=== PATIENT | male | born 1960 | race Two or more races ===

== ENCOUNTER 2020-01-30 11:08 | Outpatient (REF) | payer OTHER, SELFPAY | END 2020-01-30 11:09 | disposition home or self-care (01) | LOC: HO.LAB 11:08 | PROVIDERS: PCP Internal Medicine; Visit Provider Internal Medicine | DX: Z20.828 Contact with and (suspected) exposure to other viral communicable diseases (principal) | CPT/HCPCS: 87635 ==

== ENCOUNTER 2020-02-20 11:15 | Outpatient (REF) | payer OTHER, SELFPAY | END 2020-02-20 11:16 | disposition home or self-care (01) | LOC: HO.LAB 11:15 | PROVIDERS: PCP Internal Medicine; Visit Provider Internal Medicine | DX: Z20.828 Contact with and (suspected) exposure to other viral communicable diseases (principal) | CPT/HCPCS: C9803; U0003 ==

== ENCOUNTER → 2020-02-21 14:36 | Outpatient (BNVA) | payer OTHER, SELFPAY | PROVIDERS: PCP Internal Medicine; Referring Provider Internal Medicine; Visit Provider Internal Medicine | DX: G47.33 Obstructive sleep apnea (adult) (pediatric) (principal); E66.9 Obesity, unspecified; Z68.35 Body mass index [BMI] 35.0-35.9, adult; Z99.89 Dependence on other enabling machines and devices | CPT/HCPCS: 99212 ==

== ENCOUNTER 2020-04-26 10:31 | Outpatient (REF) | payer OTHER, SELFPAY | END 2020-04-26 10:32 | disposition home or self-care (01) | LOC: HO.LAB 10:31 | PROVIDERS: Visit Provider Internal Medicine | DX: Z20.822 Contact with and (suspected) exposure to COVID-19 (principal) | CPT/HCPCS: 36415; C9803; U0003 ==

== ENCOUNTER 2020-05-15 09:58 | Outpatient (REF) | payer OTHER, SELFPAY ==
[2020-05-15 10:49] LABS: Glucose Urine UA NEG (NEG); Leukocyte Esterase Urine 1+ (NEG); Nitrite Urine NEG (NEG); Specific Gravity - Urine <= 1.005 (1.005-1.025); Urine Blood NEG (NEG); Urine Ketones NEG (NEG); Urine Protein NEG (NEG-TRACE)
[2020-05-15 10:58] LABS: Appearance Urine CLEAR; Color Urine YELLOW
[2020-05-15 11:11] LABS: Alanine Aminotransferase 25 U/L (0-40); Albumin Level 3.9 g/dL (3.5-5.0); Alkaline Phosphatase 93 U/L (39-117); Anion Gap 11 (12-20); Aspartate Amino Transferase 25 U/L (5-37); Bilirubin Total 0.3 mg/dL (0.0-1.0); Blood Urea Nitrogen 12 mg/dL (9-16); Calcium 9.4 mg/dL (8.4-10.2); Carbon Dioxide 30 mmol/L (22-29); Chloride 102 mmol/L (96-108); Cholesterol 135 mg/dL; Estimated Glomerular Filt Rate > 60; Glucose Random 109 mg/dL (60-115); HDL Cholesterol 36 mg/dL; LDL Cholesterol Calculated 67 mg/dl; Potassium 4.6 mmol/L (3.3-5.1); Sodium 138 mmol/L (135-145); Triglycerides 163 mg/dL
[2020-05-15 11:32] LABS: Vitamin B12 389 pg/mL (200-900)
[2020-05-15 11:33] LABS: Thyroid Stimulating Hormone 3.23 uIU/mL (0.32-4.0)
[2020-05-15 11:36] LABS: Estimated Average Glucose 111 mg/dL; Hemoglobin A1c % 5.5 %
[2020-05-15 11:46] LABS: RBC Urine 0 /HPF (0); Squamous Epithelial Cell Urine TRACE /LPF
[2020-05-15 11:58] LABS: Creatinine Urine 23.85 mg/dL; Microalbum/Creatinine Ratio Ur 29.3 ug/mg cr
== END 2020-05-15 09:59 | disposition home or self-care (01) ==
LOC: HO.LAB 09:58
PROVIDERS: PCP Internal Medicine; Visit Provider Internal Medicine
DX: E11.9 Type 2 diabetes mellitus without complications (principal); E78.00 Pure hypercholesterolemia, unspecified; G31.84 Mild cognitive impairment of uncertain or unknown etiology; R80.8 Other proteinuria
CPT/HCPCS: 36415; 80053; 80061; 81001; 82043; 82607; 83036; 84443

== ENCOUNTER 2020-06-25 11:47 | Outpatient (REF) | payer OTHER, SELFPAY | END 2020-06-25 11:48 | disposition home or self-care (01) | LOC: HO.LAB 11:47 | PROVIDERS: Visit Provider Internal Medicine | DX: Z20.822 Contact with and (suspected) exposure to COVID-19 (principal) | CPT/HCPCS: 36415; C9803; U0003; U0005 ==

== ENCOUNTER 2020-07-05 10:15 | Outpatient (REF) | payer OTHER, SELFPAY ==
[2020-07-05 14:27] LABS: SARS COV2 PCR INHOUSE NEGATIVE (Negative)
== END 2020-07-05 10:16 | disposition home or self-care (01) ==
LOC: HO.LAB 10:15
PROVIDERS: Visit Provider Internal Medicine
DX: Z20.822 Contact with and (suspected) exposure to COVID-19 (principal)
CPT/HCPCS: C9803; U0003

== ENCOUNTER 2020-07-26 09:18 | Outpatient (REF) | payer OTHER, SELFPAY ==
[2020-07-26 13:13] LABS: PSA,Total (Free>4and<10) 0.37 ng/mL (0.00-4.00)
== END 2020-07-26 09:19 | disposition home or self-care (01) ==
LOC: HO.LAB 09:18
PROVIDERS: PCP Internal Medicine; Visit Provider Urology
DX: Z12.5 Encounter for screening for malignant neoplasm of prostate (principal); N40.0 Benign prostatic hyperplasia without lower urinary tract symptoms
CPT/HCPCS: 36415; 84153

== ENCOUNTER 2020-08-01 09:35 | Outpatient (REF) | payer OTHER, SELFPAY | END 2020-08-01 09:36 | disposition home or self-care (01) | LOC: HO.LAB 09:35 | PROVIDERS: Visit Provider Internal Medicine | DX: Z20.822 Contact with and (suspected) exposure to COVID-19 (principal) | CPT/HCPCS: 99212; C9803; U0003; U0005 ==

== ENCOUNTER → 2020-08-14 14:42 | Outpatient (BNVA) | payer OTHER, SELFPAY | PROVIDERS: PCP Internal Medicine; Visit Provider Internal Medicine | DX: E66.9 Obesity, unspecified (principal); G47.33 Obstructive sleep apnea (adult) (pediatric); Z99.89 Dependence on other enabling machines and devices | CPT/HCPCS: 99212 ==

== ENCOUNTER 2020-08-22 20:01 | Emergency (ER) | payer OTHER, SELFPAY ==
--- NOTE | ~2020-08-22 | CT_ITS ---
EXAMINATION: CT HEAD WITHOUT CONTRAST CLINICAL INFORMATION: Dizziness. COMPARISON: None TECHNIQUE: Contiguous axial imaging was performed from the skull base to vertex without intravenous administration of contrast. This CT examination was performed using dose optimization techniques as appropriate, variously including the following: *Automated exposure control *Adjustment of mA and/or kV according to patient size (this includes techniques or standardized protocols for targeted exams where dose is matched to indication/reason for exam; i.e. extremities or head) *Use of iterative reconstruction technique DLP: 747 mGy-cm FINDINGS: There is no evidence of acute intracranial hemorrhage or territorial infarction. No abnormal mass effect or midline shift is seen. [place] to white matter differentiation is well preserved. No extra-axial fluid collections are identified. There is generalized global volume loss. There is moderate prominence of the ventricles and the sulci. There are vascular calcifications of the internal carotid arteries bilaterally. The osseous structures and soft tissues are normal. The mastoid air cells and visualized portions of the paranasal sinuses are well aerated. CT/CT head/brain wo con IMPRESSION: No acute intracranial pathology.
[2020-08-22 20:07] VITALS: BP 105/69; PULSE 54; RESP 16; TEMP 36.2; O2SAT 96; BMI 29.2
--- NOTE | 2020-08-22 22:04 | ECG_ITS ---
Test Reason : DIZZINESS Blood Pressure : / mmHG Vent. Rate : 044 BPM Atrial Rate : 044 BPM P-R Int : 106 ms QRS Dur : 136 ms QT Int : 562 ms P-R-T Axes : 053 036 032 degrees QTc Int : 480 ms Marked sinus bradycardia with short CA Left bundle branch block Abnormal ECG When compared with ECG of 21-APR-2019 13:16, Vent. rate has decreased BY 25 BPM T wave inversion less evident in Inferior leads T wave inversion no longer evident in Lateral leads Referred By: Venessa Macias Electronically Signed By:JOHN PARIKH MD
--- NOTE | 2020-08-22 22:36 | ED.DIZZY ---
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 This lightheadedness was not associated with change in position and is described as the room spinning around the patient. He denies any fever, chills, headache, but endorses that he felt cold and a little short of breath. Otherwise, he denies any unilateral weakness/numbness/tingling and the guardian at his bedside states that patient is at his baseline in speech pattern. In addition the guardian states that there has been no change in medications. Related Data Home Medications Medication Instructions Recorded Confirmed clonazepam 1 mg tablet 1 mg PO QAM 01/06/20 01/06/20 clonidine HCl 0.2 mg tablet 0.2 mg PO BID 01/06/20 01/06/20 oxybutynin chloride 5 mg 5 mg PO DAILY 01/06/20 01/06/20 tablet,extended release 24 hr risperidone 3 mg tablet 3 mg PO BEDTIME 01/06/20 01/06/20 simvastatin 80 mg tablet mg PO 01/06/20 01/06/20 blood sugar diagnostic #10 ea 02/21/20 lancets 33 gauge #100 ea 02/21/20 tamsulosin 0.4 mg capsule 0.4 mg PO DAILY 02/21/20 naproxen 500 mg tablet 500 mg PO BID 08/01/20 Previous Rx's Medication Instructions Recorded cholecalciferol (vitamin D3) 10 10 mcg PO DAILY 30 Days #30 tab 05/13/20 mcg (400 unit) tablet esomeprazole magnesium 40 mg 40 mg PO DAILY 30 Days #30 cap 05/13/20 capsule,delayed release cefdinir 300 mg PO Q12H 7 Days #14 cap 08/23/20 Allergies Allergy/AdvReac Type Severity Reaction Status Date / Time aspirin [ASPIRIN] Allergy Severe SWELLING, Verified 08/01/20 15:35 rash Penicillins [PENICILLINS] Allergy Severe CONVULSIONS Verified 08/01/20 15:35 Review of Systems Review of Systems: Pertinent positives and negatives as stated in HPI 10 point review of systems is otherwise negative. PMFSH Past Medical History Source: nursing notes reviewed Medical History Obesity (BMI 30-39.9) DAISY on CPAP Social History Social History Smoking Status: Never smoker Smoked in Last 30 Days: No Use of substances other than those prescribed or required for medical reasons: No Advance Directives: No Advance Directives Information Provided: Yes Physical Exam Vital Signs: Vital Signs: Last Vital Signs Temp 97.1 F 08/22/20 20:07 Pulse 54 08/22/20 23:26 Resp 16 08/22/20 20:07 BP 95/58 L 08/22/20 23:26 Pulse Ox 96 08/22/20 20:07 Body Mass Index 29.2 VITAL SIGNS: Reviewed. GENERAL: Well developed, well nourished, in no acute distress. HEAD: Normocephalic/atraumatic EYES: PERRLA, EOMI EARS: Ext canals without abnormality NOSE: Nares patent bilateral OROPHARYNX: no oral lesions noted, posterior pharynx clear NECK: Supple, no adenopathy LUNGS: Normal breath sounds. No adventitious sounds or accessory muscle use. SpO2<96> CARDIOVASCULAR: Regular rate and rhythm without noted murmurs ABDOMEN: Soft, non-tender, non-distended with bowel sounds. NEUROLOGIC: Alert and oriented x 4. Strength and sensation to light touch were grossly intact x 4, no pronator drift, no facial asymmetry, cranial nerves 2-12 are grossly intact, patient noted to be ambulating without ataxia and has a steady gait. Course Course Course Narrative: 60-year-old male with history and clinical presentations suggestive of possible infection, hypovolemia, and low clinical suspicion for neurologic deficit. Other possibility is possible medication side effect. Review of all investigations to include head CT negative for acute findings other than UTI, patient has had complete resolution of lightheadedness and will receive initial dose of antibiotics here in the emergency room and be discharged in stable condition with complete course. Orthostatics are negative. All results and findings discussed with patient and guardian at bedside. MDM - Dizziness Lab Data Result diagrams: 08/22/20 22:51 08/22/20 22:51 Labs: Lab Results 08/22/20 08/22/20 08/22/20 Range/Units 22:51 22:51 22:51 WBC 11.1 H (4.8-10.8) X10*3/uL RBC 5.11 (4.60-5.80) X10*6/uL Hgb 15.1 (14.0-18.0) g/dl Hct 45.3 (42-52) % MCV 88.6 (80-98) fL MCH 29.5 (27.0-33.0) pg MCHC 33.3 (31.0-36.0) g/dl RDW 13.0 (11.0-16.0) % Plt Count 181 (160-400) X10*3/uL MPV 11.7 (9.4-12.4) fL Immature Gran % (Auto) 1.0 H (0.0-0.4) % Neut % (Auto) 41.6 L (45-73) % Lymph % (Auto) 46.6 H (20-40) % [place] % (Auto) 6.9 (2-11) % Eos % (Auto) 3.3 (0-4) % Baso % (Auto) 0.6 (0-2) % Lymph # (Auto) 5.2 H (1.2-4.9) X10*3/uL [place] # (Auto) 0.8 (0.1-1.2) X10*3/uL Eos # (Auto) 0.4 (0.0-0.4) X10*3/uL Baso # (Auto) 0.1 (0.0-0.2) X10*3/uL Abs Immat Gran (auto) 0.11 H (0.00-0.03) X10*3/uL Absolute Neuts (auto) 4.6 (2.0-8.3) X10*3/uL Absolute Nucleated RBC 0.000 (0.0-0.012) X10*3/uL Nucleated RBC % (auto) 0.0 (0.0-0.2) /100WBC Smear Tech's Comments VERIFIED PT 13.6 H (10.8-13.0) SEC INR 1.1 (0.9-1.1) Sodium 135 (135-145) mmol/L Potassium 4.2 (3.3-5.1) mmol/L Chloride 104 (96-108) mmol/L Carbon Dioxide 24 (22-29) mmol/L Anion Gap 11 L (12-20) BUN 8 L (9-16) mg/dL Creatinine 0.87 (0.5-1.4) mg/dL Estim Creat Clear Calc 109.0 Estimated GFR > 60 Random Glucose 83 (60-115) mg/dL Calcium 9.0 (8.4-10.2) mg/dL Total Bilirubin 0.6 (0.0-1.0) mg/dL AST 19 (5-37) U/L ALT 20 (0-40) U/L Alkaline Phosphatase 90 (39-117) U/L Troponin I High Sens (<3.5-35.0) ng/L Total Protein 6.6 (6.5-8.0) g/dL Albumin 3.8 (3.5-5.0) g/dL Lipase 44 (8-78) U/L Urine Color Urine Appearance Urine pH (5.0-8.0) Ur Specific [place] (1.005-1.025) Urine Protein (NEG-TRACE) MG/DL Urine Glucose (UA) (NEG) MG/DL Urine Ketones (NEG) MG/DL Urine Blood (NEG) Urine Nitrite (NEG) Ur Leukocyte Esterase (NEG) Urine RBC (0) /HPF Urine WBC (0-4) /HPF Ur Squamous Epith Cells /LPF Amorphous Sediment /LPF Urine Bacteria /LPF Ur Oval Fat Bodies (NONE) 08/22/20 08/22/20 Range/Units 22:51 23:43 WBC (4.8-10.8) X10*3/uL RBC (4.60-5.80) X10*6/uL Hgb (14.0-18.0) g/dl Hct (42-52) % MCV (80-98) fL MCH (27.0-33.0) pg MCHC (31.0-36.0) g/dl RDW (11.0-16.0) % Plt Count (160-400) X10*3/uL MPV (9.4-12.4) fL Immature Gran % (Auto) (0.0-0.4) % Neut % (Auto) (45-73) % Lymph % (Auto) (20-40) % [place] % (Auto) (2-11) % Eos % (Auto) (0-4) % Baso % (Auto) (0-2) % Lymph # (Auto) (1.2-4.9) X10*3/uL [place] # (Auto) (0.1-1.2) X10*3/uL Eos # (Auto) (0.0-0.4) X10*3/uL Baso # (Auto) (0.0-0.2) X10*3/uL Abs Immat Gran (auto) (0.00-0.03) X10*3/uL Absolute Neuts (auto) (2.0-8.3) X10*3/uL Absolute Nucleated RBC (0.0-0.012) X10*3/uL Nucleated RBC % (auto) (0.0-0.2) /100WBC Smear Tech's Comments PT (10.8-13.0) SEC INR (0.9-1.1) Sodium (135-145) mmol/L Potassium (3.3-5.1) mmol/L Chloride (96-108) mmol/L Carbon Dioxide (22-29) mmol/L Anion Gap (12-20) BUN (9-16) mg/dL Creatinine (0.5-1.4) mg/dL Estim Creat Clear Calc Estimated GFR Random Glucose (60-115) mg/dL Calcium (8.4-10.2) mg/dL Total Bilirubin (0.0-1.0) mg/dL AST (5-37) U/L ALT (0-40) U/L Alkaline Phosphatase (39-117) U/L Troponin I High Sens < 3.5 (<3.5-35.0) ng/L Total Protein (6.5-8.0) g/dL Albumin (3.5-5.0) g/dL Lipase (8-78) U/L Urine Color STRAW Urine Appearance CLEAR Urine pH 6.0 (5.0-8.0) Ur Specific [place] <= 1.005 (1.005-1.025) Urine Protein NEG (NEG-TRACE) MG/DL Urine Glucose (UA) NEG (NEG) MG/DL Urine Ketones NEG (NEG) MG/DL Urine Blood NEG (NEG) Urine Nitrite NEG (NEG) Ur Leukocyte Esterase 1+ H (NEG) Urine RBC 0-2 (0) /HPF Urine WBC 5-9 H (0-4) /HPF Ur Squamous Epith Cells TRACE /LPF Amorphous Sediment TRACE /LPF Urine Bacteria NONE /LPF Ur Oval Fat Bodies NOTED (NONE) ECG Data Attestation: I personally reviewed and interpreted this ECG as follows: Prior ECG tracings: available for review (04/21/2019 no acute changes on comparison) Interpretation: Sinus bradycardia, HR-44, LBBB, no evidence of acute ischemia, short HI -106 Discharge Plan Discharge Clinical Impression: Light-headedness, Acute UTI Patient Disposition: Xfer Other Instructions: Urinary Tract Infection in Men (ED), Lightheadedness (ED) Prescriptions: New cefdinir 300 mg capsule 300 mg PO Q12H 7 Days Qty: 14 RF: 0 No Action cholecalciferol (vitamin D3) 10 mcg (400 unit) tablet 10 mcg PO DAILY 30 Days Qty: 30 RF: 3 esomeprazole magnesium 40 mg capsule,delayed release(DR/EC) 40 mg PO DAILY 30 Days Qty: 30 RF: 3 tamsulosin 0.4 mg capsule 0.4 mg PO DAILY RF: 0 (DME) lancets 33 gauge misc See Rx Instructions ea Not Applicable DAILY Qty: 100 RF: 0 (DME) FreeStyle Lite Strips Strip See Rx Instructions strip Not Applicable DAILY Qty: 10 RF: 0 clonazepam 1 mg tablet 1 mg PO QAM RF: 0 oxybutynin chloride 5 mg tablet extended release 24hr 5 mg PO DAILY RF: 0 clonidine HCl 0.2 mg tablet 0.2 mg PO BID RF: 0 risperidone 3 mg tablet 3 mg PO BEDTIME RF: 0 simvastatin 80 mg tablet PO RF: 0 naproxen 500 mg tablet 500 mg PO BID RF: 0 Referrals: Kaye Cantrell MD [Primary Care Provider] - 2 days Print Language: Moroccan
[2020-08-22 22:58] LABS: Basophils Absolute Auto 0.1 X10*3/uL (0.0-0.2); Basophils Percent Auto 0.6 % (0-2); Eosinophils Absolute Auto 0.4 X10*3/uL (0.0-0.4); Eosinophils Percent Auto 3.3 % (0-4); Hematocrit 45.3 % (42-52); Hemoglobin 15.1 g/dl (14.0-18.0); Imm Gran Abs Auto 0.11 X10*3/uL (0.00-0.03); Lymphocytes Absolute Auto 5.2 X10*3/uL (1.2-4.9); Lymphocytes Percent Auto 46.6 % (20-40); MANUAL DIFF FLAG SCAN; Mean Corpuscular HGB Conc 33.3 g/dl (31.0-36.0); Mean Corpuscular Hemoglobin 29.5 pg (27.0-33.0); Mean Corpuscular Volume 88.6 fL (80-98); Mean Platelet Volume 11.7 fL (9.4-12.4); Monocytes Absolute Auto 0.8 X10*3/uL (0.1-1.2); Monocytes Percent Auto 6.9 % (2-11); Neutrophils Absolute Auto 4.6 X10*3/uL (2.0-8.3); Neutrophils Percent Auto 41.6 % (45-73); Platelet Count 181 X10*3/uL (160-400); Red Blood Count 5.11 X10*6/uL (4.60-5.80); SCAN SMEAR FLAG 1; White Blood Count 11.1 X10*3/uL (4.8-10.8)
[2020-08-22 23:04] LABS: INTERNATIONAL NORM RATIO 1.1 (0.9-1.1); Prothrombin Time 13.6 SEC (10.8-13.0)
--- NOTE | 2020-08-22 23:08 | PC.NURSE ---
PT OFF FLOOR TO CT.
[2020-08-22 23:20] VITALS: BP 95/55; PULSE 46
[2020-08-22 23:20] LABS: SLIDE REVIEW VERIFIED
[2020-08-22 23:21] VITALS: BP 96/62; PULSE 49
[2020-08-22 23:26] VITALS: BP 95/58; PULSE 54
[2020-08-22 23:26] LABS: Alanine Aminotransferase 20 U/L (0-40); Albumin Level 3.8 g/dL (3.5-5.0); Alkaline Phosphatase 90 U/L (39-117); Anion Gap 11 (12-20); Aspartate Amino Transferase 19 U/L (5-37); Bilirubin Total 0.6 mg/dL (0.0-1.0); Blood Urea Nitrogen 8 mg/dL (9-16); Carbon Dioxide 24 mmol/L (22-29); Chloride 104 mmol/L (96-108); Estimated Glomerular Filt Rate > 60; Glucose Random 83 mg/dL (60-115); Lipase 44 U/L (8-78); Potassium 4.2 mmol/L (3.3-5.1); Sodium 135 mmol/L (135-145); Total Protein 6.6 g/dL (6.5-8.0)
[2020-08-22 23:29] LABS: Troponin-I High Sensitivity < 3.5 ng/L (<3.5-35.0)
--- NOTE | 2020-08-22 23:44 | PC.NURSE ---
PT AMB TO BATHROOM, STEADY GAIT. REPORTS FEELING BETTER WHEN LYING IN BED. INCREASED DIZZINESS UPON STANDING. ORTHOSTATICS NEGATIVE, MD AWARE. URINE SAMPLE OBTAINED AND SENT TO LAB FOR PROCESSING.AWAITING RESULTS AND MD REEVAL. PT AND GUARDIAN AWARE OF PLAN OF CARE.
[2020-08-22 23:55] LABS: Glucose Urine UA NEG (NEG); Leukocyte Esterase Urine 1+ (NEG); Nitrite Urine NEG (NEG); Specific Gravity - Urine <= 1.005 (1.005-1.025); UACC Culture Trigger YES; Urine Blood NEG (NEG); Urine Ketones NEG (NEG); Urine Protein NEG (NEG-TRACE)
[2020-08-22 23:58] LABS: Appearance Urine CLEAR; Color Urine STRAW
[2020-08-23 00:18] LABS: Amorphous Sediment Urine TRACE /LPF; Oval Fat Bodies Urine NOTED; RBC Urine 0-2 /HPF (0); Squamous Epithelial Cell Urine TRACE /LPF
[2020-08-23] MEDS: cefTRIAXone sodium 1 GM, Lidocaine HCl 1 % MPF 2.1 ML IM (01:29)
== END 2020-08-23 01:46 | disposition home or self-care (01) ==
PROVIDERS: Emergency Provider Student in an Organized Health Care Education/Training Program; PCP Internal Medicine
DX: R42 Dizziness and giddiness (principal); N39.0 Urinary tract infection, site not specified
CPT/HCPCS: 36415; 51798; 70450; 80053; 81001; 81003; 83690; 84484; 85025; 85610; 87086; 93005; 96372; 99284; J0696

== ENCOUNTER 2020-08-29 09:37 | Outpatient (REF) | payer OTHER, SELFPAY ==
[2020-08-29 11:17] LABS: Alanine Aminotransferase 21 U/L (0-40); Albumin Level 3.9 g/dL (3.5-5.0); Alkaline Phosphatase 92 U/L (39-117); Anion Gap 11 (12-20); Aspartate Amino Transferase 22 U/L (5-37); Bilirubin Total 0.3 mg/dL (0.0-1.0); Blood Urea Nitrogen 12 mg/dL (9-16); Carbon Dioxide 21 mmol/L (22-29); Chloride 107 mmol/L (96-108); Estimated Glomerular Filt Rate > 60; Glucose Random 83 mg/dL (60-115); Potassium 4.4 mmol/L (3.3-5.1); Sodium 135 mmol/L (135-145); Total Protein 6.8 g/dL (6.5-8.0)
== END 2020-08-29 09:38 | disposition home or self-care (01) ==
LOC: HO.LAB 09:37
PROVIDERS: PCP Internal Medicine; Visit Provider Internal Medicine
DX: E78.2 Mixed hyperlipidemia (principal); F21 Schizotypal disorder; G47.33 Obstructive sleep apnea (adult) (pediatric); N40.1 Benign prostatic hyperplasia with lower urinary tract symptoms
CPT/HCPCS: 36415; 80053

== ENCOUNTER → 2020-09-09 12:49 | Outpatient (BNVA) | payer OTHER, SELFPAY | PROVIDERS: PCP Internal Medicine; Visit Provider Internal Medicine Gastroenterology | CPT/HCPCS: Q3014 ==

== ENCOUNTER 2020-10-16 10:12 | Outpatient (REF) | payer OTHER, SELFPAY ==
--- NOTE | 2020-10-16 10:38 | ECG_ITS ---
Test Reason : MEDS Blood Pressure : / mmHG Vent. Rate : 049 BPM Atrial Rate : 049 BPM P-R Int : 110 ms QRS Dur : 134 ms QT Int : 470 ms P-R-T Axes : 065 039 120 degrees QTc Int : 424 ms Sinus bradycardia with short NV Possible Left atrial enlargement Cannot rule oot preexcitation Abnormal ECG When compared with ECG of 22-AUG-2020 22:22, No significant changes seen Referred By: Parish Hackett Electronically Signed By:Sameer Andres
[2020-10-16 11:14] LABS: MANUAL DIFF FLAG NO
[2020-10-16 11:25] LABS: Basophils Absolute Auto 0.1 X10*3/uL (0.0-0.2); Basophils Percent Auto 0.6 % (0-2); Eosinophils Absolute Auto 0.2 X10*3/uL (0.0-0.4); Eosinophils Percent Auto 2.3 % (0-4); Hematocrit 48.4 % (42-52); Imm Gran Abs Auto 0.11 X10*3/uL (0.00-0.03); Imm Gran Pct Auto 1.1 % (0.0-0.4); Lymphocytes Absolute Auto 2.8 X10*3/uL (1.2-4.9); Lymphocytes Percent Auto 28.6 % (20-40); Mean Corpuscular HGB Conc 33.1 g/dl (31.0-36.0); Mean Corpuscular Hemoglobin 29.7 pg (27.0-33.0); Mean Platelet Volume 11.6 fL (9.4-12.4); Monocytes Absolute Auto 0.7 X10*3/uL (0.1-1.2); Monocytes Percent Auto 7.2 % (2-11); Neutrophils Absolute Auto 5.8 X10*3/uL (2.0-8.3); Neutrophils Percent Auto 60.2 % (45-73); Platelet Count 189 X10*3/uL (160-400); Red Blood Count 5.38 X10*6/uL (4.60-5.80); Red Cell Distribution Width 13.4 % (11.0-16.0); White Blood Count 9.7 X10*3/uL (4.8-10.8)
[2020-10-16 11:28] LABS: Glucose Urine UA NEG (NEG); Leukocyte Esterase Urine 1+ (NEG); Nitrite Urine NEG (NEG); Urine Blood NEG (NEG); Urine Ketones NEG (NEG); Urine Protein NEG (NEG-TRACE)
[2020-10-16 11:39] LABS: Appearance Urine CLEAR; Color Urine YELLOW
[2020-10-16 11:39] LABS: Estimated Average Glucose 117 mg/dL; Hemoglobin A1c % 5.7 %
[2020-10-16 12:11] LABS: Alanine Aminotransferase 15 U/L (0-40); Albumin Level 4.1 g/dL (3.5-5.0); Alkaline Phosphatase 104 U/L (39-117); Anion Gap 13 (12-20); Aspartate Amino Transferase 19 U/L (5-37); Bilirubin Total 0.4 mg/dL (0.0-1.0); Blood Urea Nitrogen 12 mg/dL (9-16); Calcium 9.7 mg/dL (8.4-10.2); Carbon Dioxide 24 mmol/L (22-29); Chloride 106 mmol/L (96-108); Cholesterol 132 mg/dL; Estimated Glomerular Filt Rate > 60; Glucose Fasting 87 mg/dL (60-99); HDL Cholesterol 34 mg/dL; LDL Cholesterol Calculated 64 mg/dl; Potassium 4.8 mmol/L (3.3-5.1); Sodium 138 mmol/L (135-145); Total Protein 7.2 g/dL (6.5-8.0); Triglycerides 171 mg/dL
[2020-10-16 12:35] LABS: Prostate Specific Antigen Scr 0.38 ng/mL (<0.05-4.0)
[2020-10-16 12:35] LABS: Amorphous Sediment Urine 1+ /LPF; Bacteria Urine TRACE /LPF; RBC Urine 0-2 /HPF (0); WBC Clumps Urine NOTED
[2020-10-16 12:44] LABS: Syphilis Screen Reactive (Nonreactive)
[2020-10-17 04:19] LABS: HBS Num1 155.61 mIU/mL (0-7.99); ~HepC Num1 1.61 S/CO (0.00-0.79); ~Hepatitis B Surface Antibody REACTIVE (Nonreactive); ~Hepatitis C Antibody Reactive (Nonreactive)
[2020-10-17 04:25] LABS: HBc Num1 10.52 S/CO (0.00-0.79); HBsAGNum1 0.21 S/CO (0.00-0.99); Hepatitis B Surface Antigen Negative (Negative)
[2020-10-17 05:15] LABS: HBc Num2 10.21 S/CO; HBc Num3 10.18 S/CO; Hepatitis B Core Antibody Reactive (Nonreactive)
[2020-10-17 17:21] LABS: Prolactin 18.8 ng/mL (2.0-18.0)
[2020-10-21 11:42] LABS: Vitamin B1 10 nmol/L (8-30)
[2020-10-22 10:08] LABS: RPR Quantitative Reactive 1:2 (Nonreactive)
[2020-10-22 10:09] LABS: T.Pallidum Particle Agg Test Reactive (Nonreactive)
== END 2020-10-16 10:13 | disposition home or self-care (01) ==
LOC: HO.LAB 10:12
PROVIDERS: Visit Provider Psychiatry & Neurology Child & Adolescent Psychiatry
DX: Z01.84 Encounter for antibody response examination (principal); Z11.3 Encounter for screening for infections with a predominantly sexual mode of transmission; Z11.59 Encounter for screening for other viral diseases; Z79.899 Other long term (current) drug therapy
CPT/HCPCS: 36415; 80053; 80061; 81001; 82746; 83036; 84146; 84153; 84425; 84443; 85025; 86592; 86704; 86706; 86780; 86803; 87340; 93005

== ENCOUNTER 2020-10-22 11:31 | Emergency (ER) | payer OTHER, SELFPAY ==
[2020-10-22 11:54] VITALS: BP 141/90; PULSE 76; RESP 18; TEMP 37.1; O2SAT 93; BMI 33.0
--- NOTE | 2020-10-22 14:17 | ED_ITS ---
HPI - General Adult General Chief complaint: General Medical Stated complaint: Unbalanced, weakness Time Seen by Provider: 10/22/20 13:44 Source: patient and family Mode of arrival: ambulatory Limitations: no limitations History of Present Illness HPI narrative: Patient is brought to the emergency room by staff from the net service program. The staff reports that the patient was informed yesterday that he tested positive for hepatitis-C and syphilis. They are concerned that they do not have a follow-up plan. They also reported starting today the patient seemed to have unsteady gait. Patient reports to be asymptomatic. Patient states that he was treated for syphilis 20 years ago, denies any skin lesions. Related Data Home Medications Medication Instructions Recorded Confirmed clonazepam 1 mg tablet 1 mg PO QAM 01/06/20 01/06/20 clonidine HCl 0.2 mg tablet 0.2 mg PO BID 01/06/20 01/06/20 oxybutynin chloride 5 mg 5 mg PO DAILY 01/06/20 01/06/20 tablet,extended release 24 hr risperidone 3 mg tablet 3 mg PO BEDTIME 01/06/20 01/06/20 simvastatin 80 mg tablet mg PO 01/06/20 01/06/20 blood sugar diagnostic #10 ea 02/21/20 lancets 33 gauge #100 ea 02/21/20 tamsulosin 0.4 mg capsule 0.4 mg PO DAILY 02/21/20 naproxen 500 mg tablet 500 mg PO BID 08/01/20 Previous Rx's Medication Instructions Recorded cholecalciferol (vitamin D3) 10 10 mcg PO DAILY 30 Days #30 tab 05/13/20 mcg (400 unit) tablet esomeprazole magnesium 40 mg 40 mg PO DAILY 30 Days #30 cap 05/13/20 capsule,delayed release cefdinir 300 mg PO Q12H 7 Days #14 cap 08/23/20 Allergies Allergy/AdvReac Type Severity Reaction Status Date / Time aspirin [ASPIRIN] Allergy Severe SWELLING, Verified 10/22/20 11:54 rash Penicillins [PENICILLINS] Allergy Severe CONVULSIONS Verified 10/22/20 11:54 Review of Systems Review of Systems: Constitutional : No Weight loss, No Fever, No Chills, No Night Sweats, No Fatigue, No Malaise ENT/Mouth : No Hearing loss, No Ear Pain, No Nasal Congestion, No Sinus Pain, No Hoarseness, No sore throat, No Rhinorrhea, No Swallowing Difficulty Eyes: No Eye Pain, No Swelling, No Redness, No Foreign Body, No Discharge, No Vision Changes Cardiovascular : No Chest Pain, No SOB, No Dyspnea on Exertion, No Orthopnea, No Edema, No Palpitations Respiratory : No Cough, No Sputum, No Wheezing, No Smoke Exposure, No Dyspnea Gastrointestinal : No Nausea, No Vomiting, No Diarrhea, No Constipation, No abdominal Pain, No Hematochezia, No Melena Genitourinary : no irregular bleeding, No Dysuria, No Urinary Frequency, No Hematuria, No Urinary Incontinence, No Urgency, No Flank Pain, No Urinary Flow Changes, No Hesitancy Musculoskeletal : No joint pain, No Myalgias, No Joint Swelling Skin : No Skin Lesions, No rash Neuro : No Weakness, No Numbness, No Paresthesias, No Loss of Consciousness, No Dizziness, No Headache Psych : Complaining of anxiety, No Depression, No SI/HI/AH/VH, No Social Issues, Heme/Lymph: No Bruising, No Bleeding,No Lymphadenopathy Endocrine : No Polyuria, No Polydipsia, No Temperature Intolerance [facility] Past Medical History Medical History Obesity (BMI 30-39.9) DAISY on CPAP Social History Social History Advance Directives: Yes Advance Directives Information Provided: Yes Advance Directives on File: No Physical Exam Vital Signs: Vital Signs: Last Vital Signs Temp 98.8 F 10/22/20 11:54 Pulse 74 10/22/20 14:30 Resp 16 10/22/20 14:30 BP 103/70 10/22/20 14:30 Pulse Ox 95 10/22/20 14:30 Body Mass Index 33.0 Appearance: Alert. Oriented X3. No acute distress. Eyes: Pupils equal, round and reactive to light. ENT: Pharynx normal. Neck: Normal inspection. Neck supple. No lymph nodes noted. No crepitus CVS: Normal heart rate and rhythm. Pulses normal. Normal S1 and S2 Respiratory: No respiratory distress. Breath sounds normal. No Wheezing. No rales Abdomen: Soft and nontender. No rigidity. No distention. Skin: Skin warm and dry. Normal skin color. Normal skin turgor. Extremities: No lower extremity edema. No lower extremity edema. No Lacerations. No Rash Neuro: Oriented X 3. No motor deficit. No sensory deficit. Moving all extermities. No slurred speech. Cranial nerves 2-12 grossly intact. Patient's gait is normal Course Course Course Narrative: I discussed the labs and the patient with Dr. Nelson. At this time, we will not start any treatment for syphilis, as it is not warranted. However, patient is to follow-up with her for treatment of hepatitis-C. Discharge Plan Discharge Clinical Impression: Abnormal laboratory test result Patient Disposition: Home, Self-Care Instructions: Hepatitis C (ED) Additional Instructions: Please follow-up with your primary care physician tomorrow. If you have any worsening or new symptoms, please return to the emergency room or call 911 Prescriptions: No Action cholecalciferol (vitamin D3) 10 mcg (400 unit) tablet 10 mcg PO DAILY 30 Days Qty: 30 RF: 3 esomeprazole magnesium 40 mg capsule,delayed release(DR/EC) 40 mg PO DAILY 30 Days Qty: 30 RF: 3 cefdinir 300 mg capsule 300 mg PO Q12H 7 Days Qty: 14 RF: 0 tamsulosin 0.4 mg capsule 0.4 mg PO DAILY RF: 0 (DME) lancets 33 gauge misc See Rx Instructions ea Not Applicable DAILY Qty: 100 RF: 0 (DME) FreeStyle Lite Strips Strip See Rx Instructions strip Not Applicable DAILY Qty: 10 RF: 0 clonazepam 1 mg tablet 1 mg PO QAM RF: 0 oxybutynin chloride 5 mg tablet extended release 24hr 5 mg PO DAILY RF: 0 clonidine HCl 0.2 mg tablet 0.2 mg PO BID RF: 0 risperidone 3 mg tablet 3 mg PO BEDTIME RF: 0 simvastatin 80 mg tablet PO RF: 0 naproxen 500 mg tablet 500 mg PO BID RF: 0 Referrals: Lexus Nelson MD [Physician] - 2 days
[2020-10-22 14:30] VITALS: BP 103/70; PULSE 74; RESP 16; O2SAT 95
== END 2020-10-22 15:17 | disposition home or self-care (01) ==
PROVIDERS: Emergency Provider Emergency Medicine
DX: B19.20 Unspecified viral hepatitis C without hepatic coma (principal)
CPT/HCPCS: 99282; 99284

== ENCOUNTER 2020-11-05 14:57 | Outpatient (REF) | payer OTHER, SELFPAY ==
[2020-11-06 04:40] LABS: HIV AB/AG Nonreactive (Nonreactive); HIV Num 1 0.05 S/CO (0.00-0.99)
[2020-11-06 04:54] LABS: Syphilis Screen Reactive (Nonreactive)
[2020-11-11 12:03] LABS: RPR Quantitative Reactive 1:2 (Nonreactive)
[2020-11-11 12:04] LABS: T.Pallidum Particle Agg Test Reactive (Nonreactive)
== END 2020-11-05 14:58 | disposition home or self-care (01) ==
LOC: HO.LAB 14:57
PROVIDERS: PCP General Practice; Visit Provider Internal Medicine
DX: Z11.4 Encounter for screening for human immunodeficiency virus [HIV] (principal); A53.9 Syphilis, unspecified; K75.9 Inflammatory liver disease, unspecified
CPT/HCPCS: 36415; 86592; 86780; 87389; 99202

== ENCOUNTER 2020-11-21 10:38 | Outpatient (REF) | payer OTHER, SELFPAY ==
[2020-11-21 11:20] LABS: Glucose Urine UA NEG (NEG); Leukocyte Esterase Urine NEG (NEG); Nitrite Urine NEG (NEG); Specific Gravity - Urine <= 1.005 (1.005-1.025); Urine Blood NEG (NEG); Urine Ketones NEG (NEG); Urine Protein NEG (NEG-TRACE)
[2020-11-21 11:33] LABS: Appearance Urine HAZY; Color Urine YELLOW
[2020-11-21 11:43] LABS: RBC Urine 0 /HPF (0); WBC Urine 0-2 /HPF (0-4)
[2020-11-21 12:29] LABS: PSA,Total (Free>4and<10) 0.28 ng/mL (0.00-4.00)
== END 2020-11-21 10:39 | disposition home or self-care (01) ==
LOC: HO.LAB 10:38
PROVIDERS: PCP General Practice; Visit Provider Urology
DX: N40.1 Benign prostatic hyperplasia with lower urinary tract symptoms (principal); N13.8 Other obstructive and reflux uropathy; R39.15 Urgency of urination; Z12.5 Encounter for screening for malignant neoplasm of prostate
CPT/HCPCS: 36415; 81001; 84153; 87086

== ENCOUNTER 2020-11-22 15:16 | Emergency (ER) | payer OTHER, SELFPAY ==
[2020-11-22 15:40] VITALS: BP 89/49; PULSE 63; RESP 18; TEMP 36.9; O2SAT 100; BMI 31.9
--- NOTE | 2020-11-22 15:46 | ECG_ITS ---
Test Reason : HYPOTENSION Blood Pressure : / mmHG Vent. Rate : 055 BPM Atrial Rate : 055 BPM P-R Int : 088 ms QRS Dur : 152 ms QT Int : 500 ms P-R-T Axes : 096 039 214 degrees QTc Int : 478 ms Sinus bradycardia with short NV Left ventricular hypertrophy with QRS widening and repolarization abnormality Abnormal ECG When compared with ECG of 16-OCT-2020 10:55, No significant change was found Referred By: Generic ED Physician Electronically Signed By:GABY CUNNINGHAM
[2020-11-22 16:18] LABS: Basophils Absolute Auto 0.1 X10*3/uL (0.0-0.2); Basophils Percent Auto 0.6 % (0-2); Eosinophils Absolute Auto 0.4 X10*3/uL (0.0-0.4); Eosinophils Percent Auto 3.3 % (0-4); Hematocrit 45.3 % (42-52); Imm Gran Abs Auto 0.12 X10*3/uL (0.00-0.03); Imm Gran Pct Auto 1.1 % (0.0-0.4); Lymphocytes Absolute Auto 4.2 X10*3/uL (1.2-4.9); Lymphocytes Percent Auto 39.5 % (20-40); MANUAL DIFF FLAG NO; Mean Corpuscular HGB Conc 33.1 g/dl (31.0-36.0); Mean Corpuscular Hemoglobin 29.8 pg (27.0-33.0); Mean Corpuscular Volume 90.1 fL (80-98); Mean Platelet Volume 11.6 fL (9.4-12.4); Monocytes Absolute Auto 0.8 X10*3/uL (0.1-1.2); Monocytes Percent Auto 7.2 % (2-11); Neutrophils Absolute Auto 5.2 X10*3/uL (2.0-8.3); Neutrophils Percent Auto 48.3 % (45-73); Platelet Count 196 X10*3/uL (160-400); Red Blood Count 5.03 X10*6/uL (4.60-5.80); Red Cell Distribution Width 13.1 % (11.0-16.0); White Blood Count 10.7 X10*3/uL (4.8-10.8)
[2020-11-22 16:45] LABS: Anion Gap 13 (12-20); Blood Urea Nitrogen 14 mg/dL (9-16); Calcium 9.1 mg/dL (8.4-10.2); Carbon Dioxide 22 mmol/L (22-29); Chloride 106 mmol/L (96-108); Creatinine Clr Calc Pharmacy 93.9; Estimated Glomerular Filt Rate > 60; Glucose Random 86 mg/dL (60-115); Potassium 4.4 mmol/L (3.3-5.1); Sodium 137 mmol/L (135-145)
[2020-11-22 20:01] VITALS: BP 92/55; PULSE 46; RESP 16; O2SAT 98
--- NOTE | 2020-11-22 20:10 | ED.GENADULT ---
HPI - General Adult General Chief complaint: General Medical Stated complaint: low blood pessure Time Seen by Provider: 11/22/20 20:10 Source: patient, family and neurosurgical nurse Mode of arrival: ambulatory Limitations: no limitations History of Present Illness HPI narrative: 60-year-old male multiple comorbidity including cognitive challenge came in with his healthcare proxy at the bedside, patient was seen by his PCP 4 days ago found to have a borderline low blood pressure patient was monitored for the last 4 days for blood pressure which remained systolic blood pressure in the 90s, patient has no complaint with low blood pressure, reviewing patient chart patient's blood pressure mostly run in that range same as heart rate non inguinal 40s in the past. Patient is not showing signs of dehydration or infection, patient at his baseline normal, no symptoms of dizziness. Related Data Home Medications Medication Instructions Recorded Confirmed clonazepam 1 mg tablet 1 mg PO QAM 01/06/20 01/06/20 clonidine HCl 0.2 mg tablet 0.2 mg PO BID 01/06/20 01/06/20 oxybutynin chloride 5 mg 5 mg PO DAILY 01/06/20 01/06/20 tablet,extended release 24 hr risperidone 3 mg tablet 3 mg PO BEDTIME 01/06/20 01/06/20 simvastatin 80 mg tablet mg PO 01/06/20 01/06/20 blood sugar diagnostic #10 ea 02/21/20 lancets 33 gauge #100 ea 02/21/20 tamsulosin 0.4 mg capsule 0.4 mg PO DAILY 02/21/20 naproxen 500 mg tablet 500 mg PO BID 08/01/20 Previous Rx's Medication Instructions Recorded cholecalciferol (vitamin D3) 10 10 mcg PO DAILY 30 Days #30 tab 05/13/20 mcg (400 unit) tablet esomeprazole magnesium 40 mg 40 mg PO DAILY 30 Days #30 cap 05/13/20 capsule,delayed release cefdinir 300 mg capsule 300 mg PO Q12H 7 Days #14 cap 08/23/20 hydroxyzine HCl 50 mg tablet 50 mg PO TID PRN #14 tab 10/22/20 doxycycline hyclate 100 mg capsule 100 mg PO BID 30 Days #60 cap 11/05/20 Allergies Allergy/AdvReac Type Severity Reaction Status Date / Time aspirin [ASPIRIN] Allergy Severe SWELLING, Verified 10/22/20 11:54 rash Penicillins [PENICILLINS] Allergy Severe CONVULSIONS Verified 10/22/20 11:54 Review of Systems Review of Systems: All other systems are reviewed and are negative Constitutional: Reports as per HPI and Reports no additional constitutional complaints Eyes: Reports as per HPI and Reports no additional eye complaints Reports system reviewed and no additional complaints, except as documented Cardiovascular: Reports as per HPI and Reports no additional cardiovascular complaints Respiratory: Reports as per HPI and Reports no additional respiratory complaints Gastrointestinal: Reports as per HPI and Reports no additional gastrointestinal complaints Genitourinary: Reports no additional female genitourinary complaints Musculoskeletal: Reports no additional musculoskeletal complaints Skin/Breast: Reports system reviewed and no additional complaints, except as docu Psychiatric: Reports no additional psychiatric complaints Endocrine: Reports no additional endocrine complaints Hematologic/Lymphatic: Reports no additional hematologic/lymphatic complaints Allergic/Immunologic: Reports no additional allergic/immunologic complaints Reports system reviewed and no additional complaints, except as documented and Reports Abnormal speech present [facility] Past Medical History Medical History Hepatitis Obesity (BMI 30-39.9) DAISY on CPAP Syphilis Social History Social History Advance Directives: Yes Advance Directives Information Provided: Yes Advance Directives on File: No Physical Exam Vital Signs: Vital Signs: Last Vital Signs Temp 98.4 F 11/22/20 21:57 Pulse 56 11/22/20 21:57 Resp 14 11/22/20 21:57 BP 107/68 11/22/20 21:57 Pulse Ox 97 11/22/20 21:57 Body Mass Index 31.9 Vital signs have been reviewed as appeared to be correct. Blood pressure normal. Heart rate low . Respiration rate normal. Temperature normal. Oxygen saturation normal. Appearance: Alert. Oriented X3. No acute distress. Head: Normal external exam. Normocephalic. Atraumatic. No Manz[place] signs noted. No raccoon eyes noted Eyes: PERRLA. EOMI. Conjunctiva and sclera normal. Eyelids normal. ENT: TM's Normal. Pharynx normal. Uvula midline. Moist mucous membranes. No trismus noted. No drooling noted. No muffled voice noted. Neck: Normal inspection. Neck supple. FROM. No adenopathy. Thyroid Normal. No meningeal signs. No neck mass noted. CVS: Normal heart rate and rhythm. Heart sound normal. No murmurs noted. Pulses normal throughout. Respiratory: No respiratory distress. Painless inspiration. Breath sounds normal. No wheezes/rales/rhonchi noted. Chest nontender. No accessory muscle usage noted or decreased air movement noted. Abdomen: Soft and nontender. Bowel sounds normal in all 4 quadrants. No distention noted. No organomegaly noted. No visible injury noted. Back: No CVA tenderness. Full range of motion noted. Skin: Skin warm and dry. Normal skin color. Normal skin turgor. No rashes/lesions/lacerations noted. Extremities: No lower extremity edema. Extremities exhibit normal range of motion. Extremities nontender. Neuro: Oriented X 3. Cranial nerve exam: II-XII are grossly intact No motor deficit. No sensory deficit. Reflexes normal. Course Course Course Narrative: Assessment and plan. 52-year-old male came in with his healthcare proxy from PCP office for evaluation of blood pressure in the 90s, patient physical exam is unremarkable, patient has no symptoms, patient at his baseline normal, vital sign was reviewed in the record he tends to have low blood pressure normally systolic in the 90s. Patient in the emergency department show no sign of infection, no sign of hypovolemia, patient received IV fluid which raised blood pressure to 107/68 and heart rate of 56. Patient still at baseline no symptoms. Medical Decision Making Lab Data Result diagrams: 11/22/20 16:12 11/22/20 16:12 Labs: Lab Results 11/22/20 11/22/20 11/22/20 Range/Units 16:12 16:12 21:35 WBC 10.7 (4.8-10.8) X10*3/uL RBC 5.03 (4.60-5.80) X10*6/uL Hgb 15.0 (14.0-18.0) g/dl Hct 45.3 (42-52) % MCV 90.1 (80-98) fL MCH 29.8 (27.0-33.0) pg MCHC 33.1 (31.0-36.0) g/dl RDW 13.1 (11.0-16.0) % Plt Count 196 (160-400) X10*3/uL MPV 11.6 (9.4-12.4) fL Immature Gran % (Auto) 1.1 H (0.0-0.4) % Neut % (Auto) 48.3 (45-73) % Lymph % (Auto) 39.5 (20-40) % [place] % (Auto) 7.2 (2-11) % Eos % (Auto) 3.3 (0-4) % Baso % (Auto) 0.6 (0-2) % Lymph # (Auto) 4.2 (1.2-4.9) X10*3/uL [place] # (Auto) 0.8 (0.1-1.2) X10*3/uL Eos # (Auto) 0.4 (0.0-0.4) X10*3/uL Baso # (Auto) 0.1 (0.0-0.2) X10*3/uL Abs Immat Gran (auto) 0.12 H (0.00-0.03) X10*3/uL Absolute Neuts (auto) 5.2 (2.0-8.3) X10*3/uL Absolute Nucleated RBC 0.000 (0.0-0.012) X10*3/uL Nucleated RBC % (auto) 0.0 (0.0-0.2) /100WBC Sodium 137 (135-145) mmol/L Potassium 4.4 (3.3-5.1) mmol/L Chloride 106 (96-108) mmol/L Carbon Dioxide 22 (22-29) mmol/L Anion Gap 13 (12-20) BUN 14 (9-16) mg/dL Creatinine 0.90 (0.5-1.4) mg/dL Estim Creat Clear Calc 93.9 Estimated GFR > 60 Random Glucose 86 (60-115) mg/dL Calcium 9.1 D (8.4-10.2) mg/dL Urine Color STRAW Urine Appearance CLEAR Urine pH 6.0 (5.0-8.0) Ur Specific [place] 1.015 (1.005-1.025) Urine Protein NEG (NEG-TRACE) MG/DL Urine Glucose (UA) NEG (NEG) MG/DL Urine Ketones NEG (NEG) MG/DL Urine Blood NEG (NEG) Urine Nitrite NEG (NEG) Ur Leukocyte Esterase NEG (NEG) Discharge Plan Discharge Clinical Impression: Encounter for medical screening examination Patient Disposition: Home, Self-Care Instructions: Hypotension (ED) Prescriptions: No Action cholecalciferol (vitamin D3) 10 mcg (400 unit) tablet 10 mcg PO DAILY 30 Days Qty: 30 RF: 3 esomeprazole magnesium 40 mg capsule,delayed release(DR/EC) 40 mg PO DAILY 30 Days Qty: 30 RF: 3 cefdinir 300 mg capsule 300 mg PO Q12H 7 Days Qty: 14 RF: 0 hydroxyzine HCl 50 mg tablet 50 mg PO TID PRN (Reason: itching) Qty: 14 RF: 0 tamsulosin 0.4 mg capsule 0.4 mg PO DAILY RF: 0 (DME) lancets 33 gauge misc See Rx Instructions ea Not Applicable DAILY Qty: 100 RF: 0 (DME) FreeStyle Lite Strips Strip See Rx Instructions strip Not Applicable DAILY Qty: 10 RF: 0 clonazepam 1 mg tablet 1 mg PO QAM RF: 0 oxybutynin chloride 5 mg tablet extended release 24hr 5 mg PO DAILY RF: 0 clonidine HCl 0.2 mg tablet 0.2 mg PO BID RF: 0 risperidone 3 mg tablet 3 mg PO BEDTIME RF: 0 simvastatin 80 mg tablet PO RF: 0 naproxen 500 mg tablet 500 mg PO BID RF: 0 doxycycline hyclate 100 mg capsule 100 mg PO BID 30 Days Qty: 60 RF: 0 Referrals: Physician,Unknown [Primary Care Provider] - 2 days
[2020-11-22] MEDS: 0.9 % Sodium Chloride 1,000 ML 999 ML IVCONT (20:30)
[2020-11-22 21:30] VITALS: BP 97/58; PULSE 56; RESP 16; O2SAT 98
[2020-11-22 21:41] LABS: Glucose Urine UA NEG (NEG); Leukocyte Esterase Urine NEG (NEG); Nitrite Urine NEG (NEG); Specific Gravity - Urine 1.015 (1.005-1.025); Urine Blood NEG (NEG); Urine Ketones NEG (NEG); Urine Protein NEG (NEG-TRACE)
[2020-11-22 21:44] LABS: Appearance Urine CLEAR; Color Urine STRAW
[2020-11-22 21:57] VITALS: BP 107/68; PULSE 56; RESP 14; TEMP 36.9; O2SAT 97
== END 2020-11-22 22:33 | disposition home or self-care (01) ==
PROVIDERS: Emergency Provider Emergency Medicine
DX: Z03.89 Encounter for observation for other suspected diseases and conditions ruled out (principal); R03.1 Nonspecific low blood-pressure reading
CPT/HCPCS: 36415; 80048; 81003; 85025; 93005; 96360; 99284

== ENCOUNTER 2020-11-25 12:51 | Emergency (ER) | payer OTHER, SELFPAY ==
--- NOTE | ~2020-11-25 | XR_ITS ---
EXAMINATION: XR CHEST CLINICAL INFORMATION: Weakness COMPARISON: None TECHNIQUE: AP portable view of the chest was obtained. FINDINGS: No significant abnormality is noted involving the heart, lungs, mediastinum, bony thorax or soft tissues. XR/XR chest 1V IMPRESSION: No acute parenchymal disease.
[2020-11-25 13:11] VITALS: BP 84/55; PULSE 55; RESP 16; TEMP 36.2; O2SAT 96; BMI 31.9
--- NOTE | 2020-11-25 14:53 | ED.GENADULT ---
HPI - General Adult General Chief complaint: Recheck/Abnormal Lab/Rx Stated complaint: low blood presssure Time Seen by Provider: 11/25/20 14:14 Source: patient and old records reviewed Mode of arrival: ambulatory Limitations: altered mental status and other (care home staff give most of the history) History of Present Illness HPI narrative: at times the BP is in the 70s per staff but his HR is in 60s at that time MD complaint: low blood pressures Onset (ago): day(s) (5) Severity: moderate Relieving factors: none Exacerbating factors: other (has had episodes of dizziness, low blood pressures given clonidine 0.2mg BID, lisinoprol 2.5mg daily he was not taken off any BP medications at this time) Associated symptoms: other (when his blood pressure is low he feels weak and dizzy) Treatments prior to arrival: none Related Data Home Medications Medication Instructions Recorded Confirmed clonidine HCl 0.2 mg tablet 0.2 mg PO BID 01/06/20 11/25/20 oxybutynin chloride 5 mg 5 mg PO DAILY 01/06/20 11/25/20 tablet,extended release 24 hr risperidone 3 mg tablet 3 mg PO BEDTIME 01/06/20 11/25/20 simvastatin 80 mg tablet 80 mg PO BEDTIME 01/06/20 11/25/20 tamsulosin 0.4 mg capsule 0.4 mg PO DAILY 02/21/20 11/25/20 cholecalciferol (vitamin D3) 10 10 mcg PO DAILY 11/25/20 11/25/20 mcg (400 unit) tablet (Vitamin D3) clonazepam 1 mg tablet 1 tab PO BID 11/25/20 11/25/20 fluoxetine 20 mg capsule 1 cap PO QAM 11/25/20 11/25/20 lisinopril 2.5 mg tablet 1 tab PO DAILY 11/25/20 11/25/20 melatonin 5 mg tablet 2 tab PO BEDTIME 11/25/20 11/25/20 Previous Rx's Medication Instructions Recorded esomeprazole magnesium 40 mg 40 mg PO DAILY 30 Days #30 cap 05/13/20 capsule,delayed release doxycycline hyclate 100 mg capsule 100 mg PO BID 30 Days #60 cap 11/05/20 Allergies Allergy/AdvReac Type Severity Reaction Status Date / Time aspirin [ASPIRIN] Allergy Severe SWELLING, Verified 10/22/20 11:54 rash Penicillins [PENICILLINS] Allergy Severe CONVULSIONS Verified 10/22/20 11:54 [facility] Past Medical History Medical History (Updated 11/25/20 @ 16:41 by Bobbi Mckee DO) BPH w urinary obs/LUTS Chronic GERD Hepatitis HTN (hypertension) Obesity (BMI 30-39.9) DAISY on CPAP Syphilis Social History Social History (Updated 11/25/20 @ 15:13 by Bobbi Mckee DO) Patient Tobacco Use Status: Tobacco use Unknown Advance Directives: No Advance Directives Information Provided: Yes Physical Exam Vital Signs: Vital Signs: Last Vital Signs Temp 98.6 F 11/25/20 15:41 Pulse 43 L 11/25/20 15:41 Resp 20 11/25/20 15:41 BP 91/55 L 11/25/20 15:41 Pulse Ox 97 11/25/20 15:41 Body Mass Index 31.9 Appearance: Alert. Oriented to his baseline per staff. No acute distress. Eyes: Pupils equal, round and reactive to light. ENT: Pharynx normal. Neck: Normal inspection. Neck supple. CVS: bradycardic heart rate and rhythm. Pulses normal. Respiratory: No respiratory distress. Breath sounds normal. Abdomen: Soft and non-tender. Skin: Skin warm and dry. Normal skin color. Normal skin turgor. Extremities: No lower extremity edema. feet are warm and well perfused Neuro: Oriented to baseline No motor deficit. No sensory deficit. Course Course Course Narrative: Cardiology aware 419pm I am going to try narcan (clonidine use) to see if that helps reverse his clonidine Dr. Andres likely related to clonidine use - stop clonidine use if he responds to fluids - sepsis workup signed out to Dr. Haines pending workup Medical Decision Making [facility] Narrative Medical decision making narrative: 60 yo male with hx of HTN, in a care home, confused at baseline poor historian comes in with 5 days of low BPs in the 70s at times c/o dizziness and weakness - at this time will give IVF x 2L, EKG, labs - doubt infection. Unsure why he is still on his lisinopril and clonidine at this time given his low BPs. Possible medication issue, infection seems unlikely. No GIB symptoms reported. Possible admit given his bradycardia as well - may need med wash out and cardiology input. Lab Data Result diagrams: 11/25/20 15:11 11/25/20 15:11 Labs: Lab Results 11/25/20 11/25/20 11/25/20 Range/Units 15:11 15:11 15:11 WBC 11.2 H (4.8-10.8) X10*3/uL RBC 4.95 (4.60-5.80) X10*6/uL Hgb 14.8 (14.0-18.0) g/dl Hct 44.7 (42-52) % MCV 90.3 (80-98) fL MCH 29.9 (27.0-33.0) pg MCHC 33.1 (31.0-36.0) g/dl RDW 13.1 (11.0-16.0) % Plt Count 174 (160-400) X10*3/uL MPV 11.8 (9.4-12.4) fL Immature Gran % (Auto) 1.3 H (0.0-0.4) % Neut % (Auto) 49.9 (45-73) % Lymph % (Auto) 39.2 (20-40) % [place] % (Auto) 5.8 (2-11) % Eos % (Auto) 3.2 (0-4) % Baso % (Auto) 0.6 (0-2) % Lymph # (Auto) 4.4 (1.2-4.9) X10*3/uL [place] # (Auto) 0.7 (0.1-1.2) X10*3/uL Eos # (Auto) 0.4 (0.0-0.4) X10*3/uL Baso # (Auto) 0.1 (0.0-0.2) X10*3/uL Abs Immat Gran (auto) 0.15 H (0.00-0.03) X10*3/uL Absolute Neuts (auto) 5.6 (2.0-8.3) X10*3/uL Absolute Nucleated RBC 0.000 (0.0-0.012) X10*3/uL Nucleated RBC % (auto) 0.0 (0.0-0.2) /100WBC Sodium 137 (135-145) mmol/L Potassium 4.4 (3.3-5.1) mmol/L Chloride 105 (96-108) mmol/L Carbon Dioxide 24 (22-29) mmol/L Anion Gap 12 (12-20) BUN 14 (9-16) mg/dL Creatinine 1.02 (0.5-1.4) mg/dL Estim Creat Clear Calc 82.8 Estimated GFR > 60 Random Glucose 108 (60-115) mg/dL Lactic Acid (0.5-2.0) mmol/L Calcium 9.2 (8.4-10.2) mg/dL Magnesium 1.9 (1.6-2.6) mg/dL Total Bilirubin 0.4 (0.0-1.0) mg/dL Direct Bilirubin 0.2 (0.0-0.5) mg/dL AST 21 (5-37) U/L ALT 19 (0-40) U/L Alkaline Phosphatase 82 D (39-117) U/L Troponin I High Sens (<3.5-35.0) ng/L Total Protein 6.7 (6.5-8.0) g/dL Albumin 3.9 (3.5-5.0) g/dL Lipase 34 (8-78) U/L TSH (0.32-4.0) uIU/mL 11/25/20 11/25/20 11/25/20 Range/Units 15:11 15:11 15:11 WBC (4.8-10.8) X10*3/uL RBC (4.60-5.80) X10*6/uL Hgb (14.0-18.0) g/dl Hct (42-52) % MCV (80-98) fL MCH (27.0-33.0) pg MCHC (31.0-36.0) g/dl RDW (11.0-16.0) % Plt Count (160-400) X10*3/uL MPV (9.4-12.4) fL Immature Gran % (Auto) (0.0-0.4) % Neut % (Auto) (45-73) % Lymph % (Auto) (20-40) % [place] % (Auto) (2-11) % Eos % (Auto) (0-4) % Baso % (Auto) (0-2) % Lymph # (Auto) (1.2-4.9) X10*3/uL [place] # (Auto) (0.1-1.2) X10*3/uL Eos # (Auto) (0.0-0.4) X10*3/uL Baso # (Auto) (0.0-0.2) X10*3/uL Abs Immat Gran (auto) (0.00-0.03) X10*3/uL Absolute Neuts (auto) (2.0-8.3) X10*3/uL Absolute Nucleated RBC (0.0-0.012) X10*3/uL Nucleated RBC % (auto) (0.0-0.2) /100WBC Sodium (135-145) mmol/L Potassium (3.3-5.1) mmol/L Chloride (96-108) mmol/L Carbon Dioxide (22-29) mmol/L Anion Gap (12-20) BUN (9-16) mg/dL Creatinine (0.5-1.4) mg/dL Estim Creat Clear Calc Estimated GFR Random Glucose (60-115) mg/dL Lactic Acid 0.8 (0.5-2.0) mmol/L Calcium (8.4-10.2) mg/dL Magnesium (1.6-2.6) mg/dL Total Bilirubin (0.0-1.0) mg/dL Direct Bilirubin (0.0-0.5) mg/dL AST (5-37) U/L ALT (0-40) U/L Alkaline Phosphatase (39-117) U/L Troponin I High Sens < 3.5 (<3.5-35.0) ng/L Total Protein (6.5-8.0) g/dL Albumin (3.5-5.0) g/dL Lipase (8-78) U/L TSH 2.69 (0.32-4.0) uIU/mL ECG Data Attestation: I personally reviewed and interpreted this ECG as follows: Interpretation: Rate: 42 Rhythm: sinus bradycardia [place]: normal Normal P waves. Normal LEVAR. NSIVCD ST T wave : no BRIDGET qTC: normal prior studies: unchanged from prior The study has been interpreted contemporaneously by me. . Discharge Plan Discharge Clinical Impression: Acute hypotension, Bradycardia, sinus Prescriptions: No Action esomeprazole magnesium 40 mg capsule,delayed release(DR/EC) 40 mg PO DAILY 30 Days Qty: 30 RF: 3 clonazepam 1 mg tablet 1 tab PO BID RF: 0 fluoxetine 20 mg capsule 1 cap PO QAM RF: 0 lisinopril 2.5 mg tablet 1 tab PO DAILY RF: 0 melatonin 5 mg tablet 2 tab PO BEDTIME RF: 0 cholecalciferol (vitamin D3) [Vitamin D3] 10 mcg (400 unit) Tablet 10 mcg PO DAILY RF: 0 tamsulosin 0.4 mg capsule 0.4 mg PO DAILY RF: 0 oxybutynin chloride 5 mg tablet extended release 24hr 5 mg PO DAILY RF: 0 clonidine HCl 0.2 mg tablet 0.2 mg PO BID RF: 0 risperidone 3 mg tablet 3 mg PO BEDTIME RF: 0 simvastatin 80 mg tablet 80 mg PO BEDTIME RF: 0 doxycycline hyclate 100 mg capsule 100 mg PO BID 30 Days Qty: 60 RF: 0
--- NOTE | 2020-11-25 15:04 | ECG_ITS ---
Test Reason : BRADYCHARDIA Blood Pressure : / mmHG Vent. Rate : 042 BPM Atrial Rate : 042 BPM P-R Int : 090 ms QRS Dur : 128 ms QT Int : 544 ms P-R-T Axes : 008 032 055 degrees QTc Int : 454 ms Marked sinus bradycardia with short MS Left ventricular hypertrophy with repolizeration abnormality. Abnormal ECG When compared with ECG of 22-NOV-2020 16:04, Heart rate has decreased Referred By: Bobbi Mckee Electronically Signed By:GABY CUNNINGHAM
[2020-11-25 15:23] LABS: MANUAL DIFF FLAG NO
[2020-11-25 15:26] LABS: Basophils Absolute Auto 0.1 X10*3/uL (0.0-0.2); Basophils Percent Auto 0.6 % (0-2); Eosinophils Absolute Auto 0.4 X10*3/uL (0.0-0.4); Eosinophils Percent Auto 3.2 % (0-4); Hematocrit 44.7 % (42-52); Hemoglobin 14.8 g/dl (14.0-18.0); Imm Gran Abs Auto 0.15 X10*3/uL (0.00-0.03); Imm Gran Pct Auto 1.3 % (0.0-0.4); Lymphocytes Absolute Auto 4.4 X10*3/uL (1.2-4.9); Lymphocytes Percent Auto 39.2 % (20-40); Mean Corpuscular HGB Conc 33.1 g/dl (31.0-36.0); Mean Corpuscular Hemoglobin 29.9 pg (27.0-33.0); Mean Corpuscular Volume 90.3 fL (80-98); Mean Platelet Volume 11.8 fL (9.4-12.4); Monocytes Absolute Auto 0.7 X10*3/uL (0.1-1.2); Monocytes Percent Auto 5.8 % (2-11); Neutrophils Absolute Auto 5.6 X10*3/uL (2.0-8.3); Neutrophils Percent Auto 49.9 % (45-73); Platelet Count 174 X10*3/uL (160-400); Red Blood Count 4.95 X10*6/uL (4.60-5.80); Red Cell Distribution Width 13.1 % (11.0-16.0); White Blood Count 11.2 X10*3/uL (4.8-10.8)
[2020-11-25 15:41] VITALS: BP 91/55; PULSE 43; RESP 20; TEMP 37; O2SAT 97
[2020-11-25 15:45] LABS: Lactic Acid 0.8 mmol/L (0.5-2.0)
[2020-11-25 15:47] LABS: Anion Gap 12 (12-20); Blood Urea Nitrogen 14 mg/dL (9-16); Calcium 9.2 mg/dL (8.4-10.2); Carbon Dioxide 24 mmol/L (22-29); Chloride 105 mmol/L (96-108); Creatinine Clr Calc Pharmacy 82.8; Estimated Glomerular Filt Rate > 60; Glucose Random 108 mg/dL (60-115); Potassium 4.4 mmol/L (3.3-5.1); Sodium 137 mmol/L (135-145)
[2020-11-25 15:50] LABS: Alanine Aminotransferase 19 U/L (0-40); Albumin Level 3.9 g/dL (3.5-5.0); Alkaline Phosphatase 82 U/L (39-117); Aspartate Amino Transferase 21 U/L (5-37); Bilirubin Direct 0.2 mg/dL (0.0-0.5); Bilirubin Total 0.4 mg/dL (0.0-1.0); Lipase 34 U/L (8-78); Magnesium 1.9 mg/dL (1.6-2.6); Total Protein 6.7 g/dL (6.5-8.0)
[2020-11-25 15:53] LABS: Troponin-I High Sensitivity < 3.5 ng/L (<3.5-35.0)
[2020-11-25 16:09] LABS: TSH reflex Free T4 2.69 uIU/mL (0.32-4.0)
[2020-11-25] MEDS: Naloxone HCl 2 MG/2 ML SYRINGE IVPUSH (16:44)
[2020-11-25] MEDS: 0.9 % Sodium Chloride 1,000 ML 999 ML IVCONT (16:44)
[2020-11-25 16:50] VITALS: BP 86/53; PULSE 46; RESP 12; TEMP 36.3; O2SAT 98
[2020-11-25 18:33] LABS: Glucose Urine UA NEG (NEG); Leukocyte Esterase Urine NEG (NEG); Nitrite Urine NEG (NEG); Urine Blood NEG (NEG); Urine Ketones NEG (NEG); Urine Protein NEG (NEG-TRACE)
[2020-11-25 18:36] LABS: Appearance Urine CLEAR; Color Urine YELLOW
[2020-11-25 18:48] LABS: COVID-19 Test Negative (Negative)
[2020-11-25 19:41] VITALS: BP 104/39; PULSE 47
[2020-11-25] MEDS: Midodrine HCl 10 MG TABLET PO (19:41)
--- NOTE | 2020-11-25 19:44 | PC.NURSE ---
pt up to restroom w/o difficulty with senior care sitter. pt denies complaints and watching tv. VS obtained and pt medicated with midorine po as per emar. will continue to monitor pt.
[2020-11-25 19:45] VITALS: BP 104/66; PULSE 44
[2020-11-25 19:49] VITALS: BP 104/66; PULSE 48
--- NOTE | 2020-11-25 20:34 | PC.NURSE ---
md aware of pt's b/p 94/50, pt awaiting for discharge instructions.
== END 2020-11-25 21:06 | disposition home or self-care (01) ==
PROVIDERS: Emergency Provider Emergency Medicine; PCP General Practice
DX: I95.9 Hypotension, unspecified (principal); R00.1 Bradycardia, unspecified; R79.89 Other specified abnormal findings of blood chemistry; Z79.899 Other long term (current) drug therapy; Z20.822 Contact with and (suspected) exposure to COVID-19
CPT/HCPCS: 36415; 71045; 80048; 80076; 81003; 83605; 83690; 83735; 84443; 84484; 85025; 87040; 87635; 93005; 96361; 96374; 99284

== ENCOUNTER 2020-12-17 08:59 | Outpatient (REF) | payer OTHER, SELFPAY | END 2020-12-17 09:00 | disposition home or self-care (01) | LOC: HO.LAB 08:59 | PROVIDERS: PCP General Practice; Visit Provider Internal Medicine | DX: Z20.822 Contact with and (suspected) exposure to COVID-19 (principal) | CPT/HCPCS: C9803; U0003; U0005 ==

== ENCOUNTER → 2021-02-05 14:48 | Outpatient (BNVA) | payer OTHER, SELFPAY | PROVIDERS: Visit Provider Internal Medicine | DX: A53.9 Syphilis, unspecified (principal); K75.9 Inflammatory liver disease, unspecified | CPT/HCPCS: 99212 ==

== ENCOUNTER → 2021-02-19 10:03 | Outpatient (BNVA) | payer OTHER, SELFPAY | PROVIDERS: PCP General Practice; Visit Provider Internal Medicine | DX: G47.33 Obstructive sleep apnea (adult) (pediatric) (principal); E66.9 Obesity, unspecified; Z99.89 Dependence on other enabling machines and devices | CPT/HCPCS: 99212 ==

== ENCOUNTER 2021-06-16 13:27 | Outpatient (REF) | payer OTHER, SELFPAY ==
[2021-06-16 14:27] LABS: MANUAL DIFF FLAG NO
[2021-06-16 14:42] LABS: Basophils Absolute Auto 0.1 X10*3/uL (0.0-0.2); Basophils Percent Auto 0.5 % (0-2); Eosinophils Absolute Auto 0.2 X10*3/uL (0.0-0.4); Eosinophils Percent Auto 2.2 % (0-4); Hematocrit 46.4 % (42.0-52.0); Hemoglobin 15.2 g/dl (14.0-18.0); Imm Gran Abs Auto 0.14 X10*3/uL (0.00-0.03); Imm Gran Pct Auto 1.4 % (0.0-0.4); Lymphocytes Absolute Auto 3.4 X10*3/uL (1.2-4.9); Lymphocytes Percent Auto 33.9 % (20-40); Mean Corpuscular HGB Conc 32.8 g/dl (31.0-36.0); Mean Corpuscular Hemoglobin 29.9 pg (27.0-33.0); Mean Corpuscular Volume 91.2 fL (80.0-98.0); Mean Platelet Volume 11.4 fL (9.4-12.4); Monocytes Absolute Auto 0.6 X10*3/uL (0.1-1.2); Monocytes Percent Auto 6.1 % (2-11); Neutrophils Absolute Auto 5.6 x10*3/uL (2.0-8.3); Neutrophils Percent Auto 55.9 % (45-73); Platelet Count 217 X10*3/uL (160-400); Red Blood Count 5.09 X10*6/uL (4.60-5.80); Red Cell Distribution Width 12.7 % (11.0-16.0)
[2021-06-16 15:02] LABS: Alanine Aminotransferase 20 U/L (0-40); Albumin Level 4.1 g/dL (3.5-5.0); Alkaline Phosphatase 113 U/L (39-117); Anion Gap 12 (12-20); Aspartate Amino Transferase 23 U/L (5-37); Bilirubin Total < 0.2 mg/dL (0.0-1.0); Blood Urea Nitrogen 10 mg/dL (9-16); Calcium 9.3 mg/dL (8.4-10.2); Carbon Dioxide 23 mmol/L (22-29); Chloride 107 mmol/L (96-108); Estimated Glomerular Filt Rate > 60; Glucose Random 107 mg/dL (60-115); Magnesium 1.9 mg/dL (1.6-2.6); Potassium 4.4 mmol/L (3.3-5.1); Sodium 138 mmol/L (135-145); Total Protein 7.4 g/dL (6.5-8.0)
[2021-06-16 15:23] LABS: Ferritin 81 ng/mL (20-250); Vitamin D 25-OH Total 36.6 ng/mL (>30)
[2021-06-16 15:38] LABS: Folate 10.5 ng/mL (> or = 4.0); Vitamin B12 304 pg/mL (200-900)
== END 2021-06-16 13:28 | disposition home or self-care (01) ==
LOC: HO.LAB 13:27
PROVIDERS: PCP General Practice; Referring Provider General Practice; Visit Provider Internal Medicine Gastroenterology
DX: K90.9 Intestinal malabsorption, unspecified (principal); K75.81 Nonalcoholic steatohepatitis (NASH)
CPT/HCPCS: 36415; 80053; 82306; 82607; 82728; 82746; 83735; 85025; 99212

== ENCOUNTER → 2021-08-19 10:50 | Outpatient (BNVA) | payer OTHER, SELFPAY | PROVIDERS: PCP General Practice; Visit Provider Internal Medicine | DX: G47.33 Obstructive sleep apnea (adult) (pediatric) (principal); E66.9 Obesity, unspecified; Z99.89 Dependence on other enabling machines and devices; Z68.31 Body mass index [BMI] 31.0-31.9, adult | CPT/HCPCS: 99212 ==

== ENCOUNTER 2021-09-30 06:40 | Outpatient (REF) | payer OTHER, SELFPAY ==
[2021-09-30 06:58] LABS: MANUAL DIFF FLAG NO
--- NOTE | 2021-09-30 06:58 | ECG_ITS ---
Test Reason : high risk med Blood Pressure : / mmHG Vent. Rate : 066 BPM Atrial Rate : 066 BPM P-R Int : 114 ms QRS Dur : 130 ms QT Int : 446 ms P-R-T Axes : 074 053 183 degrees QTc Int : 467 ms Sinus rhythm with Premature supraventricular complexes Possible Left atrial enlargement Left ventricular hypertrophy with QRS widening and repolarization abnormality ( Sokolow-Mackay ) Abnormal ECG When compared with ECG of 25-NOV-2020 16:05, Premature supraventricular complexes are now Present Vent. rate has increased BY 24 BPM Referred By: Parish Hackett Electronically Signed By:BRADEN GODWIN
[2021-09-30 07:47] LABS: Basophils Absolute Auto 0.1 X10*3/uL (0.0-0.2); Basophils Percent Auto 0.7 % (0-2); Eosinophils Absolute Auto 0.6 X10*3/uL (0.0-0.4); Eosinophils Percent Auto 6.4 % (0-4); Hematocrit 47.7 % (42.0-52.0); Hemoglobin 15.6 g/dl (14.0-18.0); Imm Gran Abs Auto 0.14 X10*3/uL (0.00-0.03); Imm Gran Pct Auto 1.4 % (0.0-0.4); Lymphocytes Absolute Auto 2.6 X10*3/uL (1.2-4.9); Lymphocytes Percent Auto 26.1 % (20-40); Mean Corpuscular HGB Conc 32.7 g/dl (31.0-36.0); Mean Corpuscular Hemoglobin 29.7 pg (27.0-33.0); Mean Corpuscular Volume 90.7 fL (80.0-98.0); Mean Platelet Volume 11.9 fL (9.4-12.4); Monocytes Percent Auto 10.5 % (2-11); Neutrophils Absolute Auto 5.4 x10*3/uL (2.0-8.3); Neutrophils Percent Auto 54.9 % (45-73); Platelet Count 191 X10*3/uL (160-400); Red Blood Count 5.26 X10*6/uL (4.60-5.80); White Blood Count 9.8 X10*3/uL (4.8-10.8)
[2021-09-30 08:29] LABS: Alanine Aminotransferase 22 U/L (0-40); Albumin Level 4.1 g/dL (3.5-5.0); Alkaline Phosphatase 120 U/L (39-117); Anion Gap 10 (12-20); Aspartate Amino Transferase 25 U/L (5-37); Bilirubin Total 0.3 mg/dL (0.0-1.0); Blood Urea Nitrogen 9 mg/dL (9-16); Calcium 8.7 mg/dL (8.4-10.2); Carbon Dioxide 24 mmol/L (22-29); Chloride 107 mmol/L (96-108); Cholesterol 120 mg/dL; Estimated Glomerular Filt Rate > 60; Glucose Random 101 mg/dL (60-115); HDL Cholesterol 32 mg/dL; LDL Cholesterol Calculated 65 mg/dl; Potassium 4.3 mmol/L (3.3-5.1); Sodium 137 mmol/L (135-145); Triglycerides 118 mg/dL
[2021-09-30 08:38] LABS: Estimated Average Glucose 111 mg/dL; Hemoglobin A1c % 5.5 %
[2021-10-02 00:17] LABS: Prolactin 10.9 ng/mL (2.0-18.0)
== END 2021-09-30 06:41 | disposition home or self-care (01) ==
LOC: HO.LAB 06:40
PROVIDERS: PCP General Practice; Visit Provider Psychiatry & Neurology Child & Adolescent Psychiatry
DX: F43.10 Post-traumatic stress disorder, unspecified (principal); Z79.899 Other long term (current) drug therapy
CPT/HCPCS: 36415; 80053; 80061; 83036; 84146; 84443; 85025; 93005

== ENCOUNTER 2021-11-04 14:37 | Emergency (ER) | payer OTHER, SELFPAY ==
[2021-11-04 15:37] VITALS: BP 108/73; PULSE 78; RESP 18; TEMP 36.2; O2SAT 94; BMI 31.9
[2021-11-04 15:52] LABS: MANUAL DIFF FLAG NO
[2021-11-04 15:54] LABS: Basophils Absolute Auto 0.1 X10*3/uL (0.0-0.2); Basophils Percent Auto 0.7 % (0-2); Eosinophils Absolute Auto 0.3 X10*3/uL (0.0-0.4); Eosinophils Percent Auto 2.6 % (0-4); Hematocrit 48.5 % (42.0-52.0); Hemoglobin 16.2 g/dl (14.0-18.0); Imm Gran Abs Auto 0.18 X10*3/uL (0.00-0.03); Imm Gran Pct Auto 1.7 % (0.0-0.4); Lymphocytes Absolute Auto 3.7 X10*3/uL (1.2-4.9); Lymphocytes Percent Auto 34.7 % (20-40); Mean Corpuscular HGB Conc 33.4 g/dl (31.0-36.0); Mean Corpuscular Hemoglobin 29.8 pg (27.0-33.0); Mean Corpuscular Volume 89.2 fL (80.0-98.0); Mean Platelet Volume 10.8 fL (9.4-12.4); Monocytes Absolute Auto 0.8 X10*3/uL (0.1-1.2); Monocytes Percent Auto 7.8 % (2-11); Neutrophils Absolute Auto 5.6 x10*3/uL (2.0-8.3); Neutrophils Percent Auto 52.5 % (45-73); Platelet Count 218 X10*3/uL (160-400); Red Blood Count 5.44 X10*6/uL (4.60-5.80); Red Cell Distribution Width 12.8 % (11.0-16.0); White Blood Count 10.6 X10*3/uL (4.8-10.8)
[2021-11-04 16:12] LABS: Alanine Aminotransferase 23 U/L (0-40); Albumin Level 4.3 g/dL (3.5-5.0); Alkaline Phosphatase 104 U/L (39-117); Anion Gap 16 (12-20); Aspartate Amino Transferase 26 U/L (5-37); Bilirubin Total 0.4 mg/dL (0.0-1.0); Blood Urea Nitrogen 13 mg/dL (9-16); Calcium 9.1 mg/dL (8.4-10.2); Carbon Dioxide 18 mmol/L (22-29); Chloride 106 mmol/L (96-108); Creatinine Clr Calc Pharmacy 101.8; Estimated Glomerular Filt Rate > 60; Glucose Random 103 mg/dL (60-115); Potassium 4.2 mmol/L (3.3-5.1); Sodium 136 mmol/L (135-145); Total Protein 7.5 g/dL (6.5-8.0)
--- NOTE | 2021-11-04 21:55 | ED.GENADULT ---
HPI - General Adult General Chief complaint: General Medical Stated complaint: Low blood pressure Time Seen by Provider: 11/04/21 21:55 Source: patient, family (Caregiver) and clinical research scientist Mode of arrival: ambulatory Limitations: no limitations and physical limitation History of Present Illness HPI narrative: 61-year-old male came in with his caregiver for evaluation of anxiety and concern of low blood pressure. 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 Caregiver however noted that the patient been having frequency urination. Related Data Home Medications Medication Instructions Recorded Confirmed risperidone 3 mg tablet 3 mg PO BEDTIME 01/06/20 08/19/21 simvastatin 80 mg tablet 80 mg PO BEDTIME 01/06/20 08/19/21 tamsulosin 0.4 mg capsule 0.4 mg PO DAILY 02/21/20 08/19/21 clonazepam 1 mg tablet 1 tab PO BID 11/25/20 08/19/21 fluoxetine 20 mg capsule 1 cap PO QAM 11/25/20 08/19/21 lisinopril 2.5 mg tablet 1 tab PO DAILY 11/25/20 08/19/21 Previous Rx's Medication Instructions Recorded esomeprazole magnesium 40 mg 40 mg PO DAILY 30 days #30 caps 05/13/20 capsule,delayed release oxybutynin chloride 5 mg 5 mg PO DAILY 90 days #90 tabs 08/21/21 tablet,extended release 24 hr Allergies Allergy/AdvReac Type Severity Reaction Status Date / Time aspirin [ASPIRIN] Allergy Severe SWELLING, Verified 11/04/21 15:37 rash Penicillins [PENICILLINS] Allergy Severe CONVULSIONS Verified 11/04/21 15:37 Review of Systems Review of Systems: All other systems are reviewed and are negative Constitutional: Reports as per HPI and Reports no additional constitutional complaints Eyes: Reports as per HPI and Reports no additional eye complaints Reports system reviewed and no additional complaints, except as documented Cardiovascular: Reports as per HPI and Reports no additional cardiovascular complaints Respiratory: Reports as per HPI and Reports no additional respiratory complaints Gastrointestinal: Reports as per HPI and Reports no additional gastrointestinal complaints Genitourinary: Reports no additional female genitourinary complaints Musculoskeletal: Reports no additional musculoskeletal complaints Skin/Breast: Reports system reviewed and no additional complaints, except as docu Psychiatric: Reports no additional psychiatric complaints Endocrine: Reports no additional endocrine complaints Hematologic/Lymphatic: Reports no additional hematologic/lymphatic complaints Allergic/Immunologic: Reports no additional allergic/immunologic complaints Reports system reviewed and no additional complaints, except as documented and Reports Abnormal speech present [facility] Past Medical History Medical History BPH w urinary obs/LUTS Chronic GERD Hepatitis HTN (hypertension) Obesity (BMI 30-39.9) DAISY on CPAP Syphilis Social History Social History Household Members: Other Alcohol intake: current Alcohol intake frequency: does not drink Patient Tobacco Use Status: Current everyday Tobacco user Cigarettes Per Day: 3 Advance Directives: No Advance Directives Information Provided: No Physical Exam ED Vital Signs: Vital Signs - 24 hr 11/04/21 15:37 11/04/21 22:15 11/04/21 22:15 Temperature 97.1 F Pulse Rate 78 56 62 Respiratory Rate 18 Blood Pressure 108/73 102/58 L 105/61 Pulse Oximetry 94 Oxygen Delivery Method Room Air 11/04/21 22:16 Temperature Pulse Rate 77 Respiratory Rate Blood Pressure 101/62 Pulse Oximetry Oxygen Delivery Method BMI result Body Mass Index 31.9 Vital signs have been reviewed as appeared to be correct. Blood pressure normal. Heart rate normal. Respiration rate normal. Temperature normal. Oxygen saturation normal. unremarkable orthostatic vital signs. Appearance: Alert. No acute distress. Head: Normal external exam. Normocephalic. Atraumatic. No Manzanares signs noted. No raccoon eyes noted Eyes: PERRLA. EOMI. Conjunctiva and sclera normal. Eyelids normal. ENT: TM's Normal. Pharynx normal. Uvula midline. Moist mucous membranes. No trismus noted. No drooling noted. No muffled voice noted. Neck: Normal inspection. Neck supple. FROM. No adenopathy. Thyroid Normal. No meningeal signs. No neck mass noted. CVS: Normal heart rate and rhythm. Heart sound normal. No murmurs noted. Pulses normal throughout. Respiratory: No respiratory distress. Painless inspiration. Breath sounds normal. No wheezes/rales/rhonchi noted. Chest nontender. No accessory muscle usage noted or decreased air movement noted. Abdomen: Soft and nontender. Bowel sounds normal in all 4 quadrants. No distention noted. No organomegaly noted. No visible injury noted. Back: No CVA tenderness. Full range of motion noted. Skin: Skin warm and dry. Normal skin color. Normal skin turgor. No rashes/lesions/lacerations noted. Extremities: No lower extremity edema. Extremities exhibit normal range of motion. Extremities nontender. Neuro:. Cranial nerve exam: II-XII are grossly intact No motor deficit. No sensory deficit. Reflexes normal. Course Course Course Narrative: 61-year-old male brought in by caregiver for concern of hypotension because patient was feeling anxious, patient was observed in the emergency department for over 8 hours with no hypotension, patient has a normal WBC but left shift of immature granulocyte physical exam revealed no infection. Will discharge the patient and follow-up with PCP. Medical Decision Making Lab Data Lab results reviewed: Yes I reviewed the patient's lab results. Result diagrams: 11/04/21 15:48 11/04/21 15:48 Labs: Lab Results 11/04/21 11/04/21 11/04/21 Range/Units 15:48 15:48 22:04 WBC 10.6 (4.8-10.8) X10*3/uL RBC 5.44 (4.60-5.80) X10*6/uL Hgb 16.2 (14.0-18.0) g/dl Hct 48.5 (42.0-52.0) % MCV 89.2 (80.0-98.0) fL MCH 29.8 (27.0-33.0) pg MCHC 33.4 (31.0-36.0) g/dl RDW 12.8 (11.0-16.0) % Plt Count 218 (160-400) X10*3/uL MPV 10.8 (9.4-12.4) fL Immature Gran % (Auto) 1.7 H (0.0-0.4) % Neut % (Auto) 52.5 (45-73) % Lymph % (Auto) 34.7 (20-40) % Huntington % (Auto) 7.8 (2-11) % Eos % (Auto) 2.6 (0-4) % Baso % (Auto) 0.7 (0-2) % Lymph # (Auto) 3.7 (1.2-4.9) X10*3/uL Huntington # (Auto) 0.8 (0.1-1.2) X10*3/uL Eos # (Auto) 0.3 (0.0-0.4) X10*3/uL Baso # (Auto) 0.1 (0.0-0.2) X10*3/uL Abs Immat Gran (auto) 0.18 H (0.00-0.03) X10*3/uL Absolute Neuts (auto) 5.6 (2.0-8.3) x10*3/uL Absolute Nucleated RBC 0.000 (0.0-0.012) X10*3/uL Nucleated RBC % (auto) 0.0 (0.0-0.2) /100WBC Sodium 136 (135-145) mmol/L Potassium 4.2 (3.3-5.1) mmol/L Chloride 106 (96-108) mmol/L Carbon Dioxide 18 L (22-29) mmol/L Anion Gap 16 (12-20) BUN 13 (9-16) mg/dL Creatinine 0.82 (0.5-1.4) mg/dL Estim Creat Clear Calc 101.8 Estimated GFR > 60 Random Glucose 103 (60-115) mg/dL Calcium 9.1 (8.4-10.2) mg/dL Total Bilirubin 0.4 (0.0-1.0) mg/dL AST 26 (5-37) U/L ALT 23 (0-40) U/L Alkaline Phosphatase 104 (39-117) U/L Total Protein 7.5 (6.5-8.0) g/dL Albumin 4.3 (3.5-5.0) g/dL Urine Color Urine Appearance Urine pH (5.0-8.0) Ur Specific Burchard (1.005-1.025) Urine Protein (NEG-TRACE) MG/DL Urine Glucose (UA) (NEG) MG/DL Urine Ketones (NEG) MG/DL Urine Blood (NEG) Urine Nitrite (NEG) Ur Leukocyte Esterase (NEG) Urine RBC (0) /HPF Urine WBC (0-4) /HPF Ur Squamous Epith Cells /LPF Urine Bacteria /LPF Urine Mucus /LPF COVID-19 (MEGAN) Negative (Negative) COVID-19 Clin Com See Note 11/04/21 Range/Units 22:04 WBC (4.8-10.8) X10*3/uL RBC (4.60-5.80) X10*6/uL Hgb (14.0-18.0) g/dl Hct (42.0-52.0) % MCV (80.0-98.0) fL MCH (27.0-33.0) pg MCHC (31.0-36.0) g/dl RDW (11.0-16.0) % Plt Count (160-400) X10*3/uL MPV (9.4-12.4) fL Immature Gran % (Auto) (0.0-0.4) % Neut % (Auto) (45-73) % Lymph % (Auto) (20-40) % Huntington % (Auto) (2-11) % Eos % (Auto) (0-4) % Baso % (Auto) (0-2) % Lymph # (Auto) (1.2-4.9) X10*3/uL Huntington # (Auto) (0.1-1.2) X10*3/uL Eos # (Auto) (0.0-0.4) X10*3/uL Baso # (Auto) (0.0-0.2) X10*3/uL Abs Immat Gran (auto) (0.00-0.03) X10*3/uL Absolute Neuts (auto) (2.0-8.3) x10*3/uL Absolute Nucleated RBC (0.0-0.012) X10*3/uL Nucleated RBC % (auto) (0.0-0.2) /100WBC Sodium (135-145) mmol/L Potassium (3.3-5.1) mmol/L Chloride (96-108) mmol/L Carbon Dioxide (22-29) mmol/L Anion Gap (12-20) BUN (9-16) mg/dL Creatinine (0.5-1.4) mg/dL Estim Creat Clear Calc Estimated GFR Random Glucose (60-115) mg/dL Calcium (8.4-10.2) mg/dL Total Bilirubin (0.0-1.0) mg/dL AST (5-37) U/L ALT (0-40) U/L Alkaline Phosphatase (39-117) U/L Total Protein (6.5-8.0) g/dL Albumin (3.5-5.0) g/dL Urine Color YELLOW Urine Appearance CLEAR Urine pH 6.0 (5.0-8.0) Ur Specific Burchard 1.020 (1.005-1.025) Urine Protein TRACE (NEG-TRACE) MG/DL Urine Glucose (UA) NEG (NEG) MG/DL Urine Ketones NEG (NEG) MG/DL Urine Blood NEG (NEG) Urine Nitrite NEG (NEG) Ur Leukocyte Esterase TRACE H (NEG) Urine RBC 0-2 (0) /HPF Urine WBC 1-4 (0-4) /HPF Ur Squamous Epith Cells TRACE /LPF Urine Bacteria TRACE /LPF Urine Mucus 1+ /LPF COVID-19 (MEGAN) (Negative) COVID-19 Clin Com Discharge Plan Discharge Clinical Impression: Anxiety Patient Disposition: Home, Self-Care Instructions: Generalized Anxiety Disorder (ED) Prescriptions: No Action esomeprazole magnesium 40 mg capsule,delayed release(DR/EC) 40 mg PO DAILY 30 Days Qty: 30 3RF oxybutynin chloride 5 mg tablet extended release 24 hr 5 mg PO DAILY 90 Days Qty: 90 1RF clonazepam 1 mg tablet 1 tab PO BID fluoxetine 20 mg capsule 1 cap PO QAM lisinopril 2.5 mg tablet 1 tab PO DAILY tamsulosin 0.4 mg capsule 0.4 mg PO DAILY risperidone 3 mg tablet 3 mg PO BEDTIME simvastatin 80 mg tablet 80 mg PO BEDTIME Referrals: Caryn Henning MD [Primary Care Provider] -
[2021-11-04 22:15] VITALS: BP 102/58; BP 105/61; PULSE 56; PULSE 62
[2021-11-04 22:16] VITALS: BP 101/62; PULSE 77
[2021-11-04 22:23] LABS: Appearance Urine CLEAR; Color Urine YELLOW; Glucose Urine UA NEG (NEG); Leukocyte Esterase Urine TRACE (NEG); Nitrite Urine NEG (NEG); Urine Blood NEG (NEG); Urine Ketones NEG (NEG); Urine Protein TRACE MG/DL (NEG-TRACE)
[2021-11-04 22:31] LABS: COVID-19 Test Negative (Negative)
[2021-11-04 22:39] LABS: Bacteria Urine TRACE /LPF; Mucus Urine 1+ /LPF; RBC Urine 0-2 /HPF (0); Squamous Epithelial Cell Urine TRACE /LPF
== END 2021-11-04 23:43 | disposition home or self-care (01) ==
PROVIDERS: Emergency Provider Emergency Medicine; PCP General Practice
DX: F41.9 Anxiety disorder, unspecified (principal); Z20.822 Contact with and (suspected) exposure to COVID-19; I10 Essential (primary) hypertension; E66.9 Obesity, unspecified; Z68.31 Body mass index [BMI] 31.0-31.9, adult; F17.210 Nicotine dependence, cigarettes, uncomplicated; Z71.6 Tobacco abuse counseling
CPT/HCPCS: 36415; 80053; 81001; 85025; 87635; 99283

== ENCOUNTER → 2021-11-24 10:47 | Outpatient (BNVA) | payer OTHER, SELFPAY | PROVIDERS: PCP General Practice; Visit Provider Internal Medicine | DX: G47.33 Obstructive sleep apnea (adult) (pediatric) (principal); E66.9 Obesity, unspecified; Z68.30 Body mass index [BMI] 30.0-30.9, adult; Z99.89 Dependence on other enabling machines and devices | CPT/HCPCS: 99212 ==

== ENCOUNTER 2021-12-04 08:05 | Outpatient (REF) | payer OTHER, SELFPAY ==
[2021-12-04 08:47] LABS: COVID-19 Test Negative (Negative); IDNOW Serial# 16C4AD1C
== END 2021-12-04 08:06 | disposition home or self-care (01) ==
LOC: HO.LAB 08:05
PROVIDERS: Visit Provider Internal Medicine
DX: Z20.822 Contact with and (suspected) exposure to COVID-19 (principal)
CPT/HCPCS: 87635; C9803

== ENCOUNTER → 2021-12-10 10:02 | Outpatient (BNVA) | payer OTHER, SELFPAY | PROVIDERS: PCP General Practice; Referring Provider General Practice; Visit Provider Internal Medicine | DX: R94.31 Abnormal electrocardiogram [ECG] [EKG] (principal); I25.10 Atherosclerotic heart disease of native coronary artery without angina pectoris | CPT/HCPCS: 99202 ==

== ENCOUNTER → 2022-01-02 13:33 | Outpatient (BNVA) | payer OTHER, SELFPAY | PROVIDERS: PCP General Practice; Visit Provider Urology | DX: R35.1 Nocturia (principal) | CPT/HCPCS: 51798; 99212 ==

== ENCOUNTER → 2022-01-14 10:24 | Outpatient (REF) | payer OTHER, SELFPAY ==
--- NOTE | 2022-01-14 10:30 | CA_ITS ---
Transthoracic Echocardiogram Patient (Last, First, Middle): John Aparicio, Gender: Male Date of : 1960 Age: 61 Procedure Date: 01/14/2022 Procedure Type: Transthoracic Echocardiogram Location: OP Height: 165.1 cm Weight: 88.45 kg BSA: 1.96 m2 Heart Rate: 61 bpm BP: 115 / 80 mmHg Automation Operator: RODNEY Referring MD: Aditya Astudillo MD Symptoms: R94.31 Study Quality: Adequate ECG Rhythm: Sinus bradycardia Conclusions: - The left ventricular systolic function is normal. The visually estimated ejection fraction is between 65-70%. - There is mild septal and mild basal asymmetric hypertrophy. - Mildly increased right ventricular cavity size. - No obvious valvular pathology seen on this study. Findings Left Ventricle Normal left ventricular cavity size. The left ventricular systolic function is normal. The visually estimated ejection fraction is between 65-70%. There is no evidence of regional wall motion abnormalities. Diastolic function is normal for age. There is mild septal and mild basal asymmetric hypertrophy. Right Ventricle Mildly increased right ventricular cavity size. There is normal right ventricular systolic function. Atria Both atria are normal in size. Aortic Valve There is a normal trileaflet aortic valve. There is no aortic valve stenosis. There is no aortic valve regurgitation. Mitral Valve The mitral valve appears normal. There is no mitral valve regurgitation. There is no mitral valve stenosis. Pulmonic Valve The pulmonic valve is likely normal. Tricuspid Valve Normal tricuspid valve structure. There is mild tricuspid valve regurgitation. There is no evidence of pulmonary hypertension. Great Vessels The asc aorta is normal in size. Venous The inferior vena cava is normal in size and collapses greater than 50% with inspiration. Pericardium/Pleural There is no evidence of pericardial effusion. Prior Study Comparison No significant change compared to prior study dated: 01/22/2017. Recommendations, Care & Conclusions No obvious valvular pathology seen on this study. Measurements 2D Linear Measurements IVSd: 1.44 0.6-0.9/0.6-1.0 cm LVIDd: 3.90 3.9-5.3/4.2-5.9 cm LVIDd Index: 1.99 2.4-3.2/2.2-3.1 cm/m2 LVIDs: 2.67 2.0-3.6 cm LVPWd: 1.04 0.7-1.1 cm LA Diam: 3.00 2.7-3.8/3.0-4.0 cm LAIDs Index: 1.53 1.5-2.3 cm/m2 LV Mass: 208.39 67-162/88-224 g LV Mass Index: 106.32 43-95/49-115 g/m2 LVOT Diam: 1.80 3.0+(-)1.3 cm 2D Systolic Function EF 4C: 66.90 >55% EF 2C: 69.80 >55% EF BiP: 68.80 >55% Mitral Valve MV Pk E: 0.68 MV PK A: 0.70 MV Decel Time: 260.00 E/A: 1.00 E'Lateral: 10.90 E'Medial: 5.84 E/E' Med: 11.60 E/E' Lat: 6.20 PHT: 76.00 MVA PHT: 2.89 Decel Bee: 2.61 Aortic Valve AoV Pk Remi: 1.29 AoV Mn Remi: 0.89 AoV VTI: 0.30 AoV Pk Grad: 7.00 Aov Mn Grad: 4.00 ANNALISE Cont.VTI: 2.21 LVOT LVOT Pk Remi: 1.23 LVOT Mn Remi: 0.81 LVOT VTI: 0.26 LVOT Pk Grad: 6.00 LVOT Mn Grad: 3.00 LVOT Diam: 1.80 LVOT Area: 2.54 Diastolic Function MV Pk E: 0.68 MV Pk A: 0.70 E/A: 1.00 E'Medial: 5.84 E/E' Med: 11.60 E' Laterial: 10.90 E/E' Lat: 6.20 Right Ventricle TAPSE (mm): 17.50 TVS' Remi: 8.43 Tricuspid Valve TR Pk Remi: 2.21 TR Pk Grad: 20.00 RA Press: 3.00 RVSP: 23.00 Great Vessels Aorta Sinus of Valsalva: 3.20 2.0-3.5 cm Ao Asc: 3.00 2.1-3.4 cm Pulmonary Valve PV Pk Remi: 1.25 Peak PV Grad: 6.00 Updated in Other Vendor System with Status of Final Aditya Astudillo MD electronically signed on 01/14/2022 12:02:08 PM with status of Final
== END ==
LOC: HO.CARD 10:24
PROVIDERS: Visit Provider Internal Medicine
DX: R94.31 Abnormal electrocardiogram [ECG] [EKG] (principal)
CPT/HCPCS: 93306

== ENCOUNTER → 2022-01-20 09:59 | Outpatient (REF) | payer OTHER, SELFPAY ==
--- NOTE | ~2022-01-20 | NM_ITS ---
Lexiscan Myocardial perfusion study Indication: Abnormal EKG, assess for coronary disease and ischemia Technique: The patient was brought in for a Lexiscan perfusion study on 01/20/2022 and was injected 0.4 mg of Lexiscan intravenously. Within a minute of this injection 30 mCi of sestamibi was given intravenously. Images were obtained using the SPECT gamma camera interlaced with the gating device. Images were obtained in supine position. Resting perfusion study was performed on 01/21/2022. Patient was administered 30 mCi of sestamibi intravenously at rest. Images were then obtained in supine position. Total DLP 134mGy-cm. Images were processed with the software and compared side to side in short axis, horizontal long axis and vertical long axis views. Findings: Raw acquisition reviewed. The stress perfusion study showed no significant perfusion abnormality. Both uncorrected as well as CT attenuation corrected images were reviewed. . In the gated study, LVEF 38% but visually appears normal. LV cavity is normal in size. The gated study shows normal wall thickening and contraction of segments. Resting study shows no significant perfusion abnormality. Gating at rest reveals normal wall motion with ejection fraction at 65%. The findings are consistent with no reversible or fixed perfusion defects. NM/NM cardiolite stress test Impression: 1. Myocardial perfusion imaging study shows no clear evidence of any ischemia or infarction. Likely normal myocardial perfusion. 2. Gated LVEF is 65% during rest. Visually, stress EF appears normal. 3. Transient ischemic dilatation not present. EKG component of the test reported separately.
--- NOTE | 2022-01-20 12:10 | CA_ITS ---
Acquisition Time: 2022-01-20 10:12:33 Total Exercise Time: 00:02:00 Test Indications: ABN EKG Medications: SEE CHART Protocol: LEXISCAN Max HR: 125 BPM 77% of Pred: 161 BPM Max BP: 112/068 mmHG Max Work Load: 1.0 METS Pharmacological stress test with Lexiscan injection, while sitting, with report of 10/10 chest tightness, with isolated PACs, with normotensive response to injection, with heart rate rise to 77% MPHR post injection, with nondiagnostic EKG for ischemia due to baseline LBBB. In recovery her was treated with Aminophylline 75mg IVP to reverse Lexiscan with resolution of arcenio tightness. Nuclear images pending. Test reviewed with Dr Andres. Referred By: Aditya Astudillo Overread By: KORI GOMEZ
== END ==
LOC: HO.CARD 09:59
PROVIDERS: Visit Provider Internal Medicine
DX: I25.10 Atherosclerotic heart disease of native coronary artery without angina pectoris (principal); R94.31 Abnormal electrocardiogram [ECG] [EKG]
CPT/HCPCS: 78452; 93017; A9500; J0280; J2785

== ENCOUNTER 2022-03-06 09:45 | Outpatient (REF) | payer OTHER, SELFPAY ==
--- NOTE | ~2022-03-06 | XR_ITS ---
EXAMINATION: XR CHEST CLINICAL INFORMATION: Cough COMPARISON: Previous chest x-ray November 2020 TECHNIQUE: 2 views of the chest were obtained. FINDINGS: The cardiac and mediastinal contours are stable. There is a 1.8 cm round density that projects over the right upper lobe. This is adjacent to the right anterior first rib. This is similar to previous exam and may represent costochondral cartilage. The lungs are otherwise clear. There is no pleural effusion or pneumothorax. There are degenerative changes of the spine. XR/XR chest 2V IMPRESSION: No evidence for acute disease in the chest. 1.8 cm nodular density question related to the anterior right first rib. This is similar to November 2020 exam. Follow-up apical lordotic view of the chest recommended.
== END 2022-03-06 09:46 | disposition home or self-care (01) ==
LOC: HO.XRAY 09:45
PROVIDERS: PCP General Practice; Visit Provider Family Medicine
DX: R05.1 Acute cough (principal)
CPT/HCPCS: 71046

== ENCOUNTER → 2022-03-11 14:53 | Outpatient (BNVA) | payer OTHER, SELFPAY | PROVIDERS: PCP General Practice; Referring Provider General Practice; Visit Provider Nurse Practitioner Family | DX: R94.31 Abnormal electrocardiogram [ECG] [EKG] (principal); I42.2 Other hypertrophic cardiomyopathy; G47.33 Obstructive sleep apnea (adult) (pediatric); Z99.89 Dependence on other enabling machines and devices | CPT/HCPCS: 99212 ==

== ENCOUNTER 2022-03-12 15:23 | Outpatient (REF) | payer OTHER, SELFPAY ==
--- NOTE | ~2022-03-12 | XR_ITS ---
EXAMINATION: CHEST X-RAY WITH APICAL LORDOTIC VIEW CLINICAL INFORMATION: Follow-up nodular density right lung apex COMPARISON: Previous chest x-ray 03/06/2022 TECHNIQUE: AP and apical lordotic views of the chest FINDINGS: No pulmonary nodule is seen. 1.8 cm nodular density appreciated on prior exam corresponds to right first rib costochondral cartilage. The cardiac and mediastinal contours are stable. There is no pleural effusion or pneumothorax. There are mild degenerative changes of the spine. XR/XR chest w apical lordotic IMPRESSION: No pulmonary nodule.
== END 2022-03-12 15:24 | disposition home or self-care (01) ==
LOC: HO.XRAY 15:23
PROVIDERS: Visit Provider Family Medicine
DX: R93.89 Abnormal findings on diagnostic imaging of other specified body structures (principal)
CPT/HCPCS: 71047

== ENCOUNTER → 2022-05-27 10:23 | Outpatient (BNVA) | payer OTHER, SELFPAY | PROVIDERS: PCP General Practice; Visit Provider Internal Medicine | DX: G47.33 Obstructive sleep apnea (adult) (pediatric) (principal); E66.9 Obesity, unspecified; Z68.30 Body mass index [BMI] 30.0-30.9, adult; Z99.89 Dependence on other enabling machines and devices | CPT/HCPCS: 99212 ==

== ENCOUNTER 2022-08-17 12:31 | Outpatient (REF) | payer OTHER, SELFPAY ==
[2022-08-17 15:23] LABS: Magnesium 1.9 mg/dL (1.6-2.6)
[2022-08-17 15:55] LABS: Ferritin 49 ng/mL (20-250); Folate 8.7 ng/mL (> or = 4.0); Vitamin B12 320 pg/mL (200-900); Vitamin D 25-OH Total 45.1 ng/mL (>30)
== END 2022-08-17 12:32 | disposition home or self-care (01) ==
LOC: HO.LAB 12:31
PROVIDERS: PCP General Practice; Visit Provider Internal Medicine Gastroenterology
DX: E46 Unspecified protein-calorie malnutrition (principal); E55.9 Vitamin D deficiency, unspecified
CPT/HCPCS: 36415; 82306; 82607; 82728; 82746; 83735; 99212

== ENCOUNTER → 2022-09-16 10:34 | Outpatient (BNVA) | payer OTHER, SELFPAY | PROVIDERS: PCP General Practice; Visit Provider Internal Medicine | DX: G47.33 Obstructive sleep apnea (adult) (pediatric) (principal); E66.9 Obesity, unspecified; Z99.89 Dependence on other enabling machines and devices; Z68.30 Body mass index [BMI] 30.0-30.9, adult | CPT/HCPCS: 99212 ==

== ENCOUNTER 2022-10-05 15:17 | Outpatient (REF) | payer OTHER, SELFPAY ==
--- NOTE | 2022-10-07 10:05 | MHC.SL.IMP ---
Date of Plan of Treatment: 10/05/22 Onset of Symptoms/Illness: 06/26/22 Date Treatment Started: 10/05/22 Admitting Diagnosis: Dysphagia Primary Speech & Language Diagnosis: R13.11 Oral Phase Dysphagia Reason for Today's Visit: 07100 Modified Barium Swallow Study Pre-evaluation Dietary Consistencies: Regular Pre-evaluation Liquid Consistency: Thin Pre-evaluation Medication Administration: Whole with Liquid Medical History: Modified Barium Swallow Study Fluoroscopic Evaluation of Swallowing Function CPT Code 76693 Evaluation Year: 2022 Reason for Study: PIG BREEDER reports pt is choking during meals. Referring Physician: Caryn Henning MD Evaluating Clinician: Thu Marquez MA, CCC-UTILITY WORKER PRODUCTION Study Number: 1 Patient Name: John Merrill Status: Outpatient Age: 62 Gender: Male Medical History Medical History BPH w urinary obs/LUTS Chronic GERD Hepatitis HTN (hypertension) Obesity (BMI 30-39.9) DAISY on CPAP Syphilis Surgical History No pertinent past surgical history Current (pre-evaluation) Intake/Diet: Route: PO Diet Grade: Regular Liquid Consistencies: Thin Pre-Study Functional Oral Intake Scale (FOIS): 7- Total oral intake with no restrictions Pain: None reported at time of study SUBJECTIVE: Pt is a 62 year old male referred for a modified barium swallow study by Caryn Henning MD of [facility]. Pt was accompanied to this exam by his PIG BREEDER worker. Although pt himself denies having any trouble swallowing, his PIG BREEDER/caregiver reports that he is choking 3-4 times per week. She says that she cuts up pt?s food into small pieces, but he still wants to eat breads and meats. A month ago pt choked on a large amount of bread. Pt reportedly needs close supervision, with PIG BREEDER reporting she ?can?t be too far away? during meals. Pt?s history is significant for chronic GERD and DAISY. Pt is Faroese-speaking, translation provided by hospital civil clerk per pt?s request. Oral Motor Exam Facial Symmetry: Asymmetrical Mouth Occlusion: Normal Oral-Facial Teeth Characteristics: Edentulous Oral-Facial Smile (Lips) Description: Normal Oral-Facial Puff Cheeks Description: Normal Tongue Size: Normal Tongue Excursion Description: Normal Tongue Range of Movement Description: Normal Tongue Speed of Movement Description: Normal Tongue Movement Characteristics: Normal/Absent Food and Liquid Trials: Oral Impairment: Lip Closure: Did not test Oral Impairment: Tongue Control During Bolus Hold: Did not test Oral Impairment: Bolus Preparation/Mastication: 2=Disorganized chewing/mashing with solid pieces of bolus Oral Impairment: Bolus Transport/Lingual Motion: 2=Slowed tongue motion Oral Impairment: Oral Residue: 2=Residue collection on oral structures Oral Impairment:Initiation of Pharyngeal Swallow: 2=Bolus head at posterior laryngeal surface of epiglottis Pharyngeal Impairment: Soft Palate Elevation: 0=No bolus between soft palate (SP)/pharyngeal wall (PW) Pharyngeal Impairment: Laryngeal Elevation: 1=Partial thyroid cartilage/arytenoids to epiglottic petiole movement Pharyngeal Impairment: Anterior Hyoid Excursion: 1=Partial anterior movement Pharyngeal Impairment: Epiglottic Movement: 0=Complete inversion Pharyngeal Impairment: Laryngeal Vestibular Closure:: 0=Complete: no air/contrast in laryngeal vestibule Pharyngeal Impairment: Pharyngeal Stripping Wave: 0=Present: complete Pharyngeal Impairment: Pharyngeal Contraction: Did not test Pharyngeal Impairment: Pharyngoesophageal Segment Openin=Complete distension and complete duration: no obstruction of flow Pharyngeal Impairment: Tongue Base (TB) Retraction: 2=Narrow column of contrast/air between TB and posterior PW Pharyngeal Impairment: Pharyngeal Residue: 1=Trace residue within or on pharyngeal structures Pharyngeal Impairment: Esophageal Clearance Upright Position: Did not test Impressions and Recommendations OBJECTIVE: Time-out: performed at 15:30 Evaluation Start: 14:50; Stop: 15:00 Patient Positioning: Seated 70-90 degrees Viewing Planes: LATERAL ONLY Contrast: MBSImP? Standardized Protocol using commercially prepared, standardized Barium viscosities, including: Varibar? THIN LIQUID (40% w/v, <15 cps) , 1/2 Shortbread Cookie (1 x1 x.25 ) MBSImP ID: [id number] MBSImP Results: Lip closure for intraoral bolus containment could not be assessed due to logistical reasons not related to physiologic impairment. Tongue control during bolus hold could not be assessed due to logistical reasons not related to physiologic impairment. Bolus preparation and mastication demonstrated disorganized chewing/mashing with solid pieces of the bolus unchewed. Bolus transport/lingual motion was with slowed tongue motion. Oral residue was a collection on oral structures. Initiation of the pharyngeal swallow occurred as the bolus head was at the posterior laryngeal surface of the epiglottis. Soft palate elevation resulted in no bolus between the soft palate and the pharyngeal wall. Laryngeal elevation was decreased, with partial superior movement of the thyroid cartilage/partial approximation of the arytenoids to the epiglottic petiole. Anterior hyoid excursion demonstrated partial anterior movement. Epiglottic movement resulted in complete inversion. Laryngeal vestibular closure was complete, as indicated by no air or contrast within the laryngeal vestibule at the height of the swallow. Pharyngeal stripping wave was present and complete. Pharyngeal contraction could not be determined due to logistical reasons not related to physiologic impairment. Pharyngoesophageal segment opening was completely distended for complete duration with no obstruction of bolus flow. Tongue base retraction allowed a narrow column of contrast or air between the retracted tongue base and the posterior pharyngeal wall. Pharyngeal residue was a trace within or on pharyngeal structures. Esophageal clearance in the upright position could not be assessed due to logistical reasons not related to physiologic impairment. Oral Impairment Score: 8 (absence of score, component 1component 2) Pharyngeal Impairment Score: 4 (absence of score, component 13) Esophageal Impairment Score: --- (absence of score, component 17) Laryngeal Penetration and Aspiration: Neither penetration nor aspiration was observed in today's study with Cookie, Thin. ASSESSMENT: This exam was conducted by a multidisciplinary team, which included a speech pathologist, radiologist, and semiconductor equipment technician. Pt was seated upright at 90 degrees for lateral view only. Pt trialed the following liquid and solid consistencies: thin liquid barium by cup, pureed solid (applesauce mixed with barium paste), ground solid (chicken salad mixed with barium paste), regular solid (Hannah Doone cookie coated in barium paste), whole barium pill tablet with sips of water. Pt demonstrated mildly slowed posterior lingual motion. No premature posterior escape of bolus. Mastication was slowed and disorganized with consumption of the shortbread cookie, characterized by piece meal deglutition. Mild lingual residue cleared with subsequent dry swallow. Improved timeliness and oral clearance with consumption of softer solids (applesauce and chicken salad). Pharyngeal swallow trigger initiated as the bolus head reached the posterior laryngeal surface of the epiglottis. There was no nasopharyngeal reflux. Incomplete laryngeal elevation, but with complete epiglottic inversion and complete laryngeal vestibular closure. No evidence of aspiration or penetration during this exam. There was trace residue on the tongue base which cleared with a dry swallow. Complete clearance of the valleculae and pyriform sinuses. Pt swallowed barium pill with sips of water. Barium pill passed through oral cavity and pharynx with no hang up. No obstruction of flow through the pharyngoesophageal segment opening. Liquid Intake Recommendation: Thin Liquid Intake Strategies: Small Sips Dietary Recommendations: Grnd/Mech Altered (NDD2) Medication Administration: Whole with Liquid Please contact the pharmacy regarding appropriate crushable or liquid drug formulations that are available whenever modified delivery is recommended. Compensatory Strategies Recommended: Sitting Upright (90 deg) Double Swallow Small Bites and Sips Alternate Liquids/Solids Rate of Ingestion Change Oral Check Avoid Specific Foods Supervision during eating and or drinking: Total Supervision (1:1) Recommendation for Speech Therapy: NA:Typical Evaluation Text Comment: Intake Recommendations: Route: PO Diet Grade: Mechanical Soft Liquid Consistencies: Thin Post-Study Functional Oral Intake Scale (FOIS): 5- Total oral intake of multiple consistencies requiring special preparation No evidence of aspiration or penetration during this exam. Pt w/ mild oral phase dysphagia secondary to edentulous status. Pt was able to clear mild lingual residue with a dry swallow. There was complete clearance of the valleculae and pyriform sinuses. Pt is recommended a GROUND/MECH ALTERED (NDD2) diet with THIN liquids and aspiration precautions: -Provide 1:1 supervision during PO intake and provide cues as needed for the following: -Take small bites of food and chew well -One bite at a time, clear oral cavity before taking more bites -Moisten food with sauces and gravies -Avoid: hard to chew, tough solids; dry foods; sticky or crunchy textures -Follow each bite with dry swallow to promote lingual clearance -Upright 90 degree positon during PO intake -Take small, individual sips of liquid Recommend continue monitoring pt?s dysphagia. If there are any changes or worsening of symptoms, contact pt?s PCP, at which point, a re-evaluation may be indicated. Therapy Recommendations: Therapy will be discontinued Prognosis for Improvement: The prognosis for the patient to meet nutritional needs by mouth is good based on degree of impairment. Clinician - Supplemental, Miscellaneous Communication: It is important to note MBSS objective studies are snapshots in time and Patient function might vary with factors such as time of day or concomitant medical conditions. For this reason, the final treatment plan for this patient should rest with their medical care team. Additional recommendations should be considered with the totality of the Patient in mind. Thank for the opportunity to participate in the care of this patient. If you have any questions about the content of this report, please contact the [facility] at [facility]. Education: Education regarding findings from today's study and subsequent recommendations were provided to Patient and family/caregiver through Verbal Instruction. Understanding was expressed by the Patient and family/caregiver. Museum Security Chief Clinician/Clinical Fellow: No Supervisory Statement: N/A Speech Language Pathologist: Thu Marquez M.A., CCC-UTILITY WORKER PRODUCTION
== END 2022-10-05 15:18 | disposition home or self-care (01) ==
LOC: HO.XRAY 15:17
PROVIDERS: Visit Provider General Practice
DX: R13.11 Dysphagia, oral phase (principal)
CPT/HCPCS: 74230; 92611

== ENCOUNTER 2022-11-26 09:44 | Emergency (ER) | payer OTHER, SELFPAY ==
[2022-11-26 10:41] VITALS: BP 100/74; PULSE 74; RESP 12; O2SAT 94; BMI 31.9
[2022-11-26 10:59] LABS: MANUAL DIFF FLAG NO
[2022-11-26 11:07] LABS: Basophils Percent Auto 0.4 % (0-2); Eosinophils Absolute Auto 0.1 X10*3/uL (0.0-0.4); Hematocrit 47.7 % (42.0-52.0); Hemoglobin 16.3 g/dl (14.0-18.0); Imm Gran Abs Auto 0.19 X10*3/uL (0.00-0.03); Imm Gran Pct Auto 1.9 % (0.0-0.4); Lymphocytes Absolute Auto 2.1 X10*3/uL (1.2-4.9); Lymphocytes Percent Auto 21.5 % (20-40); Mean Corpuscular HGB Conc 34.2 g/dl (31.0-36.0); Mean Corpuscular Hemoglobin 30.2 pg (27.0-33.0); Mean Corpuscular Volume 88.3 fL (80.0-98.0); Mean Platelet Volume 10.6 fL (9.4-12.4); Monocytes Absolute Auto 0.7 X10*3/uL (0.1-1.2); Monocytes Percent Auto 7.1 % (2-11); Neutrophils Absolute Auto 6.7 x10*3/uL (2.0-8.3); Neutrophils Percent Auto 68.1 % (45-73); Platelet Count 210 X10*3/uL (160-400); Red Cell Distribution Width 12.9 % (11.0-16.0); White Blood Count 9.9 X10*3/uL (4.8-10.8)
[2022-11-26 11:13] LABS: Anion Gap 10 (12-20); Blood Urea Nitrogen 10 mg/dL (9-16); Calcium 9.5 mg/dL (8.4-10.2); Carbon Dioxide 24 mmol/L (22-29); Chloride 105 mmol/L (96-108); Estimated Glomerular Filt Rate > 60; Glucose Random 79 mg/dL (60-115); Potassium 4.4 mmol/L (3.3-5.1); Sodium 135 mmol/L (135-145)
--- NOTE | 2022-11-26 14:47 | ECG_ITS ---
Test Reason : DIZZINESS Blood Pressure : / mmHG Vent. Rate : 067 BPM Atrial Rate : 067 BPM P-R Int : 110 ms QRS Dur : 138 ms QT Int : 426 ms P-R-T Axes : 074 046 177 degrees QTc Int : 450 ms Sinus rhythm with short WI Left bundle branch block Abnormal ECG When compared with ECG of 30-SEP-2021 07:08, Premature supraventricular complexes are no longer Present Left bundle branch block is now Present Referred By: Vicky Mckee Electronically Signed By:GABY CUNNINGHAM
--- NOTE | 2022-11-26 14:54 | ED.DIZZY ---
HPI - Dizziness General Chief Complaint: General Medical Stated Complaint: dizzy Time Seen by Provider: 11/26/22 14:47 Source: patient, conference interpreter and other (caregiver) Mode of arrival: ambulatory Limitations: no limitations History of Present Illness HPI Narrative: 62 yo male with PMH of abnormal EKG, DAISY, obesity, here with c/o dizziness after quickly standing up to get breakfast at day program. He has no pain, no CP/SOB. no other symptoms is eating and drinking okay and feels fine now. He states he has had this before. He sometimes notices blood on toilet paper when he wipes but feels fine otherwise and no blood in toilet. He has hx of low Na and caregiver wanted it checked. He is at baseline now. MD elicited complaint: dizziness Pertinent past history: other (low Na) Onset (ago): hour(s) (this AM at breakfast) Timing: sudden onset Severity: mild Description: lightheadedness Context: change in body position History of similar symptoms: Yes Exacerbating factors: change in body position Relieving factors: remaining still Associated symptoms: denies other symptoms Related Data Home Medications Medication Instructions Recorded Confirmed simvastatin 80 mg tablet 80 mg PO BEDTIME 01/06/20 03/11/22 cholecalciferol (vitamin D3) 50 50 mcg PO DAILY 11/24/21 03/11/22 mcg (2,000 unit) capsule loratadine 10 mg tablet 10 mg PO DAILY 11/24/21 03/11/22 melatonin 5 mg tablet 10 mg PO BEDTIME 11/24/21 03/11/22 omeprazole 20 mg capsule,delayed 20 mg PO DAILY 12/10/21 03/11/22 release risperidone 0.5 mg tablet 0.5 mg PO BID 12/10/21 03/11/22 clonazepam 1 mg tablet 1 mg PO BID 03/11/22 03/11/22 fluoxetine 20 mg capsule 20 mg PO QAM 03/11/22 03/11/22 fluticasone propionate 50 spray intranasal 08/17/22 mcg/actuation nasal spray,suspension peg [id number] 1 0 drp ophthalmic (eye) 08/17/22 %-0.2 %-0.2 % eye drops (Dry Eye Relief) Previous Rx's Medication Instructions Recorded oxybutynin chloride 5 mg 5 mg PO DAILY 90 days #90 tabs 01/02/22 tablet,extended release 24 hr tamsulosin 0.4 mg capsule 0.4 mg PO DAILY 90 days #90 caps 01/02/22 Allergies Allergy/AdvReac Type Severity Reaction Status Date / Time aspirin [ASPIRIN] Allergy Severe SWELLING, Verified 09/16/22 11:04 rash Penicillins [PENICILLINS] Allergy Severe CONVULSIONS Verified 09/16/22 11:04 Review of Systems Review of Systems: Constitutional : No Fever, No Chills, No Fatigue ENT/Mouth : No sore throat, No Rhinorrhea Eyes: No Eye Pain, No Swelling, No Redness Cardiovascular : No Chest Pain, No SOB, No Dyspnea on Exertion Respiratory : No Cough, No Sputum Gastrointestinal : No Nausea, No Vomiting, No Diarrhea, No abdominal Pain Genitourinary : No Dysuria, No Urinary Frequency, No Hematuria, Musculoskeletal : No joint pain, No Myalgias, No Joint Swelling Skin : No Skin Lesions, No rash Neuro : No Weakness, No Numbness, No Dizziness, no Headache Psych : No Anxiety/Panic, No Depression Heme/Lymph: No Bruising, No Bleeding,No Lymphadenopathy All other systems reviewed and are negative [facility] Past Medical History Attestation statement: The following information was validated with the patient. Medical History BPH w urinary obs/LUTS Chronic GERD Hepatitis HTN (hypertension) Obesity (BMI 30-39.9) DAISY on CPAP Syphilis Surgical History No pertinent past surgical history Family History Family History Father Heart disease Mother Diabetes Social History Social History Household Members: Other Alcohol intake: current Alcohol intake frequency: does not drink Patient Tobacco Use Status: Current everyday Tobacco user Cigarettes Per Day: 3 Advance Directives: No Advance Directives Information Provided: Yes Physical Exam Vital Signs: Vital Signs: Last Vital Signs Pulse 89 11/26/22 15:33 Resp 12 11/26/22 10:41 BP 103/67 11/26/22 15:33 Pulse Ox 94 11/26/22 10:41 O2 Del Method Room Air 11/26/22 10:41 BMI result Body Mass Index 31.9 Appearance: Alert. Oriented X3. No acute distress. Eyes: Pupils equal, round and reactive to light. ENT: Pharynx normal. Neck: Normal inspection. Neck supple. CVS: Normal heart rate and rhythm. Pulses normal. Respiratory: No respiratory distress. Breath sounds normal. Abdomen: Soft and nontender. Skin: Skin warm and dry. Normal skin color. Normal skin turgor. Extremities: No lower extremity edema. No calf ttp Neuro: Oriented X 3. No motor deficit. No sensory deficit. no drift, no ataxia Course Course Course Narrative: small drop in orthostatics has no complaints feels absolutely fine stable for DC Medical Decision Making Medical Decision Making MDM Narrative: 62 yo male with PMH of abnormal EKG, DAISY, obesity, here with c/o dizziness - transient upon standing for breakfast no CP/SOB to suggest ACS or PE. no GIB symptoms reported to cause anemia, at baseline now normal neuro exam doubt posterior stroke. Suspect transient drop in blood pressure. Is eating and drinking fine. Basic labs, EKG and ortho VS. Differential Diagnosis Differential Diagnoses: The differential diagnosis associated with the presentation includes dehydration, anemia, orthostatic hypotension Admission/Observation Consideration of admission/observation: Escalation of care including admission/observation considered work up reassuring at baseline stable for outaptient management, has good caregiver at home Lab Data [facility] Lab Attestation statement: I reviewed the patient's lab results. 11/26/22 10:53 11/26/22 10:53 Labs: Lab Results 11/26/22 11/26/22 Range/Units 10:53 10:53 WBC 9.9 (4.8-10.8) X10*3/uL RBC 5.40 (4.60-5.80) X10*6/uL Hgb 16.3 (14.0-18.0) g/dl Hct 47.7 (42.0-52.0) % MCV 88.3 (80.0-98.0) fL MCH 30.2 (27.0-33.0) pg MCHC 34.2 (31.0-36.0) g/dl RDW 12.9 (11.0-16.0) % Plt Count 210 (160-400) X10*3/uL MPV 10.6 (9.4-12.4) fL Immature Gran % (Auto) 1.9 H (0.0-0.4) % Neut % (Auto) 68.1 (45-73) % Lymph % (Auto) 21.5 (20-40) % [place] % (Auto) 7.1 (2-11) % Eos % (Auto) 1.0 (0-4) % Baso % (Auto) 0.4 (0-2) % Lymph # (Auto) 2.1 (1.2-4.9) X10*3/uL [place] # (Auto) 0.7 (0.1-1.2) X10*3/uL Eos # (Auto) 0.1 (0.0-0.4) X10*3/uL Baso # (Auto) 0.0 (0.0-0.2) X10*3/uL Abs Immat Gran (auto) 0.19 H (0.00-0.03) X10*3/uL Absolute Neuts (auto) 6.7 (2.0-8.3) x10*3/uL Absolute Nucleated RBC 0.000 (0.0-0.012) X10*3/uL Nucleated RBC % (auto) 0.0 (0.0-0.2) /100WBC Sodium 135 (135-145) mmol/L Potassium 4.4 (3.3-5.1) mmol/L Chloride 105 (96-108) mmol/L Carbon Dioxide 24 (22-29) mmol/L Anion Gap 10 L (12-20) BUN 10 (9-16) mg/dL Creatinine 0.83 (0.5-1.4) mg/dL Estim Creat Clear Calc 96.0 Estimated GFR > 60 Random Glucose 79 (60-115) mg/dL Calcium 9.5 (8.4-10.2) mg/dL Independent Interpretation I performed an independent interpretation of an: EKG Interpretation: Rate: 67 Rhythm: NSR [place]: normal Normal P waves. Normal LEVAR. LBBB ST T wave : no BRIDGET, inverted in I and aVL qTC: normal prior studies: hx of wide QRS in past The study has been interpreted contemporaneously by me. . Independent Historian Clinical information obtained from an independent historian. History obtained from or confirmed by: Other External Record Review External record reviewed: Inpatient record Tests considered The following testing was considered but not selected: CT scan doubt posterior stroke no other symptoms other than resolved transient dizziness Discharge Plan Discharge Clinical Impression: Dizziness Patient Disposition: Home, Self-Care Instructions: Dizziness (ED) Additional Instructions: your sodium and blood counts were normal. return for weakness, numbness, confusion, chest pain or trouble breathing, any other concerns. delfino recuentos sangu?neos y de sodio soumya normales. Regrese si tiene debilidad, entumecimiento, confusi?n, dolor en el pecho o dificultad para respirar, o cualquier otra inquietud. Prescriptions: No Action clonazepam 1 mg tablet 1 mg PO BID fluoxetine 20 mg capsule 20 mg PO QAM simvastatin 80 mg tablet 80 mg PO BEDTIME loratadine 10 mg tablet 10 mg PO DAILY melatonin 5 mg tablet 10 mg PO BEDTIME cholecalciferol (vitamin D3) 50 mcg (2,000 unit) capsule 50 mcg PO DAILY tamsulosin 0.4 mg capsule 0.4 mg PO DAILY 90 Days Qty: 90 3RF oxybutynin chloride 5 mg tablet extended release 24hr 5 mg PO DAILY 90 Days Qty: 90 3RF risperidone 0.5 mg tablet 0.5 mg PO BID omeprazole 20 mg capsule,delayed release(DR/EC) 20 mg PO DAILY Dry Eye Relief 1-0.2-0.2 % drops 0 drp ophthalmic (eye) fluticasone propionate 50 mcg/actuation spray,suspension intranasal
[2022-11-26 15:32] VITALS: BP 116/67; BP 118/73; PULSE 68; PULSE 72
[2022-11-26 15:33] VITALS: BP 103/67; PULSE 89
== END 2022-11-26 15:45 | disposition home or self-care (01) ==
PROVIDERS: Emergency Provider Emergency Medicine; PCP General Practice
DX: R42 Dizziness and giddiness (principal); I10 Essential (primary) hypertension; F17.210 Nicotine dependence, cigarettes, uncomplicated; G47.33 Obstructive sleep apnea (adult) (pediatric); Z99.89 Dependence on other enabling machines and devices; Z79.899 Other long term (current) drug therapy
CPT/HCPCS: 36415; 80048; 85025; 93005; 99283

== ENCOUNTER 2022-12-21 11:54 | Outpatient (REF) | payer OTHER, SELFPAY ==
[2022-12-23 16:29] LABS: TS Negative Control Passed; TS Panel A 0; TS Panel B 0; TS Positive Control Passed; TSpotTB Negative (Negative)
== END 2022-12-21 11:55 | disposition home or self-care (01) ==
LOC: HO.HHCL 11:54
PROVIDERS: Visit Provider General Practice
DX: Z11.1 Encounter for screening for respiratory tuberculosis (principal)
CPT/HCPCS: 36415; 86481

== ENCOUNTER 2022-12-30 | Outpatient (REF) | payer OTHER, SELFPAY ==
[2022-12-31 13:34] LABS: Influenza A PCR NEGATIVE (Negative); Influenza B PCR NEGATIVE (Negative); Resp Syncy Virus RNA Qual PCR POSITIVE (Negative); SARS COV2 PCR INHOUSE NEGATIVE (Negative)
== END 2022-12-30 00:01 | disposition home or self-care (01) ==
LOC: HO.HHCLNP
PROVIDERS: Visit Provider Internal Medicine Geriatric Medicine
DX: Z20.822 Contact with and (suspected) exposure to COVID-19 (principal); R05.1 Acute cough; J98.8 Other specified respiratory disorders; R42 Dizziness and giddiness
CPT/HCPCS: 0241U; 87070

== ENCOUNTER 2022-12-31 13:48 | Outpatient (AMB) | payer OTHER, SELFPAY ==
--- NOTE | 2022-12-31 13:50 | A.OFFVIS_ITS ---
Intake Intake Visit Reasons: BPH- yearly follow up Intake Note: Patient presents today for a follow-up on BPH, PER DR Granger: Meds- None Allergies to Antibiotic- No Known Allergies Blood Thinner- None PVR- 0 mL Slot Machine Mechanic Required: Yes Accompanied by: Other Relationship Allergies aspirin [ASPIRIN] Allergy (Severe, Verified 01/14/23 11:02) SWELLING, rash Penicillins [PENICILLINS] Allergy (Severe, Verified 01/14/23 11:02) CONVULSIONS HPI HPI Comments History of Present Illness Details John is a 62-year-old male who presents today to the office for a follow-up. 12/31/2022? He is followed today for BPH. The patient is a Icelandic speaking male. Certified dietetics teacher was present during the visit. He has seen Dr. Granger on 12/29/2021 for nocturia. The patient was advised to follow-up in 1 year.? The patient presents with a caregiver. He mentions that he goes to bathroom to urinate more often, but he denies mild burning with urination. During the discussion his mechanical planner states that his water intake has been controlled as he was diagnosed with hyponatremia. He is allowed to consume 7-8 glasses. He has a history of smoking cigarettes. Educated the patient that the nicotine dependence may lead to the risk of urinary tract cance Review of chart: Managed for BPH symptoms Responded well to laser prostate 2016 - remains on Flomax Secondary urgency and frequency Cystoscopy - 2019 no evidence of regrowth Current medications oxybutynin 5 mg with good effect PSA 07/2020 --0.4 Evaluation today?UA? leukocytes: 3 +; blood: negative; bladder scan PVR: 0 mL. Plan: I will discontinue Flomax, and continue oxybutynin 5 mg. PSA screening was ordered. [facility] Medical History HTN (hypertension) Hepatitis Syphilis Chronic GERD BPH w urinary obs/LUTS DAISY on CPAP Obesity (BMI 30-39.9) Surgical History No pertinent past surgical history Family History Father Heart disease Mother Diabetes Social History Household Members: Other Alcohol intake: current Alcohol intake frequency: does not drink Patient Tobacco Use Status: Current everyday Tobacco user Cigarettes Per Day: 3 Review of Systems Const All systems reviewed & are unremarkable except as noted in HPI and below Reports no additional complaints Eyes Reports no additional complaints ENT Reports no additional complaints Card Denies dyspnea Resp Denies cough and Denies dyspnea GI Reports no additional complaints Musc Reports no additional complaints Skin/Breast Denies rash and Denies unusual bruising Neuro Reports no additional complaints Psych Reports no additional complaints Endo Reports no additional complaints Oscar/Lymph Reports no additional complaints Aller/Immun Reports no additional complaints Physical Exam Const General: healthy appearing, no acute distress and well developed Orientation/consciousness: patient oriented x3 HEENT Head: Yes normocephalic and Yes atraumatic Eyes Conjunctivae: conjunctivae normal Neck Neck: Yes normal visual inspection Chest Chest palpation & inspection: normal inspection of the chest Resp Effort & Inspection: normal respiratory effort Cardio Rate: regular rate GI Inspection: Yes normal to inspection Palpation (GI): Soft to palpation Skin General skin exam: no rashes or lesions noted Neuro General: patient oriented x3 Extrem General: No pedal edema Psych Appearance: grossly normal Affect: normal affect Office Procedures Post Void Residual Post Residual Void Post Void Residual (PVR): 0 [id number] Void Residual by ultrasound Results AMB Urinalysis, Automated UA Leukoctes 500 Thai/uL Last Edit by RODOLFO Woody on 12/31/22 14:05 3+ Zulma Lee 12/31/22 14:05 UA Nitrite Negative Last Edit by RODOLFO Woody on 12/31/22 14:05 UA Urobilinogen 0.2 mg/dL Last Edit by RODOLFO Woody on 12/31/22 14:0 5 UA Protein 0 mg/dL Last Edit by RODOLFO Woody on 12/31/22 14:05 UA pH 7.0 Last Edit by ROX WoodyA on 12/31/22 14:05 UA Blood 0 Justice/uL Last Edit by Zulma Lee A on 12/31/22 14:05 UA Specific [place] 1.000 Last Edit by Zulma Lee A on 12/31/22 14: 05 UA Ketone Negative Last Edit by Zulma Lee A on 12/31/22 14:05 UA Bilirubin 0 mg/dL Last Edit by Zulma Lee A on 12/31/22 14:05 UA Glucose 0 mg/dL Last Edit by Zulma Lee A on 12/31/22 14:05 Results Reviewed Results Reviewed: Laboratory Last Values Urine pH (Auto) 7.0 12/31/22 14:03 Specific [place] (Auto) 1.000 12/31/22 14:03 Urine Protein (Auto) 0 mg/dL 12/31/22 14:03 Glucose (UA)(Auto) 0 mg/dL 12/31/22 14:03 Urine Ketones (Auto) Negative 12/31/22 14:03 Urine Blood (Auto) 0 Justice/uL 12/31/22 14:03 Urine Nitrite (Auto) Negative 12/31/22 14:03 Urine Bilirubin (Auto) 0 mg/dL 12/31/22 14:03 Urine Urobilinogen (Auto) 0.2 mg/dL 12/31/22 14:03 Leukocyte Esterase (Auto) 500 Thai/uL 12/31/22 14:03 Assessment & Plan Assessment & Plan (1) Screening PSA (prostate specific antigen): Code(s): Z12.5 - Encounter for screening for malignant neoplasm of prostate (2) OAB (overactive bladder): Code(s): N32.81 - Overactive bladder (3) BPH (benign prostatic hyperplasia): Code(s): N40.0 - Benign prostatic hyperplasia without lower urinary tract symptoms (4) Urinary frequency: Code(s): R35.0 - Frequency of micturition Plan I will discontinue Flomax, and continue oxybutynin 5 mg. PSA screening was ordered. Orders: Orders AMB Urinalysis Automated 12/31/22 Z13.9 - Encounter for screening, unspecified AMB Post Void Residual by ultrasound 12/31/22 N39.8 - Other specified disorders of urinary system PSA,Total (Free>4and<10) 12/31/22 Z12.5 - Encounter for screening for malignant neoplasm of prostate Patient Instructions: The patient had an opportunity to ask questions regarding treatment plan. All questions were answered. Imaging, Laboratory studies and physical exam results were discussed and reviewed in detail. No major barriers to understanding were identified. The patient expressed understanding and agreement with the above treatment plan.? ? ? The patient is aware they should contact our office by phone for worsening of their current condition or the appearance of new symptoms. Compliance is encouraged with any medications and followup testing that is ordered.? ? ? It is a privilege to be allowed the opportunity to participate in the urologic care of your patient. If you have any questions or concerns regarding treatment for the above conditions please do not hesitate to contact me. The office telephone contact is [phone].? ? ? This note is constructed in part using voice recognition software. While every effort has been made to ensure accuracy ground crewman mission support errors may have been included.? ? ? Yours sincerely,? ? ? Shadi Goodman MD? Coding Level of Care Code Est Pt Level 4 (76907) Diagnoses Screening PSA (prostate specific antigen) Z12.5 OAB (overactive bladder) N32.81 BPH (benign prostatic hyperplasia) N40.0 Urinary frequency R35.0 CPT Codes Post Residual Void - PVR CPT Code: 46102-Eaim Void Residual by ultrasound ([id number])
== END 2022-12-31 14:56 | disposition home or self-care (01) ==
LOC: HO.HUSH 13:48
PROVIDERS: PCP General Practice; Visit Provider Urology
DX: Z12.5 Encounter for screening for malignant neoplasm of prostate (principal); N32.81 Overactive bladder; N40.0 Benign prostatic hyperplasia without lower urinary tract symptoms; R35.0 Frequency of micturition
CPT/HCPCS: 99214

== ENCOUNTER → 2022-12-31 13:48 | Outpatient (BNVA) | payer OTHER, SELFPAY | PROVIDERS: PCP General Practice; Visit Provider Urology | DX: N40.1 Benign prostatic hyperplasia with lower urinary tract symptoms (principal); R35.0 Frequency of micturition; N32.81 Overactive bladder | CPT/HCPCS: 51798; 81003; 99212 ==

== ENCOUNTER 2023-01-14 10:40 | Outpatient (AMB) | payer OTHER, SELFPAY ==
[2023-01-14 10:44] VITALS: BP 110/70; PULSE 69; O2SAT 95; BMI 33.1
--- NOTE | 2023-01-14 10:44 | MHC.OFFVIS ---
Intake Vital Signs 01/14/23 10:44 Height 5 ft 5 in Weight 199 lb BMI 33.1 BP 110/70 Blood Pressure Location Lt brachial Position Sitting Pulse 69 Pulse Source Pulse Oximeter Pulse Oximetry (%) 95 Oxygen Delivery Method Room Air Intake Visit Reasons: Obstructive sleep apnea Intake Note: pt is here for follow up and states he is doing well, using cpap but sometimes will forget when back from bathroom. Cotton Weigher Operator Required: No Allergies aspirin [ASPIRIN] Allergy (Severe, Verified 01/14/23 11:02) SWELLING, rash Penicillins [PENICILLINS] Allergy (Severe, Verified 01/14/23 11:02) CONVULSIONS Medication List - Last Reconciled 01/14/23 by Aniyah Matias MD cholecalciferol (vitamin D3) 50 mcg PO DAILY clonazepam 1 mg PO BID esomeprazole magnesium 20 mg PO DAILY fluoxetine 20 mg PO QAM fluticasone propionate 50 mcg/actuation sprays intranasal loratadine 10 mg PO DAILY melatonin 10 mg PO BEDTIME omeprazole 20 mg PO DAILY oxybutynin chloride ER 5 mg PO DAILY 90 days peg [id number] 1-0.2-0.2 % (Dry Eye Relief) 0 drps ophthalmic (eye) risperidone 0.5 mg PO BID simvastatin 80 mg PO BEDTIME tamsulosin 0.4 mg PO DAILY 90 days Do you need a note to return to daycare/school/sports/work: No HPI Obstructive sleep apnea HPI Details 62 YEARS OLD GENTLEMAN WITH COGNITIVE IMPAIRMENT/ BIPOLAR DISORDER, IS BROUGHT IN BY HIS SUBMARINE ELEMENT COORDINATOR. HE IS A CASE OF OBSTRUCTIVE SLEEP APNEA, BEING TREATED WITH CPAP, HE USES CPAP EVERY NIGHT EXCEPT HE FORGETS ONLY ONCE OR TWICE A MONTH. HE HAS NO SPECIFIC ISSUES RELATED TO THE MASK ( FULL FACE ) OR THE RESPIRONICS CPAP DEVICE. DENIES ANY DAYTIME SLEEPINESS. WEIGHT IS GONE UP BY 5-7 LB BECAUSE THERE IS NO CONTROL ON HIS EATING. HE SMOKES ABOUT 3 CIGARETTES A DAY [facility] Medical History HTN (hypertension) Hepatitis Syphilis Chronic GERD BPH w urinary obs/LUTS DAISY on CPAP Obesity (BMI 30-39.9) Surgical History No pertinent past surgical history Family History Father Heart disease Mother Diabetes Social History Household Members: Other Alcohol intake: current Alcohol intake frequency: does not drink Patient Tobacco Use Status: Current everyday Tobacco user Cigarettes Per Day: 3 Review of Systems Const All systems reviewed & are unremarkable except as noted in HPI and below Eyes Reports no additional complaints ENT Reports nasal congestion (Mild nasal congestion due to putting on the CPAP mask at night) Card Denies chest pain, Denies irregular heart rhythm and Denies leg edema Resp Reports cough (Mild intermittent) and Denies wheezing GI Reports no additional complaints Reports nocturia Musc Reports no additional complaints Skin/Breast Reports system reviewed and no additional complaints, except as documented Neuro Reports no additional complaints Psych Reports anxiety Endo Reports no additional complaints Aller/Immun Denies wheezing Physical Exam Vital Signs: Last Vital Signs Pulse 69 01/14/23 10:44 BP 110/70 01/14/23 10:44 Pulse Ox 95 01/14/23 10:44 Oxygen Delivery Method Room Air 01/14/23 10:44 BMI result Body Mass Index 33.1 Const General: comfortable, no acute distress, alert and awake Orientation/consciousness: patient oriented x3 HEENT Head: Yes normal to inspection General nose exam: No nasal polyps present and No nasal discharge present Face and sinus: Yes sinuses nontender Mouth: oropharynx normal Teeth and gingiva: edentulous Throat: Yes posterior oropharynx normal Eyes General: appearance normal, both eyes and all related structures Neck Neck: Yes normal visual inspection, Yes no lymphadenopathy, Yes trachea midline and Yes no JVD Thyroid: Thyroid normal Chest Chest palpation & inspection: normal inspection of the chest, normal palpation of entire chest wall and no tenderness Resp Effort & Inspection: normal respiratory effort Auscultation: clear to auscultation bilaterally, no crackles and no wheezes Cardio Palpation: normal PMI Rate: regular rate Rhythm: regular rhythm Heart sounds: no gallops and no murmurs Peripheral pulses: Peripheral pulses 2+ throughout GI Palpation (GI): Soft to palpation, nontender, No hepatosplenomegaly present and no masses Auscultation: normal bowel sounds Back/Spine/Pelvis Thoracic/Lumbar Spine: thoracic and lumbar spine normal to inspection Skin General skin exam: no rashes or lesions noted Neuro General: patient oriented x3 and no focal motor deficits Cranial nerves: Yes CN's II-XII intact bilaterally Extrem General: Yes normal to inspection, Yes no clubbing, cyanosis or edema and Yes no calf tenderness Psych Appearance: disheveled Mental Status: other (Slow in answering questions) Speech and movement: Normal speech and movement present Results Reviewed Results Reviewed: COMPLIANCE REPORT NOT AVAILABLE Assessment & Plan Assessment & Plan (1) Obesity (BMI 30-39.9): Comment: HE IS MODERTAELY OVERWEIGHT USUAL , HAS PUT ON ABOUT 5 LB SINCE HIS LAST VISIT. DIFFICULT FOR HIM TO LOSE WEIGHT. WOULD NOT BE ABLE TO FOLLOW ANY INSTRUCTIONS FOR LOSING WEIGHT. Code(s): E66.9 - Obesity, unspecified (2) DAISY on CPAP: Comment: DAISY is being treated with use of CPAP at night. He does use the CPAP almost every night, and claims that he sleeps well. Because of his mental health disorder and poor understanding. I discussed with him and his SUBMARINE ELEMENT COORDINATOR and stressed that he has to use the CPAP for more than 4 hours every day. Code(s): G47.33 - Obstructive sleep apnea (adult) (pediatric); Z99.89 - Dependence on other enabling machines and devices Coding Level of Care Code Est Pt Level 3 (38448) Diagnoses Obesity (BMI 30-39.9) E66.9 DAISY on CPAP G47.33; Z99.89
== END 2023-01-14 11:07 | disposition home or self-care (01) ==
PROVIDERS: PCP General Practice; Visit Provider Internal Medicine
DX: E66.9 Obesity, unspecified (principal); G47.33 Obstructive sleep apnea (adult) (pediatric); Z99.89 Dependence on other enabling machines and devices
CPT/HCPCS: 99213

== ENCOUNTER → 2023-01-14 10:40 | Outpatient (BNVA) | payer OTHER, SELFPAY | PROVIDERS: PCP General Practice; Visit Provider Internal Medicine | DX: G47.33 Obstructive sleep apnea (adult) (pediatric) (principal); E66.9 Obesity, unspecified; Z68.33 Body mass index [BMI] 33.0-33.9, adult; Z99.89 Dependence on other enabling machines and devices | CPT/HCPCS: 99212 ==

== ENCOUNTER 2023-01-22 10:22 | Outpatient (REF) | payer OTHER, SELFPAY ==
[2023-01-22 11:52] LABS: Estimated Average Glucose 108 mg/dL; Hematocrit 47.8 % (42.0-52.0); Hemoglobin 15.9 g/dl (14.0-18.0); Hemoglobin A1c % 5.4 % (<6.0)
[2023-01-22 12:14] LABS: Anion Gap 12 (12-20); Blood Urea Nitrogen 9 mg/dL (9-16); Carbon Dioxide 22 mmol/L (22-29); Chloride 105 mmol/L (96-108); Estimated Glomerular Filt Rate > 60; Glucose Random 181 mg/dL (60-115); Sodium 135 mmol/L (135-145)
== END 2023-01-22 10:23 | disposition home or self-care (01) ==
LOC: HO.HHCL 10:22
PROVIDERS: Visit Provider Nurse Practitioner Primary Care
DX: R42 Dizziness and giddiness (principal); R03.0 Elevated blood-pressure reading, without diagnosis of hypertension; R73.01 Impaired fasting glucose; Z13.1 Encounter for screening for diabetes mellitus
CPT/HCPCS: 36415; 80048; 83036; 85014; 85018

== ENCOUNTER 2023-03-05 17:41 | Outpatient (REF) | payer OTHER, SELFPAY ==
[2023-03-05 18:33] LABS: Influenza A PCR NEGATIVE (Negative); Influenza B PCR NEGATIVE (Negative); Resp Syncy Virus RNA Qual PCR NEGATIVE (Negative); SARS COV2 PCR INHOUSE NEGATIVE (Negative)
== END 2023-03-05 17:42 | disposition home or self-care (01) ==
LOC: HO.HHCLNP 17:41
PROVIDERS: Visit Provider Nurse Practitioner Primary Care
DX: Z11.52 Encounter for screening for COVID-19 (principal); Z20.822 Contact with and (suspected) exposure to COVID-19; R19.5 Other fecal abnormalities
CPT/HCPCS: 0241U

== ENCOUNTER 2023-05-26 09:52 | Outpatient (AMB) | payer OTHER, SELFPAY ==
[2023-05-26 10:00] VITALS: BP 94/66; PULSE 89; BMI 31.2
--- NOTE | 2023-05-26 10:00 | A.OFFVIS_ITS ---
Intake Vital Signs 05/26/23 10:00 Height 5 ft 5 in Weight 187 lb 6.287 oz BMI 31.2 BP 94/66 Blood Pressure Location Lt brachial Position Sitting Pulse 89 Intake Visit Reasons: r/s 1 year followup Intake Note: 1 year follow up Coding Quality Analyst Required: Yes Coding Quality Analyst Language: Core Cutter Name: C Accompanied by: Other Relationship Allergies aspirin [ASPIRIN] Allergy (Severe, Verified 05/26/23 10:02) SWELLING, rash Penicillins [PENICILLINS] Allergy (Severe, Verified 05/26/23 10:02) CONVULSIONS Medication List - Last Reconciled 05/26/23 by Aditya Astudillo MD cholecalciferol (vitamin D3) 50 mcg PO DAILY clonazepam 1 mg PO BEDTIME clonazepam 0.5 mg PO DAILY esomeprazole magnesium 20 mg PO DAILY fluoxetine 20 mg PO QAM fluticasone propionate 50 mcg/actuation sprays intranasal loratadine 10 mg PO DAILY melatonin 10 mg PO BEDTIME peg [id number] 1-0.2-0.2 % (Dry Eye Relief) 0 drps ophthalmic (eye) risperidone 0.5 mg PO BID simvastatin 80 mg PO BEDTIME tamsulosin 0.4 mg PO BEDTIME HPI HPI Comments History of Present Illness Details John returns for follow-up. In the past, was seen regarding abnormal EKG. Thought to have left ventricular hypertrophy. Prior EKGs going back many years have looked just the same. Otherwise, no known coronary disease myocardial infarction or cardiomyopathy. Other history includes schizophrenia. His cutter banana room is with him today. According to patient as well as can take it, he is doing fine. Absolutely no cardiac symptoms. [facility] Medical History HTN (hypertension) Hepatitis Syphilis Chronic GERD BPH w urinary obs/LUTS DAISY on CPAP Obesity (BMI 30-39.9) Surgical History No pertinent past surgical history Family History Father Heart disease Mother Diabetes Social History Household Members: Other Alcohol intake: current Alcohol intake frequency: does not drink Patient Tobacco Use Status: Current everyday Tobacco user Cigarettes Per Day: 3 Review of Systems Const Denies weakness ENT Denies dizziness Card Denies chest pain, Denies chest pain with activity, Denies syncope, Denies rapid heart rate, Denies pedal edema, Denies edema, Denies leg edema, Denies lightheadedness, Denies palpitations, Denies dyspnea, Denies dyspnea on exertion and Denies orthopnea Resp Denies cough, Denies dyspnea and Denies dyspnea on exertion GI Denies hematochezia and Denies change in stool character Musc Denies abnormal gait, Denies muscle cramps, Denies muscle weakness, Denies numbness, Denies radiating pain into limb and Denies tingling Neuro Denies abnormal gait, Denies dizziness, Denies syncope, Denies numbness, Denies tingling and Denies weakness Endo Denies palpitations Physical Exam Vital Signs: Last Vital Signs Pulse 89 05/26/23 10:00 BP 94/66 05/26/23 10:00 BMI result Body Mass Index 31.2 Const General: comfortable and no acute distress Orientation/consciousness: patient oriented x3 HEENT Other: Unremarkable Head: Yes normal to inspection Neck Neck: Yes normal visual inspection Chest Chest palpation & inspection: normal inspection of the chest Resp Auscultation: clear to auscultation bilaterally Cardio Palpation: normal PMI Heart sounds: S1 normal heart sound present, S2 normal heart sound present, no gallops, no murmurs and no rubs GI Palpation (GI): Soft to palpation Back/Spine/Pelvis Other: unremarkable Skin General skin exam: no rashes or lesions noted Neuro General: patient oriented x3 Extrem General: Yes normal to inspection Psych Mental Status: mental status grossly normal Assessment & Plan Assessment & Plan (1) Abnormal EKG: Code(s): R94.31 - Abnormal electrocardiogram [ECG] [EKG] (2) Asymmetric septal hypertrophy: Code(s): I42.2 - Other hypertrophic cardiomyopathy Plan EKG findings are chronic and suggestive of left ventricular hypertrophy. However, patient does not have any significant hypertension to explain this. Echocardiogram with LVEF of 65-70%. Mild basal septal hypertrophy. No significant valvular issues. Myocardial perfusion imaging study thought to have likely normal perfusion. Overall, no specific management for the EKG findings. He does not have any symptoms either. Discussed with cutter banana room. Coding Level of Care Code Est Pt Level 3 (23950) Diagnoses Abnormal EKG R94.31 Asymmetric septal hypertrophy I42.2
== END 2023-05-26 10:32 | disposition home or self-care (01) ==
PROVIDERS: PCP General Practice; Visit Provider Internal Medicine
DX: R94.31 Abnormal electrocardiogram [ECG] [EKG] (principal); I42.2 Other hypertrophic cardiomyopathy
CPT/HCPCS: 99213

== ENCOUNTER → 2023-05-26 09:52 | Outpatient (BNVA) | payer OTHER, SELFPAY | PROVIDERS: PCP General Practice; Visit Provider Internal Medicine | DX: R94.31 Abnormal electrocardiogram [ECG] [EKG] (principal); I42.2 Other hypertrophic cardiomyopathy | CPT/HCPCS: 99212 ==

== ENCOUNTER 2023-07-01 09:49 | Outpatient (AMB) | payer OTHER, SELFPAY ==
--- NOTE | 2023-07-01 10:39 | A.OFFVIS_ITS ---
Intake Intake Visit Reasons: 6 month psa Intake Note: Patient presents today for a follow-up on PSA Labs Results: Patient failed to do labs Meds- Oxybutynin Allergies to Antibiotic- No Known Allergies Blood Thinner- None PVR- 56 mL Doper Required: Yes Accompanied by: Other Relationship Allergies aspirin [ASPIRIN] Allergy (Severe, Verified 07/01/23 10:43) SWELLING, rash Penicillins [PENICILLINS] Allergy (Severe, Verified 07/01/23 10:43) CONVULSIONS Medication List - Last Reconciled 07/01/23 by Shadi Goodman MD cholecalciferol (vitamin D3) 50 mcg PO DAILY clonazepam 1 mg PO BEDTIME clonazepam 0.5 mg PO DAILY esomeprazole magnesium 20 mg PO DAILY fluoxetine 20 mg PO QAM fluticasone propionate 50 mcg/actuation sprays intranasal loratadine 10 mg PO DAILY melatonin 10 mg PO BEDTIME oxybutynin chloride ER 5 mg PO DAILY peg [id number] 1-0.2-0.2 % (Dry Eye Relief) 0 drps ophthalmic (eye) risperidone 0.5 mg PO BID simvastatin 80 mg PO BEDTIME HPI HPI Comments History of Present Illness Details John is a 63-year-old male who presents today to the office for a follow-up. h/o Schizophrenia disorder he is here with his caregiver. Certified neuroscience director na present. History of [facility] laser [address] Granger for BPH. The caregiver states that the patient continues to drink a lot of water. He goes to the bathroom frequently but does not leak urine. I will continue oxybutynin 5 mg daily. PSA was not done. Urinalysis: Essentially unremarkable. Review of chart: 12/31/2022? He is followed today for BPH. The patient is a Sinhala speaking male. Certified cabinet worker was present during the visit. He has seen Dr. Granger on 12/29/2021 for nocturia. The patient was advised to follow-up in 1 year.? The patient presents with a caregiver. He mentions that he goes to bathroom to urinate more often, but he denies mild burning with urination. During the discussion his construction project engineer states that his water intake has been controlled as he was diagnosed with hyponatremia. He is allowed to consume 7-8 glasses. He has a history of smoking cigarettes. Educated the patient that the nicotine dependence may lead to the risk of urinary tract cancer. Plan: I will discontinue Flomax, and continue oxybutynin 5 mg. PSA screening was ordered. Review of tests-- Cystoscopy - 2019 no evidence of regrowth PSA 07/2020 --0.4 07/01/2023--PLAN: PSA was again ordered. Continue oxybutynin 5 mg daily. Cut back on fluid intake. Follow-up in 6 months renal ultrasound prior [facility] Medical History HTN (hypertension) Hepatitis Syphilis Chronic GERD BPH w urinary obs/LUTS DAISY on CPAP Obesity (BMI 30-39.9) Surgical History No pertinent past surgical history Family History Father Heart disease Mother Diabetes Social History Household Members: Other Alcohol intake: current Alcohol intake frequency: does not drink Patient Tobacco Use Status: Current everyday Tobacco user Cigarettes Per Day: 3 Review of Systems Const All systems reviewed & are unremarkable except as noted in HPI and below Reports no additional complaints Eyes Reports no additional complaints ENT Reports no additional complaints Card Reports no additional complaints Resp Reports no additional complaints GI Reports no additional complaints Reports as per HPI Musc Reports no additional complaints Skin/Breast Reports system reviewed and no additional complaints, except as documented Neuro Reports no additional complaints Psych Reports no additional complaints Endo Reports no additional complaints Oscar/Lymph Reports no additional complaints Aller/Immun Reports no additional complaints Office Procedures Post Void Residual Post Residual Void Post Void Residual (PVR): 56 [id number] Void Residual by ultrasound Results AMB Urinalysis, Automated UA Leukoctes 15 Thai/uL Last Edit by RODOLFO Woody on 07/01/23 10:47 UA Nitrite Negative Last Edit by Zulma Lee, A on 07/01/23 10:47 UA Urobilinogen 0.2 mg/dL Last Edit by Zulma Lee A on 07/01/23 10:4 7 UA Protein 15 mg/dL Last Edit by Zulma Lee A on 07/01/23 10:47 UA pH 6.5 Last Edit by Zulma Lee, A on 07/01/23 10:47 UA Blood 0 Justice/uL Last Edit by Zulma Lee, A on 07/01/23 10:47 UA Specific [place] 1.005 Last Edit by Zulma Lee [facility] on 07/01/23 10: 47 UA Ketone Negative Last Edit by Zulma Lee A on 07/01/23 10:47 UA Bilirubin 0 mg/dL Last Edit by Zulma Lee [facility] on 07/01/23 10:47 UA Glucose 0 mg/dL Last Edit by Zulma Lee [facility] on 07/01/23 10:47 Results Reviewed Results Reviewed: Laboratory Last Values Urine pH (Auto) 6.5 07/01/23 10:46 Specific [place] (Auto) 1.005 07/01/23 10:46 Urine Protein (Auto) 15 mg/dL 07/01/23 10:46 Glucose (UA)(Auto) 0 mg/dL 07/01/23 10:46 Urine Ketones (Auto) Negative 07/01/23 10:46 Urine Blood (Auto) 0 Justice/uL 07/01/23 10:46 Urine Nitrite (Auto) Negative 07/01/23 10:46 Urine Bilirubin (Auto) 0 mg/dL 07/01/23 10:46 Urine Urobilinogen (Auto) 0.2 mg/dL 07/01/23 10:46 Leukocyte Esterase (Auto) 15 Thai/uL 07/01/23 10:46 Assessment & Plan Assessment & Plan (1) BPH (benign prostatic hyperplasia): Code(s): N40.0 - Benign prostatic hyperplasia without lower urinary tract symptoms (2) Urinary frequency: Code(s): R35.0 - Frequency of micturition Plan PSA was again ordered. Continue oxybutynin 5 mg daily. Cut back on fluid intake. Follow-up in 6 months renal ultrasound prior Orders: Orders AMB Urinalysis Automated Today Z13.9 - Encounter for screening, unspecified AMB Post Void Residual by ultrasound Today N39.8 - Other specified disorders of urinary system PSA,Total (Free>4and<10) Today N40.0 - Benign prostatic hyperplasia without lower urinary tract symptoms Patient Instructions: The patient had an opportunity to ask questions regarding treatment plan. The patient is aware they should contact our office by phone for worsening of their current condition or the appearance of new symptoms. Compliance is encouraged with any medications and followup testing that is ordered. It is a privilege to be allowed the opportunity to participate in the urologic care of your patient. If you have any questions or concerns regarding treatment for the above conditions please do not hesitate to contact me. The office telephone contact is [phone]. This note is constructed in part using voice recognition software. While every effort has been made to ensure accuracy dry transfer man errors may have been included. Yours sincerely, Shadi Goodman MD Coding Level of Care Code Est Pt Level 4 (74230) Diagnoses BPH (benign prostatic hyperplasia) N40.0 Urinary frequency R35.0 CPT Codes Post Residual Void - PVR CPT Code: 31527-Xtlo Void Residual by ultrasound ([id number])
== END 2023-07-01 11:31 | disposition home or self-care (01) ==
PROVIDERS: PCP General Practice; Visit Provider Urology
DX: N40.0 Benign prostatic hyperplasia without lower urinary tract symptoms (principal); R35.0 Frequency of micturition; Z13.9 Encounter for screening, unspecified
CPT/HCPCS: 99214

== ENCOUNTER → 2023-07-01 09:49 | Outpatient (BNVA) | payer OTHER, SELFPAY | PROVIDERS: PCP General Practice; Visit Provider Urology | DX: N40.0 Benign prostatic hyperplasia without lower urinary tract symptoms (principal); R35.0 Frequency of micturition | CPT/HCPCS: 51798; 81003; 99212 ==

== ENCOUNTER 2023-07-02 09:57 | Outpatient (REF) | payer OTHER, SELFPAY ==
[2023-07-02 12:25] LABS: PSA,Total (Free>4and<10) 0.55 ng/mL (0.00-4.00)
== END 2023-07-02 09:58 | disposition home or self-care (01) ==
LOC: HO.LAB 09:57
PROVIDERS: PCP General Practice; Visit Provider Urology
DX: Z12.5 Encounter for screening for malignant neoplasm of prostate (principal)
CPT/HCPCS: 36415; 84153

== ENCOUNTER 2023-07-15 10:40 | Outpatient (AMB) | payer OTHER, SELFPAY ==
[2023-07-15 10:53] VITALS: BP 102/60; PULSE 87; O2SAT 95; BMI 31.5
--- NOTE | 2023-07-15 10:53 | MHC.OFFVIS ---
Intake Vital Signs 07/15/23 10:53 Height 5 ft 5 in Weight 189 lb 9.561 oz BMI 31.5 BP 102/60 Blood Pressure Location Lt brachial Position Sitting Pulse 87 Pulse Source Pulse Oximeter Pulse Oximetry (%) 95 Oxygen Delivery Method Room Air Intake Visit Reasons: Obstructive sleep apnea Intake Note: pt is here for follow up and states he is feeling fine, he is using the machine at night, but sometimes he takes it off, he needs for filters to be sent. Licensed Staff Mft Required: Yes Licensed Staff Mft Name: [id number] Allergies aspirin [ASPIRIN] Allergy (Severe, Verified 07/15/23 11:09) SWELLING, rash Penicillins [PENICILLINS] Allergy (Severe, Verified 07/15/23 11:09) CONVULSIONS Medication List - Last Reconciled 07/15/23 by Aniyah Matias MD cholecalciferol (vitamin D3) 50 mcg PO DAILY clonazepam 1 mg PO BEDTIME clonazepam 0.5 mg PO DAILY esomeprazole magnesium 20 mg PO DAILY fluoxetine 20 mg PO QAM fluticasone propionate 50 mcg/actuation sprays intranasal loratadine 10 mg PO DAILY melatonin 10 mg PO BEDTIME oxybutynin chloride ER 5 mg PO DAILY peg [id number] 1-0.2-0.2 % (Dry Eye Relief) 0 drps ophthalmic (eye) risperidone 0.5 mg PO BID simvastatin 80 mg PO BEDTIME Do you need a note to return to daycare/school/sports/work: No HPI Obstructive sleep apnea HPI Details JAGUAR IS 63 YEARS OLD 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 HE COMES WITH HIS TREASURY REPRESENTATIVE. AND CONVERSATION WAS FACILITATED BY A PROFESSIONAL HABITAT CONSERVATION PLANNER ONLINE. HE USES CPAP EVERY NIGHT REGULARLY, EVEN THOUGH HIS CPAP DEVICE HAS NOT BEEN TRANSMITTING THE DATA FOR A FEW YEARS. HIS CPAP DEVICE IS MORE THAN 5 YEARS OLD. BREATHING MEJIAS HE HAS ONLY MILD INTERMITTENT COUGH. HE IS NOT ON ANY RESPIRATORY MEDS. HE STILL SMOKES CIGARETTES 2-3 PER DAY, THAT MAY BE THE SOURCE OF COUGH. [facility] Medical History (Updated 07/15/23 @ 11:18 by Aniyah Matias MD) Smoker HTN (hypertension) Hepatitis Syphilis Chronic GERD BPH w urinary obs/LUTS DAISY on CPAP Obesity (BMI 30-39.9) Surgical History No pertinent past surgical history Family History Father Heart disease Mother Diabetes Social History Household Members: Other Alcohol intake: current Alcohol intake frequency: does not drink Patient Tobacco Use Status: Current everyday Tobacco user Cigarettes Per Day: 3 Review of Systems Const All systems reviewed & are unremarkable except as noted in HPI and below Eyes Reports no additional complaints ENT Reports nasal congestion (Mild nasal congestion due to putting on the CPAP mask at night) Card Denies chest pain, Denies irregular heart rhythm and Denies leg edema Resp Reports cough (Mild intermittent) and Denies wheezing GI Reports no additional complaints Reports nocturia Musc Reports no additional complaints Skin/Breast Reports system reviewed and no additional complaints, except as documented Neuro Reports no additional complaints Psych Reports anxiety Endo Reports no additional complaints Aller/Immun Denies wheezing Physical Exam Vital Signs: Last Vital Signs Pulse 87 07/15/23 10:53 BP 102/60 07/15/23 10:53 Pulse Ox 95 07/15/23 10:53 Oxygen Delivery Method Room Air 07/15/23 10:53 BMI result Body Mass Index 31.5 Const General: comfortable, no acute distress, alert and awake Orientation/consciousness: patient oriented x3 HEENT Head: Yes normal to inspection General nose exam: No nasal polyps present and No nasal discharge present Face and sinus: Yes sinuses nontender Mouth: oropharynx normal Teeth and gingiva: edentulous Throat: Yes posterior oropharynx normal Eyes General: appearance normal, both eyes and all related structures Neck Neck: Yes normal visual inspection, Yes no lymphadenopathy, Yes trachea midline and Yes no JVD Thyroid: Thyroid normal Chest Chest palpation & inspection: normal inspection of the chest, normal palpation of entire chest wall and no tenderness Resp Effort & Inspection: normal respiratory effort Auscultation: clear to auscultation bilaterally, no crackles and no wheezes Cardio Palpation: normal PMI Rate: regular rate Rhythm: regular rhythm Heart sounds: no gallops and no murmurs Peripheral pulses: Peripheral pulses 2+ throughout GI Palpation (GI): Soft to palpation, nontender, No hepatosplenomegaly present and no masses Auscultation: normal bowel sounds Back/Spine/Pelvis Thoracic/Lumbar Spine: thoracic and lumbar spine normal to inspection Skin General skin exam: no rashes or lesions noted Neuro General: patient oriented x3 and no focal motor deficits Cranial nerves: Yes CN's II-XII intact bilaterally Extrem General: Yes normal to inspection, Yes no clubbing, cyanosis or edema and Yes no calf tenderness Psych Appearance: disheveled Mental Status: other (Slow in answering questions) Speech and movement: Normal speech and movement present Results Reviewed Results Reviewed: NOTED ABOVE THE CPAP DEVICE IS NOT TRANSMITTING THE DATA FOR ONLINE COMPLIANCE MONITORING. HOWEVER PER THE PATIENT AND HIS TREASURY REPRESENTATIVE, HE DOES USE THE CPAP MACHINE EVERY NIGHT AND SLEEPS WELL. Assessment & Plan Assessment & Plan (1) DAISY on CPAP: Comment: DAISY is being treated with use of CPAP at night. He does use the CPAP almost every night, and claims that he sleeps well. Code(s): G47.33 - Obstructive sleep apnea (adult) (pediatric); Z99.89 - Dependence on other enabling machines and devices Plan: Because of his mental health disorder and poor understanding,most of the discussion and instructions given were with the TREASURY REPRESENTATIVE. I advise that he has to use CPAP every night more than 4-5 hours per night. Order for new supplies being sent. And we will discuss with DME provider, to see if he can get a new CPAP device, with compliance monitoring equipment. (2) Obesity (BMI 30-39.9): Comment: HE IS MODERTAELY OVERWEIGHT USUAL , DIFFICULT FOR HIM TO LOSE WEIGHT. WOULD NOT BE ABLE TO FOLLOW ANY INSTRUCTIONS FOR LOSING WEIGHT. Code(s): E66.9 - Obesity, unspecified Plan: as above (3) Smoker: Comment: He is long-time smoker and has try to cut down the number of cigarettes with the help of his TREASURY REPRESENTATIVE staff. Down to 2-3 cigarettes a day, and beyond that he is not able to stop completely. Code(s): F17.200 - Nicotine dependence, unspecified, uncomplicated Plan: Again advise to stop completely if he can. Otherwise do not exceed 2-3 cigarettes a day . Coding Level of Care Code Est Pt Level 3 (74825) Diagnoses DAISY on CPAP G47.33; Z99.89 Obesity (BMI 30-39.9) E66.9 Smoker F17.200
== END 2023-07-15 11:11 | disposition home or self-care (01) ==
PROVIDERS: PCP General Practice; Visit Provider Internal Medicine
DX: G47.33 Obstructive sleep apnea (adult) (pediatric) (principal); Z99.89 Dependence on other enabling machines and devices; E66.9 Obesity, unspecified; F17.200 Nicotine dependence, unspecified, uncomplicated
CPT/HCPCS: 99213

== ENCOUNTER → 2023-07-15 10:40 | Outpatient (BNVA) | payer OTHER, SELFPAY | PROVIDERS: PCP General Practice; Visit Provider Internal Medicine | DX: G47.33 Obstructive sleep apnea (adult) (pediatric) (principal); E66.9 Obesity, unspecified; F17.210 Nicotine dependence, cigarettes, uncomplicated; Z68.31 Body mass index [BMI] 31.0-31.9, adult; Z99.89 Dependence on other enabling machines and devices | CPT/HCPCS: 99212 ==

== ENCOUNTER 2023-12-30 09:45 | Outpatient (AMB) | payer OTHER, SELFPAY ==
--- NOTE | 2023-12-30 09:56 | A.OFFVIS_ITS ---
Intake Visit Reasons: 6m/US/PSA/PVR Intake Note: Patient presents today for a 6 month US/PSA/PVR Meds- Oxybutynin Allergies to Antibiotic- No Known Allergies Blood Thinner- None PVR- 14 mL Pulley Worker Required: Yes Pulley Worker Services: Pulley Worker Present Pulley Worker Name: Lindsey([id number]) Accompanied by: Other Relationship Allergies aspirin [ASPIRIN] Allergy (Severe, Verified 12/30/23 10:03) SWELLING, rash Penicillins [PENICILLINS] Allergy (Severe, Verified 12/30/23 10:03) CONVULSIONS HPI Comments Details: John is a 63-year-old male who presents today to the office for a follow-up. h/o Schizophrenia disorder he is here with his caregiver. Certified commander internal affairs present. History of [employer] laser [address] Granger for BPH. The caregiver states that the patient continues to drink a lot of water. He goes to the bathroom frequently but does not leak urine. I will continue ox ybutynin 5 mg daily. Urinalysis: Essentially unremarkable. Renal US not done. Review of tests-- PSA - 07/02/23--0.55 ng/mL Cystoscopy - 2019 no evidence of regrowth PSA 07/2020 --0.4 PFSH Medical History Smoker HTN (hypertension) Hepatitis Syphilis Chronic GERD BPH w urinary obs/LUTS DAISY on CPAP Obesity (BMI 30-39.9) Surgical History No pertinent past surgical history Family History Father Heart disease Mother Diabetes Social History Household Members: Other Alcohol intake: current Alcohol intake frequency: does not drink Patient Tobacco Use Status: Current everyday Tobacco user Cigarettes Per Day: 3 Review of Systems Const All systems reviewed & are unremarkable except as noted in HPI and below Reports no additional complaints Eyes Reports no additional complaints ENT Reports no additional complaints Card Reports no additional complaints Resp Reports no additional complaints GI Reports no additional complaints Reports as per HPI Musc Reports no additional complaints Skin/Breast Reports system reviewed and no additional complaints, except as documented Neuro Reports no additional complaints Psych Reports no additional complaints Endo Reports no additional complaints Oscar/Lymph Reports no additional complaints Aller/Immun Reports no additional complaints Office Procedures Post Void Residual Post Residual Void Post Void Residual (PVR): 14 [id number] Void Residual by ultrasound Results AMB Urinalysis, Automated UA Leukoctes 70 Thai/uL Last Edit by Danyell Olsen CMA on 12/30/23 10:16 UA Nitrite Negative Last Edit by Danyell Olsen CMA on 12/30/23 10:16 UA Urobilinogen 0.2 mg/dL Last Edit by Danyell Olsen CMA on 12/30/23 10:16 UA Protein 0 mg/dL Last Edit by Danyell Olsen CMA on 12/30/23 10:16 UA pH 7.0 Last Edit by Danyell Olsen CMA on 12/30/23 10:16 UA Blood 0 Justice/uL Last Edit by Danyell Olsen CMA on 12/30/23 10:16 UA Specific Mcintosh 1.010 Last Edit by Danyell Olsen CMA on 12/30/23 10:16 UA Ketone Negative Last Edit by Danyell Olsen CMA on 12/30/23 10:16 UA Bilirubin 0 mg/dL Last Edit by Danyell Olsen CMA on 12/30/23 10:16 UA Glucose 0 mg/dL Last Edit by Danyell Olsen CMA on 12/30/23 10:16 Results Reviewed Results Reviewed: Laboratory Last Values Urine pH (Auto) 7.0 12/30/23 10:14 Specific Mcintosh (Auto) 1.010 12/30/23 10:14 Urine Protein (Auto) 0 mg/dL 12/30/23 10:14 Glucose (UA)(Auto) 0 mg/dL 12/30/23 10:14 Urine Ketones (Auto) Negative 12/30/23 10:14 Urine Blood (Auto) 0 Justice/uL 12/30/23 10:14 Urine Nitrite (Auto) Negative 12/30/23 10:14 Urine Bilirubin (Auto) 0 mg/dL 12/30/23 10:14 Urine Urobilinogen (Auto) 0.2 mg/dL 12/30/23 10:14 Leukocyte Esterase (Auto) 70 Thai/uL 12/30/23 10:14 Assessment & Plan Assessment & Plan (1) BPH (benign prostatic hyperplasia): Code(s): N40.0 - Benign prostatic hyperplasia without lower urinary tract symptoms Category: Medical (2) Urinary frequency: Code(s): R35.0 - Frequency of micturition Category: Medical (3) OAB (overactive bladder): Code(s): N32.81 - Overactive bladder Category: Medical Plan Continue oxybutynin 5 mg daily. Cut back on fluid intake. Follow-up in 6 months renal ultrasound prior Orders: Orders AMB Post Void Residual by ultrasound 12/30/23 R35.0 - Frequency of micturition AMB Urinalysis Automated 12/30/23 R35.0 - Frequency of micturition Patient Instructions: The patient had an opportunity to ask questions regarding treatment plan. The patient expressed understanding and agreement with the above treatment plan. The patient is aware they should contact our office by phone for worsening of their current condition or the appearance of new symptoms. Compliance is encouraged with any medications and followup testing that is ordered. It is a privilege to be allowed the opportunity to participate in the urologic care of your patient. If you have any questions or concerns regarding treatment for the above conditions please do not hesitate to contact me. The office telephone contact is [phone]. This note is constructed in part using voice recognition software. While every effort has been made to ensure accuracy data acquisition technician errors may have been included. Yours sincerely, Shadi Goodman MD Coding Level of Care Code Est Pt Level 4 (42641) Diagnoses BPH (benign prostatic hyperplasia) N40.0 Urinary frequency R35.0 OAB (overactive bladder) N32.81 CPT Codes Post Residual Void - PVR CPT Code: 69682-Oraw Void Residual by ultrasound ([id number])
== END 2023-12-30 10:46 | disposition home or self-care (01) ==
PROVIDERS: PCP General Practice; Visit Provider Urology
DX: N40.0 Benign prostatic hyperplasia without lower urinary tract symptoms (principal); R35.0 Frequency of micturition; N32.81 Overactive bladder
CPT/HCPCS: 99214

== ENCOUNTER → 2023-12-30 09:45 | Outpatient (BNVA) | payer OTHER, SELFPAY | PROVIDERS: PCP General Practice; Visit Provider Urology | DX: N40.1 Benign prostatic hyperplasia with lower urinary tract symptoms (principal); R35.0 Frequency of micturition; N32.81 Overactive bladder | CPT/HCPCS: 51798; 81003; 99212 ==

== ENCOUNTER 2024-01-03 12:48 | Outpatient (AMB) | payer OTHER, SELFPAY ==
--- NOTE | 2024-01-03 12:52 | A.OFFVIS_ITS ---
Vital Signs 01/03/24 12:53 Height 5 ft 5 in Weight 182 lb 15.739 oz BMI 30.4 BP 107/83 Blood Pressure Location Lt brachial Position Sitting Pulse 68 Intake Visit Reasons: f/u malnutrition Intake Note: John presents in the office as a follow up due to malnutrition. 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 He was doing better with the PPI BID Had no issues with dysphagia or odynophagia. he had EGD and colon 2016- gastritis with h pylori which was treated, colon was normal also has abn LFT, but f/u LFT 12/2018 were normal, also LFt nml 10/2019 h pylori BALWINDER revealed he is cured from H pylori he had CT 02/2019--paraumbilical hernia and renal stone, obstructive, liver looked normal he saw surgery and urology for henria repair and prostate sisues He required nexium treatment due to GERD sx, denied dysphagia He had been doing well w treatment b12 was 312 INTERIM: He has no complaints still taking PPI- esomeprazole 20 mg daily appetite is good stools are normal, no blood no abdominal pain he denies any bloating or gas sx EXAM: GENERAL: The patient is well developed and nontoxic. VITAL SIGNS:see workflow HEENT: Nonicteric sclerae, PERRLA, EOMI. Oropharynx clear. Moist mucous membranes. Conjunctivae appear well perfused. No thyroid mass. CHEST: Chest wall is nontender. HEART: Regular rate and rhythm without murmurs. LUNGS: Clear to auscultation bilaterally. ABDOMEN: Soft, positive bowel sounds, nontender, no organomegaly.no flank tenderness SKIN: No rash, no excessive bruising, petechiae, or purpura. NEUROLOGIC: Cranial nerves II-XII intact without motor/sensory deficit. Assessments 1. Chronic GERD - controlled 1/ conts to do well with PPI, 2/ checkl b12. ferriitn, , Vit D, i---reminded to take vit d supplement-- and MV PFS Medical History Smoker HTN (hypertension) Hepatitis Syphilis Chronic GERD BPH w urinary obs/LUTS DAISY on CPAP Obesity (BMI 30-39.9) Surgical History No pertinent past surgical history Family History Father Heart disease Mother Diabetes Social History Household Members: Other Alcohol intake: current Alcohol intake frequency: does not drink Patient Tobacco Use Status: Current everyday Tobacco user Cigarettes Per Day: 3 Assessment & Plan Assessment & Plan (1) GERD (gastroesophageal reflux disease): Code(s): K21.9 - Gastro-esophageal reflux disease without esophagitis Category: Medical Plan: see above Orders: Orders Vitamin B1 Today K21.9 - Gastro-esophageal reflux disease without esophagitis Zinc Today K21.9 - Gastro-esophageal reflux disease without esophagitis Complete Blood Count Auto Diff Today K21.9 - Gastro-esophageal reflux disease without esophagitis Comprehensive Met. Panel Today K21.9 - Gastro-esophageal reflux disease without esophagitis, K75.81 - Nonalcoholic steatohepatitis (BOTELLO) Vitamin A Today K21.9 - Gastro-esophageal reflux disease without esophagitis Vitamin B12 and Folate Today K21.9 - Gastro-esophageal reflux disease without esophagitis Ferritin Today K21.9 - Gastro-esophageal reflux disease without esophagitis Coding Level of Care Code Est Pt Level 3 (04674) Diagnoses GERD (gastroesophageal reflux disease) K21.9
[2024-01-03 12:53] VITALS: BP 107/83; PULSE 68; BMI 30.4
== END 2024-01-03 13:13 | disposition home or self-care (01) ==
PROVIDERS: PCP General Practice; Visit Provider Internal Medicine Gastroenterology
DX: K21.9 Gastro-esophageal reflux disease without esophagitis (principal)
CPT/HCPCS: 99213

== ENCOUNTER → 2024-01-03 12:48 | Outpatient (BNVA) | payer OTHER, SELFPAY | PROVIDERS: PCP General Practice; Visit Provider Internal Medicine Gastroenterology | DX: K21.9 Gastro-esophageal reflux disease without esophagitis (principal) | CPT/HCPCS: 99212 ==

== ENCOUNTER 2024-01-17 09:34 | Outpatient (REF) | payer OTHER, SELFPAY ==
[2024-01-17 11:24] LABS: Alanine Aminotransferase 20 U/L (0-40); Alkaline Phosphatase 88 U/L (39-117); Anion Gap 14 (12-20); Aspartate Amino Transferase 21 U/L (5-37); Bilirubin Total 0.3 mg/dL (0.0-1.0); Blood Urea Nitrogen 10 mg/dL (9-16); Calcium 8.9 mg/dL (8.4-10.2); Carbon Dioxide 25 mmol/L (22-29); Chloride 100 mmol/L (96-108); Estimated Glomerular Filt Rate > 60; Glucose Random 137 mg/dL (60-115); Sodium 135 mmol/L (135-145); Total Protein 6.9 g/dL (6.5-8.0)
[2024-01-17 11:38] LABS: Basophils Absolute Auto 0.1 X10*3/uL (0.0-0.2); Basophils Percent Auto 0.7 % (0-2); Eosinophils Absolute Auto 0.2 X10*3/uL (0.0-0.4); Hematocrit 46.1 % (42.0-52.0); Hemoglobin 15.4 g/dl (14.0-18.0); Imm Gran Abs Auto 0.14 X10*3/uL (0.00-0.03); Imm Gran Pct Auto 1.4 % (0.0-0.4); Lymphocytes Absolute Auto 2.7 X10*3/uL (1.2-4.9); Lymphocytes Percent Auto 26.2 % (20-40); MANUAL DIFF FLAG SCAN; Mean Corpuscular HGB Conc 33.4 g/dl (31.0-36.0); Mean Corpuscular Hemoglobin 30.8 pg (27.0-33.0); Mean Corpuscular Volume 92.2 fL (80.0-98.0); Monocytes Absolute Auto 0.5 X10*3/uL (0.1-1.2); Monocytes Percent Auto 4.8 % (2-11); Neutrophils Absolute Auto 6.6 x10*3/uL (2.0-8.3); Neutrophils Percent Auto 64.9 % (45-73); PLT CLUMP 1; Red Cell Distribution Width 12.9 % (11.0-16.0); SCAN SMEAR FLAG 1; White Blood Count 10.1 X10*3/uL (4.8-10.8)
[2024-01-17 11:40] LABS: SLIDE REVIEW VERIFIED
[2024-01-17 11:47] LABS: Ferritin 93 ng/mL (20-250)
[2024-01-17 11:56] LABS: Folate 7.7 ng/mL (> or = 4.0); Vitamin B12 366 pg/mL (200-900)
[2024-01-19 16:58] LABS: Zinc 53 mcg/dL (60-130)
[2024-01-21 22:18] LABS: Vitamin A 36 mcg/dL (38-98)
[2024-01-23 15:29] LABS: Vitamin B1 11 nmol/L (8-30)
== END 2024-01-17 09:35 | disposition home or self-care (01) ==
LOC: HO.LAB 09:34
PROVIDERS: PCP General Practice; Visit Provider Internal Medicine Gastroenterology
DX: K75.81 Nonalcoholic steatohepatitis (NASH) (principal); K21.9 Gastro-esophageal reflux disease without esophagitis
CPT/HCPCS: 36415; 80053; 82607; 82728; 82746; 84425; 84590; 84630; 85025

== ENCOUNTER 2024-02-17 10:45 | Outpatient (AMB) | payer OTHER, SELFPAY ==
[2024-02-17 10:54] VITALS: BP 94/60; PULSE 58; O2SAT 97; BMI 29.2
--- NOTE | 2024-02-17 10:54 | MHC.OFFVIS ---
Vital Signs 02/17/24 10:54 Height 5 ft 5 in Weight 175 lb 4.28 oz BMI 29.2 BP 94/60 Blood Pressure Location Lt brachial Position Sitting Pulse 58 Pulse Source Pulse Oximeter Pulse Oximetry (%) 97 Oxygen Delivery Method Room Air Intake Visit Reasons: anirudh Intake Note: pt is here for follow up of anirudh,and states he feels better, he does not use cpap at night any longer. sleeping is not good, up to use the bathroom. Front End Web Designer Required: Yes Front End Web Designer Services: Front End Web Designer Present Front End Web Designer Name: [id number] Allergies aspirin [ASPIRIN] Allergy (Severe, Verified 02/17/24 12:05) SWELLING, rash Penicillins [PENICILLINS] Allergy (Severe, Verified 02/17/24 12:05) CONVULSIONS Medication List - Last Reconciled 02/17/24 by Aniyah Matias MD cholecalciferol (vitamin D3) 50 mcg PO DAILY clonazepam 1 mg PO BEDTIME clonazepam 0.5 mg PO DAILY clotrimazole 1% (Antifungal (clotrimazole)) appl topical esomeprazole magnesium 20 mg PO DAILY fluoxetine 20 mg PO QAM melatonin 10 mg PO BEDTIME oxybutynin chloride ER 5 mg PO DAILY peg [id number] 1-0.2-0.2 % (Dry Eye Relief) 0 drps ophthalmic (eye) risperidone 0.5 mg PO BID simvastatin 80 mg PO BEDTIME trazodone 50 mg PO BEDTIME Do you need a note to return to daycare/school/sports/work: No HPI HPI anirudh: Details: 63 years old gentleman, who is moderately obese, during the past year has lost about 12 lb of weight. He was diagnosed to have severe obstructive sleep apnea back in two thousand seventeen, had CPAP titration study and he did well with the use of fullface mask. Since then he has been on CPAP therapy. Initially he was using CPAP quite regularly. In the last 6 months he has not use the CPAP, claims that when he goes to the bathroom comes back stayer does not put it on. He claims that he sleeps okay. His SHIPSMITH , who lives with her him, at night, complains that he is snoring very loud. The patient himself who has bipolar disorder and depression/anxiety is not aware of snoring. He is normally very quiet and not physically active and denies any daytime sleepiness. [facility] Medical History Smoker HTN (hypertension) Hepatitis Syphilis Chronic GERD BPH w urinary obs/LUTS ANIURDH on CPAP Obesity (BMI 30-39.9) Surgical History No pertinent past surgical history Family History Father Heart disease Mother Diabetes Social History Household Members: Other Alcohol intake: current Alcohol intake frequency: does not drink Patient Tobacco Use Status: Current everyday Tobacco user Cigarettes Per Day: 3 Review of Systems Const All systems reviewed & are unremarkable except as noted in HPI and below Eyes Reports no additional complaints ENT Reports nasal congestion (Mild nasal congestion due to putting on the CPAP mask at night) Card Denies chest pain, Denies irregular heart rhythm and Denies leg edema Resp Reports cough (Mild intermittent) and Denies wheezing GI Reports no additional complaints Reports nocturia Musc Reports no additional complaints Skin/Breast Reports system reviewed and no additional complaints, except as documented Neuro Reports no additional complaints Psych Reports anxiety Endo Reports no additional complaints Aller/Immun Denies wheezing Physical Exam Vital Signs: Last Vital Signs Pulse 58 02/17/24 10:54 BP 94/60 02/17/24 10:54 Pulse Ox 97 02/17/24 10:54 Oxygen Delivery Method Room Air 02/17/24 10:54 BMI result Body Mass Index 29.2 Const General: comfortable, no acute distress, alert and awake Orientation/consciousness: patient oriented x3 HEENT Head: Yes normal to inspection General nose exam: No nasal polyps present and No nasal discharge present Face and sinus: Yes sinuses nontender Mouth: oropharynx normal Teeth and gingiva: edentulous Throat: Yes posterior oropharynx normal Eyes General: appearance normal, both eyes and all related structures Neck Neck: Yes normal visual inspection, Yes no lymphadenopathy, Yes trachea midline and Yes no JVD Thyroid: Thyroid normal Chest Chest palpation & inspection: normal inspection of the chest, normal palpation of entire chest wall and no tenderness Resp Effort & Inspection: normal respiratory effort Auscultation: clear to auscultation bilaterally, no crackles and no wheezes Cardio Palpation: normal PMI Rate: regular rate Rhythm: regular rhythm Heart sounds: no gallops and no murmurs Peripheral pulses: Peripheral pulses 2+ throughout GI Palpation (GI): Soft to palpation, nontender, No hepatosplenomegaly present and no masses Auscultation: normal bowel sounds Back/Spine/Pelvis Thoracic/Lumbar Spine: thoracic and lumbar spine normal to inspection Skin General skin exam: no rashes or lesions noted Neuro General: patient oriented x3 and no focal motor deficits Cranial nerves: Yes CN's II-XII intact bilaterally Extrem General: Yes normal to inspection, Yes no clubbing, cyanosis or edema and Yes no calf tenderness Psych Appearance: disheveled Mental Status: other (Slow in answering questions) Speech and movement: Normal speech and movement present Results Reviewed Results Reviewed: Compliance report not available. His the CPAP machine has not been transmitting the data. Assessment & Plan Assessment & Plan (1) Obesity (BMI 30-39.9): Comment: HE IS MODERTAELY OVERWEIGHT USUAL , DIFFICULT FOR HIM TO LOSE WEIGHT, BUT IN THE LAST 4 MONTHS HE HAS LOST ABOUT 7 LB OF WEIGHT. WOULD NOT BE ABLE TO FOLLOW ANY INSTRUCTIONS FOR LOSING WEIGHT. Code(s): E66.9 - Obesity, unspecified Category: Medical Plan: INSTRUCTED TO CUT DOWN THE INTAKE OF CARBOHYDRATES BUT NOTED ABOVE HE HAS DIFFICULTY IN UNDERSTANDING. (2) ANIRUDH on CPAP: Comment: HISTORY OF OBSTRUCTIVE SLEEP APNEAS DIAGNOSED IN 2017. HE HAS BEEN USING CPAP ALL ALONG, BUT NOW SINCE HIS LAST VISIT HE IS NOT USING THE CPAP REGULARLY. ACCORDING TO HIS SHIPSMITH HE HAS HEAVY SNORING AT NIGHT, PATIENT HAS POOR UNDERSTANDING ABOUT THE USE OF CPAP, AND HE FORGETS TO PUT ON THE CPAP BEFORE HE GOES TO SLEEP. Code(s): G47.33 - Obstructive sleep apnea (adult) (pediatric); Z99.89 - Dependence on other enabling machines and devices Category: Medical Plan: EDUCATION WAS MAINLY PROVIDED TO THE SHIPSMITH WHO WAS INSTRUCTED TO PUT ON HIS CPAP, BEFORE HE GOES TO SLEEP. SHE WANTS TO HAVE SOME EDUCATION ABOUT PUTTING ON THE MASK AND STARTING THE MACHINE. WE OFFERED HER TO BRING THE CPAP MACHINE HERE TO THE OFFICE AND SHE WILL BE GIVEN SOME BASIC EDUCATION ABOUT HOW TO USE THE CPAP. (3) Smoker: Comment: He is long-time smoker and has try to cut down the number of cigarettes with the help of his SHIPSMITH staff. Down to 3 cigarettes a day, and beyond that he is not able to stop completely. Code(s): F17.200 - Nicotine dependence, unspecified, uncomplicated Category: Social Hx Plan: INSTRUCTED THAT NO MORE THAN 3 CIGARETTES /DAY Coding Level of Care Code Est Pt Level 3 (74306) Diagnoses Obesity (BMI 30-39.9) E66.9 ANIRUDH on CPAP G47.33; Z99.89 Smoker F17.200
== END 2024-02-17 11:20 | disposition home or self-care (01) ==
PROVIDERS: PCP General Practice; Visit Provider Internal Medicine
DX: E66.9 Obesity, unspecified (principal); G47.33 Obstructive sleep apnea (adult) (pediatric); Z99.89 Dependence on other enabling machines and devices; F17.200 Nicotine dependence, unspecified, uncomplicated
CPT/HCPCS: 99213

== ENCOUNTER → 2024-02-17 10:45 | Outpatient (BNVA) | payer OTHER, SELFPAY | PROVIDERS: PCP General Practice; Visit Provider Internal Medicine | DX: G47.33 Obstructive sleep apnea (adult) (pediatric) (principal); E66.9 Obesity, unspecified; Z68.29 Body mass index [BMI] 29.0-29.9, adult; F17.210 Nicotine dependence, cigarettes, uncomplicated | CPT/HCPCS: 99212 ==

== ENCOUNTER 2024-05-04 09:40 | Outpatient (AMB) | payer OTHER, SELFPAY ==
[2024-05-04 09:54] VITALS: BP 94/60; PULSE 56; O2SAT 95; BMI 29.5
--- NOTE | 2024-05-04 09:54 | MHC.OFFVIS ---
Vital Signs 05/04/24 09:54 Height 5 ft 5 in Weight 177 lb 7.554 oz BMI 29.5 BP 94/60 Blood Pressure Location Lt brachial Position Sitting Pulse 56 Pulse Source Pulse Oximeter Pulse Oximetry (%) 95 Oxygen Delivery Method Room Air Intake Visit Reasons: anirudh Intake Note: pt is here for ANIRUDH f/u, he states he feels fine. Weight Clerk Required: Yes Weight Clerk Services: Weight Clerk Present Weight Clerk Name: [id number] Allergies aspirin [ASPIRIN] Allergy (Severe, Verified 05/04/24 10:08) SWELLING, rash Penicillins [PENICILLINS] Allergy (Severe, Verified 05/04/24 10:08) CONVULSIONS Do you need a note to return to daycare/school/sports/work: No HPI HPI anirudh: Details: JAGUAR 63 YEARS OLD GENTLEMAN A CASE OF BIPOLAR DISORDER LIVES AT HOME AND TAKEN CARE OF BY THE COMMISSIONER OF INTERNAL REVENUE . HE COMES TODAY TO THE OFFICE ACCOMPANIED BY HIS COMMISSIONER OF INTERNAL REVENUE. SINCE LAST VISIT 6 MONTHS AGO HE HAS NOT USE THE CPAP AT ALL. HE CLAIMS THAT HE SLEEPS GOOD THROUGHOUT THE NIGHT. ACCORDING TO THE COMMISSIONER OF INTERNAL REVENUE HE DOES HAVE SOME SNORING. JAGUAR HAS LOST MORE WEIGHT, ABOUT 7 LB IN THE LAST 6 MONTHS. HE SMOKES ABOUT 3 CIGARETTES A DAY NOW. HE HAS MILD INTERMITTENT COUGH MOST LIKELY RELATED TO SMOKING, DENIES ANY WHEEZING OR SHORTNESS OF BREATH. [facility] Medical History Smoker HTN (hypertension) Hepatitis Syphilis Chronic GERD BPH w urinary obs/LUTS ANIRUDH on CPAP Obesity (BMI 30-39.9) Surgical History No pertinent past surgical history Family History Father Heart disease Mother Diabetes Social History Household Members: Other Alcohol intake: current Alcohol intake frequency: does not drink Patient Tobacco Use Status: Current everyday Tobacco user Cigarettes Per Day: 3 Review of Systems Const All systems reviewed & are unremarkable except as noted in HPI and below Eyes Reports no additional complaints ENT Reports nasal congestion (Mild nasal congestion due to putting on the CPAP mask at night) Card Denies chest pain, Denies irregular heart rhythm and Denies leg edema Resp Reports cough (Mild intermittent) and Denies wheezing GI Reports no additional complaints Reports nocturia Musc Reports no additional complaints Skin/Breast Reports system reviewed and no additional complaints, except as documented Neuro Reports no additional complaints Psych Reports anxiety Endo Reports no additional complaints Aller/Immun Denies wheezing Physical Exam Vital Signs: Last Vital Signs Pulse 56 05/04/24 09:54 BP 94/60 05/04/24 09:54 Pulse Ox 95 05/04/24 09:54 Oxygen Delivery Method Room Air 05/04/24 09:54 BMI result Body Mass Index 29.5 Const General: comfortable, no acute distress, alert and awake Orientation/consciousness: patient oriented x3 HEENT Head: Yes normal to inspection General nose exam: No nasal polyps present and No nasal discharge present Face and sinus: Yes sinuses nontender Mouth: oropharynx normal Teeth and gingiva: edentulous Throat: Yes posterior oropharynx normal Eyes General: appearance normal, both eyes and all related structures Neck Neck: Yes normal visual inspection, Yes no lymphadenopathy, Yes trachea midline and Yes no JVD Thyroid: Thyroid normal Chest Chest palpation & inspection: normal inspection of the chest, normal palpation of entire chest wall and no tenderness Resp Effort & Inspection: normal respiratory effort Auscultation: clear to auscultation bilaterally, no crackles and no wheezes Cardio Palpation: normal PMI Rate: regular rate Rhythm: regular rhythm Heart sounds: no gallops and no murmurs Peripheral pulses: Peripheral pulses 2+ throughout GI Palpation (GI): Soft to palpation, nontender, No hepatosplenomegaly present and no masses Auscultation: normal bowel sounds Back/Spine/Pelvis Thoracic/Lumbar Spine: thoracic and lumbar spine normal to inspection Skin General skin exam: no rashes or lesions noted Neuro General: patient oriented x3 and no focal motor deficits Cranial nerves: Yes CN's II-XII intact bilaterally Extrem General: Yes normal to inspection, Yes no clubbing, cyanosis or edema and Yes no calf tenderness Psych Appearance: disheveled Mental Status: other (Slow in answering questions) Speech and movement: Normal speech and movement present Results Reviewed Results Reviewed: NO COMPLIANCE REPORT HE DOES NOT USE CPAP AT ALL Assessment & Plan Assessment & Plan (1) ANIRUDH on CPAP: Comment: HISTORY OF OBSTRUCTIVE SLEEP APNEAS DIAGNOSED IN 2017. HE HAS NOT USE CPAP IN THE PAST 1 YEAR. HE HAS LOST SOME WEIGHT, CLAIMS THAT HE SLEEPS OKAY WITHOUT THE CPAP. THERE IS SOME SNORING ACCORDING TO HIS COMMISSIONER OF INTERNAL RE[employer], BUT HE DOES GET SLEEP FOR ABOUT 6 HOURS EVERY NIGHT HICHT. Code(s): G47.33 - Obstructive sleep apnea (adult) (pediatric); Z99.89 - Dependence on other enabling machines and devices Category: Medical Plan: ADVISE THAT HE SHOULD CONTINUE TO WATCH HIS WEIGHT. ALWAYS SLEEP IN LATERAL POSITION. IT IS OKAY TO RETURN THE CPAP DEVICE HE IS NOT USING. (2) Smoker: Comment: He is long-time smoker and has tried to cut down the number of cigarettes with the help of his [employer] staff. Down to 3 cigarettes a day, and beyond that he is not able to stop completely. Except for mild intermittent cough he has no breathing problems. Code(s): F17.200 - Nicotine dependence, unspecified, uncomplicated Category: Social Hx Plan: Talked to him and it will be best to quit smoking completely. But considering his mental status, he probably can not quit completely. He is encouraged not to increase the number of cigarettes beyond 3 per day . Coding Level of Care Code Est Pt Level 3 (72316) Diagnoses ANIRUDH on CPAP G47.33; Z99.89 Smoker F17.200
--- OUTSIDE RECORDS SUMMARY | 2024-05-04 12:40 | XMS_ITS | Encounter Summary ---
Author Organization [employer] Address [address] [place] [address] Care Team Providers Care Product Manufacturing Professional Name Role Phone Caryn Henning MD Primary Care Provider [phone] Encounter Details Date Type Department Care Team ([facility] Contact Info) Description 01/20/2024 Telephone [facility] MEDICINE [address], [place] [phone] Caryn Henning MD [address] [place], [place] [phone] Social History Tobacco Use Types Packs/Day Years Used Date Smoking Tobacco: Every Day Cigarettes Passive Smoke Exposure: Never Smokeless Tobacco: Never Comments:Smokes 3 cigs/d Alcohol Use Standard Drinks/Week Comments Never 0 (1 standard drink = 0.6 oz pur e alcohol) Depression Answer Date Recorded Patient Health Questionnaire-9 Score 0 07/02/2023 Patient Health Questionnaire-9 Score 0 07/02/2023 Last PHQ-9: Questionnaire Data Not on file 0 07/02/2023 Housing Stability Answer Date Recorded What is your housing situation today? I have gabriella ramirez 01/21/[address] you li ve. Do you have problems with any of the following? None of the above 01/21/2023 Food Insecurity Answer Date Recorded Within the past 12 months, y ou worried that your food would run out before you got money to buy more: Never True 01/21/2023 Within the past 12 months,th e food you bought just didn't last and you didn't have enough money to get more: Never True Transportation Answer Date Recorded In the past 12 months, has l ack of transportation kept you from medical appts, meetings, work or from getting things needed for daily living? Yes, it has kept me from medical appointments or getting medications. 07/02/2023 Utilities Answer Date Recorded In the past 12 months, has t he electric, gas, oil or water company threatened to shut off services in your home? No 01/21/2023 Depression Answer Date Recorded Patient Health Questionnaire-2 Score 0 07/02/2023 Sex and Gender Information Value Date Recorded Sex Assigned at Male 02/02/2022 10:30 AM EDT Legal Sex Male 10:30 AM EDT Gender Identity Male 02/02/2022 10:30 AM EDT Sexual Orientation Don't know 02/02/2022 10 :30 AM EDT documented as of this encounter Miscellaneous Notes * Telephone Encounter - Tatum Her RN - 01/20/2024 1:27 PM EDT Noted, can these be removed off of med list? Thanks! * Telephone Encounter - Mark Garza - 01/20/2024 1:16 PM EDT Tc from pt stating they no longer ultilazing clotrimazole (Lotrimin) 1 % cream and hydrocortisone 2.5 % cream . documented in this encounter Plan of Treatment Upcoming Encounters Date Type Department Care Team (Late st Contact Info) Description 07/03/2024 1:30 PM EDT Office Visit [facility] MEDICINE [address] [place] [address] Caryn Henning MD [address] [place] [address] documented as of this encounter Visit Diagnoses Not on filedocumented in this encounter Additional Health Concerns Assessment Noted Time PHQ-9 Depression Total Score: 0 07/02/19 10:52 AM EDT documented as of this encounter Care Teams Product Manufacturing Professional Relationship Specialty Start Date End Date Caryn Henning MD [address] [place] [address] PCP - General Family Medicine 10/28/20 documented as of this encounter
--- OUTSIDE RECORDS SUMMARY | 2024-05-04 12:40 | XMS_ITS | Encounter Summary ---
Author Organization [employer] Address [address] [place] [address] [address] [place] [address] Care Team Providers Care Branding Machine Tender Name Role Phone Caryn Henning MD Primary Care Provider [phone] Reason for Visit * Reason Comments Blurred Vision Encounter Details Date Type Department Care Team ([facility] st Contact Info) Description 04/20/2024 10:00 AM EST Office Visit [facility] OPTOMETRY [address] [place] [address] Edith Guaman, OD [address] [place] [address] Combined forms of age-related cataract, bilateral (Primary Dx); Myopia of both eyes with astigmatism and presbyopia Social History Tobacco Use Types Packs/Day Years [...] AM EDT documented as of this encounter Progress Notes * Edith Guaman, ARY - 04/20/2024 10:00 AM EST Eye Care Progress Note Patient ID: John Merrill is a 63 y.o. male. Chief Complaint Blurred Vision HPI 63 yo male presents for comprehensive eye exam and cataract follow up complaining of blurred visionat distance and near. He last eye exam was 2 years ago and he was issued spectacles but reports that he no longer wears them because they are scratched. He denies all other ocular complaints. He has a personal banking representative who was in the waiting room during the exam. Last edited by Edith Guaman, OD on 04/20/2024 10:39 AM. Current Outpatient Medications Medication Sig Dispense Refill carboxymethylcellulose sodium (Refresh Contacts) solution OPHTHalmic solution Administer 1 drop into both eyes every 3 (three) hours if needed (dry eyes). 12 mL 11 clonazePAM (KlonoPIN) 0.5 MG tablet Take 0.5 mg by mouth in the morning. clonazePAM (KlonoPIN) 1 MG tablet take 1 tablet by oral route 2 times every day D3 Super Strength 50 MCG (2000 UT) capsule TAKE 1 CAPSULE BY MOUTH EVERY DAY 90 capsule 3 esomeprazole (NexIUM) [address] capsule TAKE 1 CAPSULE BY MOUTH EVERY DAY 1 HOUR BEFORE A MEAL, DO NOT BREAK, CRUSH, DISSOLVE OR CHEW 90 capsule 1 FLUoxetine (PROzac) 20 MG capsule Take 1 capsule by mouth in the morning. Ketotifen Fumarate 0.035 % solution Administer 1 drop into affected eye(s) if needed each day (swelling of eyelid). 10 mL 1 melatonin 5 MG tablet TAKE 2 TABLETS BY MOUTH DAILY AT BEDTIME 60 tablet 11 oxybutynin XL (Ditropan-XL) 5 MG 24 hr tablet Take 5 mg by mouth in the morning. polyvinyl alcohol (Liquifilm Tears) 1.4 % ophthalmic solution Administer 1 drop into both eyes every 3 (three) hours if needed for dry eyes. 15 mL 11 risperiDONE (RisperDAL) 0.5 MG tablet Take 0.5 mg by mouth 2 times daily. simvastatin (Zocor) 80 MG tablet TAKE 1 TABLET BY MOUTH EVERY NIGHT (for cholesterol) 90 tablet 3 Skin Protectants, Misc. (eucerin) cream Apply topically if needed for dry skin. 99 g 3 SM Dry Eye Relief 0.2-0.2-1 % solution INSTILL 1 DROP IN EACH EYE IN THE MORNING, AT NOON, AND AT BEDTIME NEEDED FOR DRY EYES 15 mL 3 traZODone (Desyrel) 50 MG tablet Take 1 tablet (50 mg) by mouth at bedtime. 90 tablet 3 Vitamin A Palmitate 3 MG (50895 UT) tablet Take 1 tablet by mouth Once per day. 30 tablet 0 zinc gluconate 50 MG tablet Take 1 tablet (50 mg) by mouth Once per day. 90 tablet 3 No current facility-administered medications for this visit. No past medical history on file. History reviewed. No pertinent surgical history. Family History Problem Relation Name Age of Onset Diabetes Mother Heart disease Father Social History Socioeconomic History Marital status: Unknown Spouse name: Not on file Number of children: Not on file Years of education: Not on file Highest education level: Not on file Occupational History Not on file Tobacco Use Smoking status: Every Day Current packs/day: 0.25 Types: Cigarettes Passive exposure: Never Smokeless tobacco: Never Tobacco comments: Smokes 3 cigs/d Vaping Use Vaping status: Every Day Substances: Nicotine Passive vaping exposure: Yes Substance and Sexual Activity Alcohol use: Never Drug use: Never Sexual activity: Not on file Other Topics Concern Not on file Social History Narrative Lives is adult foster care with full-time care with [place] Social Drivers of Health Food Insecurity: Low Risk (01/21/2023) Food Insecurity Within the past 12 months, you worried that your food would run out before you got money to buy more:: Never True Within the past 12 months,the food you bought just didn't last and you didn't have enough money to get more: : Never True Transportation Needs: High Risk (07/02/2023) Transportation In the past 12 months, has lack of transportation kept you from medical appts, meetings, work or from getting things needed for daily living? : Yes, it has kept me from medical appointments or getting medications. Intimate Partner Violence: Not on file Housing Stability: Low Risk (01/21/2023) Housing Stability What is your housing situation today?: I have housing Think about the place you live. Do you have problems with any of the following? : None of the above Allergies Allergen Reactions Aspirin Hives Penicillins Other reaction(s): Hives/Skin Rash ROS Positive for: Gastrointestinal (GERD), Cardiovascular (hyperlipidemia), Psychiatric (schizophrenia) Negative for: Constitutional, Neurological, Skin, Genitourinary, Musculoskeletal, HENT, Endocrine, Eyes, Respiratory, Allergic/Imm, Heme/Lymph Last edited by Edith Guaman, ARY on 04/20/2024 10:39 AM. Base Eye Exam Visual Acuity (Snellen - Linear) Right Left Dist cc 20/25 20/30 Near cc 20/25 20/25 Tonometry ([facility] , 10:29 AM) Right Left Pressure 12 13 Pupils Pupils APD Right PERRL None Left PERRL None Visual Wallace (Counting fingers) Left Right Full Full Extraocular Movement Right Left Full, Ortho Full, Ortho Neuro/Psych Oriented x3: Yes Mood/Affect: Normal Dilation Both eyes: 1.0% Mydriacyl @ 10:29 AM Slit Lamp and Fundus Exam External Exam Right Left External Normal Normal Slit Lamp Exam Right Left Lids/Lashes Normal 1+ Ptosis, tends to close OS Conjunctiva/Sclera Pinguecula Pinguecula Cornea Clear Clear Anterior Chamber Deep and quiet Deep and quiet Iris Flat Flat Lens 1+ Cortical cataract, 1+ Nuclear sclerosis 1+ Cortical cataract, 2+ Nuclear sclerosis Fundus Exam Right Left Vitreous Clear Clear Disc [place] and distinct [place] and distinct C/D Ratio Vertical 0.45 0.45 C/D Ratio Horizontal 0.45 0.45 Macula Clear Clear Vessels 2/3:1 2/3:1 Periphery No holes, breaks, tears 360 No holes, breaks, tears 360 Refraction Wearing Rx Sphere Cylinder [place] Add Right -0.50 -0.50 095 +2.50 Left -0.75 -0.50 085 +2.50 Manifest Refraction Sphere Cylinder [place] Dist VA Add Near VA Right -0.50 -0.75 095 20/25+ +2.50 20/25 Left -0.75 -0.50 085 20/30 +2.50 20/25 Final Rx Sphere Cylinder [place] Dist VA Add Near VA Right -0.50 -0.75 095 20/25+ +2.50 20/25 Left -0.75 -0.50 085 20/30 +2.50 20/25 Expiration Date: 04/20/2025 Assessment/plan: Diagnoses and all orders for this visit: Combined forms of age-related cataract, 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 Patient education regarding the relatively slow progression of cataracts and noneed for treatment at this time. Monitor in 1 year or prn if decreased vision occurs. 2. Myopia of both eyes with astigmatism and presbyopia Stable refraction in a patient with complaint of blurred vision without spectacles. Patient education regarding distance and near refractive error. Updated spectacle Rx issued. Monitor at next CEE orsooner if any changes in vision occur. Edith Guaman, OD 04/20/2024, 10:50 AM documented in this encounter Plan of Treatment Upcoming Encounters Date Type Department Care Team (Late st Contact Info) Description 07/03/2024 1:30 PM EDT Office Visit [facility] MEDICINE [address] [place] [address] Caryn Henning MD [address] [place] [address] documented as of this encounter Visit Diagnoses Diagnosis Combined forms of age-related cataract, bilateral- Primary Myopia of both eyes with astigmatism and presbyopia documented in this encounter Additional Health Concerns Assessment Noted Time PHQ-9 Depression Total Score: 0 07/02/19 24 10:52 AM EDT documented as of this encounter Care Teams Branding Machine Tender Relationship Specialty Start Date End Date Caryn Henning MD [address] [place] [address] PCP - General Family Medicine 10/28/20 documented as of this encounter
--- OUTSIDE RECORDS SUMMARY | 2024-05-04 12:40 | XMS_ITS | Encounter Summary ---
Author Organization [employer] Address [address] [place] [address] Care Team Providers Care Manufacturing Shift Supervisor Name Role Phone Caryn Henning MD Primary Care Provider Encounter Details Date Type Department Care Team (Latest Contact Info) Description 04/21/2024 Travel Social History Tobacco Use Types Packs/Day Years [...] is your housing situation today? I have gabriellaangie ramirez 01/21/[address] you [...] AM EDT documented as of this encounter Plan of Treatment Upcoming Encounters Date Type Department Care Team (Late st Contact Info) Description 07/03/2024 1:30 PM EDT Office Visit [facility] MEDICINE [address] [place] [address] Caryn Henning MD [address] [place] [address] documented as of this encounter Visit Diagnoses Not on filedocumented in this encounter Additional Health Concerns Assessment Noted Time PHQ-9 Depression Total Score: 0 07/02/19 24 10:52 AM EDT documented as of this encounter Care Teams Manufacturing Shift Supervisor Relationship Specialty Start Date End Date Caryn Henning MD [address] [place], [place] [phone] PCP - General Family Medicine 10/28/20 documented as of this encounter
--- OUTSIDE RECORDS SUMMARY | 2024-05-04 12:40 | XMS_ITS | Clinical Summary ---
Author Organization [employer] Address [address] [place] [address] 7 [place] [address] Care Team Providers Care Poiser Balance Name Role Phone Caryn Henning MD Primary Care Provider [phone] Allergies Active Allergy Reactions Criticality Noted Date Comments Aspirin Hives High 11/11/2015 Penicillins High 11/11/2015 Other reaction(s): Hives/Skin Rash Medications FLUoxetine (PROzac) 20 MG capsule Take 1 capsule by mouth in the morning. Active clonazePAM (KlonoPIN) 1 MG tablet take 1 tablet by oral route 2 times every day Active oxybutynin XL (Ditropan-XL) 5 MG 24 hr tablet Take 5 mg by mouth in the morning. 023 Active risperiDONE (RisperDAL) 0.5 MG tablet Take 0.5 mg by mouth 2 times daily. 023 Active clonazePAM (KlonoPIN) 0.5 MG tablet Take 0.5 mg by mouth in the morning. 024 Active SM Dry Eye Relief 0.2-0.2-1 % solution INSTILL 1 DROP IN EACH EYE IN THE MORNING, AT NOON, AND AT BEDTIME NEEDED FOR DRY EYES 15 mL 3 024 Active carboxymethylcell ulose sodium (Refresh Contacts) solution OPHTHalmic solution Administer 1 drop into both eyes every 3 (three) hours if needed (dry eyes). 12 mL 11 024 Active polyvinyl alcohol (Liquifilm Tears) 1.4 % ophthalmic solution Administer 1 drop into both eyes every 3 (three) hours if needed for dry eyes. 15 mL 11 06/10/2 024 Active simvastatin (Zocor) 80 MG tablet TAKE 1 TABLET BY MOUTH EVERY NIGHT (for cholesterol) 90 tablet 3 Active Skin Protectants, Misc. (eucerin) cream Apply topically if needed for dry skin. 99 g 3 024 2024 Active melatonin 5 MG tablet TAKE 2 TABLETS BY MOUTH DAILY AT BEDTIME 60 tablet 11 Active traZODone (Desyrel) 50 MG tablet Take 1 tablet (50 mg) by mouth at bedtime. 90 tablet 3 024 2024 Active Ketotifen Fumarate 0.035 % solutionIndicatio ns:Allergic conjunctivitis of left eye Administer 1 drop into affected eye(s) if needed each day (swelling of eyelid). 10 mL 1 Active Vitamin A Palmitate 3 MG (92625 UT) tabletIndications :Vitamin A deficiency Take 1 tablet by mouth Once per day. 30 tablet Active esomeprazole (NexIUM) [address] capsule TAKE 1 CAPSULE BY MOUTH EVERY DAY 1 HOUR BEFORE A MEAL, DO NOT BREAK, CRUSH, DISSOLVE OR CHEW 90 capsule 1 Active cholecalciferol (D3 Super Strength) 50 MCG (2000 UT) capsule Take 1 capsule (50 mcg) by mouth Once per day. 90 capsule 3 Active zinc gluconate 50 MG tabletIndications :Zinc deficiency Take 1 tablet (50 mg) by mouth Once per day. 90 tablet 3 025 2025 Active beta carotene (vitamin A) 3 MG (31145 UT) capsule Take 1 capsule by mouth Once per day. 024 Active D3 Super Strength 50 MCG (2000 UT) capsule TAKE 1 CAPSULE BY MOUTH EVERY DAY 90 capsule 3 024 2024 Discontinued(R eorder (will not trigger notification to Pharmacy)) zinc gluconate 50 MG tabletIndications :Zinc deficiency Take 1 tablet (50 mg) by mouth Once per day. 90 tablet 3 024 2024 Discontinued(R eorder (will not trigger notification to Pharmacy)) Active Problems Problem Noted Date Diagnosed Date Other hypertrophic cardiomyopathy 04/26/2024 Assessment & Plan (04/26/2024 2:12 PM EST): Continue annual followup with cardiology Vitamin A deficiency 02/17/2024 Allergic conjunctivitis of left eye 02/17/2024 Dry skin dermatitis 11/15/2023 Assessment & Plan (11/15/2023 12:36 PM EDT): Eucerin and hydrocortisone 2.5% BID prn Dystrophic nail 07/05/2023 Assessment & Plan (07/05/2023 5:47 AM EDT): Refer to podiatry Asymmetric septal hypertrophy 05/26/2023 Overview (05/26/2023): Via cards note 05/26/23 Adult general medical exam 11/16/2022 Assessment & Plan (07/05/2023 5:47 AM EDT): Imms given: PCV 20 and Tdap Cologauard and PSA ordered for cancer screening Assessment & Plan (11/16/2022 6:49 AM EDT): John presents today with his brother and the father of his caregiver. He has no complaints or concerns today and appears well-groomed and with calm, cooperative affect. In my estimation, he can understand the purpose of today's visit and he agrees to his brother acting on his behalf as his guardian. Screening for malignant neoplasm of prostate Screening for colon cancer 06/26/2022 Assessment & Plan (09/14/2022 12:43 PM EDT): Gave patient [facility] contact information and instructed them to call GI and to be persistent. Edentulous 06/26/2022 Assessment & Plan (09/14/2022 12:42 PM EDT): Patient still waiting on [employer] videofluoroscopic swallow study. Fatigue 03/05/2022 Gastroesophageal reflux disease 11/01/2020 Assessment & Plan (04/26/2024 2:13 PM EST): Continue Nexium Lifestyle supports for GERD Hyperlipidemia 11/01/2020 Assessment & Plan (05/28/2022 11:04 AM EST): Continue statin Impaired fasting glucose 11/01/2020 Assessment & Plan (11/15/2023 12:37 PM EDT): Continue trying to limit sugars He is aware of the complications of DM2 due to his family history Lab Results Component Value Date HGBA1C 5.4 01/22/2023 HGBA1C 5.4 07/10/2021 HGBA1C 5.7 (H) 11/22/2020 Assessment & Plan (05/11/2023 11:35 AM EST): Continue trying to limit sugars He is aware of the complications of DM2 due to his family history Assessment & Plan (02/01/2023 5:37 PM EDT): A1c was NORMAL> Counseled re more frequent low calorie/carb meals. Encouraged physical activity as tolerated. FU with PCP Phobic disorder 11/01/2020 Schizophrenia 11/01/2020 Assessment & Plan (04/26/2024 2:13 PM EST): Continue Risperidone BID, Klonopin prn as per psychiatry Continue Trazodone at 100mg nightly prn Assessment & Plan (11/15/2023 12:37 PM EDT): Continue Risperidone BID, Klonopin prn as per psychiatry Increase Trazodone to 100mg nightly prn Assessment & Plan (05/11/2023 11:36 AM EST): Continue Risperidone BID, Klonopin prn as per psychiatry Assessment & Plan (09/14/2022 12:41 PM EDT): Continue Risperidone BID as per psychiatry Assessment & Plan (06/26/2022 1:11 PM EDT): Continue Risperidone BID as per psychiatry Assessment & Plan (05/28/2022 11:04 AM EST): Continue Risperidone BID as per psychiatry Sleep apnea 11/01/2020 Assessment & Plan (04/26/2024 2:12 PM EST): Encouraged use of CPAP greater than 4 hours a night Assessment & Plan (11/15/2023 12:36 PM EDT): Encouraged use of CPAP greater than 4 hours a night Assessment & Plan (09/14/2022 1:06 PM EDT): Patient denies issues with CPAP machine, he reports wearing mask through the night. Assessment & Plan (06/26/2022 1:11 PM EDT): Continue CPAP nightly, 4 or more hours as tolerated Continue followup with sleep medicine for titration as needed Assessment & Plan (05/28/2022 11:04 AM EST): Continue CPAP nightly, 4 or more hours as tolerated Continue followup with sleep medicine for titration as needed Resolved Problems Problem Noted Date Diagnosed Date Resolved Date Influenza-like symptoms 03/05/202211/03 COVID-19 05/05/2021 11/15/2023 Encounters Date Type Department Care Team Description 04/21/2024 9:30 AM EST Office Visit [facility] [address] [place] [address] Caryn Henning MD Gastroesophageal reflux disease without esophagitis (Primary Dx); Zinc deficiency; Encounter for immunization; Other hypertrophic cardiomyopathy (CMS/HCC); Undifferentiated schizophrenia (CMS/HCC); Obstructive sleep apnea syndrome; Dietary counseling; Exercise counseling; Vitamin A deficiency; Dry skin dermatitis; Adult general medical exam 04/21/2024 Travel 04/20/2024 10:00 AM EST Office Visit [facility] OPTOMETRY [address] [place], [place] [phone] Edith Guaman OD Combined forms of age-related cataract, bilateral (Primary Dx); Myopia of both eyes with astigmatism and presbyopia 04/20/2024 Travel 04/12/2024 Patient Outreach [facility] [address] [place], [place] [phone] Caryn Hnening MD Pre-visit Planning (SDOH screening completed on 07/02/2023) 03/20/[address] [address] Caryn Henning MD Med Refill 02/24/[address] [address] Caryn Henning MD 02/17/2024 9:30 AM EST Office Visit [address] [address] Caryn Henning MD Allergic conjunctivitis of left eye (Primary Dx); Vitamin A deficiency; Zinc deficiency; Obstructive sleep apnea syndrome; Dry skin dermatitis; Undifferentiated schizophrenia (CMS/HCC); Gastroesophageal reflux disease without esophagitis 02/17/2024 Travel 02/14/[address] [address] Caryn Henning MD telephone call 02/07/2024 Patient Outreach [facility] [address] [place] [address] Caryn Henning MD Pre-visit Planning (SDOH unable to reach LVM) 02/02/[address] [address] Caryn Henning MD Medication Question 02/02/[address] [address] Caryn Henning MD Medication Question from Last 3 Months Immunizations Name Administration Dates Next Due Influenza Injectable Quadriv alant Preservative Free IIV4 MDCK 04/13/2018 Influenza injectable quadriv alent preservative free 12/21/2022,01/29/2021,04/04/2020 Influenza, seasonal, injecta ble, preservative free 04/21/2024 Moderna Covid-19 Vaccine 12+ 08/13/2020 Pfizer Covid-19 Vaccine 12+ 04/21/2024,0 07/02/2023,06/04/2021,2020,07/09/2020 Pfizer Covid-19 Vaccine 5-11 06/04/2021 Pneumococcal Conjugate PCV 13 04/13/2018 Pneumococcal Conjugate PCV 20 07/02/2023 Tdap 07/02/2023 Family History Medical History Relation Name Comments Heart disease Father Diabetes Mother Relation Name Status Comments Father Mother Social History Tobacco Use Types Packs/Day Years Used Date Smoking Tobacco: Every Day Cigarettes Passive Smoke Exposure: Never Smokeless Tobacco: Never Tobacco Cessation:Ready to Q uit: Not Asked; Counseling Given: Not Answered Comments:Smokes 3 cigs/d Alcohol Use Standard Drinks/Week [...] Don't know 02/02/2022 10 :30 AM EDT Last Filed Vital Signs Vital Sign Reading Time Taken Comments Blood Pressure 131/98 04/21/2024 9:33 AM EST Pulse 68 04/21/2024 9:33 AM EST Temperature 36.2 ??C (97.1 ??F) 04/21/2024 9:33 AM ES T Respiratory Rate 16 04/21/2024 9:33 AM EST Oxygen Saturation 96% 04/21/2024 9:33 AM EST Inhaled Oxygen Concentration - - Weight 81.2 kg (179 lb) 04/21/2024 9:33 AM EST Height 165.1 cm (5' 5 ) 04/21/2024 9:33 AM EST Body Mass Index 29.79 04/21/2024 9:33 AM EST Plan of Treatment Upcoming Encounters Date Type Department Care Team (Late st Contact Info) Description 07/03/2024 1:30 PM EDT Office Visit [facility] MED[facility] [address] [place], [place] [phone] Caryn Henning MD [address] [place], [place] [phone] Health Maintenance Due Date Last Done Comments CT Colonography 1962 Colonoscopy 1962 Colorectal Cancer Screening 1962 FIT DNA/Cologuard 1962 FIT 1962 FOBT 1962 Sigmoidoscopy 1962 Zoster Vaccines (1 of 2) 2012 Alcohol/Substance Use Screening 07/01/2024 07/02/2023 Depression Screening 07/01/2024 07/02/2023, 07/02/19 24 SDOH Screening 07/01/2024 07/02/2023 Tobacco Screening 04/21/2025 04/21/2024 Lipid Panel 09/30/2026 09/30/2021, 0611/2021, 11/22/2020 DTaP/Tdap/Td Vaccines (2 - Td or Tdap) 07/01/2033 07/02/2023 RSV Patients and Patients Aged 60 years or older (1 - 1-dose 75+ series) 2037 HIV Screening Completed 07/10/2021, 11/05/2020 Hepatitis C Screening Completed 07/10/2021 Pneumococcal Vaccine: Pediatrics (0 to 5 Years) and At-Risk Patients (6 to 49) Years) Completed 07/02/2023, 04/13/2018 COVID-19 Vaccine Completed 04/21/2024, , 06/04/2021, Additional history exists Influenza Vaccine Completed 04/21/2024, , 01/29/2021, Additional history exists HIB Vaccines Aged Out No longer eligi ble based on patient's age to complete this topic HPV Vaccines Aged Out No longer eligi ble based on patient's age to complete this topic Hepatitis A Vaccines Aged Out No long er eligible based on patient's age to complete this topic Hepatitis B Vaccines Aged Out No long er eligible based on patient's age to complete this topic IPV Vaccines Aged Out No longer eligi ble based on patient's age to complete this topic Meningococcal Vaccine Aged Out No maxim marilyn eligible based on patient's age to complete this topic RSV under 20 months Aged Out No longe r eligible based on patient's age to complete this topic Rotavirus Vaccines Aged Out No longer eligible based on patient's age to complete this topic Procedures Procedure Name Priority Date/Time Associated Diagnosis Comments LUIS ANGEL HISTORICAL LIPID PANEL Routine 09/30/2021 6:56 AM EDT LUIS ANGEL HISTORICAL HEPATITIS C AB W/REFL TO HCV RNA, QN, PCR Routine 07/10/2021 10:35 AM EDT HIV 1/2 ANTIGEN/ANTIBODY, FOURTH GENERATION W/RFL Routine 07/10/2021 10:35 AM EDT from Last 3 Months or Most Recently Relevant to Health Maintenance Results * (ABNORMAL) LIPID PANEL (09/30/2021 6:56 AM EDT) Cholesterol 120 mg/dL [facility] Comment: Desirable Cholesterol: ?less than 200 mg/dL Borderline High Cholesterol: ??200-239 mg/dL High Cholesterol: ? greater than 239 mg/dL HDL Cholesterol 32 mg/dL [facility] Comment: Desirable HDL: ??greater than 40 mg/dL ?? Note: This HDL assay may give artificially ? low results in patients with liver disease. LDL Cholesterol Calculated 65 mg/dl [facility] Comment: Desirable LDL: ? less than 100 mg/dL Near Optimal/Above Optimal LDL: ??110-129 mg/dL Borderline High LDL: ? 130-159 mg/dL High LDL: ?160-189 mg/dL Very High LDL: ? greater than or equal to ?190 mg/dL Triglycerides 118 mg/dL [facility] Comment: Desirable Triglyceride: ? less than 150 mg/dL Borderline High Triglyceride ??150-199 mg/dL High Triglyceride: ?200-499 mg/dL Very High Triglyceride: ? greater than or equal to ? 5OO mg/dL Alanine Aminotransferase 22 0 - 40 U/L [facility] Albumin Level 4.1 3.5 - 5.0 g/dL [facility] Alkaline Phosphatase 120(H) 39 - 117 U/L [facility] Anion Gap 10(L) 12 - 20 [facility] Aspartate Amino Transferase 25 5 - 37 U/L [facility] Bilirubin Total 0.3 0.0 - 1.0 mg/dL [facility] Blood Urea Nitrogen 9 9 - 16 mg/dL [facility] Calcium 8.7 8.4 - 10.2 mg/dL [facility] Carbon Dioxide 24 22 - 29 mmol/L [facility] Chloride 107 96 - 108 mmol/L [facility] Creatinine, Serum 0.88 0.5 - 1.4 mg/dL [facility] Estimated Glomerular Filt Rate >60 [facility] Comment: NOTE: ??For -[place] individuals, multiply the result ?by 1.210. ?? Chronic Kidney Disease: ??Estimated GFR < 60 mL/min/1.73m2 Severe Kidney Disease: ??Estimated GFR < 15 mL/min/1.73m2 Glucose Random 101 60 - 115 mg/dL [facility] Potassium 4.3 3.3 - 5.1 mmol/L [facility] Sodium 137 135 - 145 mmol/L [facility] Total Protein 7.0 6.5 - 8.0 g/dL [facility] 09/30/2021 6:56 AM EDT Historical Provider HISTORICAL/NON ORDERABLE LABS Final Result Performing Organization Address [facility] de Phone Number [facility] [address] * (ABNORMAL) HEPATITIS C AB W/REFL TO HCV RNA, QN, PCR (07/10/2021 10:35 AM EDT) Pathologist [facility] HEPATITIS C ANTIBODY REACTIVE( A) NON-REACT JAUN [facility] INDEX 3.21(H) <1.00 [facility] Comment: ?? Based on this result, the sample will be tested for HCV RNA by a Nucleic Acid Amplification Test (NAAT) to determine if the patient has a current active infection. ?? 07/10/2021 10:3 5 AM EDT Yolanda Salgado MD HISTORICAL/NON ORDERA BLE LABS Final Result Performing Organization Address [facility] de Phone Number [facility] [address] * HIV 1/2 ANTIGEN/ANTIBODY,FOURTH GENERATION W/RFL (07/10/2021 10:35 AM EDT) HIV-1/2 ANTIGEN AND ANTIBODIES, 4TH GENERATION W/ REFLEX NON-REACT JAUN NON-REACT JAUN [facility] Comment: HIV-1 antigen and HIV-1/HIV-2 antibodies were not detected. There is no laboratory evidence of HIV infection. ?? PLEASE NOTE: This information has been disclosed to you from records whose confidentiality may be protected by state law. ??If your state requires such protection, then the state law prohibits you from making any further disclosure of the information without the specific written consent of the person to whom it pertains, or as otherwise permitted by law. A general authorization for the release of medical or other information is NOT sufficient for this purpose. ? For additional information please refer to http://education.Cliqset.Fort[employer] Software/faq/XVY627 (This link is being provided for informational/ educational purposes only.) ? The performance of this assay has not been clinically validated in patients less than 2 years old. ?? 07/10/2021 10:3 5 AM EDT Yolanda Salgado MD LAB BLOOD ORDERABLES Final Result [facility] [address] from Last 3 Months or Most Recently Relevant to Health Maintenance Insurance [facility] Care Teams Poiser Balance Relationship Specialty Start Date End Date Caryn Henning MD [address] [place] [address] PCP - General Family Medicine 10/28/20
--- OUTSIDE RECORDS SUMMARY | 2024-05-04 12:40 | XMS_ITS | Encounter Summary ---
Author Organization [employer] Address [address] [facility] 7 [place] [address] Care Team Providers Care Helicopter Crew Chief Name Role Phone Caryn Henning MD Primary Care Provider [phone] Encounter Details Date Type Department Care Team ([facility] st Contact Info) Description 01/21/2024 Orders Only [facility] [address] [place], [place] [phone] Caryn Henning MD [address] [place], [place] [phone] Social History Tobacco Use Types Packs/Day Years [...] Description 07/03/2024 1:30 PM EDT Office Visit [facility] [address] [place] [address] Caryn Henning MD [address] [place] [address] documented as of this encounter Visit Diagnoses Not on filedocumented in this encounter Additional Health Concerns Assessment Noted Time PHQ-9 Depression Total Score: 0 07/02/19 24 10:52 AM EDT documented as of this encounter Care Teams Helicopter Crew Chief Relationship Specialty Start Date End Date Caryn Henning MD [address] [place] [address] PCP - General Family Medicine 10/28/20 documented as of this encounter
--- OUTSIDE RECORDS SUMMARY | 2024-05-04 12:40 | XMS_ITS | Encounter Summary ---
Author Organization [email or web address] Address [address] [place] [address] [place] [address] Care Team Providers Care Ticket Worker Name Role Phone Caryn Henning MD Primary Care Provider [phone] Reason for Visit * Reason Comments Pre-visit Planning SDOH screening compl eted on 07/02/2023 Encounter Details Date Type Department Care Team (Late st Contact Info) Description 04/12/2024 Patient Outreach [facility] [address] [place] [address] Caryn Henning MD [address] [place] [address] Pre-visit Planning (SDOH screening completed on 07/02/2023) Social History Tobacco Use Types Packs/Day Years [...] as of this encounter Progress Notes * Shantel Manzanares - 04/12/2024 9:22 AM EST RON Funes. Placed outbound call to patient to complete pre-visit planning. No answer at this time. Patient name and were not confirmed. CC left voicemail requesting return call. Direct contact information provided. documented in this encounter Plan of Treatment Upcoming Encounters Date Type Department Care Team (Late st Contact Info) Description 07/03/2024 1:30 PM EDT Office Visit [facility] [address] [place] [address] Caryn Henning MD [address] [place] [address] documented as of this encounter Visit Diagnoses Not on filedocumented in this encounter Additional Health Concerns Assessment Noted Time PHQ-9 Depression Total Score: 0 07/02/19 24 10:52 AM EDT documented as of this encounter Care Teams Ticket Worker Relationship Specialty Start Date End Date Caryn Henning MD [address] [place] [address] PCP - General Family Medicine 10/28/20 documented as of this encounter
--- OUTSIDE RECORDS SUMMARY | 2024-05-04 12:40 | XMS_ITS | Encounter Summary ---
Author Organization [employer] Address [address] [facility] [address] [place] [address] Care Team Providers Care Liquefaction Supervisor Name Role Phone Caryn Henning MD Primary Care Provider [phone] Encounter Details Date Type Department Care Team (Latest Contact Info) Description 04/20/2024 Travel Social History Tobacco Use Types Packs/Day [...] Description 07/03/2024 1:30 PM EDT Office Visit [facility] [address] [place] [address] Caryn Henning MD [address] [place] [address] documented as of this encounter Visit Diagnoses Not on filedocumented in this encounter Additional Health Concerns Assessment Noted Time PHQ-9 Depression Total Score: 0 07/02/19 24 10:52 AM EDT documented as of this encounter Care Teams Liquefaction Supervisor Relationship Specialty Start Date End Date Caryn Henning MD [address] [place], [place] [phone] PCP - General Family Medicine 10/28/20 documented as of this encounter
--- OUTSIDE RECORDS SUMMARY | 2024-05-04 12:40 | XMS_ITS | Encounter Summary ---
Author Organization [employer] Address [address] [place] [address] Care Team Providers Care Music Assistant Name Role Phone Caryn Henning MD Primary Care Provider [phone] Reason for Visit * Reason Comments Follow-up Encounter Details Date Type Department Care Team (Latest Contact Info) Description 04/21/2024 9:30 AM EST Office Visit [facility] [address] [place] [address] Caryn Henning MD [address] [place] [address] Gastroesophageal reflux disease without esophagitis (Primary Dx); Zinc deficiency; Encounter for immunization; Other hypertrophic cardiomyopathy (CMS/HCC); Undifferentiated schizophrenia (CMS/HCC); Obstructive sleep apnea syndrome; Dietary counseling; Exercise counseling; Vitamin A deficiency; Dry skin dermatitis; Adult general medical exam Social History Tobacco Use Types Packs/Day Years [...] AM EDT documented as of this encounter Last Filed Vital Signs Vital Sign Reading [...] Mass Index 29.79 04/21/2024 9:33 AM EST documented in this encounter Progress Notes * Caryn Henning MD - 04/21/2024 9:30 AM EST SUBJECTIVE: John Merrill is a 63 y.o. year old male who presents for chronic disease management. Deniesrecent illness, ER visit, or hospitalization. Here with his multimedia instructional designer caregiver Irlanda. Acute Concerns: Needs imms Needs PE form signed, all screening up to date except Cologuard. Interim Updates: Weight loss Wt 188 14 months ago, up to 200 as a peak, now to 179 Having increased anxiety recently. No pain with eating in mouth, throat, or belly. No pain after eating. He is going to the bathroom 1-2 times a day. No blood in stool. No increase in exercise or change in diet. BMI 29 Choking/feeding Normal barium swallow 10/2022 Swallow study done 10/2022: some issues with disorganization of chewing and swallowing, recommended small pieces and swallowingwith liquids Mood/anxiety/schizophrenia: Currently taking Risepidone 0.5mg BID and anxiety is partially-controlled Scratching at himself, but otherwise not visibly disturbed Prozac 20mg daily In full-time Adult foster care (Sandra Boggs) DAISY- saw pulm 07/2023 got new CPAP 01/2022 and sleeping better when he uses it Uses CPAP most nights about 2- 4 hours 02/17/24 Polly, give DAISY instructions to Irlanda, smoke < 3 cig per day HTN Off meds currently At goal <140/90 GERD On Nexium 12/2023 Dr Fuller for GERD and malnutrition; low zinc and Vit A He is on repletion of both of these vitamins Dry eyes Tried polyvinyl drops, not helpful. I order Refreshe drops as well. He can use either drop every 2-3 hours prn. Urinary incontinence 06/2023 saw urology, continue oxybutynin Health maintenance: Colon cancer: agrees to Cologbridget Prostate: neg PSA 06/2023 DEXA: at age 72 Imms: due for zoster, declines today Patient Active Problem List Diagnosis Fatigue Gastroesophageal reflux disease Hyperlipidemia Impaired fasting glucose Phobic disorder Schizophrenia (CMS/HCC) Sleep apnea Screening for malignant neoplasm of prostate Screening for colon cancer Edentulous Adult general medical exam Asymmetric septal hypertrophy Dystrophic nail Dry skin dermatitis Vitamin A deficiency Allergic conjunctivitis of left eye Other hypertrophic cardiomyopathy (CMS/HCC) History reviewed. No pertinent surgical history. Family History Problem Relation Name Age of Onset Diabetes Mother Heart disease Father Social History Social History Narrative Lives is adult foster care with full-time care with Irlanda Review of Systems Constitutional: Negative. Respiratory: Negative. Cardiovascular: Negative. Gastrointestinal: Negative. Musculoskeletal: Negative. Skin: Negative. OBJECTIVE: Vitals: 04/21/24 0933 BP: (!) 131/98 BP Location: Right arm Patient Position: Sitting BP Cuff Size: Adult Pulse: 68 Resp: 16 Temp: 97.1 ??F (36.2 ??C) TempSrc: Temporal SpO2: 96% Weight: 179 lb (81.2 kg) Height: 5' 5 (1.651 m) Physical Exam Vitals and nursing note reviewed. Constitutional: Appearance: Normal appearance. He is normal weight. HENT: Head: Normocephalic and atraumatic. Cardiovascular: Rate and Rhythm: Normal rate and regular rhythm. Pulses: Normal pulses. Heart sounds: Normal heart sounds. Pulmonary: Effort: Pulmonary effort is normal. Breath sounds: Normal breath sounds. Musculoskeletal: Cervical back: Normal range of motion and neck supple. Skin: General: Skin is warm and dry. Capillary Refill: Capillary refill takes less than 2 seconds. Neurological: General: No focal deficit present. Mental Status: He is alert and oriented to person, place, and time. Psychiatric: Mood and Affect: Mood normal. Behavior: Behavior normal. ASSESSMENT/PLAN Problem List Items Addressed This Visit Gastroesophageal reflux disease - Primary Current Assessment & Plan Continue Nexium Lifestyle supports for GERD Schizophrenia ([facility]) Current Assessment & Plan Continue Risperidone BID, Klonopin prn as per psychiatry Continue Trazodone at 100mg nightly prn Sleep apnea Current Assessment & Plan Encouraged use of CPAP greater than 4 hours a night Adult general medical exam Dry skin dermatitis Vitamin A deficiency Other hypertrophic cardiomyopathy ([facility]) Current Assessment & Plan Continue annual followup with cardiology Other Visit Diagnoses Zinc deficiency Relevant Medications zinc gluconate 50 MG tablet Encounter for immunization Relevant Orders COVID-19 VACCINE ([employer]) [id number] 12 yrs + (Completed) FLU VACCINE TRIVALENT ([employer]) 6 mo + (Completed) Dietary counseling Exercise counseling Follow Up: 4 months or sooner prn Allergies Allergen Reactions Aspirin Hives Penicillins Other reaction(s): Hives/Skin Rash Current Outpatient Medications: beta carotene (vitamin A) 3 MG (88330 UT) capsule, Take 1 capsule by mouth Once per day., Disp: , Rfl: carboxymethylcellulose sodium ([employer]) solution OPHTHalmic solution, Administer 1 drop into both eyes every 3 (three) hours if needed (dry eyes)., Disp: 12 mL, Rfl: 11 cholecalciferol (D3 Super Strength) 50 MCG (2000 UT) capsule, Take 1 capsule (50 mcg) by mouth Onceper day., Disp: 90 capsule, Rfl: 3 clonazePAM (KlonoPIN) 0.5 MG tablet, Take 0.5 mg by mouth in the morning., Disp: , Rfl: clonazePAM (KlonoPIN) 1 MG tablet, take 1 tablet by oral route 2 times every day, Disp: , Rfl: esomeprazole (NexIUM) [address] capsule, TAKE 1 CAPSULE BY MOUTH EVERY DAY 1 HOUR BEFORE A MEAL, DO NOT BREAK, CRUSH, DISSOLVE OR CHEW, Disp: 90 capsule, Rfl: 1 FLUoxetine (PROzac) 20 MG capsule, Take 1 capsule by mouth in the morning., Disp: , Rfl: Ketotifen Fumarate 0.035 % solution, Administer 1 drop into affected eye(s) if needed each day (swelling of eyelid)., Disp: 10 mL, Rfl: 1 melatonin 5 MG tablet, TAKE 2 TABLETS BY MOUTH DAILY AT BEDTIME, Disp: 60 tablet, Rfl: 11 oxybutynin XL (Ditropan-XL) 5 MG 24 hr tablet, Take 5 mg by mouth in the morning., Disp: , Rfl: polyvinyl alcohol (Liquifilm Tears) 1.4 % ophthalmic solution, Administer 1 drop into both eyes every 3 (three) hours if needed for dry eyes., Disp: 15 mL, Rfl: 11 risperiDONE (RisperDAL) 0.5 MG tablet, Take 0.5 mg by mouth 2 times daily., Disp: , Rfl: simvastatin (Zocor) 80 MG tablet, TAKE 1 TABLET BY MOUTH EVERY NIGHT (for cholesterol), Disp: 90 tablet, Rfl: 3 Skin Protectants, Misc. (eucerin) cream, Apply topically if needed for dry skin., Disp: 99 g, Rfl: 3 SM Dry Eye Relief 0.2-0.2-1 % solution, INSTILL 1 DROP IN EACH EYE IN THE MORNING, AT NOON, AND AT BEDTIME NEEDED FOR DRY EYES, Disp: 15 mL, Rfl: 3 traZODone (Desyrel) 50 MG tablet, Take 1 tablet (50 mg) by mouth at bedtime., Disp: 90 tablet, Rfl:3 Vitamin A Palmitate 3 MG (88851 UT) tablet, Take 1 tablet by mouth Once per day., Disp: 30 tablet, Rfl: 0 zinc gluconate 50 MG tablet, Take 1 tablet (50 mg) by mouth Once per day., Disp: 90 tablet, Rfl: 3 Namibian Translation: Provided by [facility] staff member RODOLFO Johnson documented in this encounter Miscellaneous Notes * Assessment & Plan Note - Caryn Henning MD - 04/26/2024 2:13 PM ESTAssociated Problem(s): Schizophrenia (CMS/HCC) Continue Risperidone BID, Klonopin prn as per psychiatry Continue Trazodone at 100mg nightly prn * Assessment & Plan Note - Caryn Henning MD - 04/26/2024 2:13 PM ESTAssociated Problem(s): Gastroesophageal reflux disease Continue Nexium Lifestyle supports for GERD * Assessment & Plan Note - Caryn Henning MD - 04/26/2024 2:12 PM ESTAssociated Problem(s): Sleep apnea Encouraged use of CPAP greater than 4 hours a night * Assessment & Plan Note - Caryn Henning MD - 04/26/2024 2:12 PM ESTAssociated Problem(s): Other hypertrophic cardiomyopathy (CMS/HCC) Continue annual followup with cardiology documented in this encounter Plan of Treatment Upcoming Encounters Date Type Department Care Team (Late st Contact Info) Description 07/03/2024 1:30 PM EDT Office Visit [facility] [address] [place] [address] Caryn Henning MD [address] [place], [place] [phone] documented as of this encounter Visit Diagnoses Diagnosis Gastroesophageal reflux disease without esophagitis- Primary Esophageal reflux Zinc deficiency Mineral deficiency, not elsewhere classified Encounter for immunization Other hypertrophic cardiomyopathy (CMS/HCC) Other hypertrophic cardiomyopathy Undifferentiated schizophrenia (CMS/HCC) Obstructive sleep apnea syndrome Obstructive sleep apnea (adult) (pediatric) Dietary counseling Dietary surveillance and counseling Exercise counseling Vitamin A deficiency Dry skin dermatitis Contact dermatitis and other eczema due to other specified agent Adult general medical exam Unspecified general medical examination documented in this encounter Additional Health Concerns Assessment Noted Time PHQ-9 Depression Total Score: 0 07/02/19 24 10:52 AM EDT documented as of this encounter Care Teams Music Assistant Relationship Specialty Start Date End Date Caryn Henning MD [address] [place] [address] PCP - General Family Medicine 10/28/20 documented as of this encounter
--- OUTSIDE RECORDS SUMMARY | 2024-05-04 12:40 | XMS_ITS | Encounter Summary ---
Author Organization [employer] Address [address] [place] [address] [place] [address] Care Team Providers Care Medical Administrative Assistant Name Role Phone Caryn Henning MD Primary Care Provider [phone] Reason for Visit * Reason Onset Date Comments Med Refill 03/20/2024 Encounter Details Date Type Department Care Team ([facility] st Contact Info) Description 03/20/2024 Telephone [facility] [address] [place], [place] [phone] Caryn Henning MD [address] [place], [place] [phone] Med Refill Social History Tobacco Use Types Packs/Day Years [...] encounter Miscellaneous Notes * Telephone Encounter - Francia Cummings LPN - 03/20/2024 1:11 PM EST Vitamin D was sent to [facility] on 12/07/23 #90 with 3 refills and Oxybutynin isn't prescribed by PCP. * Telephone Encounter - Jacinta Manzanares - 03/20/2024 12:31 PM EST TC from pt requesting medication refill. Medications needing refill : D3 Super Strength 50 MCG (1999 UT) capsule oxybutynin XL (Ditropan-XL) 5 MG 24 hr tablet To be sent to: [facility] - [place], [place] - [address] [facility] documented in this encounter Plan of Treatment Upcoming Encounters Date Type Department Care Team (Late st Contact Info) Description 07/03/2024 1:30 PM EDT Office Visit [facility] [address] [place] [address] Caryn Henning MD [address] [facility] [place] [address] documented as of this encounter Visit Diagnoses Not on filedocumented in this encounter Additional Health Concerns Assessment Noted Time PHQ-9 Depression Total Score: 0 07/02/19 24 10:52 AM EDT documented as of this encounter Care Teams Medical Administrative Assistant Relationship Specialty Start Date End Date Caryn Henning MD [address] [place] [address] PCP - General Family Medicine 10/28/20 documented as of this encounter
--- OUTSIDE RECORDS SUMMARY | 2024-05-04 12:41 | XMS_ITS | Encounter Summary ---
Author Organization [employer] [facility] Address [address] [place] [address] Care Team Providers Care Lab Analyst Name Role Phone Caryn Henning MD Primary Care Provider [phone] Reason for Visit * Reason Comments Med Refill Encounter Details Date Type Department Care Team (Late st Contact Info) Description 11/30/2022 Refill [facility] [address] [place] [phone] Caryn Henning MD [address] [place] [address] [phone] Social History Tobacco Use Types Packs/Day Years Used Date Smoking Tobacco: Every Day Cigarettes Smokeless Tobacco: Never Comments:Smokes 3 cigs/d Alcohol Use Standard Drinks/Week Comments Never 0 (1 standard drink = 0.6 oz pur e alcohol) Depression Answer Date Recorded Patient Health Questionnaire-2 Score 0 06/26/2022 Sex and Gender Information Value Date Recorded Sex Assigned at Male 02/02/2022 10:30 AM EDT Legal Sex Male 10:30 AM EDT Gender Identity Male 02/02/2022 10:30 AM EDT Sexual Orientation Don't know 02/02/2022 10 :30 AM EDT documented as of this encounter Plan of Treatment Upcoming Encounters Date Type Department Care Team (Late Contact Info) Description 07/03/2024 1:30 PM EDT Office Visit [facility] [address] [place], [place] [phone] Caryn Henning MD [address] [place] [address] [phone] documented as of this encounter Visit Diagnoses Not on filedocumented in this encounter Care Teams Lab Analyst Relationship Specialty Start Date End Date Caryn Henning MD [address] [place] [address] PCP - General Family Medicine 10/28/20 documented as of this encounter
--- OUTSIDE RECORDS SUMMARY | 2024-05-04 12:41 | XMS_ITS | Encounter Summary ---
Author Organization [employer] Address [address] [facility] 7[address] [place] [address] Care Team Providers Care Senior Quality Technician Name Role Phone Caryn Henning MD Primary Care Provider [phone] Encounter Details Date Type Department Care Team ([facility] st Contact Info) Description 05/19/[address] [facility] [address] [place], [place] [phone] Caryn Henning MD [address] [place], [place] [phone] Social History Tobacco Use Types Packs/Day Years Used Date Smoking Tobacco: Every Day Cigarettes Passive Smoke Exposure: Never Smokeless Tobacco: Never Comments:Smokes 3 cigs/d Alcohol Use Standard Drinks/Week Comments Never 0 (1 standard drink = 0.6 oz pur e alcohol) Housing Stability Answer Date Recorded What is your housing situation today? I have gabriella ashley 01/21/[address] you li [...] me from medical appointments or getting medications. 01/11/2023 Utilities Answer Date Recorded In the past [...] PM EDT Office Visit [facility] [address] [place], [place] [phone] Caryn Henning MD [address] [place] [address] documented as of this encounter Visit Diagnoses Not on filedocumented in this encounter Care Teams Senior Quality Technician Relationship Specialty Start Date End Date Caryn Henning MD [address] [place] [address] [phone] PCP - General Family Medicine 10/28/20 documented as of this encounter
--- OUTSIDE RECORDS SUMMARY | 2024-05-04 12:41 | XMS_ITS | Encounter Summary ---
Author Organization [employer] Address [address] [facility] 7 [place] [address] Care Team Providers Care Director Of Audiology Name Role Phone Caryn Henning MD Primary Care Provider [phone] Encounter Details Date Type Department Care Team ([facility] st Contact Info) Description 12/21/2023 Orders Only [facility] [address] [place], [place] [phone] Caryn Henning MD [address] [place], [place] [phone] Social History Tobacco Use Types Packs/Day Years [...] Description 07/03/2024 1:30 PM EDT Office Visit [facility] [address] [place] [address] Caryn Henning MD [address] [place] [address] documented as of this encounter Visit Diagnoses Not on filedocumented in this encounter Additional Health Concerns Assessment Noted Time PHQ-9 Depression Total Score: 0 07/02/19 24 10:52 AM EDT documented as of this encounter Care Teams Director Of Audiology Relationship Specialty Start Date End Date Caryn Henning MD [address] [place] [address] PCP - General Family Medicine 10/28/20 documented as of this encounter
--- OUTSIDE RECORDS SUMMARY | 2024-05-04 12:41 | XMS_ITS | Encounter Summary ---
Author Organization [employer] Address [address] [place] [address] [place] [address] Care Team Providers Care Registration Manager Name Role Phone Caryn Henning MD Primary Care Provider [phone] Reason for Visit * Reason Onset Date Comments Appointment Request 10/13/2023 Encounter Details Date Type Department Care Team ([facility] st Contact Info) Description 10/13/2023 Telephone [facility] [address] [place] [address] Caryn Henning MD [address] [place] [address] Appointment Request Social History Tobacco Use Types Packs/Day Years [...] encounter Miscellaneous Notes * Telephone Encounter - Robin Mccauley - 10/13/2023 1:50 PM EDT Tc from pt requesting to reschedule OV from 10/04. Machine Shop Specialist attempted to schedule but found no availability, pt requested for message to be sent stating needs appt as soon as possible. Please contact pt at [phone]. documented in this encounter Plan of Treatment Upcoming Encounters Date Type Department Care Team (Late st Contact Info) Description 07/03/2024 1:30 PM EDT Office Visit [facility] [address] [place] [address] Caryn Henning MD [address] [place] [address] documented as of this encounter Visit Diagnoses Not on filedocumented in this encounter Additional Health Concerns Assessment Noted Time PHQ-9 Depression Total Score: 0 07/02/19 24 10:52 AM EDT documented as of this encounter Care Teams Registration Manager Relationship Specialty Start Date End Date Caryn Henning MD [address] [place] [address] PCP - General Family Medicine 10/28/20 documented as of this encounter
--- OUTSIDE RECORDS SUMMARY | 2024-05-04 12:41 | XMS_ITS | Clinical Summary ---
Author Organization [address] [facility] Address [address] [place] [address] Phone Care Team Providers Care Manufacturing Engineer Supervisor Name Role Phone Caryn Henning MD Primary Care Provider [phone] Allergies No known active allergies Medications Medication Sig Dispensed Refills Start Date End Date Status carbamide peroxide (Ear Drops, carbamide peroxide,) 6.5 % otic solution 5 drops 2 (two) times a day. Tilt head so ear to be treated points towards the ceiling. Hold medication in ear using part of a cotton ball. Active cholecalciferol (VITAMIN D-3) 25 mcg (1,000 unit) capsule Take 50 mcg by mouth 1 (one) time each day. Active clonazePAM (KlonoPIN) 0.5 mg tablet Take 1 tablet (0.5 mg total) by mouth 2 (two) times a day if needed. Max Daily Amount: 1 mg Active clotrimazole (LOTRIMIN) 1 % cream Apply topically 1 (one) time each day. skin and toenails for 12 weeks 09/21/2023 Active diphenhydrAMINE (BENADRYL) 25 mg capsule Take 1 capsule (25 mg total) by mouth every 6 (six) hours if needed. Active esomeprazole (NexIUM) [address] capsule Take 1 capsule (20 mg total) by mouth 1 (one) time each day before breakfast. Active FLUoxetine (PROzac) 20 mg capsule Take 1 capsule (20 mg total) by mouth 1 (one) time each day. Active fluticasone propionate (FLONASE) 50 mcg/actuation nasal spray Administer 2 sprays into each nostril 1 (one) time each day. Active loratadine 10 mg capsule Take by mouth. Active melatonin 5 mg tablet Take 1 tablet (5 mg total) by mouth at bedtime. Active oxyBUTYnin (DITROPAN) 5 mg tablet Take 1 tablet (5 mg total) by mouth 1 (one) time each day in the morning. Active risperiDONE (RisperDAL) 0.5 mg tablet Take 1 tablet (0.5 mg total) by mouth 2 (two) times a day. Active simvastatin (ZOCOR) 80 mg tablet Take 1 tablet (80 mg total) by mouth at bedtime. Active tamsulosin (FLOMAX) 0.4 mg 24 hr capsule Take 1 capsule (0.4 mg total) by mouth 1 (one) time each day. Take 30 mins after same meal every day Active Active Problems Problem Noted Date Diagnosed Date Asymmetric septal hypertrophy 09/17/2023 COVID-19 09/17/2023 Edentulous 09/17/2023 Fatigue 09/17/2023 GERD (gastroesophageal reflux disease) Hyperlipidemia 09/17/2023 Impaired fasting glucose 09/17/2023 Influenza-like symptoms 09/17/2023 Phobic disorder 09/17/2023 Schizophrenia 09/17/2023 Sleep apnea 09/17/2023 Immunizations Name Administration Dates Next Due Pfizer SARS-CoV-2 COVID-19, mRNA, LNP-S, preservative free 06/04/2021 Social History Tobacco Use Types Packs/Day Years Used Date Smoking Tobacco: Never Assessed Sex and Gender Information Value Date Recorded Sex Assigned at Not on file Gender Identity Not on file Sexual Orientation Not on file Job Start Date Occupation Industry Not on file Not on file Not on file Last Filed Vital Signs Vital Sign Reading Time Taken Comments Blood Pressure - - Pulse - - Temperature - - Respiratory Rate - - Oxygen Saturation - - Inhaled Oxygen Concentration - - Weight 86.6 kg (191 lb) 12/22/2023 1:40 PM EDT Height 165.1 cm (5' 5 ) 12/22/2023 1:40 PM EDT Body Mass Index 31.78 12/22/2023 1:40 PM EDT Plan of Treatment Health Maintenance Due Date Last Done Comments DTaP,Tdap,and Td Vaccines (1 - Tdap) 1981 Zoster Vaccines (1 of 2) 2012 Cholesterol Screening (Lipid Panel) 05/04/2023 Colorectal Cancer Screening: Colonoscopy 05/04/2023 Depression Screening 05/04/2023 HIV Screening 05/04/2023 Hepatitis C Screening 05/04/2023 Medicare Annual Wellness Visit 05/04/2023 Social Influencers of Health Screening 05/04/2023 COVID-19 Vaccine (2 - 2023-2 5 season) 2023 06/04/2021 Influenza Vaccine (#1) 2023 RSV Immunization Patients 60 + Years Old (1 - 1-dose 75+ series) 2037 HIB Vaccines Aged Out No longer eligi [...] on patient's age to complete this topic MMR Vaccines Aged Out No longer eligi ble based on patient's age to complete this topic Meningococcal ACWY Vaccine Aged Out N o longer eligible based on patient's age to complete this topic Pneumococcal Vaccine: Pediat rics (0 to 5 Years) and At-Risk Patients (6 to 64 Years) Aged Out No longer eligi ble based on patient's age to complete this topic RSV Immunization Patients Un jessica 20 months Aged Out No longer eligible b ased on patient's age to complete this topic Varicella Vaccines Aged Out No longer eligible based on patient's age to complete this topic Care Teams Manufacturing Engineer Supervisor Relationship Specialty Start Date End Date Caryn Henning MD [address] [place] [address] PCP - General 07/07/23
--- OUTSIDE RECORDS SUMMARY | 2024-05-04 12:41 | XMS_ITS | Encounter Summary ---
Author Organization [employer] Address [address] [facility] 7t [place] [address] Care Team Providers Care Operational Meteorologist Name Role Phone Caryn Henning MD Primary Care Provider [phone] Encounter Details Date Type Department Care Team ([facility] st Contact Info) Description 04/29/2023 Telephone [facility] [address] [place], [place] [phone] Caryn Henning MD [address] [place], [place] [phone] Social History Tobacco Use Types Packs/Day Years [...] Description 07/03/2024 1:30 PM EDT Office Visit [facility] [address] [place], [place] [phone] Caryn Henning MD [address] [place] [address] documented as of this encounter Visit Diagnoses Not on filedocumented in this encounter Care Teams Operational Meteorologist Relationship Specialty Start Date End Date Caryn Henning MD [address] [place] [address] [phone] PCP - General Family Medicine 10/28/20 documented as of this encounter
--- OUTSIDE RECORDS SUMMARY | 2024-05-04 12:41 | XMS_ITS | Encounter Summary ---
Author Organization [employer] Address [address] [place] [address] [place] [address] Care Team Providers Care Business Teacher Name Role Phone Caryn Henning MD Primary Care Provider [phone] Reason for Visit * Reason Onset Date Comments Nurse Triage 08/26/2023 Encounter Details Date Type Department Care Team ([facility] st Contact Info) Description 08/26/2023 Telephone [facility] [address] [place] [address] Caryn Henning MD [address] [place] [address] Nurse Triage Social History Tobacco Use Types Packs/Day Years [...] encounter Miscellaneous Notes * Telephone Encounter - Jenny Braun - 08/26/2023 10:41 AM EDT Symptom: Weight Loss Outcome: Schedule an appointment to be seen within 24 hours Reason: Caller denied all higher acuity questions The caller accepted this outcome Nigerien speaker documented in this encounter Plan of Treatment Upcoming Encounters Date Type Department Care Team (Late st Contact Info) Description 07/03/2024 1:30 PM EDT Office Visit [facility] [address] [place] [address] Caryn Henning MD [address] [place] [phone] documented as of this encounter Visit Diagnoses Not on filedocumented in this encounter Additional Health Concerns Assessment Noted Time PHQ-9 Depression Total Score: 0 07/02/19 24 10:52 AM EDT documented as of this encounter Care Teams Business Teacher Relationship Specialty Start Date End Date Caryn Henning MD [address] [place] [address] PCP - General Family Medicine 10/28/20 documented as of this encounter
== END 2024-05-04 10:09 | disposition home or self-care (01) ==
PROVIDERS: PCP General Practice; Visit Provider Internal Medicine
DX: G47.33 Obstructive sleep apnea (adult) (pediatric) (principal); Z99.89 Dependence on other enabling machines and devices; F17.200 Nicotine dependence, unspecified, uncomplicated
CPT/HCPCS: 99213

== ENCOUNTER → 2024-05-04 09:40 | Outpatient (BNVA) | payer OTHER, SELFPAY | PROVIDERS: PCP General Practice; Visit Provider Internal Medicine | DX: G47.33 Obstructive sleep apnea (adult) (pediatric) (principal); F17.210 Nicotine dependence, cigarettes, uncomplicated; Z99.89 Dependence on other enabling machines and devices | CPT/HCPCS: 99212 ==

== ENCOUNTER 2024-05-19 10:05 | Outpatient (AMB) | payer OTHER, SELFPAY ==
[2024-05-19 10:30] VITALS: BP 100/80; PULSE 81; BMI 28.6
--- NOTE | 2024-05-19 10:30 | A.OFFVIS_ITS ---
Vital Signs 05/19/24 10:30 Height 5 ft 5 in Weight 171 lb 15.369 oz BMI 28.6 BP 100/80 Blood Pressure Location Lt brachial Position Sitting Pulse 81 Pulse Source Monitor Intake Visit Reasons: r/s 1 yr f/up Maker Up Folding Required: Yes Maker Up Folding Name: [id number] Allergies aspirin [ASPIRIN] Allergy (Severe, Verified 05/04/24 10:08) SWELLING, rash Penicillins [PENICILLINS] Allergy (Severe, Verified 05/04/24 10:08) CONVULSIONS Medication List - Last Reconciled 05/19/24 by Bibiana Garg, [employer] cholecalciferol (vitamin D3) 50 mcg PO DAILY clonazepam 1 mg PO BEDTIME clonazepam 0.5 mg PO DAILY clotrimazole 1% (Antifungal (clotrimazole)) appl topical esomeprazole magnesium 20 mg PO DAILY fluoxetine 20 mg PO QAM melatonin 10 mg PO BEDTIME oxybutynin chloride ER 5 mg PO DAILY peg 102-mzayrkrwsmev-namedhnm 1-0.2-0.2 % (Dry Eye Relief) 0 drps ophthalmic (eye) risperidone 0.5 mg PO BID simvastatin 80 mg PO BEDTIME trazodone 50 mg PO BEDTIME PRN HPI HPI r/s 1 yr f/up: Details: John is a 63-year-old male with past medical history of sleep apnea with CPAP use, abnormal EKG, LVH who presents for follow-up. Today he reports that he has been doing well since his last visit May 2023. He denies any cardiac symptoms. No shortness of breath, chest discomfort, heart palpitations. He is mostly sedentary. Compliant with meds. SHEETMETAL PATTERNMAKER is present. Certified spanish interpreter used. [facility] Medical History (Updated 05/19/24 @ 11:36 by Bibiana Garg, [employer]) Smoker HTN (hypertension) Hepatitis Syphilis Chronic GERD BPH w urinary obs/LUTS DAISY on CPAP Obesity (BMI 30-39.9) Surgical History No pertinent past surgical history Family History Father Heart disease Mother Diabetes Social History Household Members: Other Alcohol intake: current Alcohol intake frequency: does not drink Patient Tobacco Use Status: Current everyday Tobacco user Cigarettes Per Day: 3 Review of Systems Const All systems reviewed & are unremarkable except as noted in HPI and below Denies weakness ENT Denies dizziness Card Denies chest pain, Denies chest pain with activity, Denies syncope, Denies rapid heart rate, Denies pedal edema, Denies edema, Denies leg edema, Denies lightheadedness, Denies palpitations, Denies dyspnea, Denies dyspnea on exertion and Denies orthopnea Resp Denies cough, Denies dyspnea and Denies dyspnea on exertion GI Denies hematochezia and Denies change in stool character Musc Denies abnormal gait, Denies muscle cramps, Denies muscle weakness, Denies numbness, Denies radiating pain into limb and Denies tingling Neuro Denies abnormal gait, Denies dizziness, Denies syncope, Denies numbness, Denies tingling and Denies weakness Endo Denies palpitations Physical Exam Vital Signs: Last Vital Signs Pulse 81 05/19/24 10:30 BP 100/80 05/19/24 10:30 BMI result Body Mass Index 28.6 Const General: cooperative, healthy appearing, comfortable and no acute distress Orientation/consciousness: patient oriented x3 Neck Neck: Yes normal visual inspection and Yes no JVD Resp Effort & Inspection: normal respiratory effort Auscultation: clear to auscultation bilaterally, no crackles, no rales, no rhonchi and no wheezes Cardio Rate: regular rate Rhythm: regular rhythm Heart sounds: S1 normal heart sound present, S2 normal heart sound present, no gallops, no murmurs and no rubs Neuro General: patient oriented x3 Extrem General: Yes normal to inspection, No no pedal edema and No calf tenderness Psych Appearance: grossly normal Mental Status: mental status grossly normal Speech and movement: Normal speech and movement present Office Procedures EKG Details: Today, read by me, SR, short DE, LBBB, LVH with repolarization abn, cant exclude inferior infarct, rate 81 [id number], Complete Assessment & Plan Assessment & Plan (1) Abnormal EKG: Code(s): R94.31 - Abnormal electrocardiogram [ECG] [EKG] Category: Medical Plan: EKG shows left bundle branch block and LVH. Last echocardiogram 01/14/2022 shows EF 65-70%, mild basal and septal asymmetric hypertrophy. He has no history of hypertension. He does have sleep apnea and uses CPAP. He does have a history of mild obesity however weight is down and BMI is 28.6. Today he reports no concerning symptoms. Blood pressure well controlled at 100/68, when rechecked by me. EKG today shows sinus rhythm with short DE, left bundle branch block, LVH with repolarization abnormality, rate 81. Will update echocardiogram. Cardiology follow-up in 1 year, sooner if needed. (2) LBBB (left bundle branch block): Code(s): I44.7 - Left bundle-branch block, unspecified Category: Medical Plan: Not new. Wide QRS has been seen on EKGs in our system as far back as 2016. Plan Time spent on chart review, documentation, interview and assessment Orders: Orders CA echo transthoracic complete Today R94.31 - Abnormal electrocardiogram [ECG] [EKG] Coding Level of Care Code Est Pt Level 3 (62831) Complex EM visit Add On G2211 Diagnoses Abnormal EKG R94.31 LBBB (left bundle branch block) I44.7 CPT Codes EKG - CPT: 40318-[id number], Complete ([id number]) Time Spent (min) 24
--- OUTSIDE RECORDS SUMMARY | 2024-05-19 10:52 | XMS_ITS | Encounter Summary ---
Author Organization [employer] Address [address] [facility] 7t [place] [address] Care Team Providers Care In Flight Refueling Manager Name Role Phone Caryn Henning MD Primary Care Provider [phone] Encounter Details Date Type Department Care Team ([facility] st Contact Info) Description 04/29/2023 Telephone [facility] MEDICINE [address] [place], [place] [phone] Caryn Henning MD [address] [place], [place] [phone] Social History Tobacco Use Types Packs/Day Years [...] Visit [facility] [address] [place], [place] [phone] Caryn Henning MD [address] [place] [address] documented as of this encounter Visit Diagnoses Not on filedocumented in this encounter Care Teams In Flight Refueling Manager Relationship Specialty Start Date End Date Caryn Henning MD [address] [place] [address] [phone] PCP - General Family Medicine 10/28/20 documented as of this encounter
--- OUTSIDE RECORDS SUMMARY | 2024-05-19 10:52 | XMS_ITS | Encounter Summary ---
Author Organization [facility] Address [address] [place] [address] Care Team Providers Care Sewer System Supervisor Name Role Phone Caryn Henning MD Primary Care Provider [phone] Reason for Visit * Reason Comments Med Refill Encounter Details Date Type Department Care Team (Late st Contact Info) Description 11/30/2022 Refill [facility] MEDICINE [address] [place] [address] [phone] Caryn Henning MD [address] [place] [address] [phone] Social History Tobacco Use Types Packs/Day Years [...] Description 07/03/2024 1:30 PM EDT Office Visit [facility]INE [address] [place], [place] [phone] Caryn Henning MD [address] [place] [address] [phone] documented as of this encounter Visit Diagnoses Not on filedocumented in this encounter Care Teams Sewer System Supervisor Relationship Specialty Start Date End Date Caryn Henning MD [address] [place] [address] PCP - General Family Medicine 10/28/20 documented as of this encounter
--- OUTSIDE RECORDS SUMMARY | 2024-05-19 10:52 | XMS_ITS | Encounter Summary ---
Author Organization [employer] Address [address] [facility] 7 [place] [address] Care Team Providers Care Matting Press Tender Name Role Phone Caryn Henning MD Primary Care Provider [phone] Encounter Details Date Type Department Care Team ([facility] st Contact Info) Description 12/21/2023 Orders Only [facility] [address] [place], [place] [phone] Caryn Henning MD [address] [place], [place] [phone] Social History Tobacco Use Types Packs/Day Years [...] EDT Office Visit [facility] [address] [place] [address] Caryn Henning MD [address] [place] [address] documented as of this encounter Visit Diagnoses Not on filedocumented in this encounter Additional Health Concerns Assessment Noted Time PHQ-9 Depression Total Score: 0 07/02/19 24 10:52 AM EDT documented as of this encounter Care Teams Matting Press Tender Relationship Specialty Start Date End Date Caryn Henning MD [address] [place] [address] PCP - General Family Medicine 10/28/20 documented as of this encounter
--- OUTSIDE RECORDS SUMMARY | 2024-05-19 10:52 | XMS_ITS | Encounter Summary ---
Author Organization [employer] Address [address] [place] [address] 7 [place] [address] Care Team Providers Care Layer Out Plate Glass Name Role Phone Caryn Henning MD Primary Care Provider [phone] Reason for Visit * Reason Comments Blurred Vision Encounter Details Date Type Department Care Team ([facility] st Contact Info) Description 04/20/2024 10:00 AM EST Office Visit [facility] [address] [place] [address] Edith Guaman, OD [address] [place] [address] Combined forms of age-related cataract, bilateral (Primary [...] other ocular complaints. He has a personal service representative who was in the waiting room [...] tablet 3 Vitamin A Palmitate 3 MG (47759 UT) tablet Take 1 tablet by mouth [...] Exam Right Left Vitreous Clear Clear Disc Ben Wheeler and distinct Ben Wheeler and distinct C/D Ratio Vertical 0.45 0.45 C/D Ratio Horizontal 0.45 0.45 Macula Clear Clear Vessels 2/3:1 2/3:1 Periphery No holes, breaks, tears 360 No holes, breaks, tears 360 Refraction Wearing Rx Sphere Cylinder Hanna Add Right -0.50 -0.50 095 +2.50 Left -0.75 -0.50 085 +2.50 Manifest Refraction Sphere Cylinder Hanna Dist VA Add Near VA Right -0.50 -0.75 095 20/25+ +2.50 20/25 Left -0.75 -0.50 085 20/30 +2.50 20/25 Final Rx Sphere Cylinder Hanna Dist VA Add Near VA Right -0.50 [...] Description 07/03/2024 1:30 PM EDT Office Visit [facility] MED[facility]INE [address] [place] [address] Caryn Henning MD [address] [place] [address] documented as of this encounter Visit Diagnoses Diagnosis Combined forms of age-related cataract, bilateral- Primary Myopia of both eyes with astigmatism and presbyopia documented in this encounter Additional Health Concerns Assessment Noted Time PHQ-9 Depression Total Score: 0 07/02/19 24 10:52 AM EDT documented as of this encounter Care Teams Layer Out Plate Glass Relationship Specialty Start Date End Date Caryn Henning MD [address] [place] [address] PCP - General Family Medicine 10/28/20 documented as of this encounter
--- OUTSIDE RECORDS SUMMARY | 2024-05-19 10:52 | XMS_ITS | Encounter Summary ---
Author Organization [employer] Address [address] [facility] 7t [place] [address] Care Team Providers Care Carrier Blower Name Role Phone Caryn Henning MD Primary Care Provider [phone] Encounter Details Date Type Department Care Team [...] 1:30 PM EDT Office Visit [facility] MEDICINE [address] [place] [address] Caryn Henning MD [address] [place] [address] documented as of this encounter Visit Diagnoses Not on filedocumented in this encounter Additional Health Concerns Assessment Noted Time PHQ-9 Depression Total Score: 0 07/02/19 24 10:52 AM EDT documented as of this encounter Care Teams Carrier Blower Relationship Specialty Start Date End Date Caryn Henning MD [address] [place], [place] [phone] PCP - General Family Medicine 10/28/20 documented as of this encounter
--- OUTSIDE RECORDS SUMMARY | 2024-05-19 10:52 | XMS_ITS | Clinical Summary ---
Author Organization [address] [facility] Address [address] [place] [address] Phone Care Team Providers Care Associate Professor Of Medicine Name Role Phone Caryn Henning MD Primary Care Provider [phone] Allergies No known active allergies Medications carbamide peroxide (Ear Drops, carbamide peroxide,) 6.5 [...] day. skin and toenails for 12 weeks 4 Active diphenhydrAMINE (BENADRYL) 25 mg capsule Take [...] loratadine 10 mg capsule Take by mouth. Acti ve melatonin 5 mg tablet Take 1 tablet [...] Recorded Sex Assigned at Not on file Legal Sex Male 9:03 AM EST Gender Identity Not on file Sexual Orientation Not on file Last Filed Vital Signs [...] on patient's age to complete this topic Insurance [employer] MEDICARE Member Subscriber Plan / Payer (Ef fective 2017-Present) Name:John Crandall Relation to Subscriber:Self Name:John Crandall Payer ID:[id number] Group ID:[id number] Type:Not on file Address: [place] [address] [address] [id number] Care Teams Associate Professor Of Medicine Relationship Specialty Start Date End Date Caryn Henning MD [address] [place] [address] PCP - General 07/07/23
--- OUTSIDE RECORDS SUMMARY | 2024-05-19 10:52 | XMS_ITS | Encounter Summary ---
Author Organization [employer] Address [address] [facility] 7t [place] [address] Care Team Providers Care Manager Disaster Recovery Name Role Phone Caryn Henning MD Primary Care Provider [phone] Encounter Details Date Type Department Care Team ([facility] st Contact Info) Description 05/19/2023 Telephone [facility] MEDICINE [address] [place], [place] [phone] Caryn Henning MD [address] [place], [place] [phone] Social History Tobacco Use Types Packs/Day Years [...] Description 07/03/2024 1:30 PM EDT Office Visit [facility] MED[facility]INE [address] [place], [place] [phone] Caryn Henning MD [address] [place] [address] documented as of this encounter Visit Diagnoses Not on filedocumented in this encounter Care Teams Manager Disaster Recovery Relationship Specialty Start Date End Date Caryn Henning MD [address] [place] [address] [phone] PCP - General Family Medicine 10/28/20 documented as of this encounter
--- OUTSIDE RECORDS SUMMARY | 2024-05-19 10:52 | XMS_ITS | Encounter Summary ---
Author Organization [employer] Address [address] [facility] 7 [place] [address] Care Team Providers Care Machine Edge Bander Name Role Phone Caryn Henning MD Primary Care Provider [phone] Encounter Details Date Type Department Care Team ([facility] st Contact Info) Description 01/21/[address] [facility] MEDICINE [address] [place], [place] [phone] Caryn Henning MD [address] [place], [place] [phone] Social History Tobacco Use Types Packs/Day Years [...] Description 07/03/2024 1:30 PM EDT Office Visit [facility] MEDICINE [address] [place] [address] Caryn Henning MD [address] [place] [address] documented as of this encounter Visit Diagnoses Not on filedocumented in this encounter Additional Health Concerns Assessment Noted Time PHQ-9 Depression Total Score: 0 07/02/19 24 10:52 AM EDT documented as of this encounter Care Teams Machine Edge Bander Relationship Specialty Start Date End Date Caryn Henning MD [address] [place] [address] PCP - General Family Medicine 10/28/20 documented as of this encounter
--- OUTSIDE RECORDS SUMMARY | 2024-05-19 10:52 | XMS_ITS | Encounter Summary ---
Author Organization [employer] Address [address] [facility] 7t [place] [address] Care Team Providers Care Hand Flesher Name Role Phone Caryn Henning MD Primary Care Provider [phone] Encounter Details Date Type Department Care Team ([facility] Contact Info) Description 01/20/[address] [facility] MEDICINE [address] [place], [place] [phone] Caryn Henning MD [address] [place], [place] [phone] Social History Tobacco Use Types Packs/Day Years [...] PM EDT Office Visit [facility] MEDICINE [address] [place] [address] Caryn Henning MD [address] [place] [address] documented as of this encounter Visit Diagnoses Not on filedocumented in this encounter Additional Health Concerns Assessment Noted Time PHQ-9 Depression Total Score: 0 07/02/19 10:52 AM EDT documented as of this encounter Care Teams Hand Flesher Relationship Specialty Start Date End Date Caryn Henning MD [address] [place] [address] PCP - General Family Medicine 10/28/20 documented as of this encounter
--- OUTSIDE RECORDS SUMMARY | 2024-05-19 10:52 | XMS_ITS | Encounter Summary ---
Author Organization [employer] Address [address] [place] [address] [place] [address] Care Team Providers Care Ward Service Supervisor Name Role Phone Caryn Henning MD Primary Care Provider Reason for Visit * Reason Onset Date Comments Nurse Triage 08/26/2023 Encounter Details Date Type Department Care Team ([facility] st Contact Info) Description 08/26/2023 Telephone [facility] MEDICINE [address] [place] [address] Caryn Henning MD [address] [place] [address] Nurse Triage Social History Tobacco Use Types [...] acuity questions The caller accepted this outcome Icelandic speaker documented in this encounter Plan of Treatment Upcoming Encounters Date Type Department Care Team (Late st Contact Info) Description 07/03/2024 1:30 PM EDT Office Visit [facility] MED[facility]INE [address] [place] [address] Caryn Henning MD [address] [place] [address] documented as of this encounter Visit Diagnoses Not on filedocumented in this encounter Additional Health Concerns Assessment Noted Time PHQ-9 Depression Total Score: 0 07/02/19 24 10:52 AM EDT documented as of this encounter Care Teams Ward Service Supervisor Relationship Specialty Start Date End Date Caryn Henning MD [address] [place] [address] PCP - General Family Medicine 10/28/20 documented as of this encounter
--- OUTSIDE RECORDS SUMMARY | 2024-05-19 10:52 | XMS_ITS | Encounter Summary ---
Author Organization [employer] Address [address] [place] [address] [place] [address] Care Team Providers Care Bevel Operator Name Role Phone Caryn Henning MD Primary Care Provider [phone] Reason for Visit * Reason Onset Date Comments Med Refill 03/20/2024 Encounter Details Date Type Department Care Team ([facility] st Contact Info) Description 03/20/2024 Telephone [facility] MEDICINE [address] [place], [place] [phone] Caryn Henning MD [address] [place], [place] [phone] Med Refill Social History Tobacco Use Types [...] PM EST Vitamin D was sent to [facility] on 12/07/23 #90 with 3 refills and Oxybutynin isn't prescribed by PCP. * Telephone Encounter - Jacinta Manzanares - 03/20/2024 12:31 PM EST TC from pt requesting medication refill. Medications needing refill : D3 Super Strength 50 MCG (1999 UT) capsule oxybutynin XL (Ditropan-XL) 5 MG 24 hr tablet To be sent to: [facility] - [place], [place] - [address] [facility] documented in this encounter Plan of Treatment Upcoming Encounters Date Type Department Care Team (Late st Contact Info) Description 07/03/2024 1:30 PM EDT Office Visit [facility] MEDICINE [address] [place] [address] Caryn Henning MD [address] [facility] [place] [address] documented as of this encounter Visit Diagnoses Not on filedocumented in this encounter Additional Health Concerns Assessment Noted Time PHQ-9 Depression Total Score: 0 07/02/19 24 10:52 AM EDT documented as of this encounter Care Teams Bevel Operator Relationship Specialty Start Date End Date Caryn Henning MD [address] [place] [address] PCP - General Family Medicine 10/28/20 documented as of this encounter
--- OUTSIDE RECORDS SUMMARY | 2024-05-19 10:52 | XMS_ITS | Clinical Summary ---
Author Organization [employer] Address [address] [place] [address] 7 [place] [address] Care Team Providers Care Skate Hop Name Role Phone Caryn Henning MD Primary Care Provider [phone] Allergies Active Allergy Reactions Criticality Noted Date [...] 1 Active Vitamin A Palmitate 3 MG (35643 UT) tabletIndications :Vitamin A deficiency Take 1 [...] Active beta carotene (vitamin A) 3 MG (81869 UT) capsule Take 1 capsule by mouth [...] Plan (09/14/2022 12:43 PM EDT): Gave patient [facility] contact information and instructed them to call GI and to be persistent. Edentulous 06/26/2022 Assessment & Plan (09/14/2022 12:42 PM EDT): Patient still waiting on PAINT M[employer]ER HAND videofluoroscopic swallow study. Fatigue 03/05/2022 Gastroesophageal reflux [...] Description 04/21/2024 9:30 AM EST Office Visit [facility] MEDICINE [address] [place] [address] Caryn Henning MD Gastroesophageal reflux disease without esophagitis (Primary Dx); Zinc deficiency; Encounter for immunization; Other hypertrophic cardiomyopathy (CMS/HCC); Undifferentiated schizophrenia (CMS/HCC); Obstructive sleep apnea syndrome; Dietary counseling; Exercise counseling; Vitamin A deficiency; Dry skin dermatitis; Adult general medical exam 04/21/2024 Travel 04/20/2024 10:00 AM EST Office Visit [facility] OPTOMETRY [address] [place], [place] [id number] Edith Guaman OD Combined forms of age-related cataract, bilateral (Primary Dx); Myopia of both eyes with astigmatism and presbyopia 04/20/2024 Travel 04/12/2024 Patient Outreach [facility] MEDICINE [address] [place], [place] [phone] Caryn Henning MD Pre-visit Planning (SDOH screening completed on 07/02/2023) 03/20/2024 Telephone [facility] MEDICINE [address] [place] [address] Caryn Henning MD Med Refill 02/24/[address] [address] Caryn Henning MD 02/17/2024 9:30 AM EST Office Visit [address] [address] Caryn Henning MD Allergic conjunctivitis of left eye (Primary Dx); Vitamin A deficiency; Zinc deficiency; Obstructive sleep apnea syndrome; Dry skin dermatitis; Undifferentiated schizophrenia (CMS/HCC); Gastroesophageal reflux disease without esophagitis 02/17/2024 Travel from Last 3 Months Immunizations Name Administration [...] 1:30 PM EDT Office Visit [facility] MEDICINE [address] [place] [address] Caryn Henning MD [address] [place] [address] Health Maintenance Due Date Last Done Comments CT Colonography 1960 Colonoscopy 1960 Colorectal Cancer Screening 1960 FIT DNA/Cologuard 1960 FIT 1962 FOBT 1960 Sigmoidoscopy 1960 Zoster Vaccines (1 of 2) 2012 Alcohol/Substance Use Screening 07/01/2024 07/02/2023 Depression Screening 07/01/2024 07/02/2023, 07/02/19 24 SDOH Screening 07/01/2024 07/02/2023 Tobacco Screening 04/21/2025 04/21/2024 Lipid Panel 09/30/2026 09/30/2021, 09/04, 11/22/2020 DTaP/Tdap/Td Vaccines (2 - Td or Tdap) 07/01/2033 07/02/2023 RSV Patients and Patients Aged 60 years or older (1 - 1-dose 75+ series) 2037 HIV Screening Completed 07/10/2021, 11/05/2020 Hepatitis C Screening Completed 07/10/2021 Pneumococcal Vaccine: 50+ Years Completed 07/02/2023, 04/13/2018 COVID-19 Vaccine Completed 04/21/2024, [...] than 239 mg/dL HDL Cholesterol 32 mg/dL [facility] Comment: Desirable HDL: ??greater than 40 mg/dL ?? Note: This HDL assay may give artificially ? low results in patients with liver disease. LDL Cholesterol Calculated 65 mg/dl [facility] Comment: Desirable LDL: ? less than 100 mg/dL Near Optimal/Above Optimal LDL: ??110-129 mg/dL Borderline High LDL: ? 130-159 mg/dL High LDL: ?160-189 mg/dL Very High LDL: ? greater than or equal to ?190 mg/dL Triglycerides 118 mg/dL [facility] Comment: Desirable Triglyceride: ? less than 150 mg/dL Borderline High Triglyceride ??150-199 mg/dL High Triglyceride: ?200-499 mg/dL Very High Triglyceride: ? greater than or equal to ? 5OO mg/dL Alanine Aminotransferase 22 0 - 40 U/L [facility] Albumin Level 4.1 3.5 - 5.0 g/dL [facility] Alkaline Phosphatase 120(H) 39 - 117 U/L [facility] Anion Gap 10(L) 12 - 20 [facility] Aspartate Amino Transferase 25 5 - 37 U/L [facility] Bilirubin Total 0.3 0.0 - 1.0 mg/dL [facility] Blood Urea Nitrogen 9 9 - 16 mg/dL [facility] Calcium 8.7 8.4 - 10.2 mg/dL [facility] Carbon Dioxide 24 22 - 29 mmol/L [facility] Chloride 107 96 - 108 mmol/L [facility] Creatinine, Serum 0.88 0.5 - 1.4 mg/dL [facility] Estimated Glomerular Filt Rate >60 [facility] Comment: NOTE: ??For -Sammarinese individuals, multiply the result ?by 1.210. ?? Chronic Kidney Disease: ??Estimated GFR < 60 mL/min/1.73m2 Severe Kidney Disease: ??Estimated GFR < 15 mL/min/1.73m2 Glucose Random 101 60 - 115 mg/dL [facility] Potassium 4.3 3.3 - 5.1 mmol/L [facility] Sodium 137 135 - 145 mmol/L [facility] Total Protein 7.0 6.5 - 8.0 g/dL [facility] 09/30/2021 6:56 AM EDT us Historical Provider HISTORICAL/NON ORDERABLE LABS Final Result [facility] [address] * (ABNORMAL) HEPATITIS C AB W/REFL TO HCV RNA, QN, PCR (07/10/2021 10:35 AM EDT) HEPATITIS C ANTIBODY REACTIVE( A) NON-REACT JAUN [facility] INDEX 3.21(H) <1.00 [facility] Comment: ?? Based on this result, the sample will be tested for HCV RNA by a Nucleic Acid Amplification Test (NAAT) to determine if the patient has a current active infection. ?? 07/10/2021 10:3 5 AM EDT us Yolanda Salgado MD HISTORICAL/NON ORDERA BLE LABS Final Result Performing Organization Address [facility] de Phone Number [facility] [address] * HIV 1/2 ANTIGEN/ANTIBODY,FOURTH GENERATION W/RFL (07/10/2021 10:35 AM EDT) HIV-1/2 ANTIGEN AND ANTIBODIES, 4TH GENERATION W/ REFLEX NON-REACT JAUN NON-REACT JAUN [facility] Comment: HIV-1 antigen and HIV-1/HIV-2 [...] ? For additional information please refer to http://education.[employer].Validas/faq/NOZ161 (This link is being provided for informational/ educational purposes only.) ? The performance of this assay has not been clinically validated in patients less than 2 years old. ?? 07/10/2021 10:3 5 AM EDT us Yolanda Salgado MD LAB BLOOD ORDERABLES Final Result Performing Organization Address [facility] Co de Phone Number [facility] [address] from Last 3 Months or Most Recently Relevant to Health Maintenance Insurance [facility] Care Teams Skate Hop Relationship Specialty Start Date End Date Caryn Henning MD [address] [place] [phone] PCP - General Family Medicine 10/28/20
--- OUTSIDE RECORDS SUMMARY | 2024-05-19 10:52 | XMS_ITS | Encounter Summary ---
Author Organization [employer] Address [address] [place] [address] [place] [address] Care Team Providers Care Network Operations Center Technician Name Role Phone Caryn Henning MD Primary Care Provider [phone] Reason for Visit * Reason Onset Date Comments Appointment Request 10/13/2023 Encounter Details Date Type Department Care Team ([facility] st Contact Info) Description 10/13/[address] [facility] MEDICINE [address] [place] [address] Caryn Henning MD [address] [place] [address] Appointment Request Social History Tobacco Use Types [...] pt requesting to reschedule OV from 10/04. Sand Mill Operator Facing Sand attempted to schedule but found no availability, pt requested for message to be sent stating needs appt as soon as possible. Please contact pt at [phone]. documented in this encounter Plan of Treatment Upcoming Encounters Date Type Department Care Team (Late st Contact Info) Description 07/03/2024 1:30 PM EDT Office Visit [facility] MEDICINE [address] [place] [address] Caryn Henning MD [address] [place] [address] documented as of this encounter Visit Diagnoses Not on filedocumented in this encounter Additional Health Concerns Assessment Noted Time PHQ-9 Depression Total Score: 0 07/02/19 24 10:52 AM EDT documented as of this encounter Care Teams Network Operations Center Technician Relationship Specialty Start Date End Date Caryn Henning MD [address] [place] [address] PCP - General Family Medicine 10/28/20 documented as of this encounter
--- OUTSIDE RECORDS SUMMARY | 2024-05-19 10:52 | XMS_ITS | Encounter Summary ---
Author Organization [employer] Address [address] [place] [address] Care Team Providers Care Hotel Attendant Name Role Phone Caryn Henning MD Primary Care Provider [phone] Reason for Visit * Reason Comments Follow-up Encounter Details Date Type Department Care Team (Latest Contact Info) Description 04/21/2024 9:30 AM EST Office Visit [facility] MEDICINE [address] [place] [address] Caryn Henning MD [address] [place] [address] Gastroesophageal reflux disease without esophagitis (Primary Dx); [...] ER visit, or hospitalization. Here with his histologic technician caregiver Irlanda. Acute Concerns: Needs imms Needs [...] Continue Nexium Lifestyle supports for GERD Schizophrenia ([facility]) Current Assessment & Plan Continue Risperidone BID, Klonopin prn as per psychiatry Continue Trazodone at 100mg nightly prn Sleep apnea Current Assessment & Plan Encouraged use of CPAP greater than 4 hours a night Adult general medical exam Dry skin dermatitis Vitamin A deficiency Other hypertrophic cardiomyopathy ([facility]) Current Assessment & Plan Continue annual followup with cardiology Other Visit Diagnoses Zinc deficiency Relevant Medications zinc gluconate 50 MG tablet Encounter for immunization Relevant Orders COVID-19 VACCINE ([employer]) [phone] 12 yrs + (Completed) FLU VACCINE TRIVALENT ([employer]) 6 mo + (Completed) Dietary counseling Exercise counseling Follow Up: 4 months or sooner prn Allergies Allergen Reactions Aspirin Hives Penicillins Other reaction(s): Hives/Skin Rash Current Outpatient Medications: beta carotene (vitamin A) 3 MG (95847 UT) capsule, Take 1 capsule by mouth [...] tablet, Rfl:3 Vitamin A Palmitate 3 MG (22562 UT) tablet, Take 1 tablet by mouth Once per day., Disp: 30 tablet, Rfl: 0 zinc gluconate 50 MG tablet, Take 1 tablet (50 mg) by mouth Once per day., Disp: 90 tablet, Rfl: 3 Welsh Translation: Provided by [facility] staff member RODOLFO Johnson documented in [...] Description 07/03/2024 1:30 PM EDT Office Visit [facility] MEDICINE [address] [place] [address] Caryn Henning MD [address] [place], [place] [phone] documented as of this encounter Visit Diagnoses [...] documented as of this encounter Care Teams Hotel Attendant Relationship Specialty Start Date End Date Caryn Henning MD [address] [place] [address] PCP - General Family Medicine 10/28/20 documented as of this encounter
--- OUTSIDE RECORDS SUMMARY | 2024-05-19 10:52 | XMS_ITS | Encounter Summary ---
Author Organization [employer] Address [address] [facility] 7t [place] [address] Care Team Providers Care Catheter Finisher And Inspector Name Role Phone Caryn Henning MD Primary Care Provider [phone] Encounter Details Date Type Department Care Team [...] Description 07/03/2024 1:30 PM EDT Office Visit [facility] MEDICINE [address] [place] [address] Caryn Henning MD [address] [place] [address] documented as of this encounter Visit Diagnoses Not on filedocumented in this encounter Additional Health Concerns Assessment Noted Time PHQ-9 Depression Total Score: 0 07/02/19 24 10:52 AM EDT documented as of this encounter Care Teams Catheter Finisher And Inspector Relationship Specialty Start Date End Date Caryn Henning MD [address] [place], [place] [phone] PCP - General Family Medicine 10/28/20 documented as of this encounter
== END 2024-05-19 11:11 | disposition home or self-care (01) ==
PROVIDERS: PCP General Practice; Visit Provider Nurse Practitioner Family
DX: R94.31 Abnormal electrocardiogram [ECG] [EKG] (principal); I44.7 Left bundle-branch block, unspecified
CPT/HCPCS: 93010; 99213; G2211

== ENCOUNTER → 2024-05-19 10:05 | Outpatient (BNVA) | payer OTHER, SELFPAY | PROVIDERS: PCP General Practice; Visit Provider Nurse Practitioner Family | DX: I44.7 Left bundle-branch block, unspecified (principal); R94.31 Abnormal electrocardiogram [ECG] [EKG]; G47.30 Sleep apnea, unspecified; Z99.89 Dependence on other enabling machines and devices | CPT/HCPCS: 93005; 99212 ==

== ENCOUNTER → 2024-06-13 12:57 | Outpatient (REF) | payer OTHER, SELFPAY ==
--- NOTE | 2024-06-13 13:01 | CA_ITS ---
Transthoracic Echocardiogram Patient (Last, First, Middle): John Aparicio, Gender: Male Date of : 1960 Age: 64 Procedure Date: 06/13/2024 Procedure Type: Transthoracic Echocardiogram Location: OP Height: 165.1 cm Weight: 77.57 kg BSA: 1.85 m2 Heart Rate: bpm BP: 100 / 80 mmHg Final Inspector Shuttle: MEÑO Referring MD: Bibiana Garg SCRAP BREAKERJosh Symptoms: R94.31 - Abnormal electrocardiogram [ECG] [EKG] Study Quality: Adequate ECG Rhythm: Sinus Conclusions: - The left ventricular systolic function is normal. The calculated ejection fraction is 60% by biplane method. - There is mild to moderate tricuspid valve regurgitation. Findings Left Ventricle Normal left ventricular cavity size. There is normal left ventricular wall thickness. The left ventricular systolic function is normal. The calculated ejection fraction is 60% by biplane method. There is no evidence of regional wall motion abnormalities. Diastolic function is normal for age. Right Ventricle Mildly increased right ventricular cavity size. There is mildly decreased right ventricular systolic function. Atria Both atria are normal in size. Aortic Valve There is a normal trileaflet aortic valve. There is no aortic valve stenosis. There is no aortic valve regurgitation. Mitral Valve The mitral valve appears normal. There is no mitral valve regurgitation. There is no mitral valve stenosis. Pulmonic Valve The pulmonic valve is likely normal. Tricuspid Valve There is mild to moderate tricuspid valve regurgitation. There is no evidence of pulmonary hypertension. Great Vessels The asc aorta is normal in size. Venous The inferior vena cava is normal in size and collapses greater than 50% with inspiration. Pericardium/Pleural There is no evidence of pericardial effusion. Prior Study Comparison Changes noted compared to prior study dated: 01/14/2022. Tricuspid regurgitation slightly more prominent. Measurements 2D Linear Measurements IVSd: 0.80 0.6-0.9/0.6-1.0 cm LVIDd: 4.25 3.9-5.3/4.2-5.9 cm LVIDd Index: 2.30 2.4-3.2/2.2-3.1 cm/m2 LVIDs: 2.73 2.0-3.6 cm LVPWd: 0.88 0.7-1.1 cm LV Mass: 135.94 67-162/88-224 g LV Mass Index: 73.48 43-95/49-115 g/m2 LVOT Diam: 2.00 3.0+(-)1.3 cm 2D Systolic Function EF 4C: 61.00 >55% EF 2C: 58.90 >55% EF BiP: 60.00 >55% Mitral Valve MV Pk E: 0.85 MV PK A: 0.74 MV Decel Time: 246.00 E/A: 1.20 E'Lateral: 9.36 E'Medial: 6.09 E/E' Med: 14.00 E/E' Lat: 9.10 PHT: 72.00 MVA PHT: 3.06 Decel Traverse: 3.46 Aortic Valve AoV Pk Remi: 1.37 AoV Mn Remi: 0.98 AoV VTI: 0.32 AoV Pk Grad: 8.00 Aov Mn Grad: 4.00 ANNALISE Cont.VTI: 2.76 LVOT LVOT Pk Remi: 1.21 LVOT Mn Remi: 0.78 LVOT VTI: 0.28 LVOT Pk Grad: 6.00 LVOT Mn Grad: 3.00 LVOT Diam: 2.00 LVOT Area: 3.14 Diastolic Function MV Pk E: 0.85 MV Pk A: 0.74 E/A: 1.20 E'Medial: 6.09 E/E' Med: 14.00 E' Laterial: 9.36 E/E' Lat: 9.10 Right Ventricle TAPSE (mm): 18.70 TVS' Remi: 8.59 Tricuspid Valve TR Pk Remi: 2.66 TR Pk Grad: 28.00 RA Press: 3.00 RVSP: 31.00 Great Vessels Aorta Sinus of Valsalva: 3.04 2.0-3.[address] Ridge: 2.43 1.7-3.4 cm Ao Asc: 3.00 2.1-3.4 cm Updated in Other Vendor System with Status of Final Aditya Astudillo MD electronically signed on 06/13/2024 4:25:40 PM with status of Final
--- OUTSIDE RECORDS SUMMARY | 2024-06-13 15:36 | XMS_ITS | Encounter Summary ---
Author Organization [employer] Address [address] [place] [address] [place] [address] Care Team Providers Care Alarm Operator Name Role Phone Caryn Henning MD Primary Care Provider [phone] Reason for Visit * Reason Onset Date Comments Nurse Triage 08/26/2023 Encounter Details Date Type Department Care Team ([facility] st Contact Info) Description 08/26/2023 Telephone [facility] MEDICINE [address] [place] [address] Caryn Henning MD [address] [place] [address] Nurse Triage Social History Tobacco Use Types [...] acuity questions The caller accepted this outcome Georgian speaker documented in this encounter Plan of Treatment Upcoming Encounters Date Type Department Care Team (Late st Contact Info) Description 07/03/2024 1:30 PM EDT Office Visit [facility] MEDICINE [address] [place] [address] Caryn Henning MD [address] [place] [phone] documented as of this encounter Visit Diagnoses Not on filedocumented in this encounter Additional Health Concerns Assessment Noted Time PHQ-9 Depression Total Score: 0 07/02/19 24 10:52 AM EDT documented as of this encounter Care Teams Alarm Operator Relationship Specialty Start Date End Date Caryn Henning MD [address] [place] [phone] PCP - General Family Medicine 10/28/20 documented as of this encounter
--- OUTSIDE RECORDS SUMMARY | 2024-06-13 15:36 | XMS_ITS | Encounter Summary ---
Author Organization [employer] Address [address] [facility] 7t [place] [address] Care Team Providers Care Heat Treatment Technician Name Role Phone Caryn Henning MD Primary Care Provider [phone] Encounter Details Date Type Department Care Team ([facility] st Contact Info) Description 01/21/2024 Orders Only [facility] MEDICINE [address] [place], [place] [phone] Caryn Henning MD [address] [place], [place] [phone] Social History Tobacco Use Types Packs/Day Years [...] Description 07/03/2024 1:30 PM EDT Office Visit [facility] MEDICINE [address] [place] [address] Caryn Henning MD [address] [place] [address] documented as of this encounter Visit Diagnoses Not on filedocumented in this encounter Additional Health Concerns Assessment Noted Time PHQ-9 Depression Total Score: 0 07/02/19 24 10:52 AM EDT documented as of this encounter Care Teams Heat Treatment Technician Relationship Specialty Start Date End Date Caryn Henning MD [address] [place] [address] PCP - General Family Medicine 10/28/20 documented as of this encounter
--- OUTSIDE RECORDS SUMMARY | 2024-06-13 15:36 | XMS_ITS | Encounter Summary ---
Author Organization [employer] Address [address] [place] [address] [place] [address] Care Team Providers Care Assistant Hairstylist Name Role Phone Caryn Henning MD Primary Care Provider [phone] Reason for Visit * Reason Onset Date Comments Appointment Request 10/13/2023 Encounter Details Date Type Department Care Team ([facility] st Contact Info) Description 10/13/2023 Telephone [facility] MEDICINE [address] [place] [address] Caryn Henning MD [address] [place] [address] Appointment Request Social History Tobacco Use Types [...] pt requesting to reschedule OV from 10/04. Finisher Card Tender attempted to schedule but found no availability, pt requested for message to be sent stating needs appt as soon as possible. Please contact pt at [phone]. documented in this encounter Plan of Treatment Upcoming Encounters Date Type Department Care Team (Late st Contact Info) Description 07/03/2024 1:30 PM EDT Office Visit [facility] MEDICINE [address] [place] [address] Caryn Henning MD [address] [place] [address] documented as of this encounter Visit Diagnoses Not on filedocumented in this encounter Additional Health Concerns Assessment Noted Time PHQ-9 Depression Total Score: 0 07/02/19 24 10:52 AM EDT documented as of this encounter Care Teams Assistant Hairstylist Relationship Specialty Start Date End Date Caryn Henning MD [address] [place] [address] PCP - General Family Medicine 10/28/20 documented as of this encounter
--- OUTSIDE RECORDS SUMMARY | 2024-06-13 15:36 | XMS_ITS | Clinical Summary ---
Author Organization [employer] Address [address] [place] [address] 7 [place] [address] Care Team Providers Care Food Mobile Driver Name Role Phone Caryn Henning MD Primary Care Provider [phone] Allergies Active Allergy Reactions Criticality Noted Date [...] 5 mg by mouth in the morning. 3 Active risperiDONE (RisperDAL) 0.5 MG tablet Take 0.5 mg by mouth 2 times daily. 3 Active clonazePAM (KlonoPIN) 0.5 MG tablet Take 0.5 mg by mouth in the morning. 4 Active SM Dry Eye Relief 0.2-0.2-1 % solution INSTILL 1 DROP IN EACH EYE IN THE MORNING, AT NOON, AND AT BEDTIME NEEDED FOR DRY EYES 15 mL 3 4 Active carboxymethylcellu lose sodium (Refresh Contacts) solution OPHTHalmic solution Administer 1 drop into both eyes every 3 (three) hours if needed (dry eyes). 12 mL 11 4 Active polyvinyl alcohol (Liquifilm Tears) 1.4 % ophthalmic solution Administer 1 drop into both eyes every 3 (three) hours if needed for dry eyes. 15 mL 11 4 Active simvastatin (Zocor) 80 MG tablet TAKE 1 TABLET BY MOUTH EVERY NIGHT (for cholesterol) 90 tablet 3 4 Active Skin Protectants, Misc. (eucerin) cream Apply topically if needed for dry skin. 99 g 3 4 025 Active melatonin 5 MG tablet TAKE 2 TABLETS BY MOUTH DAILY AT BEDTIME 60 tablet 11 4 Active traZODone (Desyrel) 50 MG tablet Take 1 tablet (50 mg) by mouth at bedtime. 90 tablet 3 4 025 Active Ketotifen Fumarate 0.035 % solutionIndication s:Allergic conjunctivitis of left eye Administer 1 drop into affected eye(s) if needed each day (swelling of eyelid). 10 mL 1 4 Active Vitamin A Palmitate 3 MG (23067 UT) tabletIndications: Vitamin A deficiency Take 1 tablet by mouth Once per day. 30 tablet 4 Active esomeprazole (NexIUM) [address] capsule TAKE 1 CAPSULE BY MOUTH EVERY DAY 1 HOUR BEFORE A MEAL, DO NOT BREAK, CRUSH, DISSOLVE OR CHEW 90 capsule 1 4 Active cholecalciferol (D3 Super Strength) 50 MCG (2000 UT) capsule Take 1 capsule (50 mcg) by mouth Once per day. 90 capsule 3 5 Active zinc gluconate 50 MG tabletIndications: Zinc deficiency Take 1 tablet (50 mg) by mouth Once per day. 90 tablet 3 5 026 Active beta carotene (vitamin A) 3 MG (60535 UT) capsule Take 1 capsule by mouth Once per day. 4 Active Active Problems Problem Noted Date Diagnosed [...] Plan (09/14/2022 12:43 PM EDT): Gave patient [facility] contact information and instructed them to call GI and to be persistent. Edentulous 06/26/2022 Assessment & Plan (09/14/2022 12:42 PM EDT): Patient still waiting on MID LEVEL NET DEVELOPER videofluoroscopic swallow study. Fatigue 03/05/2022 Gastroesophageal reflux [...] Encounters Date Type Department Care Team Description 05/23/2024 Telephone [facility] MEDICINE [address] [place] [address] Caryn Henning MD Nurse Triage 04/21/2024 9:30 AM EST Office Visit [address] [address] Caryn Henning MD Gastroesophageal reflux disease without esophagitis (Primary Dx); Zinc deficiency; Encounter for immunization; Other hypertrophic cardiomyopathy (CMS/HCC); Undifferentiated schizophrenia (CMS/HCC); Obstructive sleep apnea syndrome; Dietary counseling; Exercise counseling; Vitamin A deficiency; Dry skin dermatitis; Adult general medical exam 04/21/2024 Travel 04/20/2024 10:00 AM EST Office Visit [facility] OPTOMETRY [address] [place] [address] Edith Guaman, OD Combined forms of age-related cataract, bilateral (Primary Dx); Myopia of both eyes with astigmatism and presbyopia 04/20/2024 Travel 04/12/2024 Patient Outreach [facility] [address] [place] [address] Caryn Henning MD Pre-visit Planning (SDOH screening completed on 07/02/2023) 03/20/[address] [address] Caryn Henning MD Med Refill from Last 3 Months Immunizations Name Administration [...] Description 07/03/2024 1:30 PM EDT Office Visit [facility] [address] [place] [address] Caryn Henning MD [address] [place] [address] Health Maintenance Due Date Last Done Comments [...] (ABNORMAL) LIPID PANEL (09/30/2021 6:56 AM EDT) [facility] Signature Cholesterol 120 mg/dL [facility] Comment: Desirable Cholesterol: ?less than 200 mg/dL Borderline High Cholesterol: ??200-239 mg/dL High Cholesterol: ? greater than 239 mg/dL HDL Cholesterol 32 mg/dL [facility] Comment: Desirable HDL: ??greater than 40 mg/dL ?? Note: This HDL assay may give artificially ? low results in patients with liver disease. LDL Cholesterol Calculated 65 mg/dl [facility] Comment: Desirable LDL: ? less [...] Alanine Aminotransferase 22 0 - 40 U/L [facility] Albumin Level 4.1 3.5 - 5.0 g/dL [facility] Alkaline Phosphatase 120(H) 39 - 117 U/L [facility] Anion Gap 10(L) 12 - 20 [facility] Aspartate Amino Transferase 25 5 - 37 U/L [facility] Bilirubin Total 0.3 0.0 - 1.0 mg/dL [facility] Blood Urea Nitrogen 9 9 - 16 mg/dL [facility] Calcium 8.7 8.4 - 10.2 mg/dL [facility] Carbon Dioxide 24 22 - 29 mmol/L [facility] Chloride 107 96 - 108 mmol/L [facility] Creatinine, Serum 0.88 0.5 - 1.4 mg/dL [facility] Estimated Glomerular Filt Rate >60 [facility] Comment: NOTE: ??For -Beninese individuals, multiply the result ?by 210. ?? Chronic Kidney Disease: ??Estimated GFR < 60 mL/min/1.73m2 Severe Kidney Disease: ??Estimated GFR < 15 mL/min/1.73m2 Glucose Random 101 60 - 115 mg/dL [facility] Potassium 4.3 3.3 - 5.1 mmol/L [facility] Sodium 137 135 - 145 mmol/L [facility] Total Protein 7.0 6.5 - 8.0 g/dL [facility] 09/30/2021 6:56 AM EDT Historical Provider HISTORICAL/NON ORDERABLE LABS Final Result Performing Organization Address [facility]UST Co de Phone Number [facility] [address] * (ABNORMAL) HEPATITIS C AB W/REFL TO HCV RNA, QN, PCR (07/10/2021 10:35 AM EDT) HEPATITIS C ANTIBODY REACTIVE( A) NON-REACT JAUN [facility] INDEX 3.21(H) <1.00 [facility] Comment: ?? Based on this result, the sample will be tested for HCV RNA by a Nucleic Acid Amplification Test (NAAT) to determine if the patient has a current active infection. ?? 07/10/2021 10:3 5 AM EDT Yolanda Salgado MD HISTORICAL/NON ORDERA BLE LABS Final Result Performing Organization Address [facility]/ZIP Co de Phone Number [facility] [address] [place] [address], * HIV 1/2 ANTIGEN/ANTIBODY,FOURTH GENERATION W/RFL (07/10/2021 10:35 AM EDT) HIV-1/2 ANTIGEN AND ANTIBODIES, 4TH GENERATION W/ REFLEX NON-REACT JAUN NON-REACT JAUN [facility] Comment: HIV-1 antigen and HIV-1/HIV-2 [...] ? For additional information please refer to http://education.Cellvine/faq/QUH222 (This link is being provided for informational/ educational purposes only.) ? The performance of this assay has not been clinically validated in patients less than 2 years old. ?? 07/10/2021 10:3 5 AM EDT Yolanda Salgado MD LAB BLOOD ORDERABLES Final Result [facility] [address] from Last 3 Months or Most Recently Relevant to Health Maintenance [place] [address] [place] [address] - [employer] Care Teams Food Mobile Driver Relationship Specialty Start Date End Date Caryn Henning MD [address] [place] [address] PCP - General Family Medicine 10/28/20
--- OUTSIDE RECORDS SUMMARY | 2024-06-13 15:36 | XMS_ITS | Encounter Summary ---
Author Organization [employer] Address [address] [facility] 7t [place] [address] Care Team Providers Care Eight Section Blower Name Role Phone Caryn Henning MD Primary Care Provider [phone] Encounter Details Date Type Department Care Team ([facility] Contact Info) Description 01/20/2024 Telephone [facility] MEDICINE [address] [place], [place] [phone] Caryn Henning MD [address] [place], [place] [phone] Social History Tobacco Use Types Packs/Day Years [...] 1:30 PM EDT Office Visit [facility] MED[facility] [address] [place] [address] Caryn Henning MD [address] [place] [address] documented as of this encounter Visit Diagnoses Not on filedocumented in this encounter Additional Health Concerns Assessment Noted Time PHQ-9 Depression Total Score: 0 07/02/19 10:52 AM EDT documented as of this encounter Care Teams Eight Section Blower Relationship Specialty Start Date End Date Caryn Henning MD [address] [place] [address] PCP - General Family Medicine 10/28/20 documented as of this encounter
--- OUTSIDE RECORDS SUMMARY | 2024-06-13 15:36 | XMS_ITS | Encounter Summary ---
Author Organization [employer] Address [address] [facility] 7t [place] [address] Care Team Providers Care Manager Review Name Role Phone Caryn Henning MD Primary Care Provider [phone] Encounter Details Date Type Department Care Team ([facility] st Contact Info) Description 05/19/2023 Telephone [facility] MEDICINE [address] [place], [place] [phone] Caryn Henning MD [address] [place], [place] [phone] Social History Tobacco Use Types Packs/Day Years [...] Description 07/03/2024 1:30 PM EDT Office Visit [facility] [address] [place], [place] [phone] Caryn Henning MD [address] [place] [address] documented as of this encounter Visit Diagnoses Not on filedocumented in this encounter Care Teams Manager Review Relationship Specialty Start Date End Date Caryn Henning MD [address] [place] [phone] PCP - General Family Medicine 10/28/20 documented as of this encounter
--- OUTSIDE RECORDS SUMMARY | 2024-06-13 15:36 | XMS_ITS | Encounter Summary ---
Author Organization [employer] Address [address] [facility] 7 [place] [address] Care Team Providers Care Director Alliance Marketing Name Role Phone Caryn Henning MD Primary Care Provider [phone] Encounter Details Date Type Department Care Team ([facility] st Contact Info) Description 12/21/2023 Orders Only [facility] MEDICINE [address] [place], [place] [phone] Caryn Henning MD [address] [place], [place] [phone] Social History Tobacco Use Types Packs/Day Years [...] Description 07/03/2024 1:30 PM EDT Office Visit [facility] MED[facility]INE [address] [place] [address] Caryn Henning MD [address] [place] [address] documented as of this encounter Visit Diagnoses Not on filedocumented in this encounter Additional Health Concerns Assessment Noted Time PHQ-9 Depression Total Score: 0 07/02/19 24 10:52 AM EDT documented as of this encounter Care Teams Director Alliance Marketing Relationship Specialty Start Date End Date Caryn Henning MD [address] [place] [address] PCP - General Family Medicine 10/28/20 documented as of this encounter
--- OUTSIDE RECORDS SUMMARY | 2024-06-13 15:36 | XMS_ITS | Encounter Summary ---
Author Organization [employer] Address [address] [place] [address] [place] [address] Care Team Providers Care Clean Room Assembler Name Role Phone Caryn Henning MD Primary Care Provider [phone] Reason for Visit * Reason Onset Date Comments Med Refill 03/20/2024 Encounter Details Date Type Department Care Team ([facility] st Contact Info) Description 03/20/2024 Telephone [facility] MEDICINE [address] [place], [place] [phone] Caryn Henning MD [address] [place], [place] [phone] Med Refill Social History Tobacco Use Types [...] PM EST Vitamin D was sent to [facility] on 12/07/23 #90 with 3 refills and Oxybutynin isn't prescribed by PCP. * Telephone Encounter - Jacinta Manzanares - 03/20/2024 12:31 PM EST TC from pt requesting medication refill. Medications needing refill : D3 Super Strength 50 MCG (1999 UT) capsule oxybutynin XL (Ditropan-XL) 5 MG 24 hr tablet To be sent to: [facility] - [place], [place] - [address] [facility] documented in this encounter Plan of Treatment Upcoming Encounters Date Type Department Care Team (Late st Contact Info) Description 07/03/2024 1:30 PM EDT Office Visit [facility] MEDICINE [address] [place] [address] Caryn Henning MD [address] [facility] [place] [address] documented as of this encounter Visit Diagnoses Not on filedocumented in this encounter Additional Health Concerns Assessment Noted Time PHQ-9 Depression Total Score: 0 07/02/19 24 10:52 AM EDT documented as of this encounter Care Teams Clean Room Assembler Relationship Specialty Start Date End Date Caryn Henning MD [address] [place] [address] PCP - General Family Medicine 10/28/20 documented as of this encounter
--- OUTSIDE RECORDS SUMMARY | 2024-06-13 15:36 | XMS_ITS | Encounter Summary ---
Author Organization [employer] Address [address] [place] [address] [place] [address] Care Team Providers Care Admitting Interviewer Name Role Phone Caryn Henning MD Primary Care Provider [phone] Reason for Visit * Reason Onset Date Comments Nurse Triage 05/23/2024 Encounter Details Date Type Department Care Team ([facility] st Contact Info) Description 05/23/2024 Telephone [facility] MEDICINE [address] [place] [address] Caryn Henning MD [address] [place] [address] Nurse Triage Social History Tobacco Use Types [...] encounter Miscellaneous Notes * Telephone Encounter - Awilda Briones RN - 05/23/2024 2:52 PM EST No community association manager needed as this service writer advisor speaks Burmese. Spoke with OPTOMETRY DOCTOR who is on HIPAA. Reports looking for appt to discuss concerns of weight loss. Per OPTOMETRY DOCTOR no abd pain, nausea, vomiting or diarrhea. Nochanges to appetite. Per OPTOMETRY DOCTOR pt has not been weighed with scale since last visit here in April. No sooner OV with PCP next week. Unable to schedule Sick on site slots > 48 hours in advance. iron molder helper advised that can call next week for these slots or can seek [facility] this week for pt to be weighed and then provider can decide which lab orders or diagnostic testing to order. Call was breaking up. Then call dropped. Call placed x 3 to OPTOMETRY DOCTOR again. No answer, Lvm to return call to [facility] line [phone]. Protocol Used: No Protocol Available (Adult) Protocol-Based Disposition: See in Office or Video Visit within 2 Weeks Video visit offer not recorded Positive Triage Question: * Nursing judgment * All higher-acuity triage questions were negative Care Advice Discussed: * Reasons To Call Back - New symptoms develop - You become worse * Telephone Encounter - Alli Sawant - 05/23/2024 1:01 PM EST Symptom: Weight Loss Outcome: Schedule an appointment to be seen within 24 hours Reason: Caller denied all higher acuity questions The caller accepted this outcome. (Burmese speaker) documented in this encounter Plan of Treatment Upcoming Encounters Date Type Department Care Team (Late st Contact Info) Description 07/03/2024 1:30 PM EDT Office Visit [facility] MEDICINE [address] [place] [address] Caryn Henning MD [address] [place] [address] documented as of this encounter Visit Diagnoses Not on filedocumented in this encounter Additional Health Concerns Assessment Noted Time PHQ-9 Depression Total Score: 0 07/02/19 24 10:52 AM EDT documented as of this encounter Care Teams Admitting Interviewer Relationship Specialty Start Date End Date Caryn Henning MD [address] [place] [address] PCP - General Family Medicine 10/28/20 documented as of this encounter
--- OUTSIDE RECORDS SUMMARY | 2024-06-13 15:36 | XMS_ITS | Clinical Summary ---
Author Organization [facility] Address [address] [place] [address] Phone Care Team Providers Care Splunk Developer Name Role Phone Caryn Henning MD Primary Care Provider [phone] Allergies No known active allergies Medications carbamide [...] 09/17/2023 Immunizations Name Administration Dates Next Due Augmentra SARS-CoV-2 COVID-19, mRNA, LNP-S, preservative free 06/04/2021 [...] DTaP,Tdap,and Td Vaccines (1 - Tdap) 1981 Pneumococcal Vaccine: 50+ Ye ars (1 of 1 - PCV) 2012 Zoster Vaccines (1 of 2) 2012 Cholesterol [...] patient's age to complete this topic Meningococcal B Vacine Aged Out No lo nger eligible based on patient's age to complete [...] patient's age to complete this topic Insurance [place] [address] [place] [address] MEDICARE Member Subscriber Plan / Payer (Ef fective 2017-Present) Name:John Crandall Relation to Subscriber:Self Name:John Crandall Payer ID:[id number] Group ID:[id number] Type:Not on file Address: [address] [place] [id number] Care Teams Splunk Developer Relationship Specialty Start Date End Date Caryn Henning MD [address] [place] [address] PCP - General 07/07/23
--- OUTSIDE RECORDS SUMMARY | 2024-06-13 15:36 | XMS_ITS | Encounter Summary ---
Author Organization [employer] Address [address] [facility] 7t [place] [address] Care Team Providers Care Physical Chemistry Professor Name Role Phone Caryn Henning MD Primary Care Provider [phone] Encounter Details Date Type Department Care Team ([facility] st Contact Info) Description 04/29/2023 Telephone [facility] MEDICINE [address] [place], [place] [phone] Caryn Henning MD [address] [place], [place] [phone] Social History Tobacco Use Types Packs/Day Years Used Date Smoking Tobacco: Every Day Cigarettes Passive Smoke Exposure: Never Smokeless Tobacco: Never Comments:Smokes 3 cigs/d Alcohol Use Standard Drinks/Week Comments Never 0 (1 standard drink = 0.6 oz pur e alcohol) Housing Stability Answer Date Recorded What is your housing situation today? I have garbiella ashley 01/21/[address] you [...] Description 07/03/2024 1:30 PM EDT Office Visit [facility] MEDICINE [address] [place], [place] [phone] Caryn Henning MD [address] [place] [address] documented as of this encounter Visit Diagnoses Not on filedocumented in this encounter Care Teams Physical Chemistry Professor Relationship Specialty Start Date End Date Caryn Henning MD [address] [place] [phone] PCP - General Family Medicine 10/28/20 documented as of this encounter
--- OUTSIDE RECORDS SUMMARY | 2024-06-13 15:36 | XMS_ITS | Encounter Summary ---
Author Organization [facility] Address [address] [place] [address] Care Team Providers Care Enrollment Management Manager Name Role Phone Caryn Henning MD Primary Care Provider [phone] Reason for Visit * Reason Comments Med Refill Encounter Details Date Type Department Care Team (Late st Contact Info) Description 11/30/2022 Refill [facility] MEDICINE [address] [place] [address] [phone] Caryn Henning MD [address] [place] [address] [phone] Social History Tobacco Use Types Packs/Day Years [...] Description 07/03/2024 1:30 PM EDT Office Visit [facility] MEDICINE [address] [place], [place] [phone] Caryn Henning MD [address] [place] [phone] documented as of this encounter Visit Diagnoses Not on filedocumented in this encounter Care Teams Enrollment Management Manager Relationship Specialty Start Date End Date Caryn Henning MD [address] [place] [address] PCP - General Family Medicine 10/28/20 documented as of this encounter
== END ==
LOC: HO.CARD 12:57
PROVIDERS: PCP General Practice; Visit Provider Nurse Practitioner Family
DX: R94.31 Abnormal electrocardiogram [ECG] [EKG] (principal)
CPT/HCPCS: 93306

== ENCOUNTER → 2024-06-13 13:01 | Outpatient (BNV) | payer OTHER, SELFPAY | PROVIDERS: PCP General Practice; Visit Provider Internal Medicine | DX: I36.1 Nonrheumatic tricuspid (valve) insufficiency (principal) | CPT/HCPCS: 93306 ==

== ENCOUNTER 2024-07-14 15:16 | Outpatient (REF) | payer OTHER, SELFPAY ==
--- NOTE | ~2024-07-14 | US_ITS ---
EXAMINATION: US RETROPERITONEUM HISTORY: R35.0 - Frequency of micturition TECHNIQUE: Real-time grayscale ultrasound imaging of the kidneys was performed and images were reviewed. COMPARISON: Correlation is made with an unenhanced CT of the abdomen dated 02/22/2019. FINDINGS: Right kidney: The right kidney measures 10.9 x 5.9 x 5.8 cm. There is renal cortical thinning and moderate hydronephrosis. There is a cyst in the interpolar region measuring 8 x 9 x 7 mm. An additional septated cyst is noted at the lower pole measuring 9 x 11 x 8 mm. There are multiple nonobstructing calculi at the lower pole, the largest of which measures 9 x 4 x 10 mm. Left Kidney: The left kidney measures 12.1 x 6.2 x 5.9 cm. Renal parenchymal echotexture and thickness are normal. There are no masses. There is no hydronephrosis or renal calculi. The urinary bladder is unremarkable. Bilateral ureteral jets are identified. Before voiding, the urinary bladder measured 9.7 x 7.2 x 7.9 cm, for an estimated volume of 291 mL. After voiding, the urinary bladder measured 7.2 x 4.1 x 6.1 cm, for an estimated volume of 93 mL. The prostate is not well visualized. US/US retroperitoneal comp IMPRESSION: 1. Moderate right hydronephrosis and associated cortical thinning. Multiple nonobstructing calculi at the lower pole measuring up to 10 mm in size. 2. Post void bladder residual of 93 mL. Electronically signed by: Harjit Back MD 07/17/2024 07:14 AM EDT
--- OUTSIDE RECORDS SUMMARY | 2024-07-14 15:18 | XMS_ITS | Encounter Summary ---
Author Organization [employer] Address [address] [facility] 7 [place] [address] Care Team Providers Care Senior Windows Systems Administrator Name Role Phone Caryn Henning MD Primary Care Provider [phone] Encounter Details Date Type Department Care Team ([facility] st Contact Info) Description 01/21/2024 Orders Only [facility] MEDICINE [address] [place], [place] [phone] Caryn Henning MD [address] [place], [place] [phone] Social History Tobacco Use Types Packs/Day Years [...] Care Team (Late st Contact Info) Description 09/04/2024 3:00 PM EDT Nurse Only [facility] MEDICINE [address] [place] [address] documented as of this encounter Visit Diagnoses Not on filedocumented in this encounter Additional Health Concerns Assessment Noted Time PHQ-9 Depression Total Score: 0 07/02/19 24 10:52 AM EDT documented as of this encounter Care Teams Senior Windows Systems Administrator Relationship Specialty Start Date End Date Caryn Henning MD [address] [place] [address] PCP - General Family Medicine 10/28/20 documented as of this encounter
--- OUTSIDE RECORDS SUMMARY | 2024-07-14 15:18 | XMS_ITS | Clinical Summary ---
Author Organization [facility] Address [address] [place] [address] Phone Care Team Providers Care Reporter Anchor Name Role Phone Caryn Henning MD Primary Care Provider [phone] Allergies No known active allergies Medications carbamide [...] Influenza-like symptoms 09/17/2023 Phobic disorder 09/17/2023 Schizophrenia ([facility] V24, [facility] V28) 024 Sleep apnea 09/17/2023 Immunizations Name Administration Dates [...] 12/22/2023 1:40 PM EDT Plan of Treatment Upcoming Encounters Date Type Department Care Team ([facility] st Contact Info) Description 07/27/2024 2:45 PM EDT Office Visit [facility]opedic [facility] [address] [facility] [address] [place] [address] Fransico Owusu, DPM [address] [facility] [address] [place] [address] Health Maintenance Due Date Last Done Comments [...] 2023-2 5 season) 2023 06/04/2021 Influenza Vaccine (Season Ended) 2024 RSV Immunization Adult Patie nts (1 - 1-dose 75+ series) 2037 HIB [...] age to complete this topic Meningococcal B Vaccine Aged Out No l onger eligible based on patient's age to complete [...] ID:[id number] Group ID:[id number] Type:Not on file Address: [place] [address] [place] [phone] Care Teams Reporter Anchor Relationship Specialty Start Date End Date Caryn Henning MD [address] [place] [address] PCP - General 07/07/23
--- OUTSIDE RECORDS SUMMARY | 2024-07-14 15:18 | XMS_ITS | Encounter Summary ---
Author Organization [employer] Address [address] [place] [address] [place] [address] Care Team Providers Care Waste Water Worker Name Role Phone Caryn Henning MD Primary Care Provider [phone] Reason for Visit * Reason Onset Date Comments Appointment Request 10/13/2023 Encounter Details Date Type Department Care Team ([facility] st Contact Info) Description 10/13/2023 Telephone [facility] [address] [place] [address] Caryn Henning MD [address] [place] [address] Appointment Request Social History Tobacco Use Types [...] pt requesting to reschedule OV from 10/04. Geriatrics Physician attempted to schedule but found no availability, pt requested for message to be sent stating needs appt as soon as possible. Please contact pt at [phone]. documented in this encounter Plan of Treatment Upcoming Encounters Date Type Department Care Team (Late st Contact Info) Description 09/04/2024 3:00 PM EDT Nurse Only [facility] [address] [place] [address] documented as of this encounter Visit Diagnoses Not on filedocumented in this encounter Additional Health Concerns Assessment Noted Time PHQ-9 Depression Total Score: 0 07/02/19 24 10:52 AM EDT documented as of this encounter Care Teams Waste Water Worker Relationship Specialty Start Date End Date Caryn Henning MD [address] [place] [address] PCP - General Family Medicine 10/28/20 documented as of this encounter
--- OUTSIDE RECORDS SUMMARY | 2024-07-14 15:18 | XMS_ITS | Clinical Summary ---
Author Organization [employer] Address [address] [place] [address] 7 [place] [address] Care Team Providers Care Arboriculture Instructor Name Role Phone Caryn Henning MD Primary Care Provider [phone] Allergies Active Allergy Reactions Criticality Noted Date Comments Aspirin Hives High 11/11/2015 Penicillins High 11/11/2015 Other reaction(s): Hives/Skin Rash Medications * This document contains information received from the source organization and may not represent a complete record from that organization. FLUoxetine (PROzac) 20 MG capsule Take 1 capsule by mouth in the morning. Active clonazePAM (KlonoPIN) 1 MG tablet take 1 tablet by oral route 2 times every day Active oxybutynin XL (Ditropan-XL) 5 MG 24 hr tablet Take 5 mg by mouth in the morning. 05/18/19 23 Active risperiDONE (RisperDAL) 0.5 MG tablet Take 0.5 mg by mouth 2 times daily. 06/10/19 23 Active clonazePAM (KlonoPIN) 0.5 MG tablet Take 0.5 mg by mouth in the morning. 04/14/19 24 Active SM Dry Eye Relief 0.2-0.2-1 % solution INSTILL 1 DROP IN EACH EYE IN THE MORNING, AT NOON, AND AT BEDTIME NEEDED FOR DRY EYES 15 mL 3 05/20/19 24 Active carboxymethylcell ulose sodium (Refresh Contacts) solution OPHTHalmic solution Administer 1 drop into both eyes every 3 (three) hours if needed (dry eyes). 12 mL 11 09/13/19 24 Active polyvinyl alcohol (Liquifilm Tears) 1.4 % ophthalmic solution Administer 1 drop into both eyes every 3 (three) hours if needed for dry eyes. 15 mL 11 09/13/19 24 Active simvastatin (Zocor) 80 MG tablet TAKE 1 TABLET BY MOUTH EVERY NIGHT (for cholesterol) 90 tablet 3 11/08/19 24 Active melatonin 5 MG tablet TAKE 2 TABLETS BY MOUTH DAILY AT BEDTIME 60 tablet 11 12/09/19 24 Active traZODone (Desyrel) 50 MG tablet Take 1 tablet (50 mg) by mouth at bedtime. 90 tablet 3 12/21/19 24 2024 Active Ketotifen Fumarate 0.035 % solutionIndicatio ns:Allergic conjunctivitis of left eye Administer 1 drop into affected eye(s) if needed each day (swelling of eyelid). 10 mL 1 02/17/20 24 Active Vitamin A Palmitate 3 MG (08277 UT) tabletIndications :Vitamin A deficiency Take 1 tablet by mouth Once per day. 30 tablet 02/17/20 24 Active esomeprazole (NexIUM) [address] capsule TAKE 1 CAPSULE BY MOUTH EVERY DAY 1 HOUR BEFORE A MEAL, DO NOT BREAK, CRUSH, DISSOLVE OR CHEW 90 capsule 1 02/25/20 24 Active cholecalciferol (D3 Super Strength) 50 MCG (2000 UT) capsule Take 1 capsule (50 mcg) by mouth Once per day. 90 capsule 3 04/21/19 25 Active zinc gluconate 50 MG tabletIndications :Zinc deficiency Take 1 tablet (50 mg) by mouth Once per day. 90 tablet 3 04/21/19 25 2025 Active beta carotene (vitamin A) 3 MG (23333 UT) capsule Take 1 capsule by mouth Once per day. 02/17/20 24 Active Skin Protectants, Misc. (Minerin Creme) cream APPLY TOPICALLY TO THE AFFECTED AREA(S) EVERY DAY NEEDED FOR DRY SKIN 113 g 3 06/17/19 25 Active Skin Protectants, Misc. (eucerin) cream Apply topically if needed for dry skin. 99 g 3 11/15/19 24 2024 Discontinued Active Problems Problem Noted Date Diagnosed Date Overweight 07/05/2024 Tobacco smoker, less than 10 cigarettes per day 07/05/2024 Other hypertrophic cardiomyopathy 04/26/2024 Assessment & Plan [...] Plan (09/14/2022 12:43 PM EDT): Gave patient [facility] contact information and instructed them to call GI and to be persistent. Edentulous 06/26/2022 Assessment & Plan (09/14/2022 12:42 PM EDT): Patient still waiting on SUPPLIER DIVERSITY DIRECTOR videofluoroscopic swallow study. Fatigue 03/05/2022 Gastroesophageal reflux [...] Influenza-like symptoms 03/05/202211/03 COVID-19 05/05/2021 11/15/2023 Encounters * This document contains information received from the source organization and may not represent a complete record from that organization. Date Type Department Care Team Description 07/03/2024 1:30 PM EDT Office Visit [address] [address] Caryn Henning MD Obstructive sleep apnea syndrome (Primary Dx); Screening for colon cancer; Screening for malignant neoplasm of prostate; Other hyperlipidemia; Overweight; Impaired fasting glucose; Tobacco smoker, less than 10 cigarettes per day 07/03/2024 Travel 06/26/2024 Patient Outreach [facility] [address] [place], [place] [phone] Caryn Henning MD Pre-visit Planning ([facility] unable to reach [facility]) 06/16/[address] [phone] Caryn Henning MD Durable Medical Equipment 06/15/[address] [phone] Caryn Henning MD 05/23/[address] [facility] [address] [place] [address] Caryn Henning MD Nurse Triage 04/21/2024 9:30 AM EST Office Visit [facility] [address] [place] [address] Caryn Henning MD Gastroesophageal reflux disease without esophagitis (Primary Dx); Zinc deficiency; Encounter for immunization; Other hypertrophic cardiomyopathy (CMS/HCC); Undifferentiated schizophrenia (CMS/HCC); Obstructive sleep apnea syndrome; Dietary counseling; Exercise counseling; Vitamin A deficiency; Dry skin dermatitis; Adult general medical exam 04/21/2024 Travel 04/20/2024 10:00 AM EST Office Visit [facility] [address] [place] [address] Edith Guaman, ARY Combined forms of age-related cataract, bilateral (Primary Dx); Myopia of both eyes with astigmatism and presbyopia 04/20/2024 Travel from Last 3 Months Immunizations Name Administration Dates Next Due Influenza Injectable Quadriv alant Preservative Free IIV4 MDCK 04/13/2018 Influenza injectable quadriv alent preservative free 12/21/2022,01/29/2021,04/04/2020 Influenza, seasonal, injecta ble, preservative free 04/21/2024 Moderna Covid-19 Vaccine 12+ 08/13/2020 Pfizer Covid-19 Vaccine 12+ 04/21/2024,0 07/02/2023,06/04/2021,2020,07/09/2020 Pfizer Covid-19 Vaccine 5-11 06/04/2021 Pneumococcal Conjugate PCV 13 04/13/2018 Pneumococcal Conjugate PCV 20 07/02/2023 Tdap 07/02/2023 Zoster, Recombinant 07/03/2024 Family History Medical History Relation Name Comments [...] drink = 0.6 oz pur e alcohol) Alcohol Answer Date Recorded How often do you have a drink containing alcohol ? 0 07/05/2024 How many drinks containing a lcohol do you have on a typical day when you are drinking? 0 07/05/2024 How often do you have six or more drinks on one occasion? 0 07/05/2024 Depression Answer Date Recorded Patient Health Questionnaire-9 Score 8 07/03/2024 Patient Health Questionnaire-9 Score 8 07/03/2024 Last PHQ-9: Questionnaire Data Not on file 0 07/03/2024 Housing Stability Answer Date Recorded What is your housing situation today? I have gabriella ramirez 07/03/[address] you li ve. Do you have problems with any of the following? None of the above 07/03/2024 Food Insecurity Answer Date Recorded Within the past 12 months, y ou worried that your food would run out before you got money to buy more: Never True 07/03/2024 Within the past 12 months,th e food you bought just didn't last and you didn't have enough money to get more: Never True Transportation Answer Date Recorded In the past 12 months, has l ack of transportation kept you from medical appts, meetings, work or from getting things needed for daily living? No 07/03/2024 Intimate Partner Violence Answer Date R ecorded Within the last year, have y ou been afraid of your partner or ex-partner? 2 07/05/2024 Within the last year, have y ou been humiliated or emotionally abused in other ways by your partner or ex-partner? 2 Within the last year, have y ou been kicked, hit, slapped, or otherwise physically hurt by your partner or ex-partner? 2 07/05/2024 Within the last year, have y ou been raped or forced to have any kind of sexual activity by your partner or ex-partner? 2 07/05/2024 Utilities Answer Date Recorded In the past 12 months, has t he electric, gas, oil or water company threatened to shut off services in your home? No 07/03/2024 Depression Answer Date Recorded Patient Health Questionnaire-2 Score 3 07/03/2024 Internet Access Answer Date Recorded Internet Access Q1 Yes 07/03/2024 Internet Access Q2 Not on file 07/03/2024 Sex and Gender Information Value Date Recorded Sex Assigned at Male 02/02/2022 10:30 AM EDT Legal Sex Male 10:30 AM EDT Gender Identity Male 02/02/2022 10:30 AM EDT Sexual Orientation Don't know 02/02/2022 10 :30 AM EDT Last Filed Vital Signs Vital Sign Reading Time Taken Comments Blood Pressure 132/81 07/03/2024 1:32 PM EDT Pulse 61 07/03/2024 1:32 PM EDT Temperature 36.7 ??C (98 ??F) 07/03/2024 1:32 PM EDT Respiratory Rate 16 07/03/2024 1:32 PM EDT Oxygen Saturation 96% 04/21/2024 9:33 AM EST Inhaled Oxygen Concentration - - Weight 81.5 kg (179 lb 9.6 oz) 07/03/2024 1:32 P M EDT Height 165.1 cm (5' 5 ) 07/03/2024 1:32 PM EDT Body Mass Index 29.89 07/03/2024 1:32 PM EDT Plan of Treatment Upcoming Encounters Date Type Department Care Team (Late st Contact Info) Description 09/04/2024 3:00 PM EDT Nurse Only [facility] [address] [place] [phone] Health Maintenance Due Date Last Done Comments CT Colonography 1962 Colonoscopy 1962 Colorectal Cancer Screening 1962 FIT DNA/Cologuard 1962 FIT 1962 FOBT 1962 Sigmoidoscopy 1962 Zoster Vaccines (2 of 2) 08/28/2024 07/03/2024 Depression Screening 07/03/2025 07/03/2024, 07/04/19 SDOH Screening 07/03/2025 07/03/2024 Alcohol/Substance Use Screening 07/05/2025 07/05/2024 Tobacco Screening 07/05/2025 07/05/2024 Lipid Panel 09/30/2026 09/30/2021, 0611/2021, 11/22/2020 DTaP/Tdap/Td [...] 239 mg/dL HDL Cholesterol 32 mg/dL [facility] Comment: Desirable HDL: ??greater than 40 mg/dL ?? Note: This HDL assay may give artificially ? low results in patients with liver disease. LDL Cholesterol Calculated 65 mg/dl [facility] Comment: Desirable LDL: ? less than 100 mg/dL Near Optimal/Above Optimal LDL: ??110-129 mg/dL Borderline High LDL: ? 130-159 mg/dL High LDL: ?160-189 mg/dL Very High LDL: ? greater than or equal to ?190 mg/dL Triglycerides 118 mg/dL [facility] Comment: Desirable Triglyceride: ? less than 150 mg/dL Borderline High Triglyceride ??150-199 mg/dL High Triglyceride: ?200-499 mg/dL Very High Triglyceride: ? greater than or equal to ? 5OO mg/dL Alanine Aminotransferase 22 0 - 40 U/L [facility] Albumin Level 4.1 3.5 - 5.0 g/dL [facility] Alkaline Phosphatase 120(H) 39 - 117 U/L [facility] Anion Gap 10(L) 12 - 20 [facility] Aspartate Amino Transferase 25 5 - 37 U/L [facility] Bilirubin Total 0.3 0.0 - 1.0 mg/dL [facility] Blood Urea Nitrogen 9 9 - 16 mg/dL [facility] Calcium 8.7 8.4 - 10.2 mg/dL [facility] Carbon Dioxide 24 22 - 29 mmol/L [facility] Chloride 107 96 - 108 mmol/L [facility] Creatinine, Serum 0.88 0.5 - 1.4 mg/dL [facility] Estimated Glomerular Filt Rate >60 [facility] Comment: NOTE: ??For -Malaysian individuals, multiply the result ?by 1.210. ?? [...] ORDERABLE LABS Final Result Performing Organization Address [facility] Phone Number [facility] [address] * (ABNORMAL) HEPATITIS C AB W/REFL TO HCV RNA, QN, PCR (07/10/2021 10:35 AM EDT) Pathologist [facility] HEPATITIS C ANTIBODY REACTIVE( A) NON-REACT JAUN [facility] INDEX 3.21(H) <1.00 [facility] Comment: ?? Based on this result, the sample will be tested for HCV RNA by a Nucleic Acid Amplification Test (NAAT) to determine if the patient has a current active infection. ?? 07/10/2021 10:3 5 AM EDT Yolanda Salgado MD HISTORICAL/NON ORDERA BLE LABS Final Result Performing Organization Address [facility] Co de Phone Number [facility] [address] [place] [address], * HIV 1/2 ANTIGEN/ANTIBODY,FOURTH GENERATION W/RFL (07/10/2021 10:35 AM EDT) HIV-1/2 ANTIGEN AND ANTIBODIES, 4TH GENERATION W/ REFLEX NON-REACT JAUN NON-REACT JAUN [facility] Comment: HIV-1 antigen and HIV-1/HIV-2 [...] ? For additional information please refer to http://education.[employer]/faq/ZTI714 (This link is being provided for informational/ educational purposes only.) ? The performance of this assay has not been clinically validated in patients less than 2 years old. ?? 07/10/2021 10:3 5 AM EDT Yolanda Salgado MD LAB BLOOD ORDERABLES Final Result Performing Organization Address City/State/[facility] Phone Number [facility] [address] from Last 3 Months or Most Recently Relevant to Health Maintenance [place] [address] [place] [address] - [employer] Care Teams Arboriculture Instructor Relationship Specialty Start Date End Date Caryn Henning MD [address] [place] [id number] PCP - General Family Medicine 10/28/20
--- OUTSIDE RECORDS SUMMARY | 2024-07-14 15:18 | XMS_ITS | Encounter Summary ---
Author Organization [employer] Address [address] [facility] 7t [place] [address] Care Team Providers Care Control Officer Manager Name Role Phone Caryn Henning MD Primary Care Provider [phone] Encounter Details Date Type Department Care Team ([facility] Contact Info) Description 01/20/2024 Telephone [facility] [address] [place], [place] [phone] Caryn Henning MD [address] [place], [place] [phone] Social History Tobacco Use Types Packs/Day Years [...] Description 09/04/2024 3:00 PM EDT Nurse Only [facility] [address] [place] [address] documented as of this encounter Visit Diagnoses Not on filedocumented in this encounter Additional Health Concerns Assessment Noted Time PHQ-9 Depression Total Score: 0 07/02/19 24 10:52 AM EDT documented as of this encounter Care Teams Control Officer Manager Relationship Specialty Start Date End Date Caryn Henning MD [address] [place] [address] PCP - General Family Medicine 10/28/20 documented as of this encounter
--- OUTSIDE RECORDS SUMMARY | 2024-07-14 15:18 | XMS_ITS | Encounter Summary ---
Author Organization [employer] Address [address] [place] [address] [place] [address] Care Team Providers Care Building Mover Name Role Phone Caryn Henning MD Primary Care Provider [phone] Reason for Visit * Reason Onset Date Comments Med Refill 03/20/2024 Encounter Details Date Type Department Care Team ([facility] st Contact Info) Description 03/20/2024 Telephone [facility] [address] [place], [place] [phone] Caryn Henning MD [address] [place], [place] [phone] Med Refill Social History Tobacco Use Types [...] PM EST Vitamin D was sent to [facility] on 12/07/23 #90 with 3 refills and Oxybutynin isn't prescribed by PCP. * Telephone Encounter - Jacinta Manzanares - 03/20/2024 12:31 PM EST TC from pt requesting medication refill. Medications needing refill : D3 Super Strength 50 MCG (1999 UT) capsule oxybutynin XL (Ditropan-XL) 5 MG 24 hr tablet To be sent to: [facility] [place], [place] - [address] [facility] documented in this encounter Plan of Treatment Upcoming Encounters Date Type Department Care Team ([facility] st Contact Info) Description 09/04/2024 3:00 PM EDT Nurse Only [facility] [address] [place] [address] documented as of this encounter Visit Diagnoses Not on filedocumented in this encounter Additional Health Concerns Assessment Noted Time PHQ-9 Depression Total Score: 0 07/02/19 24 10:52 AM EDT documented as of this encounter Care Teams Building Mover Relationship Specialty Start Date End Date Caryn Henning MD [address] [place] [address] PCP - General Family Medicine 10/28/20 documented as of this encounter
--- OUTSIDE RECORDS SUMMARY | 2024-07-14 15:19 | XMS_ITS | Encounter Summary ---
Author Organization [employer] Address [address] [facility] 7t [place] [address] Care Team Providers Care Mission Assessment Specialist Name Role Phone Caryn Henning MD Primary Care Provider [phone] Encounter Details Date Type Department Care Team ([facility] st Contact Info) Description 04/29/2023 Telephone [facility] [address] [place], [place] [phone] Caryn Henning MD [address] [place], [place] [phone] Social History Tobacco Use Types Packs/Day Years [...] Description 09/04/2024 3:00 PM EDT Nurse Only [facility] [address] [place] [address] documented as of this encounter Visit Diagnoses Not on filedocumented in this encounter Care Teams Mission Assessment Specialist Relationship Specialty Start Date End Date Caryn Henning MD [address] [place] [address] PCP - General Family Medicine 10/28/20 documented as of this encounter
--- OUTSIDE RECORDS SUMMARY | 2024-07-14 15:19 | XMS_ITS | Encounter Summary ---
Author Organization [employer] Address [address] [facility] 7 [place] [address] Care Team Providers Care Change Management Lead Name Role Phone Caryn Henning MD Primary Care Provider [phone] Encounter Details Date Type Department Care Team ([facility] st Contact Info) Description 12/21/2023 Orders Only [facility] [address] [place], [place] [phone] Caryn Henning MD [address] [place], [place] [phone] Social History Tobacco Use Types Packs/Day Years [...] 3:00 PM EDT Nurse Only [facility] [address] [place] [address] documented as of this encounter Visit Diagnoses Not on filedocumented in this encounter Additional Health Concerns Assessment Noted Time PHQ-9 Depression Total Score: 0 07/02/19 24 10:52 AM EDT documented as of this encounter Care Teams Change Management Lead Relationship Specialty Start Date End Date Caryn Henning MD [address] [place] [address] PCP - General Family Medicine 10/28/20 documented as of this encounter
--- OUTSIDE RECORDS SUMMARY | 2024-07-14 15:19 | XMS_ITS | Encounter Summary ---
Author Organization [employer] [facility] Address [address] [place] [address] Care Team Providers Care Family Specialist Name Role Phone Caryn Henning MD Primary Care Provider [phone] Reason for Visit * Reason Comments Med Refill Encounter Details Date Type Department Care Team (Late Contact Info) Description 11/30/[address] [facility] [address] [place] [phone] Caryn Henning MD [address] [place], [place] [phone] Social History Tobacco Use Types Packs/Day Years [...] Department Care Team (Late Contact Info) Description 09/04/2024 3:00 PM EDT Nurse Only [facility] [address] [place] [phone] documented as of this encounter Visit Diagnoses Not on filedocumented in this encounter Care Teams Family Specialist Relationship Specialty Start Date End Date Caryn Henning MD [address] [place] [address] PCP - General Family Medicine 10/28/20 documented as of this encounter
--- OUTSIDE RECORDS SUMMARY | 2024-07-14 15:19 | XMS_ITS | Encounter Summary ---
Author Organization [employer] Address [address] [facility] 7[address] [place] [address] Care Team Providers Care Contour Path Tape Mill Operator Name Role Phone aCryn Henning MD Primary Care Provider [phone] Encounter Details Date Type Department Care Team ([facility] st Contact Info) Description 05/19/2023 Telephone [facility] [address] [place], [place] [phone] Crayn Henning MD [address] [place], [place] [phone] Social History Tobacco Use Types Packs/Day Years [...] Description 09/04/2024 3:00 PM EDT Nurse Only [facility] [address] [place] [address] documented as of this encounter Visit Diagnoses Not on filedocumented in this encounter Care Teams Contour Path Tape Mill Operator Relationship Specialty Start Date End Date Caryn Henning MD [address] [place] [address] PCP - General Family Medicine 10/28/20 documented as of this encounter
--- OUTSIDE RECORDS SUMMARY | 2024-07-14 15:19 | XMS_ITS | Encounter Summary ---
Author Organization [employer] Address [address] [place] [address] [place] [address] Care Team Providers Care Training And Development Assistant Name Role Phone Caryn Henning MD Primary Care Provider [phone] Reason for Visit * Reason Onset Date Comments Nurse Triage 08/26/2023 Encounter Details Date Type Department Care Team ([facility] st Contact Info) Description 08/26/[address] [facility] [address] [place] [address] Caryn Henning MD [address] [place] [address] Nurse Triage Social History Tobacco Use Types [...] acuity questions The caller accepted this outcome Amharic speaker documented in this encounter Plan of Treatment Upcoming Encounters Date Type Department Care Team (Late st Contact Info) Description 09/04/2024 3:00 PM EDT Nurse Only [facility] [address] [place] [address] documented as of this encounter Visit Diagnoses Not on filedocumented in this encounter Additional Health Concerns Assessment Noted Time PHQ-9 Depression Total Score: 0 07/02/19 24 10:52 AM EDT documented as of this encounter Care Teams Training And Development Assistant Relationship Specialty Start Date End Date Caryn Henning MD [address] [place] [address] PCP - General Family Medicine 10/28/20 documented as of this encounter
== END 2024-07-14 15:17 | disposition home or self-care (01) ==
LOC: HO.US 15:16
PROVIDERS: PCP General Practice; Visit Provider Urology
DX: R35.0 Frequency of micturition (principal); N32.81 Overactive bladder
CPT/HCPCS: 76770

== ENCOUNTER → 2024-07-14 15:19 | Outpatient (BNV) | payer OTHER, SELFPAY | PROVIDERS: PCP General Practice; Visit Provider Radiology Diagnostic Radiology | DX: N13.2 Hydronephrosis with renal and ureteral calculous obstruction (principal); R39.14 Feeling of incomplete bladder emptying | CPT/HCPCS: 76770 ==

== ENCOUNTER 2024-08-18 19:57 | Emergency (ER) | payer OTHER, SELFPAY ==
--- NOTE | ~2024-08-18 | XR_ITS ---
CLINICAL HISTORY: 2-3rd toe stiffness, pain Left foot three views Comparison: None Findings: Phalanges never well visualized. Patient's digits are flexed on all images. No acute fracture or dislocation identified. No acute focal bony abnormality. No radiopaque foreign body noted. Impression: No acute bony abnormality This document has been electronically signed by: Leroy Castillo MD on 08/18/2024 20:22:37
[2024-08-18 19:58] VITALS: BP 144/80; PULSE 76; RESP 18; TEMP 36.4; O2SAT 98; BMI 30.8
--- NOTE | 2024-08-18 19:59 | ED.LOWEXIN ---
HPI - Extremity Injury (Lower) General Chief Complaint: Extremity Injury, Lower Stated Complaint: left toe pain/stiffness Time Seen by Provider: 08/18/24 23:57 Source: patient, RN notes reviewed and old records reviewed Mode of arrival: ambulatory Limitations: no limitations History of Present Illness ED Provider: Jess HPI Narrative: 64-year-old male past medical history significant for hypertension, GERD, BPH, overactive bladder presents for evaluation of pain to his left 1st, 2nd, 3rd toes. Patient reports his symptoms started 1-2 weeks ago. He reports he only has pain when he is walking. He has no pain at rest. He states he is unable to straighten the 2nd and 3rd toes Denies any fevers, chills or injuries The patient reports that he is not diagnosed with diabetes Related Data Home Medications ?Medication ?Instructions ?Recorded ?Confirmed simvastatin 80 mg tablet 80 mg PO BEDTIME 01/06/20 05/19/24 cholecalciferol (vitamin D3) 50 50 mcg PO DAILY 11/24/21 05/19/24 mcg (2,000 unit) capsule melatonin 5 mg tablet 10 mg PO BEDTIME 11/24/21 05/19/24 risperidone 0.5 mg tablet 0.5 mg PO BID 12/10/21 05/19/24 fluoxetine 20 mg capsule 20 mg PO QAM 03/11/22 05/19/24 peg [id number] 1 0 drp ophthalmic (eye) 08/17/22 05/19/24 %-0.2 %-0.2 % eye drops (Dry Eye Relief) esomeprazole magnesium 20 mg 20 mg PO DAILY 01/14/23 05/19/24 capsule,delayed release clonazepam 0.5 mg tablet 0.5 mg PO DAILY 05/26/23 05/19/24 clonazepam 1 mg tablet 1 mg PO BEDTIME 05/26/23 05/19/24 clotrimazole 1 % topical cream appl topical 01/03/24 05/19/24 (Antifungal (clotrimazole)) trazodone 50 mg tablet 50 mg PO BEDTIME PRN 05/19/24 05/19/24 Previous Rx's ?Medication ?Instructions ?Recorded oxybutynin chloride 5 mg 5 mg PO DAILY #90 tabs 03/30/24 tablet,extended release 24 hr clotrimazole-betamethasone 1 1 appl topical BID 2 weeks #45 08/19/24 %-0.05 % topical cream grams Allergies Allergy/AdvReac Type Severity Reaction Status Date / Time aspirin [ASPIRIN] Allergy Severe SWELLING, Verified 08/18/24 20:03 rash Penicillins [PENICILLINS] Allergy Severe CONVULSIONS Verified 08/18/24 20:03 Review of Systems Constitutional: Constitutional: Denies body ache(s), Denies chills and Denies fever(s) Musculoskeletal: Musculoskeletal: Reports arthralgias, Denies joint swelling and Reports limited range of motion Integumentary/Breasts: Skin/Breast: Reports skin pain and Reports skin swelling PMFSH Past Medical History Medical History (Updated 08/19/24 @ 00:18 by Pritesh Mercado) Smoker HTN (hypertension) Hepatitis Syphilis Chronic GERD BPH w urinary obs/LUTS DAISY on CPAP Obesity (BMI 30-39.9) Surgical History No pertinent past surgical history Family History Family History Father Heart disease Mother Diabetes Social History Social History Household Members: Other Alcohol intake: current Alcohol intake frequency: does not drink Patient Tobacco Use Status: Current everyday Tobacco user Cigarettes Per Day: 3 Physical Exam Vital Signs: Vital Signs: Last Vital Signs Temp 98.1 F 08/18/24 23:17 Pulse 58 08/18/24 23:17 Resp 16 08/18/24 23:17 BP 121/54 L 08/18/24 23:17 Pulse Ox 98 08/18/24 23:17 O2 Del Method Room Air 08/18/24 23:17 BMI result Body Mass Index 30.8 Const: General: healthy appearing, comfortable, no acute distress, alert and awake Nutritional Appearance: well nourished Orientation/consciousness: patient oriented x3 HEENT: Head: Yes normocephalic and Yes atraumatic Eyes: Eyelids: Yes eyelids normal Conjunctivae: conjunctivae normal Sclerae: sclerae normal Corneas: corneas normal Pupils: Equal, round and reactive pupils present EOM: EOMs intact bilaterally Neck: Neck: Yes full ROM Resp: Effort & Inspection: normal respiratory effort, able to speak in complete sentences and not labored Skin: General skin exam: elasticity normal Neuro: General: patient oriented x3 Cranial nerves: Yes Equal, round and reactive pupils present and Yes Bilaterally intact EOM present Cognition (Neuro): normal cognition Extrem: Other: There was no significant erythema or edema to the left foot or toes. There is significant onychomycosis of the 1st, 2nd toenails. Course Course Course Narrative: This is a Rapid Medical Exam performed in triage by Dede Cabezas PA-C. Full HPI, ROS and PE to be performed by primary ED provider. 64 yo [place]utanese speaking male w/PMHx HTN, hepatitis, DAISY on CPAP, GERD presenting to the ED c/o left 2-3rd toes with pain and inability to straighten since Wednesday. Denies known injury/trauma or fall. PE: Left 2nd toe with mild swelling. No warmth. Mildly tender. Neurovascularly intact. appears chronic Plan: XR Medical Decision Making Medical Decision Making MDM Narrative: 64-year-old male presents for evaluation of pain to his left 1st, 2nd, 3rd toes. He has significant fungal infection on exam. X-ray shows no bony abnormalities and there was no evidence of bacterial infection, no erythema, no open wounds. We will treat with clotrimazole betamethasone Differential Diagnosis Differential Diagnoses: The differential diagnosis associated with the presentation includes Tinea pedis Cellulitis Gout Foot pain Independent Interpretation I performed an independent interpretation of an: Plain X-Ray Interpretation: Agree with Radiology interpretation Radiology Impression Discussion of test interpretation with radiology: I have reviewed the radiologist's reading. Radiologist Impression: Findings: Phalanges never well visualized. Patient's digits are flexed on all images. No acute fracture or dislocation identified. No acute focal bony abnormality. No radiopaque foreign body noted. Impression: No acute bony abnormality This document has been electronically signed by: Leroy Castillo MD on 08/18/2024 20:22:37 Discharge Plan Discharge Clinical Impression: Tinea pedis Patient Disposition: Home, Self-Care Instructions: Skin Yeast Infection (ED) Additional Instructions: Your x-ray does not show any bony abnormalities or fractures. You have a fungal infection. Apply the ointment as prescribed for a least 2 weeks. If the rash has not resolved you may continue for another 2 weeks Follow up with your primary doctor Prescriptions: New clotrimazole-betamethasone 1-0.05 % cream 1 appl topical BID 14 Days Qty: 45 0RF No Action oxybutynin chloride 5 mg tablet extended release 24hr 5 mg PO DAILY Qty: 90 3RF fluoxetine 20 mg capsule 20 mg PO QAM clonazepam 1 mg tablet 1 mg PO BEDTIME simvastatin 80 mg tablet 80 mg PO BEDTIME melatonin 5 mg tablet 10 mg PO BEDTIME cholecalciferol (vitamin D3) 50 mcg (2,000 unit) capsule 50 mcg PO DAILY risperidone 0.5 mg tablet 0.5 mg PO BID Dry Eye Relief 1-0.2-0.2 % drops 0 drp ophthalmic (eye) clonazepam 0.5 mg tablet 0.5 mg PO DAILY clotrimazole [Antifungal (clotrimazole)] 1 % cream topical trazodone 50 mg tablet 50 mg PO BEDTIME PRN esomeprazole magnesium 20 mg capsule,delayed release(DR/EC) 20 mg PO DAILY Stand Alone Forms: Work/School Release Print Language: Bhutanese
[2024-08-18 23:17] VITALS: BP 121/54; PULSE 58; RESP 16; TEMP 36.7; O2SAT 98
--- NOTE | 2024-08-19 00:55 | PC.NURSE ---
reviewed discharge instructions with pt. pt verbalized understanding, no sign of distress. pt has a steady gait upon discharge.
[2024-08-19 00:57] VITALS: BP 121/54; PULSE 58; RESP 16; TEMP 36.7; O2SAT 98
== END 2024-08-19 00:58 | disposition home or self-care (01) ==
PROVIDERS: Emergency Provider Internal Medicine; PCP General Practice
DX: B35.3 Tinea pedis (principal); M79.672 Pain in left foot; E11.9 Type 2 diabetes mellitus without complications
CPT/HCPCS: 73630; 99283; 99284

== ENCOUNTER → 2024-08-18 20:02 | Outpatient (BNV) | payer OTHER, SELFPAY | PROVIDERS: PCP General Practice; Visit Provider Radiology Diagnostic Radiology | DX: M25.675 Stiffness of left foot, not elsewhere classified (principal); M79.672 Pain in left foot | CPT/HCPCS: 73630 ==

== ENCOUNTER 2024-08-24 14:04 | Outpatient (AMB) | payer OTHER, SELFPAY ==
--- OUTSIDE RECORDS SUMMARY | 2024-08-24 14:10 | XMS_ITS | Clinical Summary ---
Author Organization [address] [facility] Address [address] [place] [address] Phone Care Team Providers Care Drum Drier Operator Name Role Phone Caryn Henning MD Primary Care Provider [phone] Allergies No known active allergies Medications carbamide [...] Influenza-like symptoms 09/17/2023 Phobic disorder 09/17/2023 Schizophrenia ([facility] V24, [facility] V28) 024 Sleep apnea 09/17/2023 Encounters Date Type Department Care Team Description 07/27/2024 2:45 PM EDT Office Visit Orthopedic Surgery - [address] [id number] Fransico Owusu, JAIME Acquired hammer toe of right foot (Primary Dx); Hammer toe of left foot; Dermatophytosis of nail; Pain in toe of right foot; Pain in toe of left foot; Difficulty walking; Ingrowing nail from Last 3 Months Immunizations Name Administration Dates Next Due Pfizer [...] - - Weight 86.6 kg (191 lb) 07/27/2024 3:11 PM EDT Height 165.1 cm (5' 5 ) 07/27/2024 3:11 PM EDT Body Mass Index 31.78 07/27/2024 3:11 PM EDT Plan of Treatment Upcoming Encounters Date Type Department Care Team (Late st Contact Info) Description 09/28/2024 10:00 AM EDT Office Visit Orthopedic Surgery - [place] [address] [id number] Fransico Owusu DPAndi [address] [id number] Health Maintenance Due Date Last Done Comments Cholesterol Screening (Lipid Panel) 05/04/2023 Hepatitis C Screening 05/04/2023 Medicare Annual Wellness Visit 05/04/2023 Social Influencers of Health Screening 05/04/2023 Zoster Vaccines (2 of 2) 08/28/2024 07/03/2024 Depression Screening 07/03/2025 07/03/2024 Colorectal Cancer Screening: FIT-DNA (Cologuard) 06/30/2027 06/29/2024 DTaP,Tdap,and Td Vaccines (2 - Td or Tdap) 07/01/2033 07/02/2023 RSV Immunization Adult Patients (1 - 1-dose 75+ series) 2037 HIV Screening Completed 07/10/2021 Pneumococcal Vaccine: 50+ Years Completed 07/02/2023, 04/13/2018 Pneumococcal Vaccine: Pediatrics (0 to 5 Years) and At-Risk Patients (6 to 64 Years) Aged Out 07/02/2023, 04/13/2018 No longer eligibl e based on patient's age to complete this topic COVID-19 Vaccine Completed 04/21/2024, , 06/04/2021, Additional [...] to complete this topic RSV Immunization Patients Under 20 months Aged Out No longer eligible based on patient's age to complete this topic Varicella Vaccines Aged Out No longer eligible based on patient's age to complete this topic Insurance [employer] MEDICARE Member Subscriber Plan / Payer (Ef fective 2017-Present) Name:John Crandall Relation to Subscriber:Self Name:John Crandall Payer ID:[id number] Group ID:[id number] Type:Not on file Address: [address] [facility] [place] [id number] Care Teams Drum Drier Operator Relationship Specialty Start Date End Date Caryn Henning MD [address] [place] [id number] PCP - General 07/07/23
--- NOTE | 2024-08-24 14:34 | A.OFFVIS_ITS ---
Intake Visit Reasons: 6M follow up/ US Intake Note: Patient presents today for a 6 month follow up/US Urology Meds: Oxybutynin Allergies to Antibiotic: No Known Allergies Blood Thinner: None PVR:193mL Laser/Electro Optics Technician Required: Yes Laser/Electro Optics Technician Services: Laser/Electro Optics Technician Present Laser/Electro Optics Technician Name: [id number] Accompanied by: Other Relationship Allergies aspirin [ASPIRIN] Allergy (Severe, Verified 08/18/24 20:03) SWELLING, rash Penicillins [PENICILLINS] Allergy (Severe, Verified 08/18/24 20:03) CONVULSIONS Medication List - Last Reconciled 08/24/24 by Shadi Goodman MD ammonium lactate 12% topical cholecalciferol (vitamin D3) 50 mcg PO DAILY clonazepam 1 mg PO BEDTIME clonazepam 0.5 mg PO DAILY esomeprazole magnesium 20 mg PO DAILY ketoconazole 2% appl topical ketotifen fumarate 0.025%(0.035%) (Eye Itch Relief) 1 drp ophthalmic (eye) DAILY PRN melatonin 10 mg PO BEDTIME mirabegron ER (Myrbetriq) 50 mg PO DAILY polyvinyl alcohol 1.4% 1 drp ophthalmic (eye) BID risperidone 0.5 mg PO BID simvastatin 80 mg PO BEDTIME trazodone 50 mg PO BEDTIME PRN zinc gluconate 50 mg PO DAILY HPI Comments Details: 08/24/24--John is a 64-year-old male history of schizophrenia disorder. The patient is here with his brother. He has been followed by urology office for BPH and overactive bladder symptoms. The patient was prescribed oxybutynin for urinary symptoms of frequency and urgency. He has a history of GreenLight laser in 2017. He is here post renal ultrasound. Findings note right hydronephrosis right stones right kidney stones lower pole bladder ultrasound notes bilateral ureteral jets prostate is not well visualized. I have discussed further evaluation with CT urogram we will check BUN Results: 07/14/24--Moderate right hydronephrosis and associated cortical thinning. Multiple nonobstructing calculi at the lower pole measuring up to 10 mm in size. 2. Post void bladder residual of 93 mL. 08/24/24--History of Present Illness The patient is a 64-year-old male presenting with urinary symptoms and follow-up on findings from a kidney ultrasound. The patient's medical history includes schizophrenia, management of symptoms related to Benign Prostatic Hyperplasia (BPH), and overactive bladder, treated partially with oxybutynin. Green Light Laser Surgery was performed in 2017 to address the BPH condition. Despite past intervention and medication, the patient experiences persistent urinary leakage needing absorbent products for management. A recent ultrasound indicated right hydronephrosis with right kidney stones in the lower pole, necessitating further evaluation. The urinary pattern shows no association with stress-induced incontinence and is characterized by frequent, urgent voiding without the presence of blood, as confirmed by the urinalysis. These findings and symptoms emphasize the need for additional diagnostic and therapeutic interventions to address both the obstruction and bladder symptomatology. Urinary Symptoms Review - Urinary frequency and urgency - Leakage requiring absorbent pull-ups - Treated with oxybutynin - History of Green Light Laser Surgery for BPH - Persistent symptoms despite current medication - Right hydronephrosis and right kidney stones observed in imaging - Normal urinalysis with no hematuria Results - Ultrasound: Right hydronephrosis, right kidney stones in the lower pole, prostate not well visualized - Urinalysis: Within normal limits, negative for blood Discussion Notes I discussed with the patient and his brother the ultrasound findings of right hydronephrosis and kidney stones. I recommended a CT urogram for further evaluation of the right kidney and reiterated the importance of monitoring the urinary tract given the history of BPH and symptoms of overactive bladder. We reviewed the current treatment with oxybutynin and discussed the possibility of switching medications if symptoms persist. Consent was obtained for ordering additional diagnostic tests, and I provided details on the expected course. Follow-up was emphasized to assess response to changes and to manage any emergent symptoms or complications. Plan Further evaluation through a CT urogram is necessary to address the existing right hydronephrosis and kidney stone concerns. Concurrent studies of BUN and creatinine are ongoing to monitor renal function. Given the patient's continual urinary symptoms despite oxybutynin usage, consideration for adjusting medication may follow if the CT results warrant or if notable symptom persi stence is observed. A structured follow-up is planned to ensure stabilization of symptoms and intercept any unexpected developments, ensuring a continuous tailored management plan is achieved. Patient Instructions - Keep using prescribed medications unless instructed otherwise. - Complete the CT urogram as scheduled. - Follow up with the urology clinic for results and further instructions. - Report any new or worsening urinary symptoms promptly. - Monitor for changes in urination frequency or any pain, and contact for guidance if issues arise. Patient was informed and verbally consented to the use of an ambient scribe for clinic note documentation during this visit. 12/30/23--John is a 63-year-old male who presents today to the office for a follow-up. h/o Schizophrenia disorder he is here with his caregiver. Certified solderer dipper present. History of GreenLight laser [address] Granger for BPH. The caregiver states that the patient continues to drink a lot of water. He goes to the bathroom frequently but does not leak urine. I will continue oxybutynin 5 mg daily. Urinalysis: Essentially unremarkable. Renal US not done. Review of tests-- PSA - 07/02/23--0.55 ng/mL Cystoscopy - 2019 no evidence of regrowth PSA 07/2020 --0.4 PFSH Medical History Smoker HTN (hypertension) Hepatitis Syphilis Chronic GERD BPH w urinary obs/LUTS DAISY on CPAP Obesity (BMI 30-39.9) Surgical History No pertinent past surgical history Family History Father Heart disease Mother Diabetes Social History Household Members: Other Alcohol intake: current Alcohol intake frequency: does not drink Patient Tobacco Use Status: Current everyday Tobacco user Cigarettes Per Day: 3 Review of Systems Const All systems reviewed & are unremarkable except as noted in HPI and below Reports no additional complaints Eyes Reports no additional complaints ENT Reports no additional complaints Card Reports no additional complaints Resp Reports no additional complaints GI Reports no additional complaints Reports as per HPI Musc Reports no additional complaints Skin/Breast Reports system reviewed and no additional complaints, except as documented Neuro Reports no additional complaints Psych Reports no additional complaints Endo Reports no additional complaints Oscar/Lymph Reports no additional complaints Aller/Immun Reports no additional complaints Results AMB Urinalysis, Automated UA Leukoctes 15 Thai/uL Last Edit by Sofia Mccormack on 08/24/24 17:04 UA Nitrite Negative Last Edit by Crystal Mccormack on 08/24/24 17:04 UA Urobilinogen 3.5 mg/dL Last Edit by Crystal Mccormack on 08/24/24 17:04 UA Protein 0 mg/dL Last Edit by Sofia Mccormack on 08/24/24 17:04 UA pH 6.0 Last Edit by Crystal Mccormack on 08/24/24 17:04 UA Blood 0 Justice/uL Last Edit by Crystal Mccormack on 08/24/24 17:04 UA Specific [place] 1.005 Last Edit by Crystal Mccormack on 08/24/24 17:04 UA Ketone Negative Last Edit by Crystal Mccormack on 08/24/24 17:04 UA Bilirubin 0 mg/dL Last Edit by Sofia Mccormack on 08/24/24 17:04 UA Glucose 0 mg/dL Last Edit by Sofia Mccormack on 08/24/24 17:04 Results Reviewed Results Reviewed: Laboratory Last Values Urine pH (Auto) 6.0 08/24/24 15:54 Specific [place] (Auto) 1.005 08/24/24 15:54 Urine Protein (Auto) 0 mg/dL 08/24/24 15:54 Glucose (UA)(Auto) 0 mg/dL 08/24/24 15:54 Urine Ketones (Auto) Negative 08/24/24 15:54 Urine Blood (Auto) 0 Justice/uL 08/24/24 15:54 Urine Nitrite (Auto) Negative 08/24/24 15:54 Urine Bilirubin (Auto) 0 mg/dL 08/24/24 15:54 Urine Urobilinogen (Auto) 3.5 mg/dL 08/24/24 15:54 Leukocyte Esterase (Auto) 15 Thai/uL 08/24/24 15:54 Date of Service: 07/14/24 Procedure(s): US retroperitoneal comp EXAMINATION: US RETROPERITONEUM HISTORY: R35.0 - Frequency of micturition TECHNIQUE: Real-time grayscale ultrasound imaging of the kidneys was performed and images were reviewed. COMPARISON: Correlation is made with an unenhanced CT of the abdomen dated 02/22/2019. FINDINGS: Right kidney: The right kidney measures 10.9 x 5.9 x 5.8 cm. There is renal cortical thinning and moderate hydronephrosis. There is a cyst in the interpolar region measuring 8 x 9 x 7 mm. An additional septated cyst is noted at the lower pole measuring 9 x 11 x 8 mm. There are multiple nonobstructing calculi at the lower pole, the largest of which measures 9 x 4 x 10 mm. Left Kidney: The left kidney measures 12.1 x 6.2 x 5.9 cm. Renal parenchymal echotexture and thickness are normal. There are no masses. There is no hydronephrosis or renal calculi. The urinary bladder is unremarkable. Bilateral ureteral jets are identified. Before voiding, the urinary bladder measured 9.7 x 7.2 x 7.9 cm, for an estimated volume of 291 mL. After voiding, the urinary bladder measured 7.2 x 4.1 x 6.1 cm, for an estimated volume of 93 mL. The prostate is not well visualized. IMPRESSION: 1. Moderate right hydronephrosis and associated cortical thinning. Multiple nonobstructing calculi at the lower pole measuring up to 10 mm in size. 2. Post void bladder residual of 93 mL. Assessment & Plan Assessment & Plan (1) BPH (benign prostatic hyperplasia): Code(s): N40.0 - Benign prostatic hyperplasia without lower urinary tract symptoms Category: Medical (2) Urinary frequency: Code(s): R35.0 - Frequency of micturition Category: Medical (3) OAB (overactive bladder): Code(s): N32.81 - Overactive bladder Category: Medical (4) Hydronephrosis, right: Code(s): N13.30 - Unspecified hydronephrosis Category: Medical (5) Screening PSA (prostate specific antigen): Code(s): Z12.5 - Encounter for screening for malignant neoplasm of prostate Category: Medical (6) Family history of prostate cancer: Code(s): Z80.42 - Family history of malignant neoplasm of prostate Category: Medical (7) Abnormal ultrasound of kidney: Code(s): R93.429 - Abnormal radiologic findings on diagnostic imaging of unspecified kidney Category: Medical Plan CT urogram further evaluate right hydronephrosis. BUN and creatinine PSA testing We will trial Myrbetriq 50 mg to replace oxybutynin 5 mg follow-up and monitor PVR Orders: Orders CT urogram 08/24/24 N13.30 - Unspecified hydronephrosis Creatinine 08/24/24 N13.30 - Unspecified hydronephrosis Blood Urea Nitrogen 08/24/24 N13.30 - Unspecified hydronephrosis PSA,Total (Free>4and<10) 08/24/24 Z12.5 - Encounter for screening for malignant neoplasm of prostate, Z80.42 - Family history of malignant neoplasm of prostate AMB Urinalysis Automated 08/24/24 Z13.9 - Encounter for screening, unspecified Medications: New mirabegron ER (Myrbetriq) 50 mg PO DAILY 30 tabs 3RF Discontinued oxybutynin chloride ER Discontinued Reason: Doctor's Order 5 mg PO DAILY 90 tabs 3RF Patient Instructions: The patient had an opportunity to ask questions regarding treatment plan. The patient expressed understanding and agreement with the above treatment plan. The patient is aware they should contact our office by phone for worsening of their current condition or the appearance of new symptoms. Compliance is encouraged with any medications and followup testing that is ordered. It is a privilege to be allowed the opportunity to participate in the urologic care of your patient. If you have any questions or concerns regarding treatment for the above conditions please do not hesitate to contact me. The office telephone contact is [phone]. This note is constructed in part using voice recognition software. While every effort has been made to ensure accuracy heavy lift rigger errors may have been included. Yours sincerely, Shadi Goodman MD Coding Level of Care Code Est Pt Level 4 (84125) Complex EM visit Add On G2211 Diagnoses BPH (benign prostatic hyperplasia) N40.0 Urinary frequency R35.0 OAB (overactive bladder) N32.81 Hydronephrosis, right N13.30 Screening PSA (prostate specific antigen) Z12.5 Family history of prostate cancer Z80.42 Abnormal ultrasound of kidney R93.429
== END 2024-08-24 16:16 | disposition home or self-care (01) ==
LOC: HO.HUSH 14:05
PROVIDERS: PCP General Practice; Visit Provider Urology
DX: Z13.9 Encounter for screening, unspecified (principal)

== ENCOUNTER → 2024-08-24 14:04 | Outpatient (BNVA) | payer OTHER, SELFPAY | PROVIDERS: PCP General Practice; Visit Provider Urology | DX: N40.1 Benign prostatic hyperplasia with lower urinary tract symptoms (principal); N32.81 Overactive bladder; R35.0 Frequency of micturition; R39.15 Urgency of urination; N20.0 Calculus of kidney; N13.30 Unspecified hydronephrosis; R93.429 Abnormal radiologic findings on diagnostic imaging of unspecified kidney; Z80.42 Family history of malignant neoplasm of prostate | CPT/HCPCS: 81003; 99212 ==

== ENCOUNTER 2024-08-30 09:06 | Outpatient (REF) | payer OTHER, SELFPAY ==
--- OUTSIDE RECORDS SUMMARY | 2024-08-30 09:39 | XMS_ITS | Encounter Summary ---
Author Organization [employer] Address [address] [facility] [address] [place] [address] Care Team Providers Care Cigar Roller Name Role Phone Caryn Henning MD Primary Care Provider [phone] Encounter Details Date Type Department Care Team ([facility] st Contact Info) Description 01/21/2024 Orders Only [facility] [address] [place], [place] [phone] Caryn Henning MD [address] [place], [place] [phone] Social History Tobacco Use Types Packs/Day Years [...] Description 09/04/2024 3:00 PM EDT Nurse Only [facility] [address] [place] [address] documented as of this encounter Visit Diagnoses Not on filedocumented in this encounter Additional Health Concerns Assessment Noted Time PHQ-9 Depression Total Score: 0 07/02/19 24 10:52 AM EDT documented as of this encounter Care Teams Cigar Roller Relationship Specialty Start Date End Date Caryn Henning MD [address] [place] [address] PCP - General Family Medicine 10/28/20 documented as of this encounter
[2024-08-30 11:11] LABS: MANUAL DIFF FLAG NO
[2024-08-30 11:16] LABS: Basophils Absolute Auto 0.1 X10*3/uL (0.0-0.2); Basophils Percent Auto 0.6 % (0-2); Eosinophils Absolute Auto 0.2 X10*3/uL (0.0-0.4); Eosinophils Percent Auto 1.9 % (0-4); Hematocrit 44.2 % (42.0-52.0); Hemoglobin 14.7 g/dl (14.0-18.0); Imm Gran Pct Auto 2.1 % (0.0-0.4); Lymphocytes Absolute Auto 2.5 X10*3/uL (1.2-4.9); Lymphocytes Percent Auto 25.5 % (20-40); Mean Corpuscular HGB Conc 33.3 g/dl (31.0-36.0); Mean Corpuscular Hemoglobin 30.1 pg (27.0-33.0); Mean Corpuscular Volume 90.4 fL (80.0-98.0); Monocytes Absolute Auto 0.7 X10*3/uL (0.1-1.2); Monocytes Percent Auto 7.6 % (2-11); Neutrophils Percent Auto 62.3 % (45-73); Platelet Count 199 X10*3/uL (160-400); Red Blood Count 4.89 X10*6/uL (4.60-5.80); Red Cell Distribution Width 13.3 % (11.0-16.0); White Blood Count 9.6 X10*3/uL (4.8-10.8)
[2024-08-30 11:37] LABS: Estimated Average Glucose 108 mg/dL; Hemoglobin A1C 136.0259 umol/L; Hemoglobin A1c % 5.4 % (<6.0)
[2024-08-30 12:23] LABS: Alanine Aminotransferase 28 U/L (0-40); Albumin Level 4.2 g/dL (3.5-5.0); Alkaline Phosphatase 90 U/L (39-117); Anion Gap 10 (12-20); Aspartate Amino Transferase 33 U/L (5-37); Bilirubin Total 0.5 mg/dL (0.0-1.0); Blood Urea Nitrogen 10 mg/dL (9-16); Calcium 8.5 mg/dL (8.4-10.2); Carbon Dioxide 25 mmol/L (22-29); Chloride 101 mmol/L (96-108); Cholesterol 123 mg/dL (<200); Estimated Glomerular Filt Rate > 60; Glucose Random 79 mg/dL (60-115); HDL Cholesterol 39 mg/dL (>40); LDL Cholesterol Calculated 67 mg/dL (<100); Potassium 4.1 mmol/L (3.3-5.1); Sodium 132 mmol/L (135-145); Total Protein 6.9 g/dL (6.5-8.0); Triglycerides 86 mg/dL (<150)
[2024-08-30 12:40] LABS: PSA,Total (Free>4and<10) 0.86 ng/mL (0.00-4.00); Prostate Specific Antigen 0.78 ng/mL (<0.05-4.0)
[2024-08-30 12:42] LABS: TSH reflex Free T4 2.65 uIU/mL (0.32-4.0)
[2024-09-03 20:27] LABS: Vitamin A 41 mcg/dL (38-98)
== END 2024-08-30 09:07 | disposition home or self-care (01) ==
LOC: HO.HHCL 09:06
PROVIDERS: General Practice; Visit Provider Urology
DX: R63.4 Abnormal weight loss (principal); E78.49 Other hyperlipidemia; E66.3 Overweight; E50.9 Vitamin A deficiency, unspecified; Z12.5 Encounter for screening for malignant neoplasm of prostate; Z80.42 Family history of malignant neoplasm of prostate; Z13.1 Encounter for screening for diabetes mellitus
CPT/HCPCS: 36415; 80053; 80061; 83036; 84153; 84443; 84590; 85025

== ENCOUNTER 2024-10-05 08:10 | Outpatient (REF) | payer OTHER, SELFPAY ==
--- NOTE | ~2024-10-05 | CT_ITS ---
CLINICAL HISTORY: N13.30 - Unspecified hydronephrosis CT abdomen and pelvis without/with contrast Comparison: None provided Findings: Lung bases clear. No acute bony abnormalities. Liver and spleen within normal limits. Pancreas and adrenal glands unremarkable. Gallbladder is within normal limits. 13 mm proximal right ureteral stone with hydronephrosis. Large nonobstructing right stones also noted. Bilateral renal cysts without left renal stones. Abdominal aorta is normal in caliber. No free fluid or adenopathy in the pelvis. No diverticulitis. Appendix unremarkable. Impression: 13 mm proximal right ureteral stone with hydronephrosis This document has been electronically signed by: Leroy Castillo MD on 10/06/2024 21:05:04
--- OUTSIDE RECORDS SUMMARY | 2024-10-05 08:13 | XMS_ITS | Clinical Summary ---
Author Organization [address] [facility] Address [address] [place] [address] Phone Care Team Providers Care Injection Mold Tooling Technician Name Role Phone Caryn Henning MD Primary Care Provider [phone] Allergies No known active allergies Medications carbamide [...] symptoms 09/17/2023 Phobic disorder 09/17/2023 Schizophrenia ([facility] V24, [facility] V28) 024 Sleep apnea 09/17/2023 Encounters Date Type Department Care Team Description 09/28/2024 10:00 AM EDT Office Visit Orthopedic Surgery [address] [phone] Fransico Owusu DPM Acquired hammer toe of right foot (Primary Dx); Hammer toe of left foot; Ingrowing nail; Dermatophytosis of nail; Pain in toe of right foot; Difficulty walking; Pain in toe of left foot 07/27/2024 2:45 PM EDT Office Visit Orthopedic Surgery [address] [phone] Fransico Owusu DPM Acquired hammer toe of right foot (Primary Dx); Hammer toe of left foot; Dermatophytosis of nail; Pain in toe of right foot; Pain in toe of left foot; Difficulty walking; Ingrowing nail from Last 3 Months Immunizations Name Administration Dates Next Due [facility] SARS-CoV-2 COVID-19, mRNA, LNP-S, preservative free 06/04/2021 [...] Upcoming Encounters Date Type Department Care Team ([facility] st Contact Info) Description 11/06/2024 10:30 AM EDT Office Visit Orthopedic Surgery - [place] [address] [phone] Fransico Owusu, DPM [address] [address] Health Maintenance Due Date Last Done Comments Hepatitis C Screening 05/04/2023 Medicare Annual Wellness Visit 05/04/2023 Social Influencers of Health Screening 05/04/2023 Depression Screening 07/03/2025 07/03/2024 Colorectal Cancer Screening: FIT-DNA (Cologuard) 06/30/2027 06/29/2024 Cholesterol Screening (Lipid Panel) 08/30/2029 08/30/2024 DTaP,Tdap,and Td Vaccines (2 - Td or [...] Completed 04/21/2024, , 01/29/2021, Additional history exists Zoster Vaccines Completed 09/04/2024, 07/03/2024 HIB Vaccines Aged Out No longer eligi [...] Subscriber Plan / Payer (Ef fective 2017-Present) Name:JAGUAR CHAVIS Relation to Subscriber:Self Name:Jaguar Crandall Payer ID:[id number] Group ID:[id number] Type:Not on file Address: [address] [facility] [place] [phone] Care Teams Injection Mold Tooling Technician Relationship Specialty Start Date End Date Caryn Henning MD [address] [place] [phone] PCP - General 07/07/23
--- OUTSIDE RECORDS SUMMARY | 2024-10-05 08:13 | XMS_ITS | Encounter Summary ---
Author Organization [employer] Address [address] [facility] [address] [place] [address] Care Team Providers Care Metal Base Blocker Name Role Phone Caryn Henning MD Primary Care Provider [phone] Reason for Referral * Consultation (Routine) - Authorized Specialty Diagnoses / Procedures Referred By Contac t Referred To Contact Gastroenterology Diagnoses Edentulous Dysphagia, unspecified type Caryn Henning MD [address] [place] [address] Phone: tel: fax: [facility] [address] [place] [address] [address]nd Floor [place], [place] Phone: tel: fax: Referral ID Status Reason Start Date Expiration Date Visits Requested Visits Authorized [id number] Authorized Specialty Services Required 08/30/2024 08/30/2025 1 1 Encounter Details Date Type Department Care Team (Late st Contact Info) Description 08/30/2024 Orders Only [facility] [address] [place], [place] [phone] Caryn Henning MD [address] [place], [place] [phone] Edentulous (Primary Dx); Dysphagia, unspecified type Social History Tobacco Use Types Packs/Day Years [...] Care Team (Late st Contact Info) Description 11/17/2024 3:45 PM EDT Office Visit [facility] [address] [place] [address] Caryn Henning MD [address] [place] [address] Scheduled Referrals Name Type Priority Associated Diagnoses Order Schedule Referral to Gastroenterology Outpatient Referral Routine Edentulous Dysphagia, unspecified type Expected: 08/30/2024 (Approximate), Expires: 08/30/2025 documented as of this encounter Procedures Procedure Name Priority Date/Time Associated Diagnosis Comments PSA, TOTAL WITH REFLEX TO PSA, FREE Routine 08/30/2024 9:09 AM EDT Edentulous documented in this encounter Results * PSA, Total With Reflex to PSA, Free (08/30/2024 9:09 AM EDT) PSA,Total (Free>4and<10) 0.86 0.00 - 4.00 ng/mL [facility] Comment:A Free PSA was not p erformed: The percentage of Free PSA can be used to enhance the differentiation of prostate cancer from benign prostatic disease in subjects whose PSA levels are between 4.0 and 10.0 ng/mL. For subjects whose PSA levels are below 4.0 or above 10.0 ng/mL, the risk of prostate cancer is determined on the basis of the PSA alone. Therefore the % Free PSA is recommended only for those subjects whose PSA levels are between 4.0 and 10.0 ng/mL.PSA methodology: Knapp Alinity i ChemiluminescentMicroparticle Immunoassay (CMIA) 08/30/2024 9:09 AM EDT 08/30/2024 11:10 AM EDT us Generic External Data Provider LAB BLOOD ORDERAB LES Final Result [facility] [address] [place] [phone] documented in this encounter Visit Diagnoses Diagnosis Edentulous- Primary Anodontia Dysphagia, unspecified type documented in this encounter Additional Health Concerns Assessment Noted Time PHQ-9 Depression Total Score: 8 07/04/19 25 2:36 PM EDT documented as of this encounter Care Teams Metal Base Blocker Relationship Specialty Start Date End Date Caryn Henning MD [address] [place] [phone] PCP - General Family Medicine 10/28/20 documented as of this encounter
[2024-10-05 09:22] LABS: Blood Urea Nitrogen 12 mg/dL (9-16); Estimated Glomerular Filt Rate > 60
[2024-10-05] MEDS: iohexoL 350 MG/ML 100 ML INFUS..BTL IV (14:26)
== END 2024-10-05 08:11 | disposition home or self-care (01) ==
LOC: HO.CT 08:10
PROVIDERS: PCP General Practice; Visit Provider Urology
DX: N13.30 Unspecified hydronephrosis (principal)
CPT/HCPCS: 36415; 74178; 82565; 84520; Q9967

== ENCOUNTER → 2024-10-05 13:14 | Outpatient (BNV) | payer OTHER, SELFPAY | PROVIDERS: PCP General Practice; Visit Provider Radiology Diagnostic Radiology | DX: N13.2 Hydronephrosis with renal and ureteral calculous obstruction (principal) | CPT/HCPCS: 74178 ==

== ENCOUNTER 2024-10-19 14:12 | Outpatient (AMB) | payer OTHER, SELFPAY ==
--- NOTE | 2024-10-18 22:25 | A.OFFVIS_ITS ---
Intake Visit Reasons: 8wk follow up/CT/ PSA/ Bun CR Intake Note: Patient presents today for a 8w follow up/CT/PSA/BUN CR * CT Urogram 10/06 * 08/30 PSA: 0.86 * 08/30 BUN: 10 Creatinine: 0.73 Urology Meds: Myrbetriq Allergies to Antibiotic: No Known Allergies Blood Thinner: None PVR:179mL Caramel Coloring Operator Required: Yes Caramel Coloring Operator Services: Caramel Coloring Operator Present Caramel Coloring Operator Name: Fareed Information Interpreted: non-clinical & clinical Accompanied by: Other Relationship Allergies aspirin (ASPIRIN) Allergy (Severe, Verified 08/18/24 20:03) SWELLING, rash Penicillins (PENICILLINS) Allergy (Severe, Verified 08/18/24 20:03) CONVULSIONS Medication List - Last Reconciled 10/19/24 by Shadi Goodman MD ammonium lactate 12% topical cholecalciferol (vitamin D3) 50 mcg PO DAILY clonazepam 1 mg PO BEDTIME clonazepam 0.5 mg PO DAILY diaper,brief,adult,disposable (Depend Fit-Flex Underwear) As directed four daily esomeprazole magnesium 20 mg PO DAILY ketoconazole 2% appl topical ketotifen fumarate 0.025%(0.035%) (Eye Itch Relief) 1 drp ophthalmic (eye) DAILY PRN melatonin 10 mg PO BEDTIME mirabegron ER (Myrbetriq) 50 mg PO DAILY polyvinyl alcohol 1.4% 1 drp ophthalmic (eye) BID risperidone 0.5 mg PO BID simvastatin 80 mg PO BEDTIME trazodone 50 mg PO BEDTIME PRN zinc gluconate 50 mg PO DAILY HPI Comments Details: 10/19/24-John is a 64-year-old male history of schizophrenia disorder. The patient is here with his brother. He has been followed by urology office for BPH and overactive bladder symptoms. The patient was prescribed oxybutynin for urinary symptoms of frequency and urgency. He was seen last in the office 08/24/2024 at that time I reviewed renal ultrasound from 07/14/2024 which noted moderate right hydronephrosis CT was ordered for further evaluation. Results: 10/05/24-CT Urogram- 13 mm proximal right ureteral stone with hydronephrosis History of Present Illness - The patient is a 64-year-old male presenting with kidney stones and hydronephrosis. - The patient has a history of benign prostatic hyperplasia and overactive bladder, managed with medication adjustments, including the replacement of oxybutynin with mirabegron 50 mg. - A CT scan on 10/05/24 revealed a 13 mm proximal right ureteral stone causing hydronephrosis. - A renal ultrasound on 07/14/24 noted moderate right hydronephrosis, prompting further evaluation with a CT scan. - The patient's PSA level was 0.86 as of 08/30/24 Results - CT Scan (10/05/24): 13 mm proximal right ureteral stone with hydronephrosis. - Renal Ultrasound (07/14/24): Moderate right hydronephrosis. - PSA Level (08/30/24): 0.86, within normal range. Plan- cystoscopy right ureteral stent for right kidney decompression and we will follow-up for stone management. Monitor PVR. Consider alpha-chencho on follow-up 08/24/24--John is a 64-year-old male history of schizophrenia disorder. The patient is here with his brother. He has been followed by urology office for BPH and overactive bladder symptoms. The patient was prescribed oxybutynin for urinary symptoms of frequency and urgency. He has a history of GreenLight laser in 2017. He is here post renal ultrasound. Findings note right hydronephrosis right stones right kidney stones lower pole bladder ultrasound notes bilateral ureteral jets prostate is not well visualized. I have discussed further evaluation with CT urogram we will check BUN Results: - 07/14/24--Moderate right hydronephrosis and associated cortical thinning. Multiple nonobstructing calculi at the lower pole measuring up to . - Urinalysis today: Within normal limits, negative for blood 12/30/23--John is a 63-year-old male who presents today to the office for a follow-up. h/o Schizophrenia disorder he is here with his caregiver. Certified direct chill casting operator present. History of GreenLight laser [address] Granger for BPH. The caregiver states that the patient continues to drink a lot of water. He goes to the bathroom frequently but does not leak urine. I will continue oxybutynin 5 mg daily. Urinalysis: Essentially unremarkable. Renal US not done. Review of tests-- PSA - 07/02/23--0.55 ng/mL Cystoscopy - 2019 no evidence of regrowth PSA 07/2020 --0.4 PFSH Medical History Smoker HTN (hypertension) Hepatitis Syphilis Chronic GERD BPH w urinary obs/LUTS DAISY on CPAP Obesity (BMI 30-39.9) Surgical History No pertinent past surgical history Family History Father Heart disease Mother Diabetes Social History Household Members: Other Alcohol intake: current Alcohol intake frequency: does not drink Patient Tobacco Use Status: Current everyday Tobacco user Cigarettes Per Day: 3 Review of Systems Const All systems reviewed & are unremarkable except as noted in HPI and below Reports no additional complaints Eyes Reports no additional complaints ENT Reports no additional complaints Card Reports no additional complaints Resp Reports no additional complaints GI Reports no additional complaints Reports as per HPI Musc Reports no additional complaints Skin/Breast Reports system reviewed and no additional complaints, except as documented Neuro Reports no additional complaints Psych Reports no additional complaints Endo Reports no additional complaints Oscar/Lymph Reports no additional complaints Aller/Immun Reports no additional complaints Results Reviewed Results Reviewed: Date of Service: 10/05/24 CLINICAL HISTORY: N13.30 - Unspecified hydronephrosis CT abdomen and pelvis without/with contrast Comparison: None provided Findings: Lung bases clear. No acute bony abnormalities. Liver and spleen within normal limits. Pancreas and adrenal glands unremarkable. Gallbladder is within normal limits. 13 mm proximal right ureteral stone with hydronephrosis. Large nonobstructing right stones also noted. Bilateral renal cysts without left renal stones. Abdominal aorta is normal in caliber. No free fluid or adenopathy in the pelvis. No diverticulitis. Appendix unremarkable. Impression: 13 mm proximal right ureteral stone with hydronephrosis Date of Service: 07/14/24 Procedure(s): US retroperitoneal comp EXAMINATION: US RETROPERITONEUM HISTORY: R35.0 - Frequency of micturition TECHNIQUE: Real-time grayscale ultrasound imaging of the kidneys was performed and images were reviewed. COMPARISON: Correlation is made with an unenhanced CT of the abdomen dated 02/22/2019. FINDINGS: Right kidney: The right kidney measures 10.9 x 5.9 x 5.8 cm. There is renal cortical thinning and moderate hydronephrosis. There is a cyst in the interpolar region measuring 8 x 9 x 7 mm. An additional septated cyst is noted at the lower pole measuring 9 x 11 x 8 mm. There are multiple nonobstructing calculi at the lower pole, the largest of which measures 9 x 4 x 10 mm. Left Kidney: The left kidney measures 12.1 x 6.2 x 5.9 cm. Renal parenchymal echotexture and thickness are normal. There are no masses. There is no hydronephrosis or renal calculi. The urinary bladder is unremarkable. Bilateral ureteral jets are identified. Before voiding, the urinary bladder measured 9.7 x 7.2 x 7.9 cm, for an estimated volume of 291 mL. After voiding, the urinary bladder measured 7.2 x 4.1 x 6.1 cm, for an estimated volume of 93 mL. The prostate is not well visualized. IMPRESSION: 1. Moderate right hydronephrosis and associated cortical thinning. Multiple nonobstructing calculi at the lower pole measuring up to 10 mm in size. 2. Post void bladder residual of 93 mL. Assessment & Plan Assessment & Plan (1) BPH (benign prostatic hyperplasia): Code(s): N40.0 - Benign prostatic hyperplasia without lower urinary tract symptoms Category: Medical (2) Urinary frequency: Code(s): R35.0 - Frequency of micturition Category: Medical (3) OAB (overactive bladder): Code(s): N32.81 - Overactive bladder Category: Medical (4) Hydronephrosis, right: Code(s): N13.30 - Unspecified hydronephrosis Category: Medical (5) Family history of prostate cancer: Code(s): Z80.42 - Family history of malignant neoplasm of prostate Category: Medical Plan Plan- cystoscopy right ureteral stent for right kidney decompression and we will follow-up for stone management. Monitor PVR. Consider alpha-chencho on follow-up Patient Instructions: The patient had an opportunity to ask questions regarding treatment plan. The patient expressed understanding and agreement with the above treatment plan. The patient is aware they should contact our office by phone for worsening of their current condition or the appearance of new symptoms. Compliance is encouraged with any medications and followup testing that is ordered. It is a privilege to be allowed the opportunity to participate in the urologic care of your patient. If you have any questions or concerns regarding treatment for the above conditions please do not hesitate to contact me. The office telephone contact is [phone]. This note is constructed in part using voice recognition software. While every effort has been made to ensure accuracy coating and baking operator errors may have been included. Yours sincerely, Shadi Goodman MD Scribe Plan - Not visible on output: Patient was informed and verbally consented to the use of an ambient scribe for clinic note documentation during this visit. Coding Level of Care Code Est Pt Level 4 (15338) Complex EM visit Add On G2211 Diagnoses BPH (benign prostatic hyperplasia) N40.0 Urinary frequency R35.0 OAB (overactive bladder) N32.81 Hydronephrosis, right N13.30 Family history of prostate cancer Z80.42
--- OUTSIDE RECORDS SUMMARY | 2024-10-19 15:02 | XMS_ITS | Clinical Summary ---
Author Organization [address] [facility] Address [address] [place] [address] Phone Care Team Providers Care Biomedical Electronics Technician Name Role Phone Caryn Henning MD Primary Care Provider Allergies No known active allergies Medications carbamide [...] Influenza-like symptoms 09/17/2023 Phobic disorder 09/17/2023 Schizophrenia ([facility] V24, [facility] V28) 024 Sleep apnea 09/17/2023 Encounters Date Type Department Care Team Description 09/28/2024 10:00 AM EDT Office Visit Orthopedic Surgery [address] [phone] Fransico Owusu DPM Acquired hammer toe of right foot (Primary Dx); Hammer toe of left foot; Ingrowing nail; Dermatophytosis of nail; Pain in toe of right foot; Difficulty walking; Pain in toe of left foot 07/27/2024 2:45 PM EDT Office Visit Orthopedic Surgery [address] [phone] Fransico Owusu DPM Acquired hammer toe of right foot (Primary Dx); Hammer toe of left foot; Dermatophytosis of nail; Pain in toe of right foot; Pain in toe of left foot; Difficulty walking; Ingrowing nail from Last 3 Months Immunizations Name Administration Dates Next Due [facility] SARS-CoV-2 COVID-19, mRNA, LNP-S, preservative free [...] Upcoming Encounters Date Type Department Care Team ([facility] st Contact Info) Description 11/06/2024 10:30 AM EDT Office Visit Orthopedic Surgery - [place] [address] [phone] Fransico Owusu, DPM [address] [address] Health Maintenance Due Date Last Done Comments Hepatitis C Screening 05/04/2023 Medicare Annual Wellness Visit 05/04/2023 Social Influencers of Health Screening 05/04/2023 Influenza Vaccine (#1) 2024 , 12/21/2022, 01/29/2021, Additional history exists Depression Screening 07/03/2025 07/03/2024 Colorectal Cancer Screening: FIT-DNA (Cologuard) 06/30/2027 06/29/2024 Cholesterol Screening (Lipid Panel) 08/30/2029 08/30/2024 DTaP,Tdap,and Td Vaccines (2 - Td or Tdap) 07/01/2033 07/02/2023 RSV Immunization Adult Patients (1 - 1-dose 75+ series) 2037 HIV Screening Completed 07/10/2021 Pneumococcal Vaccine: 50+ Years Completed 07/02/2023, 04/13/2018 COVID-19 Vaccine Completed 04/21/2024, , 06/04/2021, Additional history exists Zoster Vaccines Completed 09/04/2024, [...] ID:ICO Type:Not on file Address: [place] [address] [address] [address] Care Teams Biomedical Electronics Technician Relationship Specialty Start Date End Date Caryn Henning MD [address] [place] [address] [phone] PCP - General 07/07/23
--- OUTSIDE RECORDS SUMMARY | 2024-10-19 15:02 | XMS_ITS | Encounter Summary ---
Author Organization [facility] [employer] Address [address] [facility] 7 [place] [address] Care Team Providers Care Fresh Work Inspector Name Role Phone Caryn Henning MD Primary Care Provider [phone] Reason for Referral * Consultation (Routine) - Authorized Specialty Diagnoses / Procedures Referred By Contac t Referred To Contact Gastroenterology Diagnoses Edentulous Dysphagia, unspecified type Caryn Henning MD [address] [place] [phone] Phone: tel: fax: [facility] [address] [place] [address] 2nd Floor [place], [place] Phone: tel: fax: Referral ID Status Reason Start Date Expiration Date Visits Requested Visits Authorized [id number] Authorized Specialty Services Required 08/30/2024 08/30/2025 1 1 Encounter Details Date Type Department Care Team (Late st Contact Info) Description 08/30/2024 Orders Only [facility] [address] [place], [place] [phone] Caryn Henning MD [address] [place], [place] [phone] Edentulous (Primary Dx); Dysphagia, unspecified type Social [...] Description 11/17/2024 3:45 PM EDT Office Visit [facility] [address] [place] [address] Caryn Henning MD [address] [place] [address] Scheduled Referrals Name Type Priority Associated Diagnoses [...] PSA,Total (Free>4and<10) 0.86 0.00 - 4.00 ng/mL [facility] Comment:A Free PSA was not [...] Provider LAB BLOOD ORDERAB LES Final Result [facility] [address] [place] [phone] documented in this encounter Visit Diagnoses Diagnosis Edentulous- Primary Anodontia Dysphagia, unspecified type documented in this encounter Additional Health Concerns Assessment Noted Time PHQ-9 Depression Total Score: 8 07/04/19 25 2:36 PM EDT documented as of this encounter Care Teams Fresh Work Inspector Relationship Specialty Start Date End Date Caryn Henning MD [address] [place] [phone] PCP - General Family Medicine 10/28/20 documented as of this encounter
== END 2024-10-19 15:06 | disposition home or self-care (01) ==
LOC: HO.HUSH 14:13
PROVIDERS: PCP General Practice; Visit Provider Urology
DX: N40.0 Benign prostatic hyperplasia without lower urinary tract symptoms (principal); R35.0 Frequency of micturition; N32.81 Overactive bladder; N13.30 Unspecified hydronephrosis; Z80.42 Family history of malignant neoplasm of prostate; Z13.9 Encounter for screening, unspecified
CPT/HCPCS: 99214; G2211

== ENCOUNTER → 2024-10-19 14:12 | Outpatient (BNVA) | payer OTHER, SELFPAY | PROVIDERS: PCP General Practice; Visit Provider Urology | DX: N40.0 Benign prostatic hyperplasia without lower urinary tract symptoms (principal); R35.0 Frequency of micturition; N32.81 Overactive bladder; N13.30 Unspecified hydronephrosis; Z80.42 Family history of malignant neoplasm of prostate | CPT/HCPCS: 51798; 81003; 99212 ==

== ENCOUNTER 2024-10-24 09:31 | Day surgery (SDC) | payer OTHER, SELFPAY ==
--- OUTSIDE RECORDS SUMMARY | 2024-10-20 08:45 | XMS_ITS | Encounter Summary ---
Author Organization [employer] Address [address] [facility] 7 [place] [address] Care Team Providers Care Ramp Service Agent Name Role Phone Caryn Henning MD Primary Care Provider [phone] Reason for Referral * Consultation (Routine) - Authorized Specialty Diagnoses / Procedures Referred By Contac t Referred To Contact Gastroenterology Diagnoses Edentulous Dysphagia, unspecified type Caryn Henning MD [address] [place] [phone] Phone: tel: fax: [facility] [address] [place] [address] 2nd Floor [place], [place] Phone: tel: fax: Referral ID Status Reason Start Date Expiration Date Visits Requested Visits Authorized [id number] Authorized Specialty Services Required 08/30/2024 08/30/2025 1 1 Encounter Details Date Type Department Care Team (Late st Contact Info) Description 08/30/2024 Orders Only [facility] [address] [place], [place] [phone] Caryn Henning MD [address] [place], [place] [phone] Edentulous (Primary Dx); Dysphagia, unspecified type Social [...] Description 11/17/2024 3:45 PM EDT Office Visit [facility] [address] [place] [address] Caryn Henning MD [address] [place] [address] Scheduled Referrals Name Type Priority Associated Diagnoses [...] PSA,Total (Free>4and<10) 0.86 0.00 - 4.00 ng/mL [facility] Comment:A Free PSA was not [...] Provider LAB BLOOD ORDERAB LES Final Result [facility] [address] [place] [phone] documented in this encounter Visit Diagnoses Diagnosis Edentulous- Primary Anodontia Dysphagia, unspecified type documented in this encounter Additional Health Concerns Assessment Noted Time PHQ-9 Depression Total Score: 8 07/04/19 25 2:36 PM EDT documented as of this encounter Care Teams Ramp Service Agent Relationship Specialty Start Date End Date Caryn Henning MD [address] [place] [phone] PCP - General Family Medicine 10/28/20 documented as of this encounter
--- OUTSIDE RECORDS SUMMARY | 2024-10-20 08:45 | XMS_ITS | Clinical Summary ---
Author Organization 175 [facility] Address [address] [place] [address] Phone Care Team Providers Care Workforce Manager Name Role Phone Caryn Henning MD Primary Care Provider [phone] Allergies No known active allergies Medications carbamide [...] Influenza-like symptoms 09/17/2023 Phobic disorder 09/17/2023 Schizophrenia ([facility] V24, [facility] V28) 024 Sleep apnea 09/17/2023 Encounters Date Type Department Care Team Description 09/28/2024 10:00 AM EDT Office Visit Orthopedic Surgery [address] [phone] Fransico Owusu DPM Acquired hammer toe of right foot (Primary Dx); Hammer toe of left foot; Ingrowing nail; Dermatophytosis of nail; Pain in toe of right foot; Difficulty walking; Pain in toe of left foot 07/27/2024 2:45 PM EDT Office Visit Orthopedic Surgery [address] [phone] Fransico Owusu DPM Acquired hammer toe of right foot (Primary Dx); Hammer toe of left foot; Dermatophytosis of nail; Pain in toe of right foot; Pain in toe of left foot; Difficulty walking; Ingrowing nail from Last 3 Months Immunizations Name Administration Dates Next Due [facility] SARS-CoV-2 COVID-19, mRNA, LNP-S, preservative free [...] Upcoming Encounters Date Type Department Care Team ([facility] st Contact Info) Description 11/06/2024 10:30 AM EDT Office Visit Orthopedic Surgery - [place] [address] [phone] Fransico Owusu, DPM [address] [address] Health Maintenance Due Date Last Done Comments [...] ID:[id number] Group ID:ICO Type:Not on file Address: [place] [address] [address] [phone] Care Teams Workforce Manager Relationship Specialty Start Date End Date Caryn Henning MD [address] [place] [address] [phone] PCP - General 07/07/23
[2024-10-24] VITALS (26 sets, daily range): BP systolic 100–171; BP diastolic 67–97; PULSE 64–98; RESP 14–23; TEMP 36.1–37.3; O2SAT 94–99; BMI 28.9
--- NOTE | ~2024-10-24 | FL_ITS ---
EXAMINATION: FL GUIDANCE ONLY HISTORY: STENT RIGHT COMPARISON: Correlation is made with a CT of the abdomen and pelvis dated 10/05/2024. TECHNIQUE: Fluoroscopy time: 54.5 seconds. Cumulative Dose: 19.19 mGy. Images: 3. FINDINGS: Initial image demonstrates a calcification in the right midabdomen consistent with the ureteral calculus noted on CT. After injection of the right ureter, filling defect is seen in this region corresponding to the calculus. The final film demonstrates a wire in place. FL/FL guidance in OR IMPRESSION: Fluoroscopy during procedure. Please see procedure report for additional information. Electronically signed by: Harjit Back MD 10/24/2024 12:57 PM EDT
--- NOTE | ~2024-10-24 | IR_ITS ---
EXAMINATION: Ultrasound fluoroscopy guided right nephrostomy catheter insertion. CLINICAL INDICATION: UPJ stone. Unable to perform retrograde pyelogram by referring physician. COMPARISON: CT abdomen pelvis 10/05/2024 TECHNIQUE: After explaining ultrasound fluoroscopy guided insertion of right nephrostomy catheter procedure, benefits and risk to patient's brother Denis, a written consent was obtained in presence of chief business officer. Patient was placed prone on fluoroscopy table and pulmonary ultrasound imaging was obtained right posterior chest. An optimal site was selected and marked on the skin. The marked site was obtained and draped in usual sterile manner. 1% lidocaine was administered at puncture site. A small thin needle was inserted from the skin into the right kidney several times. On observing urine return, 18 wire was placed through the needle into the pelvis on fluoroscopy and the needle withdrawn. A 5 Maldivian dilator was placed over the thin guidewire and the guidewire was removed. A 0.035 J-wire is placed through the 5 Maldivian dilator and the dilator removed. A 8.5 Maldivian APD catheter with stiffener was inserted over the guidewire and placed in kidney pelvis. The stiffener and guidewire was removed. A pigtail was formed. Contrast was injected the pigtail and single image obtained for documentation. The catheter was connected to a drainage bag wire connecting cannula. Patient tolerated procedure extremely well. IV conscious sedation utilized during the exam and patient monitored by our nursing and IR radiologist. FINDINGS/ IR/IR nephrostomy IMPRESSION: On preliminary ultrasound there is moderate right hydronephrosis. 6.5 Maldivian percutaneous nephrostomy catheter was placed in right kidney pelvis under ultrasound and fluoroscopy guidance. There is no bleeding visualized within the catheter or drainage bag. Fluoroscopy time: 1.6 minutes. Dose 29.76 mGy. Sedation: 40 minutes Electronically signed by: Max Rivas MD 10/24/2024 04:46 PM EDT
[2024-10-24] MEDS: Lactated Ringers 1,000 ML 100 ML IVCONT (10:43)
--- NOTE | 2024-10-24 10:43 | HO.ANESPROP2 ---
Documented by User: Dede Carey NP 10/23/24 11:33 HPI - Anesthesia Eval Consult details Narrative: 64 yr old male for cystoscopy with stent placement right LBBB: Saw cardiology 05/2024, echo updated. DAISY: on CPAP Smoker PMFSH Active Problems Active Problems: All Active Problems (Updated 08/24/24 @ 15:53 by Shadi Goodman MD) Abnormal ultrasound of kidney (Acute) Family history of prostate cancer (Acute) Hydronephrosis, right (Acute) HTN (hypertension) (Acute) LBBB (left bundle branch block) (Acute) GERD (gastroesophageal reflux disease) (Acute) Smoker (Acute) Urinary frequency (Acute) BPH (benign prostatic hyperplasia) (Acute) OAB (overactive bladder) (Acute) Screening PSA (prostate specific antigen) (Acute) Malnutrition (Acute) Asymmetric septal hypertrophy (Acute) Abnormal EKG (Acute) Malabsorption (Acute) Hepatitis (Acute) Syphilis (Acute) Abdominal bloating (Acute) Nocturia more than twice per night (Acute) Urinary urgency (Acute) DAISY on CPAP (Acute) Obesity (BMI 30-39.9) (Acute) Past Medical History Medical History (Updated 10/24/24 @ 10:32 by Deidre Smiley RN) History of mental disorder Smoker HTN (hypertension) Hepatitis Syphilis Chronic GERD BPH w urinary obs/LUTS DAISY on CPAP Obesity (BMI 30-39.9) Family History Family History Father Heart disease Mother Diabetes Surgical History Surgical History (Updated 10/24/24 @ 09:59 by Deidre Smiley, RN) History of bladder surgery History of laparotomy Hx of umbilical hernia repair Social History Social History Household Members: Other Alcohol intake: current Alcohol intake frequency: does not drink Patient Tobacco Use Status: Current everyday Tobacco user Tobacco use type: Cigarette Cigarettes Per Day: 3 Use of substances other than those prescribed or required for medical reasons: No Are you DNR?: No Advance Directives: No Advance Directives Information Provided: Yes Meds Allergies Allergy/AdvReac Type Severity Reaction Status Date / Time aspirin (ASPIRIN) Allergy Severe SWELLING, Verified 10/24/24 10:01 rash Penicillins (PENICILLINS) Allergy Severe CONVULSIONS Verified 10/24/24 10:01 Home Medications ?Medication ?Instructions ?Recorded ?Confirmed ?Last Taken ?Type simvastatin 80 mg tablet 80 mg PO BEDTIME 01/06/20 10/19/24 11/24/20 History cholecalciferol (vitamin D3) 50 50 mcg PO DAILY 11/24/21 10/19/24 Unknown History mcg (2,000 unit) capsule melatonin 5 mg tablet 10 mg PO BEDTIME 11/24/21 10/19/24 Unknown History risperidone 0.5 mg tablet 0.5 mg PO BID 12/10/21 10/19/24 Unknown History esomeprazole magnesium 20 mg 20 mg PO DAILY 01/14/23 10/19/24 Unknown History capsule,delayed release clonazepam 0.5 mg tablet 0.5 mg PO DAILY 05/26/23 10/19/24 Unknown History clonazepam 1 mg tablet 1 mg PO BEDTIME 05/26/23 10/19/24 Unknown History trazodone 50 mg tablet 50 mg PO BEDTIME PRN Insomnia 05/19/24 10/19/24 Unknown History ammonium lactate 12 % lotion topical 08/24/24 10/19/24 Unknown History ketoconazole 2 % topical cream appl topical 08/24/24 10/19/24 Unknown History ketotifen fumarate 0.025 % (0.035 1 drp ophthalmic (eye) DAILY PRN 08/24/24 10/19/24 Unknown History %) eye drops (Eye Itch Relief) swelling polyvinyl alcohol 1.4 % eye drops 1 drp ophthalmic (eye) BID 08/24/24 10/19/24 Unknown History zinc gluconate 50 mg tablet 50 mg PO DAILY 08/24/24 10/19/24 Unknown History Exam Narrative Narrative: EKG 05/2024 left bundle branch block and LVH, rate 81, ?inferior infarct; wide QRS back to 2017. Echo 06/2024 Conclusions: - The left ventricular systolic function is normal. The calculated ejection fraction is 60% by biplane method. - There is mild to moderate tricuspid valve regurgitation. Documented by User: Deidre Ramsey, 10/24/24 10:46 [facility] Past Medical History Medical History (Updated 10/24/24 @ 10:32 by Deidre Smiley, RN) History of mental disorder Smoker HTN (hypertension) Hepatitis Syphilis Chronic GERD BPH w urinary obs/LUTS DAISY on CPAP Obesity (BMI 30-39.9) Family History Family History Father Heart disease Mother Diabetes Family history of problems with anesthesia: No Surgical History Surgical History (Updated 10/24/24 @ 09:59 by Deidre Smiley, RN) History of bladder surgery History of laparotomy Hx of umbilical hernia repair History of Problems with Anesthesia: No Social History Social History Household Members: Other Alcohol intake: current Alcohol intake frequency: does not drink Patient Tobacco Use Status: Current everyday Tobacco user Tobacco use type: Cigarette Cigarettes Per Day: 3 Use of substances other than those prescribed or required for medical reasons: No Are you DNR?: No Advance Directives: No Advance Directives Information Provided: Yes Meds Allergies Allergy/AdvReac Type Severity Reaction Status Date / Time aspirin (ASPIRIN) Allergy Severe SWELLING, Verified 10/24/24 10:01 rash Penicillins (PENICILLINS) Allergy Severe CONVULSIONS Verified 10/24/24 10:01 Home Medications ?Medication ?Instructions ?Recorded ?Confirmed ?Last Taken ?Type simvastatin 80 mg tablet 80 mg PO BEDTIME 01/06/20 10/19/24 11/24/20 History cholecalciferol (vitamin D3) 50 50 mcg PO DAILY 11/24/21 10/19/24 Unknown History mcg (2,000 unit) capsule melatonin 5 mg tablet 10 mg PO BEDTIME 11/24/21 10/19/24 Unknown History risperidone 0.5 mg tablet 0.5 mg PO BID 12/10/21 10/19/24 Unknown History esomeprazole magnesium 20 mg 20 mg PO DAILY 01/14/23 10/19/24 Unknown History capsule,delayed release clonazepam 0.5 mg tablet 0.5 mg PO DAILY 05/26/23 10/19/24 Unknown History clonazepam 1 mg tablet 1 mg PO BEDTIME 05/26/23 10/19/24 Unknown History trazodone 50 mg tablet 50 mg PO BEDTIME PRN Insomnia 05/19/24 10/19/24 Unknown History ammonium lactate 12 % lotion topical 08/24/24 10/19/24 Unknown History ketoconazole 2 % topical cream appl topical 08/24/24 10/19/24 Unknown History ketotifen fumarate 0.025 % (0.035 1 drp ophthalmic (eye) DAILY PRN 08/24/24 10/19/24 Unknown History %) eye drops (Eye Itch Relief) swelling polyvinyl alcohol 1.4 % eye drops 1 drp ophthalmic (eye) BID 08/24/24 10/19/24 Unknown History zinc gluconate 50 mg tablet 50 mg PO DAILY 08/24/24 10/19/24 Unknown History Exam Exam Date and Time: 10/24/24 1000 Height,Weight and Vital Signs: Height 5 ft 7 in Weight 83.6 kg Vital Signs Temperature 96.9 F 10/24/24 10:13 Pulse Rate 64 10/24/24 10:13 Respiratory Rate 15 10/24/24 10:13 Blood Pressure 109/72 10/24/24 10:13 Pulse Oximetry 96 10/24/24 10:13 Oxygen Delivery Method Room Air 10/24/24 10:13 Temperature 96.9 F 10/24/24 10:13 Pulse Rate 64 10/24/24 10:13 Respiratory Rate 15 10/24/24 10:13 Blood Pressure 109/72 10/24/24 10:13 Pulse Oximetry 96 10/24/24 10:13 Oxygen Delivery Method Room Air 10/24/24 10:13 Airway Mallampati Class: II TM Dist: >3cm Neck ROM: Full Loose/Missing/Broken Teeth: Yes (edentulous) Heart: S1S2 Lungs: CTAB Assessment and Plan Assessment Anesthesia Assessment: Anesthesia Plan Discussed and Chart Reviewed Final Anesthetic Review Family History of Problems with Anesthesia: No History of Problems with Anesthesia: No NPO: Yes ASA Class: III Final Preanesthetic Review: No Changes in Pt Med Stat, Meds/Allgs Chart Reviewed, Consent Obtained/Reviewed (branch examiner at bedside for translation. Brother also at bedside; he is the guardian but states that patient is able to sign for himself.) and Anes Risks/Benef Reviewed Patient Risk: Intermediate Procedure Risk: Low Anesthetic Plan Anesthetic Plan: GA and Agree w/ Assess. and Plan Disposition: Standard PACU
--- NOTE | 2024-10-24 11:06 | P.OP_ITS ---
Operative Note Operative Note Date of Service: 10/24/24 Narrative: PreOperative Diagnosis:?? Right proximal ureteral stone, hydronephrosis Post Operative Diagnosis:?? ?Right proximal ureteral, hydronephrosis stone impacted Procedure: Cystoscopy, retrograde right ureteroscopy flexible Surgeon:?Dr Shadi Goodman Anesthesia:? General Disposable flexible ureteroscope utilized Procedure: After informed consent was verified the patient was brought to the operating placed on the OR table in supine position.? General Anesthesia was administered per protocol.? The patient was placed in lithotomy position, prepped and draped in the usual sterile fashion.? Safety pause time-out and side of surgery confirmed.? Antibiotics confirmed. A 22 Yemeni cystoscope was inserted transurethrally, the bulbous urethra noted short narrowing at the proximal ureter, which would not allow the 22 rigid scope to pass. A guidewire was passed into the bladder. The bulbous urethra was dilated starting from a 16 Yemeni to a 22 Yemeni. The 22 Yemeni cystoscope was then passed over the guidewire into the bladder. The right ureteral orifice was identified a guidewire and open-ended Wedron was passed into the right ureter. A retrograde was done and there was some contrast that was able to be seen beyond the proximal stone. Using both the hydrophilic glide wire and sensor guidewire, neither guidewire was able to be manipulated beyond the stone in the proximal ureter. The right intramural ureter was then balloon dilated. The disposable f lexible ureteroscope was then passed over the guidewire, the stone was visualized, after multiple attempts to pass the guidewire beyond the stone the procedure was terminated. A 16 Yemeni Carrasquillo was placed into the bladder. I have contacted Interventional Radiology to place a right nephrostomy tube. The patient tolerated the procedure well and was brought to the recovery room in stable condition. Complications: None EBL: minimal (<5 mL) Drains: 16 Yemeni Carrasquillo catheter
--- NOTE | 2024-10-24 11:06 | MHC.SHP ---
Pre-Procedural Eval Section A - 24 Hr Update-Section A only Date of Service: 10/24/24 The patient is an INPATIENT: No The patient has been examined within 24 hours of the surgical procedure. The History & Physical has been completed within 30 days and I have reviewed it.: Yes Section B - Complete if H&P > 30 days Chief Complaint: hydronephrosis,calculus of ueter, right Allergies: Allergies Allergy/AdvReac Type Severity Reaction Status Date / Time aspirin (ASPIRIN) Allergy Severe SWELLING, Verified 10/24/24 10:01 rash Penicillins (PENICILLINS) Allergy Severe CONVULSIONS Verified 10/24/24 10:01 Plan Diagnosis/Plan: Unchanged I have reviewed the history and physical and performed a pertinent physical examination on my patient. No changes have occurred unless specified. Cystoscopy right retrograde, ureteral stent insertion. Cystoscopy. Discussed risks to include but not limited to, blood in the urine, burning with urination, urgency. Time Spent With Patient Time: Total time managing care of this patient today ____ minutes.
== END 2024-10-24 17:17 | disposition home or self-care (01) ==
PROVIDERS: Radiology Diagnostic Radiology; PCP General Practice; Visit Provider Urology
PROC: (CPT 52344; principal; 2024-10-24 11:30)
DX: N20.1 Calculus of ureter (principal); N13.30 Unspecified hydronephrosis; N40.1 Benign prostatic hyperplasia with lower urinary tract symptoms; R35.0 Frequency of micturition; R39.15 Urgency of urination; N32.81 Overactive bladder; Z80.42 Family history of malignant neoplasm of prostate; I10 Essential (primary) hypertension; F20.9 Schizophrenia, unspecified; K21.9 Gastro-esophageal reflux disease without esophagitis; K75.9 Inflammatory liver disease, unspecified; A53.9 Syphilis, unspecified; G47.33 Obstructive sleep apnea (adult) (pediatric); Z79.899 Other long term (current) drug therapy; Z99.89 Dependence on other enabling machines and devices; Z88.6 Allergy status to analgesic agent; Z88.0 Allergy status to penicillin; F17.210 Nicotine dependence, cigarettes, uncomplicated
CPT/HCPCS: 52344; 50432; 99152; 99153; C1758; C1769; C1894; J1100; J1956; J2003; J2250; J2312; J2405; J2704; J3010; Q9967

== ENCOUNTER → 2024-10-24 09:31 | Outpatient (BNV) | payer OTHER, SELFPAY | PROVIDERS: PCP General Practice; Visit Provider Urology | DX: N13.30 Unspecified hydronephrosis (principal); N20.1 Calculus of ureter | CPT/HCPCS: 52344; 74420 ==

== ENCOUNTER → 2024-10-24 11:51 | Outpatient (BNV) | payer OTHER, SELFPAY | PROVIDERS: PCP General Practice; Visit Provider Radiology Diagnostic Radiology | DX: N13.30 Unspecified hydronephrosis (principal) | CPT/HCPCS: 50432 ==

== ENCOUNTER 2024-11-02 09:16 | Outpatient (AMB) | payer OTHER, SELFPAY ==
--- NOTE | 2024-11-02 09:24 | MHC.OFFVIS ---
Vital Signs 11/02/24 09:25 Height 5 ft 5 in Weight 186 lb 4.65 oz BMI 31.0 BP 102/60 Blood Pressure Location Lt brachial Position Sitting Pulse 66 Pulse Source Pulse Oximeter Pulse Oximetry (%) 95 Oxygen Delivery Method Room Air Intake Visit Reasons: daisy Intake Note: pt is here for follow up and states he is feeling good. He is back to using his cpap at night, his brother is involved in his care. Clearing Tub Worker Required: No Clearing Tub Worker Services: Clearing Tub Worker Present Clearing Tub Worker Name: Lanny Allergies aspirin (ASPIRIN) Allergy (Severe, Verified 11/02/24 09:46) SWELLING, rash Penicillins (PENICILLINS) Allergy (Severe, Verified 11/02/24 09:46) CONVULSIONS Medication List - Last Reconciled 11/02/24 by Aniyah Matias MD ammonium lactate 12% topical cholecalciferol (vitamin D3) 50 mcg PO DAILY clonazepam 1 mg PO BEDTIME clonazepam 0.5 mg PO DAILY diaper,brief,adult,disposable (Depend Fit-Flex Underwear) As directed four daily esomeprazole magnesium 20 mg PO DAILY ketoconazole 2% appl topical ketotifen fumarate 0.025%(0.035%) (Eye Itch Relief) 1 drp ophthalmic (eye) DAILY PRN levofloxacin 500 mg PO Q24H 5 days melatonin 10 mg PO BEDTIME oxycodone 5 mg PO .q8-q12h PRN polyvinyl alcohol 1.4% 1 drp ophthalmic (eye) BID risperidone 0.5 mg PO BID simvastatin 80 mg PO BEDTIME tamsulosin (Flomax) 0.4 mg PO BEDTIME trazodone 50 mg PO BEDTIME PRN zinc gluconate 50 mg PO DAILY Do you need a note to return to daycare/school/sports/work: No HPI HPI daisy: Details: THIS 64 YEARS OLD GENTLEMAN IS HERE FOR FOLLOW-UP FOR HIS SLEEP APNEA. 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 SINCE THEN HIS BROTHER AND FAMILY HAVE GOTTEN INVOLVED IN HIS CARE, THEY HAVE NEW AGENCY FOR PROVIDING HIM ASSISTANCE AT HOME. WITH THE HELP HE STARTED USING THE CPAP WITH THE NASAL MASK AND PRESSURE SETTING OF 9 CM BEFORE. AND HE TOLERATES THE CPAP WELL AND SLEEPS GOOD.. DENIES ANY DAYTIME SLEEPINESS. HE SMOKES ONLY 3 CIGARETTES. A DAY NOT MORE THAN THAT HE DENIES COUGH WHEEZING OR SHORTNESS OF BREATH. [facility] Medical History History of mental disorder Smoker HTN (hypertension) Hepatitis Syphilis Chronic GERD BPH w urinary obs/LUTS DAISY on CPAP Obesity (BMI 30-39.9) Surgical History History of bladder surgery History of laparotomy Hx of umbilical hernia repair Family History Father Heart disease Mother Diabetes Social History Household Members: Other Alcohol intake: current Alcohol intake frequency: does not drink Patient Tobacco Use Status: Current everyday Tobacco user Tobacco use type: Cigarette Cigarettes Per Day: 3 Review of Systems Const All systems reviewed & are unremarkable except as noted in HPI and below Eyes Reports no additional complaints ENT Reports nasal congestion (Mild nasal congestion due to putting on the CPAP mask at night) Card Denies chest pain, Denies irregular heart rhythm and Denies leg edema Resp Reports cough (Mild intermittent) and Denies wheezing GI Reports no additional complaints Reports nocturia Musc Reports no additional complaints Skin/Breast Reports system reviewed and no additional complaints, except as documented Neuro Reports no additional complaints Psych Reports anxiety Endo Reports no additional complaints Aller/Immun Denies wheezing Physical Exam Vital Signs: Last Vital Signs Pulse 66 11/02/24 09:25 BP 102/60 11/02/24 09:25 Pulse Ox 95 11/02/24 09:25 Oxygen Delivery Method Room Air 11/02/24 09:25 BMI result Body Mass Index 31.0 Const General: comfortable, no acute distress, alert and awake Orientation/consciousness: patient oriented x3 HEENT Head: Yes normal to inspection General nose exam: No nasal polyps present and No nasal discharge present Face and sinus: Yes sinuses nontender Mouth: oropharynx normal Teeth and gingiva: edentulous Throat: Yes posterior oropharynx normal Eyes General: appearance normal, both eyes and all related structures Neck Neck: Yes normal visual inspection, Yes no lymphadenopathy, Yes trachea midline and Yes no JVD Thyroid: Thyroid normal Chest Chest palpation & inspection: normal inspection of the chest, normal palpation of entire chest wall and no tenderness Resp Effort & Inspection: normal respiratory effort Auscultation: clear to auscultation bilaterally, no crackles and no wheezes Cardio Palpation: normal PMI Rate: regular rate Rhythm: regular rhythm Heart sounds: no gallops and no murmurs Peripheral pulses: Peripheral pulses 2+ throughout GI Palpation (GI): Soft to palpation, nontender, No hepatosplenomegaly present and no masses Auscultation: normal bowel sounds Back/Spine/Pelvis Thoracic/Lumbar Spine: thoracic and lumbar spine normal to inspection Skin General skin exam: no rashes or lesions noted Neuro General: patient oriented x3 and no focal motor deficits Cranial nerves: Yes CN's II-XII intact bilaterally Extrem General: Yes normal to inspection, Yes no clubbing, cyanosis or edema and Yes no calf tenderness Psych Appearance: disheveled Mental Status: other (Slow in answering questions) Speech and movement: Normal speech and movement present Results Reviewed Results Reviewed: COMPLIANCE REPORT FOR THE LAST 3 MONTHS SHOWS THAT HE HAS BEEN USING THE CPAP FOR LAST 60 DAYS. OUT OF LAST 60 DAYS HE USED FOR 56 NIGHTS. AND AVERAGE USE IT PER NIGHT 4 HOURS 21 MINUTES. HE DOES NOT HAVE ANY SIGNIFICANT AMOUNT OF AIR LEAK. AND RESIDUAL AHI IS ONLY 0.2 Assessment & Plan Assessment & Plan (1) DAISY on CPAP: Comment: HISTORY OF OBSTRUCTIVE SLEEP APNEAS DIAGNOSED IN 2017. HE HAD NOT USED CPAP OR A WHILE. BUT NOW SINCE LAST 3 MONTHS HE IS AGAIN USING IT REGULARLY. HE CLAIMS THAT HE IS SLEEPING BETTER . HAS NO ISSUES WITH THE USE OF CPAP AT THIS TIME. HE USES THE NASAL MASK, PRESSURE SETTING 9 CM. Code(s): G47.33 - Obstructive sleep apnea (adult) (pediatric); Z99.89 - Dependence on other enabling machines and devices Category: Medical Plan: ADVISED TO CONTINUE USING CPAP EVERY NIGHT, TRY TO USE MORE THAN 4 HOURS PER NIGHT. USE DISTILLED WATER FOR HUMIDIFICATION REGULARLY. KEEP THE STRAPS TIGHT TOLERATED. 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 Down to 3 cigarettes a day, and beyond that he is not able to stop completely. Except for mild intermittent cough he has no breathing problems. Code(s): F17.200 - Nicotine dependence, unspecified, uncomplicated Category: Social Hx Plan: AGAIN TALKED ABOUT POSSIBLE QUITTING COMPLETELY BUT HE IS NOT GOING TO DO IT. STRESS THAT HE SHOULD NOT INCREASE THE NUMBER OF CIGARETTES BE ON 3 PER DAY. Coding Level of Care Code Est Pt Level 3 (95006) Diagnoses DAISY on CPAP G47.33; Z99.89 Smoker F17.200
[2024-11-02 09:25] VITALS: BP 102/60; PULSE 66; O2SAT 95; BMI 31.0
--- OUTSIDE RECORDS SUMMARY | 2024-11-02 09:33 | XMS_ITS | Clinical Summary ---
Author Organization [address] [facility] Address [address] [place] [address] Phone Care Team Providers Care Media Reconciliation Specialist Name Role Phone Caryn Henning MD Primary Care Provider [phone] Allergies No known active allergies Medications carbamide [...] Influenza-like symptoms 09/17/2023 Phobic disorder 09/17/2023 Schizophrenia ([facility] V24, [facility] V28) 024 Sleep apnea 09/17/2023 Encounters Date Type Department Care Team Description 09/28/2024 10:00 AM EDT Office Visit Orthopedic Surgery - [address] [id number] Fransico Owusu, JAIME Acquired hammer toe of right foot (Primary Dx); Hammer toe of left foot; Ingrowing nail; Dermatophytosis of nail; Pain in toe of right foot; Difficulty walking; Pain in toe of left foot from Last 3 Months Immunizations Name Administration [...] Care Team (Late st Contact Info) Description 11/06/2024 10:30 AM EDT Office Visit Orthopedic Surgery - [place] [address] [phone] Fransico Owusu DPAndi [address] [id number] Health Maintenance Due Date Last Done Comments Hepatitis C Screening 05/04/2023 Medicare Annual Wellness Visit 05/04/2023 Social Influencers of Health Screening 05/04/2023 Depression Screening 04/05/2024 Influenza Vaccine (#1) 2024 , 12/21/2022, 01/29/2021, Additional history exists Colorectal Cancer Screening: FIT-DNA (Cologuard) 06/30/2027 06/29/2024 [...] ID:[id number] Group ID:[id number] Type:Not on file Address: [place] [address] [address] [id number] Care Teams Media Reconciliation Specialist Relationship Specialty Start Date End Date Caryn Henning MD [address] [place] [id number] PCP - General 07/07/23
--- OUTSIDE RECORDS SUMMARY | 2024-11-02 09:33 | XMS_ITS | Encounter Summary ---
Author Organization [employer] Address [address] [facility] 7 [place] [address] Care Team Providers Care Technical Support Professional Name Role Phone Caryn Henning MD Primary Care Provider [phone] Reason for Referral * Consultation (Routine) - Authorized Specialty Diagnoses / Procedures Referred By Contac t Referred To Contact Gastroenterology Diagnoses Edentulous Dysphagia, unspecified type Caryn Henning MD [address] [place] [address] Phone: tel: fax: [facility] [address] [place] [address] 2nd Floor [place], [place] Phone: tel: fax: Referral ID Status Reason Start Date Expiration Date Visits Requested Visits Authorized [id number] Authorized Specialty Services Required 08/30/2024 08/30/2025 1 1 Encounter Details Date Type Department Care Team (Late st Contact Info) Description 08/30/2024 Orders Only [facility] [address] [place], [place] [phone] Caryn Henning MD [address] [place], [place] [phone] Edentulous (Primary Dx); Dysphagia, unspecified type Social [...] Description 11/17/2024 3:45 PM EDT Office Visit [facility] [address] [place] [address] Caryn Henning MD [address] [place] [address] Scheduled Referrals Name Type Priority Associated Diagnoses [...] PSA,Total (Free>4and<10) 0.86 0.00 - 4.00 ng/mL [facility] Comment:A Free PSA was not [...] Provider LAB BLOOD ORDERAB LES Final Result [facility] [address] [place] [address] [phone] documented in this encounter Visit Diagnoses Diagnosis Edentulous- Primary Anodontia Dysphagia, unspecified type documented in this encounter Additional Health Concerns Assessment Noted Time PHQ-9 Depression Total Score: 8 07/04/19 25 2:36 PM EDT documented as of this encounter Care Teams Technical Support Professional Relationship Specialty Start Date End Date Caryn Henning MD [address] [place] [phone] PCP - General Family Medicine 10/28/20 documented as of this encounter
== END 2024-11-02 09:45 | disposition home or self-care (01) ==
LOC: HO.HPS 09:17
PROVIDERS: PCP General Practice; Visit Provider Internal Medicine
DX: G47.33 Obstructive sleep apnea (adult) (pediatric) (principal); Z99.89 Dependence on other enabling machines and devices; F17.200 Nicotine dependence, unspecified, uncomplicated
CPT/HCPCS: 99213

== ENCOUNTER → 2024-11-02 09:16 | Outpatient (BNVA) | payer OTHER, SELFPAY | PROVIDERS: PCP General Practice; Visit Provider Internal Medicine | DX: G47.33 Obstructive sleep apnea (adult) (pediatric) (principal); F17.210 Nicotine dependence, cigarettes, uncomplicated; Z99.89 Dependence on other enabling machines and devices | CPT/HCPCS: 99212 ==

== ENCOUNTER 2024-11-10 13:43 | Outpatient (AMB) | payer OTHER, SELFPAY ==
[2024-11-10 13:50] VITALS: BP 114/72; PULSE 71; BMI 30.8
--- NOTE | 2024-11-10 13:50 | A.OFFVIS_ITS ---
Vital Signs 11/10/24 13:50 Height 5 ft 5 in Weight 185 lb 3.013 oz BMI 30.8 BP 114/72 Blood Pressure Location Rt brachial Position Sitting Pulse 71 Pulse Source Monitor Intake Visit Reasons: [facility] 11/28 Atomic Physics Teacher Required: No Outside Industrial Sales Representative: Outside Industrial Sales Representative Present Allergies aspirin (ASPIRIN) Allergy (Severe, Verified 11/10/24 13:52) SWELLING, rash Penicillins (PENICILLINS) Allergy (Severe, Verified 11/10/24 13:52) CONVULSIONS Medication List - Last Reconciled 11/10/24 by PACO Ferguson ammonium lactate 12% topical cholecalciferol (vitamin D3) 50 mcg PO DAILY clonazepam 1 mg PO BEDTIME clonazepam 0.5 mg PO DAILY diaper,brief,adult,disposable (Depend Fit-Flex Underwear) As directed four daily esomeprazole magnesium 20 mg PO DAILY ketoconazole 2% appl topical ketotifen fumarate 0.025%(0.035%) (Eye Itch Relief) 1 drp ophthalmic (eye) DAILY PRN melatonin 10 mg PO BEDTIME polyvinyl alcohol 1.4% 1 drp ophthalmic (eye) BID risperidone 0.5 mg PO BID simvastatin 80 mg PO BEDTIME tamsulosin (Flomax) 0.4 mg PO BEDTIME trazodone 50 mg PO BEDTIME PRN zinc gluconate 50 mg PO DAILY HPI HPI [facility] 11/28: Details: John is a 64-year-old male with past medical history of sleep apnea with CPAP use, abnormal EKG, LVH who presents for follow-up and preop cardiovascular clearance. Today he reports that he has been doing generally well since his last visit May 2024. He is having issues with kidney stone and has a nephrostomy tube in place. He is scheduled for a urological procedure in 2 weeks. He denies any cardiac symptoms. No shortness of breath at rest, chest discomfort, heart palpitations, lightheadedness. He is mostly sedentary and admits to shortness of breath when he over exerts which is not new. Compliant with meds. Brother and [id number] present. Certified dispensing and measuring optician used. [facility] Medical History History of mental disorder Smoker HTN (hypertension) Hepatitis Syphilis Chronic GERD BPH w urinary obs/LUTS DAISY on CPAP Obesity (BMI 30-39.9) Surgical History History of bladder surgery History of laparotomy Hx of umbilical hernia repair Family History Father Heart disease Mother Diabetes Social History Household Members: Other Alcohol intake: current Alcohol intake frequency: does not drink Patient Tobacco Use Status: Current everyday Tobacco user Tobacco use type: Cigarette Cigarettes Per Day: 3 Review of Systems Const All systems reviewed & are unremarkable except as noted in HPI and below ENT Denies dizziness Card Denies chest pain, Denies chest pain at rest, Denies chest pain with activity, Denies rapid heart rate, Denies pedal edema, Denies edema, Denies leg edema, Denies lightheadedness, Denies palpitations, Denies dyspnea, Denies dyspnea on exertion and Denies orthopnea Resp Denies cough, Denies dyspnea and Denies dyspnea on exertion GI Denies hematochezia and Denies change in stool character Musc Denies abnormal gait, Denies limited range of motion, Denies muscle cramps, Denies muscle weakness, Denies numbness, Denies radiating pain into limb, Denies stiffness and Denies tingling Neuro Denies abnormal gait, Denies dizziness, Denies numbness and Denies tingling Endo Denies palpitations Physical Exam Vital Signs: Last Vital Signs Pulse 71 11/10/24 13:50 BP 114/72 11/10/24 13:50 BMI result Body Mass Index 30.8 Const General: cooperative, healthy appearing, comfortable and no acute distress Orientation/consciousness: patient oriented x3 Neck Neck: Yes normal visual inspection Resp Effort & Inspection: normal respiratory effort Auscultation: clear to auscultation bilaterally, no rales, no rhonchi and no wheezes Cardio Jugular venous distension: no JVD Rate: regular rate Rhythm: regular rhythm Heart sounds: S1 normal heart sound present, S2 normal heart sound present, no gallops, no murmurs and no rubs Neuro General: patient oriented x3 Extrem General: Yes normal to inspection and No no pedal edema Psych Appearance: grossly normal Mental Status: mental status grossly normal Speech and movement: Normal speech and movement present Office Procedures EKG Details: Today, read by me sinus rhythm with LBBB, LVH with repolarization abnormality, rate 71, Qtc 447ms - overall no changes from 05/19/24 EKG 95976-[id number], Complete Assessment & Plan Assessment & Plan (1) Abnormal EKG: Code(s): R94.31 - Abnormal electrocardiogram [ECG] [EKG] Category: Medical Plan: EKG shows left bundle branch block and LVH. Wide QRS has been seen on EKGs in our system as far back as 2017. Last echocardiogram 06/13/2024 shows EF 60%, [id number] TR, no regional wall motion abnormality, normal LV wall thickness. Prior echo made mention of mild basal and septal asymmetric hypertrophy. He has no history of hypertension. He does have sleep apnea and u ses CPAP. He does have a history of mild obesity. Current BMI 30.8. No anginal symptoms reported though he is mostly sedentary. Nuclear stress test had been done 01/21/2022 showing no ischemia. EKGs unchanged since that time. Continue with risk factor modification. Cardiology follow-up in 1 year, sooner if needed. (2) LBBB (left bundle branch block): Code(s): I44.7 - Left bundle-branch block, unspecified Category: Medical Plan: Chronic on EKG (3) Preop cardiovascular exam: Code(s): Z01.810 - Encounter for preprocedural cardiovascular examination Category: Medical Plan: Preop for urological procedure, scheduled with Dr. Couch 11/28/2024. He can proceed with low to intermediate cardiac risk. Chronic, stable abnormal EKG findings. No known history of CAD. Call/consult Cardiology if needed. Plan Time spent on chart review, documentation, interview and assessment Coding Level of Care Code Est Pt Level 4 (20148) Complex EM visit Add On G2211 Diagnoses Abnormal EKG R94.31 LBBB (left bundle branch block) I44.7 Preop cardiovascular exam Z01.810 CPT Codes EKG - CPT: 65472-[id number], Complete ([id number]) Time Spent (min) 28
== END 2024-11-10 14:36 | disposition home or self-care (01) ==
LOC: HO.HCS 13:44
PROVIDERS: PCP General Practice; Visit Provider Nurse Practitioner Family
DX: R94.31 Abnormal electrocardiogram [ECG] [EKG] (principal); I44.7 Left bundle-branch block, unspecified; Z01.810 Encounter for preprocedural cardiovascular examination
CPT/HCPCS: 93010; 99214; G2211

== ENCOUNTER → 2024-11-10 13:43 | Outpatient (BNVA) | payer OTHER, SELFPAY | PROVIDERS: PCP General Practice; Visit Provider Nurse Practitioner Family | DX: Z01.810 Encounter for preprocedural cardiovascular examination (principal); R94.31 Abnormal electrocardiogram [ECG] [EKG]; I44.7 Left bundle-branch block, unspecified | CPT/HCPCS: 93005; 99212 ==

== ENCOUNTER 2024-11-28 11:32 | Day surgery (SDC) | payer OTHER, SELFPAY ==
--- OUTSIDE RECORDS SUMMARY | 2024-11-10 13:26 | XMS_ITS | Clinical Summary ---
Author Organization [address] [facility] Address [address] [place] [address] Phone Care Team Providers Care Before And After School Daycare Worker Name Role Phone Caryn Henning MD Primary Care Provider [phone] Allergies No known active allergies Medications carbamide [...] Influenza-like symptoms 09/17/2023 Phobic disorder 09/17/2023 Schizophrenia ([facility] V24, [facility] V28) 024 Sleep apnea 09/17/2023 Encounters Date Type Department Care Team Description 09/28/2024 10:00 AM EDT Office Visit Orthopedic Surgery - [address] [phone] Fransico Owusu, JAIME Acquired hammer [...] Care Team (Late st Contact Info) Description 12/21/2024 10:45 AM EDT Office Visit Orthopedic Surgery - [place] [address] [phone] Fransico Owusu DPAndi [address] [address] Health Maintenance Due Date Last Done Comments [...] ID:ICO Type:Not on file Address: [place] [address] [address] [address] Care Teams Before And After School Daycare Worker Relationship Specialty Start Date End Date Caryn Henning MD [address] [place] [phone] PCP - General 07/07/23
--- OUTSIDE RECORDS SUMMARY | 2024-11-10 13:26 | XMS_ITS | Encounter Summary ---
Author Organization [employer] Address [address] [facility] 7 [place] [address] Care Team Providers Care Supervisor Name Role Phone Caryn Henning MD Primary Care Provider [phone] Reason for Referral * Consultation (Routine) - Authorized Specialty Diagnoses / Procedures Referred By Contac t Referred To Contact Gastroenterology Diagnoses Edentulous Dysphagia, unspecified type Caryn Henning MD [address] [place] [phone] Phone: tel: fax: [facility] [address] [place] [address] 2nd Floor [place], [place] Phone: tel: fax: Referral ID Status Reason Start Date Expiration Date Visits Requested Visits Authorized [id number] Authorized Specialty Services Required 08/30/2024 08/30/2025 1 1 Encounter Details Date Type Department Care Team (Late st Contact Info) Description 08/30/2024 Orders Only [facility] [address] [place], [place] [phone] Caryn Henning MD [address] [place], [place] [phone] Edentulous (Primary Dx); Dysphagia, unspecified type Social [...] Description 11/17/2024 3:45 PM EDT Office Visit [facility] [address] [place] [address] Caryn Henning MD [address] [place] [address] Scheduled Referrals Name Type Priority Associated Diagnoses [...] PSA,Total (Free>4and<10) 0.86 0.00 - 4.00 ng/mL [facility] Comment:A Free PSA was not [...] Provider LAB BLOOD ORDERAB LES Final Result [facility] [address] [place] [address] [phone] documented in this encounter Visit Diagnoses Diagnosis Edentulous- Primary Anodontia Dysphagia, unspecified type documented in this encounter Additional Health Concerns Assessment Noted Time PHQ-9 Depression Total Score: 8 07/04/19 25 2:36 PM EDT documented as of this encounter Care Teams Supervisor Relationship Specialty Start Date End Date Caryn Henning MD [address] [place] [phone] PCP - General Family Medicine 10/28/20 documented as of this encounter
[2024-11-24 15:00] VITALS: BMI 30.8
--- NOTE | 2024-11-27 11:57 | HO.ANESPROP2 ---
Documented by User: Dede Carey NP 11/27/24 12:04 HPI - Anesthesia Eval Consult details Narrative: 64 yr old male for Cystoscopy, Ureteroroscopy, Retro, Laser,with stent placement,REMOVAL of nephrostomy Tube right DAISY on CPAP/long time smoker: Optimized by pulmonary for surgery per 11/07/24 addendum Left bundle branch block/abnormal EKG: Optimized by [facility] cards 11/10/24, low to intermediate cardiac risk. Chronic, stable abnormal EKG findings [facility] Active Problems Active Problems: All Active Problems (Updated 11/10/24 @ 14:47 by Bibiana Garg NP-C) Preop cardiovascular exam (Acute) Abnormal ultrasound of kidney (Acute) Family history of prostate cancer (Acute) Hydronephrosis, right (Acute) LBBB (left bundle branch block) (Acute) GERD (gastroesophageal reflux disease) (Acute) Urinary frequency (Acute) BPH (benign prostatic hyperplasia) (Acute) OAB (overactive bladder) (Acute) Screening PSA (prostate specific antigen) (Acute) Malnutrition (Acute) Asymmetric septal hypertrophy (Acute) Abnormal EKG (Acute) Malabsorption (Acute) Abdominal bloating (Acute) Nocturia more than twice per night (Acute) Urinary urgency (Acute) HTN (hypertension) (Acute) Smoker (Acute) Hepatitis (Acute) Syphilis (Acute) DAISY on CPAP (Acute) Obesity (BMI 30-39.9) (Acute) Past Medical History Medical History History of mental disorder Smoker HTN (hypertension) Hepatitis Syphilis Chronic GERD BPH w urinary obs/LUTS DAISY on CPAP Obesity (BMI 30-39.9) Family History Family History Father Heart disease Mother Diabetes Family history of problems with anesthesia: No Surgical History Surgical History Hx of cystoscopy History of bladder surgery History of laparotomy Hx of umbilical hernia repair History of Problems with Anesthesia: No Social History Social History Household Members: Other Alcohol intake: current Alcohol intake frequency: does not drink Patient Tobacco Use Status: Current everyday Tobacco user Tobacco use type: Cigarette Cigarettes Per Day: 2 Use of substances other than those prescribed or required for medical reasons: No Are you DNR?: No Advance Directives: No Advance Directives Information Provided: Yes Meds Allergies Allergy/AdvReac Type Severity Reaction Status Date / Time aspirin (ASPIRIN) Allergy Severe SWELLING, Verified 11/28/24 12:20 rash Penicillins (PENICILLINS) Allergy Severe CONVULSIONS Verified 11/28/24 12:20 Home Medications ?Medication ?Instructions ?Recorded ?Confirmed ?Last Taken ?Type simvastatin 80 mg tablet 80 mg PO BEDTIME 01/06/20 11/28/24 11/24/20 History cholecalciferol (vitamin D3) 50 50 mcg PO DAILY 11/24/21 11/28/24 Unknown History mcg (2,000 unit) capsule melatonin 5 mg tablet 10 mg PO BEDTIME 11/24/21 11/28/24 Unknown History risperidone 0.5 mg tablet 0.5 mg PO BID 12/10/21 11/28/24 Unknown History esomeprazole magnesium 20 mg 20 mg PO DAILY 01/14/23 11/28/24 Unknown History capsule,delayed release clonazepam 0.5 mg tablet 0.5 mg PO DAILY 05/26/23 11/28/24 Unknown History clonazepam 1 mg tablet 1 mg PO BEDTIME 05/26/23 11/28/24 Unknown History trazodone 50 mg tablet 50 mg PO BEDTIME PRN Insomnia 05/19/24 11/28/24 Unknown History ammonium lactate 12 % lotion 1 appl topical DAILY 08/24/24 11/28/24 Unknown History ketoconazole 2 % topical cream 1 appl topical DAILY 08/24/24 11/28/24 Unknown History ketotifen fumarate 0.025 % (0.035 1 drp ophthalmic (eye) DAILY PRN 08/24/24 11/28/24 Unknown History %) eye drops (Eye Itch Relief) swelling polyvinyl alcohol 1.4 % eye drops 1 drp ophthalmic (eye) BID 08/24/24 11/28/24 Unknown History zinc gluconate 50 mg tablet 50 mg PO DAILY 08/24/24 11/28/24 Unknown History Exam Height,Weight and Vital Signs: Height 5 ft 5 in Weight 84 kg Pertinent Lab Results Pertinent Lab Results: Laboratory Tests 08/30/24 08/30/24 10/05/24 09:08 09:09 08:39 WBC 9.6 RBC 4.89 Hgb 14.7 Hct 44.2 Plt Count 199 Sodium 132 L Potassium 4.1 BUN 12 Creatinine 0.93 Narrative Narrative: EKG 11/2024 EKG shows left bundle branch block and LVH. Wide QRS has been seen on EKGs as far back as 2016 at [facility] 06/13/24 Conclusions: - The left ventricular systolic function is normal. The calculated ejection fraction is 60% by biplane method. - There is mild to moderate tricuspid valve regurgitation. Assessment and Plan Final Anesthetic Review Family History of Problems with Anesthesia: No History of Problems with Anesthesia: No Documented by User: Venessa Mckenna MD 11/28/24 13:05 [facility] Past Medical History Medical History History of mental disorder Smoker HTN (hypertension) Hepatitis Syphilis Chronic GERD BPH w urinary obs/LUTS DAISY on CPAP Obesity (BMI 30-39.9) Family History Family History Father Heart disease Mother Diabetes Surgical History Surgical History Hx of cystoscopy History of bladder surgery History of laparotomy Hx of umbilical hernia repair Social History Social History Household Members: Other Alcohol intake: current Alcohol intake frequency: does not drink Patient Tobacco Use Status: Current everyday Tobacco user Tobacco use type: Cigarette Cigarettes Per Day: 2 Use of substances other than those prescribed or required for medical reasons: No Are you DNR?: No Advance Directives: No Advance Directives Information Provided: Yes Meds Allergies Allergy/AdvReac Type Severity Reaction Status Date / Time aspirin (ASPIRIN) Allergy Severe SWELLING, Verified 11/28/24 12:20 rash Penicillins (PENICILLINS) Allergy Severe CONVULSIONS Verified 11/28/24 12:20 Home Medications ?Medication ?Instructions ?Recorded ?Confirmed ?Last Taken ?Type simvastatin 80 mg tablet 80 mg PO BEDTIME 1011/28/24 11/24/20 History cholecalciferol (vitamin D3) 50 50 mcg PO DAILY 11/24/21 11/28/24 Unknown History mcg (2,000 unit) capsule melatonin 5 mg tablet 10 mg PO BEDTIME 11/24/21 11/28/24 Unknown History risperidone 0.5 mg tablet 0.5 mg PO BID 12/10/21 11/28/24 Unknown History esomeprazole magnesium 20 mg 20 mg PO DAILY 01/14/23 11/28/24 Unknown History capsule,delayed release clonazepam 0.5 mg tablet 0.5 mg PO DAILY 05/26/23 11/28/24 Unknown History clonazepam 1 mg tablet 1 mg PO BEDTIME 05/26/23 11/28/24 Unknown History trazodone 50 mg tablet 50 mg PO BEDTIME PRN Insomnia 05/19/24 11/28/24 Unknown History ammonium lactate 12 % lotion 1 appl topical DAILY 08/24/24 11/28/24 Unknown History ketoconazole 2 % topical cream 1 appl topical DAILY 08/24/24 11/28/24 Unknown History ketotifen fumarate 0.025 % (0.035 1 drp ophthalmic (eye) DAILY PRN 08/24/24 11/28/24 Unknown History %) eye drops (Eye Itch Relief) swelling polyvinyl alcohol 1.4 % eye drops 1 drp ophthalmic (eye) BID 08/24/24 11/28/24 Unknown History zinc gluconate 50 mg tablet 50 mg PO DAILY 08/24/24 11/28/24 Unknown History Exam Airway Mallampati Class: II (edentulous) TM Dist: >3cm Neck ROM: Full Loose/Missing/Broken Teeth: Yes, Upper and Lower Heart: RRR Lungs: CTA Assessment and Plan Assessment Anesthesia Assessment: Anesthesia Plan Discussed and Chart Reviewed Final Anesthetic Review NPO: Yes ASA Class: III Final Preanesthetic Review: Meds/Allgs Chart Reviewed, Consent Obtained/Reviewed and Anes Risks/Benef Reviewed Patient Risk: Intermediate Procedure Risk: Low Anesthetic Plan Anesthetic Plan: GA Disposition: Standard PACU
[2024-11-28] VITALS (8 sets, daily range): BP systolic 98–151; BP diastolic 59–86; PULSE 63–91; RESP 15–18; TEMP 36.1–36.3; O2SAT 95–98; BMI 30.4
--- NOTE | ~2024-11-28 | FL_ITS ---
EXAMINATION: XR FLUOROSCOPY WITH IMAGES CLINICAL INFORMATION: Right ureteroscopy and lithotripsy with stent placement. COMPARISON: 10/24/2024, 10/05/2024. TECHNIQUE: Fluoroscopy provided to: Dr. Goodman Fluoroscopy time: 24.4 seconds Dose: 6.63 mGy Images: 4 FINDINGS: 4 images obtained during right retrograde ureteroscopy and stent placement. Please refer to the full operative report for details. FL/FL guidance in OR IMPRESSION: Fluoroscopic guidance. Electronically signed by: Thierno Shaw MD 11/28/2024 03:14 PM EDT
[2024-11-28] MEDS: Lactated Ringers 1,000 ML 100 ML IVCONT (12:45)
--- NOTE | 2024-11-28 13:15 | P.OP_ITS ---
Operative Note Operative Note Date of Service: 11/28/24 Narrative: PreOperative Diagnosis:?? Obstructive uropathy, UPJ stone, Right, s/p right nephrostomy tube Post Operative Diagnosis:??Obstructive uropathy, UPJ stone, Right, s/p right nephrostomy tube Procedure: - Cystoscopy, right retrograde, right ureteroscopy laser lithotripsy stent insertion, 7 Zimbabwean by 26 cm Remove right neph tube Urethral dilation 14 fr -22 fr Surgeon:?Dr Shadi Goodman Anesthesia:? General Procedure: After informed consent was verified the patient was brought to the operating placed on the OR table in supine position.? General Anesthesia was administered per protocol.? The patient was placed in lithotomy position, prepped and draped in the usual sterile fashion.? Safety pause time-out and side of surgery confirmed.? Antibiotics confirmed. 2% lidocaine jelly 10 mL was passed transurethrally. A 22 Zimbabwean cystoscope was inserted transurethrally, again noted in the bulbous urethra short narrowing which would not allow the 22 rigid scope to pass. A guidewire was passed into the bladder. The bulbous urethra was dilated starting from a 14 Zimbabwean to a 22 Zimbabwean. The bladder was visualized.? Both ureteric orifices were in normal position. An open-ended ureteral catheter was passed into the right ureteral orifice and a retrograde examination was performed. The stone was noted. A guidewire was passed through the ureteral catheter into the kidney. The semi rigid ureteroscope was passed to the level of the stone in the ureter. Laser lithotripsy of the stone was done using the 365 fiber with a alternating pulsating and dusting setting. There was good fragmentation of the stone. The ureteroscope was removed. The cystoscope was passed over the safety guidewire. A?7 Zimbabwean by 26 cm stent was placed into the ureter and renal pelvis under a combination of fluoroscopy and direct visualization. The bladder was emptied.? The rigid cystoscope was removed. ? The right nephrostomy tube was then removed. The patient tolerated the procedure well and was brought to the recovery room in stable condition. Complications: None Drains: Ureteral stent as dictated above
--- NOTE | 2024-11-28 13:15 | MHC.SHP ---
Pre-Procedural Eval Section A - 24 Hr Update-Section A only Date of Service: 11/28/24 The patient is an INPATIENT: No The patient has been examined within 24 hours of the surgical procedure. The History & Physical has been completed within 30 days and I have reviewed it.: Yes Section B - Complete if H&P > 30 days Chief Complaint: Calculus right UPJ, Hydronephrosis Allergies: Allergies Allergy/AdvReac Type Severity Reaction Status Date / Time aspirin (ASPIRIN) Allergy Severe SWELLING, Verified 11/28/24 12:20 rash Penicillins (PENICILLINS) Allergy Severe CONVULSIONS Verified 11/28/24 12:20 Plan Diagnosis/Plan: Unchanged I have reviewed the history and physical and performed a pertinent physical examination on my patient. No changes have occurred unless specified. Cystoscopy right ureteroscopy laser lithotripsy, possible right ureteral stent, possible removal right nephrostomy tube. Time Spent With Patient Time: Total time managing care of this patient today ____ minutes.
== END 2024-11-28 16:16 | disposition home or self-care (01) ==
PROVIDERS: PCP General Practice; Visit Provider Urology
PROC: (CPT 52356; principal; 2024-11-28 14:20)
DX: N20.1 Calculus of ureter (principal); N13.30 Unspecified hydronephrosis; N13.9 Obstructive and reflux uropathy, unspecified; N40.1 Benign prostatic hyperplasia with lower urinary tract symptoms; R35.0 Frequency of micturition; N32.81 Overactive bladder; Z93.6 Other artificial openings of urinary tract status; Z80.42 Family history of malignant neoplasm of prostate; I51.7 Cardiomegaly; I10 Essential (primary) hypertension; G47.33 Obstructive sleep apnea (adult) (pediatric); K75.9 Inflammatory liver disease, unspecified; K21.9 Gastro-esophageal reflux disease without esophagitis; R94.31 Abnormal electrocardiogram [ECG] [EKG]; I44.7 Left bundle-branch block, unspecified; Z86.59 Personal history of other mental and behavioral disorders; A53.9 Syphilis, unspecified; E66.9 Obesity, unspecified; Z68.30 Body mass index [BMI] 30.0-30.9, adult; Z99.89 Dependence on other enabling machines and devices; Z79.899 Other long term (current) drug therapy; Z88.0 Allergy status to penicillin; Z88.6 Allergy status to analgesic agent; Z98.890 Other specified postprocedural states; F17.210 Nicotine dependence, cigarettes, uncomplicated
CPT/HCPCS: 52356; 50389; C1758; C1769; C2617; J0131; J1956; J2003; J2704; J3010; Q9967

== ENCOUNTER → 2024-11-28 11:32 | Outpatient (BNV) | payer OTHER, SELFPAY | PROVIDERS: PCP General Practice; Visit Provider Urology | DX: N20.0 Calculus of kidney (principal); Z43.6 Encounter for attention to other artificial openings of urinary tract | CPT/HCPCS: 50389; 52356; 74420 ==

== ENCOUNTER 2024-12-18 07:35 | Outpatient (REF) | payer OTHER, SELFPAY ==
[2024-12-18 10:35] LABS: Vitamin B12 349 pg/mL (200-900)
== END 2024-12-18 07:36 | disposition home or self-care (01) ==
LOC: HO.LAB 07:35
PROVIDERS: PCP General Practice; Visit Provider Nurse Practitioner
DX: K21.9 Gastro-esophageal reflux disease without esophagitis (principal); G20.C Parkinsonism, unspecified; F02.80 Dementia in other diseases classified elsewhere, unspecified severity, without behavioral disturbance, psychotic disturbance, mood disturbance, and anxiety; R29.898 Other symptoms and signs involving the musculoskeletal system; Z79.899 Other long term (current) drug therapy
CPT/HCPCS: 36415; 82607; 99202; 99212

== ENCOUNTER 2024-12-18 07:35 | Outpatient (AMB) | payer OTHER, SELFPAY ==
--- OUTSIDE RECORDS SUMMARY | 2024-12-18 07:39 | XMS_ITS | Encounter Summary ---
Author Organization [employer] Address [address] [facility] 7 [place] [address] Care Team Providers Care Welding Machine Operator Helper Gas Name Role Phone Caryn Henning MD Primary Care Provider [phone] Encounter Details Date Type Department Care Team (Late st Contact Info) Description 12/21/2023 Orders Only [facility] [address] [place], [place] [phone] Caryn Henning MD [address] [place], [place] [phone] Social History Tobacco Use Types Packs/Day Years [...] as of this encounter Plan of Treatment Not on file documented as of this encounter Visit Diagnoses Not on filedocumented in this encounter Additional Health Concerns Assessment Noted Time PHQ-9 Depression Total Score: 0 07/02/19 24 10:52 AM EDT documented as of this encounter Care Teams Welding Machine Operator Helper Gas Relationship Specialty Start Date End Date Caryn Henning MD [address] [place] [phone] PCP - General Family Medicine 10/28/20 documented as of this encounter
--- OUTSIDE RECORDS SUMMARY | 2024-12-18 07:39 | XMS_ITS | Encounter Summary ---
Author Organization [employer] Address 75 [facility] 7 [place] [address] Care Team Providers Care Environmental Field Technician Name Role Phone Caryn Henning MD Primary Care Provider [phone] Reason for Visit * Reason Onset Date Comments Nurse Triage 08/26/2023 Encounter Details Date Type Department Care Team (Late st Contact Info) Description 08/26/2023 Telephone [facility] MED[facility]INE [address] [place], [place] [phone] Caryn Henning MD [address] [place], [place] [phone] Nurse Triage Social History Tobacco Use Types [...] acuity questions The caller accepted this outcome Latvian speaker documented in this encounter Plan of Treatment Not on file documented as of this encounter Visit Diagnoses Not on filedocumented in this encounter Additional Health Concerns Assessment Noted Time PHQ-9 Depression Total Score: 0 07/02/19 24 10:52 AM EDT documented as of this encounter Care Teams Environmental Field Technician Relationship Specialty Start Date End Date Caryn Henning MD [address] [place] [address] PCP - General Family Medicine 10/28/20 documented as of this encounter
--- OUTSIDE RECORDS SUMMARY | 2024-12-18 07:39 | XMS_ITS | Clinical Summary ---
Author Organization 175 [facility] Address [address] [place] [address] Phone Care Team Providers Care Clean Room Technician Name Role Phone Caryn Henning MD Primary Care Provider [phone] Allergies No known active allergies Medications carbamide [...] Influenza-like symptoms 09/17/2023 Phobic disorder 09/17/2023 Schizophrenia ([facility] V24, [facility] V28) 024 Sleep apnea 09/17/2023 Encounters Date Type Department Care Team Description 09/28/2024 10:00 AM EDT Office Visit Orthopedic Surgery - [address] [address] Fransico Owusu, JAIME Acquired hammer [...] AM EDT Office Visit Orthopedic Surgery - [place] [address] [phone] Fransico Owusu, DPAndi [address] [phone] Health Maintenance Due Date Last Done Comments [...] ID:[id number] Group ID:[id number] Type:Not on file Address: [place] [address] [address] [address] Care Teams Clean Room Technician Relationship Specialty Start Date End Date Caryn Henning MD [address] [place] [address] PCP - General 07/07/23
--- OUTSIDE RECORDS SUMMARY | 2024-12-18 07:39 | XMS_ITS | Encounter Summary ---
Author Organization [employer] Address 75 [facility] 7 [place] [address] Care Team Providers Care Director Of Housing And Energy Services Name Role Phone Caryn Henning MD Primary Care Provider [phone] Reason for Referral * Consultation (Routine) - Authorized Specialty Diagnoses / Procedures Referred By Contac t Referred To Contact Gastroenterology Diagnoses Edentulous Dysphagia, unspecified type Caryn Henning MD [address] [place] [address] Phone: tel: fax: [facility] [address] [place] [address] 2nd Floor [place], [place] Phone: tel: fax: Referral ID Status Reason Start Date Expiration Date Visits Requested Visits Authorized [id number] Authorized Specialty Services Required 08/30/2024 08/30/2025 1 1 Encounter Details Date Type Department Care Team (Late st Contact Info) Description 08/30/2024 Orders Only [facility] [address] [place], [place] [phone] Caryn Henning MD [address] [place], [place] [phone] Edentulous (Primary Dx); Dysphagia, unspecified type Social [...] as of this encounter Plan of Treatment Scheduled Referrals Name Type Priority Associated Diagnoses [...] PSA,Total (Free>4and<10) 0.86 0.00 - 4.00 ng/mL [facility] Comment:A Free PSA was not p [...] Provider LAB BLOOD ORDERAB LES Final Result [facility] [address] [place] [phone] documented in this encounter Visit Diagnoses Diagnosis Edentulous- Primary Anodontia Dysphagia, unspecified type documented in this encounter Additional Health Concerns Assessment Noted Time PHQ-9 Depression Total Score: 8 07/04/19 25 2:36 PM EDT documented as of this encounter Care Teams Director Of Housing And Energy Services Relationship Specialty Start Date End Date Caryn Henning MD [address] [place] [address] PCP - General Family Medicine 10/28/20 documented as of this encounter
--- OUTSIDE RECORDS SUMMARY | 2024-12-18 07:39 | XMS_ITS | Encounter Summary ---
Author Organization [employer] Address [address] [place] [address] 7 [place] [address] Care Team Providers Care Steam Presser Name Role Phone Caryn Henning MD Primary Care Provider [phone] Reason for Visit * Reason Comments Med Refill Encounter Details Date Type Department Care Team (Late st Contact Info) Description 11/30/2022 Refill [facility] MEDICINE [address] [place], [place] [phone] Caryn Henning MD [address] [place], [place] [phone] Social History Tobacco Use Types Packs/Day Years [...] on filedocumented in this encounter Care Teams Steam Presser Relationship Specialty Start Date End Date Caryn Henning MD [address] [place], [place] [phone] PCP - General Family Medicine 10/28/20 documented as of this encounter
--- OUTSIDE RECORDS SUMMARY | 2024-12-18 07:39 | XMS_ITS | Encounter Summary ---
Author Organization [employer] Address 75 [facility] 7 [place] [address] Care Team Providers Care Salesperson Meats Name Role Phone Caryn Henning MD Primary Care Provider [phone] Encounter Details Date Type Department Care Team (Late st Contact Info) Description 01/21/2024 Orders Only [facility] MEDICINE [address] [place], [place] [phone] Caryn Henning MD [address] [place], [place] [phone] Social History Tobacco Use Types Packs/Day Years [...] documented as of this encounter Care Teams Salesperson Meats Relationship Specialty Start Date End Date Caryn Henning MD [address] [place] [address] PCP - General Family Medicine 10/28/20 documented as of this encounter
--- OUTSIDE RECORDS SUMMARY | 2024-12-18 07:39 | XMS_ITS | Encounter Summary ---
Author Organization [employer] Address 75 [facility] 7t [place] [address] Care Team Providers Care Director Of Content Marketing Name Role Phone Caryn Henning MD Primary Care Provider [phone] Encounter Details Date Type Department Care Team (Late st Contact Info) Description 04/29/2023 Telephone [facility] MEDICINE [address] [place], [place] [phone] Caryn Henning MD [address] [place], [place] [phone] Social History Tobacco Use Types Packs/Day Years [...] on filedocumented in this encounter Care Teams Director Of Content Marketing Relationship Specialty Start Date End Date Caryn Hennign MD [address] [place] [address] PCP - General Family Medicine 10/28/20 documented as of this encounter
--- OUTSIDE RECORDS SUMMARY | 2024-12-18 07:39 | XMS_ITS | Encounter Summary ---
Author Organization [employer] Address 75 [facility] 7 [place] [address] Care Team Providers Care Meat Supervisor Name Role Phone Caryn Henning MD Primary Care Provider [phone] Reason for Visit * Reason Onset Date Comments Appointment Request 10/13/2023 Encounter Details Date Type Department Care Team (Late st Contact Info) Description 10/13/2023 Telephone [facility] MEDICINE [address] [place], [place] [phone] Caryn Henning MD [address] [place], [place] [phone] Appointment Request Social History Tobacco Use Types [...] Miscellaneous Notes * Telephone Encounter - Robin Garrick - 10/13/2023 1:50 PM EDT Tc from pt requesting to reschedule OV from 10/04. Family Counselor attempted to schedule but found no availability, pt requested for message to be sent stating needs appt as soon as possible. Please contact pt at [phone]. documented in this encounter Plan of Treatment Not on file documented as of this encounter Visit Diagnoses Not on filedocumented in this encounter Additional Health Concerns Assessment Noted Time PHQ-9 Depression Total Score: 0 07/02/19 24 10:52 AM EDT documented as of this encounter Care Teams Meat Supervisor Relationship Specialty Start Date End Date Caryn Henning MD [address] [place] [address] PCP - General Family Medicine 10/28/20 documented as of this encounter
--- OUTSIDE RECORDS SUMMARY | 2024-12-18 07:39 | XMS_ITS | Clinical Summary ---
Author Organization [facility] Address [address] [facility] [place] [address] [place] [address] Care Team Providers Care Drawing In Hand Name Role Phone Caryn Henning MD Primary Care Provider [phone] Allergies Active Allergy Reactions Criticality Noted Date [...] eyes). 12 mL 11 09/13/19 24 Active melatonin 5 MG tablet TAKE 2 TABLETS BY MOUTH DAILY AT BEDTIME 60 tablet 11 12/09/19 24 Active traZODone (Desyrel) 50 MG tablet Take 1 tablet (50 mg) by mouth at bedtime. 90 tablet 3 12/21/19 24 Active Vitamin A Palmitate 3 MG (55518 UT) tabletIndications :Vitamin A deficiency Take 1 tablet by mouth Once per day. 30 tablet 02/17/20 24 Active cholecalciferol (D3 Super Strength) 50 MCG (2000 UT) capsule Take 1 capsule (50 mcg) by mouth Once per day. 90 capsule 3 04/21/19 25 Active zinc gluconate 50 MG tabletIndications :Zinc deficiency Take 1 tablet (50 mg) by mouth Once per day. 90 tablet 3 04/21/19 25 2025 Active beta carotene (vitamin A) 3 MG (14132 UT) capsule Take 1 capsule by mouth Once per day. 02/17/20 24 Active Skin Protectants, Misc. (Minerin Creme) cream APPLY TOPICALLY TO THE AFFECTED AREA(S) EVERY DAY NEEDED FOR DRY SKIN 113 g 3 06/17/19 25 Active polyvinyl alcohol (Liquifilm Tears) 1.4 % ophthalmic solution INSTILL 1 DROP IN EACH EYE TWICE DAILY 15 mL 3 07/20/19 25 Active ketoconazole (NIZOral) 2 % creamIndications: Rash Apply small amount to areas of face with rash two times daily for 2 weeks or until symptoms subside 15 g 08/15/19 25 Active esomeprazole (NexIUM) [address] capsule TAKE 1 CAPSULE BY MOUTH EVERY DAY 1 HOUR BEFORE A MEAL DO NOT BREAK, CRUSH, DISSOLVE OR CHEW 90 capsule 1 08/30/19 25 Active Eye Itch Relief 0.035 % solutionIndicatio ns:Allergic conjunctivitis of left eye INSTILL 1 DROP INTO THE AFFECTED EYE(S) EVERY DAY NEEDED FOR SWELLING (EYELID) 10 mL 1 09/28/19 25 Active levoFLOXacin (Levaquin) 500 MG tablet 10/25/19 25 Active oxyCODONE (Roxicodone) 5 MG immediate release tablet 10/25/19 25 Active tamsulosin (Flomax) 0.4 MG 24 hr capsule 10/25/19 25 Active ammonium lactate (Lac-Hydrin) 12 % lotionIndications :Dry skin Apply topically if needed for dry skin. 225 g 2 11/18/19 25 Active simvastatin (Zocor) 80 MG tablet TAKE 1 TABLET BY MOUTH EVERY NIGHT 90 tablet 3 12/06/19 25 Active simvastatin (Zocor) 80 MG tablet TAKE 1 TABLET BY MOUTH EVERY NIGHT (for cholesterol) 90 tablet 3 11/08/192024 Discontinued Active Problems Problem Noted Date Diagnosed [...] Plan (09/14/2022 12:43 PM EDT): Gave patient [facility] contact information and instructed them to call GI and to be persistent. Edentulous 06/26/2022 Assessment & Plan (09/14/2022 12:42 PM EDT): Patient still waiting on BIO[employer]FORMAT[employer] SCIENTIST videofluoroscopic swallow study. Fatigue 03/05/2022 Gastroesophageal reflux [...] Date Diagnosed Date Resolved Date Influenza-like symptoms 03/05/2022 0805/2023 COVID-19 05/05/2021 11/15/2023 Encounters Date Type Department Care Team Description 12/04/2024 Refill [facility] [address] [place] [address] Caryn Henning MD 11/28/2024 Orders Only [facility] External Provider, [facility] 11/17/2024 3:45 PM EDT Office Visit [facility] [address] [place] [address] Caryn Henning MD Memory loss (Primary Dx); Blurry vision, bilateral; Dry skin 11/17/2024 Travel 11/15/2024 Telephone [facility] [address] [place] [address] Jamal Kim MA chart prep 11/08/2024 Patient Outreach [facility] [address] [place] [phone] Caryn Henning MD Pre-visit Planning ((Unable to reach for PVP screening and or LVM) to be completed in office) 10/12/[address] [address] Caryn Henning MD Durable Medical Equipment ([employer]: Disposable Bed Pads) 10/12/[address] [address] Caryn Henning MD Durable Medical Equipment ([employer]: Disposable bed pads ) 10/05/2024 Orders Only GENERIC EXTERNAL DATA DEPARTMENT Provider, Generic External Data 10/05/2024 Refill [facility] [address] [place] [phone] Haylee Hernandez NP Dry skin 10/04/[address] [address] Caryn Henning MD Durable Medical Equipment ([employer] DME Request) 09/27/[address] [address] Caryn Henning MD Allergic conjunctivitis of left eye from Last 3 Months Immunizations Immunization Administration Dates Next Due Influenza Injectable Quadriv alant Preservative Free IIV4 MDCK 04/13/2018 Influenza injectable quadriv alent preservative free 12/21/2022,01/29/2021,04/04/2020 Influenza, seasonal, injecta ble, preservative free 04/21/2024 Moderna Covid-19 Vaccine 12+ 08/13/2020 Pfizer Covid-19 Vaccine 12+ 04/21/2024,0 07/02/2023,06/04/2021,2020,07/09/2020 Pfizer Covid-19 Vaccine 5-11 06/04/2021 Pneumococcal Conjugate PCV 13 04/13/2018 Pneumococcal Conjugate PCV 20 07/02/2023 Tdap 07/02/2023 Zoster, Recombinant 09/04/2024,07/03/2024 Family History Medical History Relation Name Comments [...] Answer Date Recorded Patient Health Questionnaire-9 Score 9 11/17/2024 Patient Health Questionnaire-9 Score 9 11/17/2024 Last PHQ-9: Questionnaire Data Not on file 0 11/17/2024 Housing Stability Answer Date Recorded What is [...] Date Recorded Patient Health Questionnaire-2 Score 3 11/17/2024 Internet Access Answer Date Recorded Internet Access [...] Sign Reading Time Taken Comments Blood Pressure 110/80 11/17/2024 3:55 PM EDT Pulse 88 11/17/2024 3:55 PM EDT Temperature 37 C (98.6 F) 11/17/2024 3:55 PM EDT Respiratory Rate 20 11/17/2024 3:55 PM EDT Oxygen Saturation 97% 08/14/2024 4:47 PM EDT Inhaled Oxygen Concentration - - Weight 87.6 kg (193 lb 3.2 oz) 11/17/2024 3:55 P M EDT Height 165.1 cm (5' 5 ) 11/17/2024 3:55 PM EDT Body Mass Index 32.15 11/17/2024 3:55 PM EDT Plan of Treatment Health Maintenance Due Date Last Done Comments CT Colonography 1960 Colonoscopy 1960 FIT 1960 Sigmoidoscopy 1960 Influenza Vaccine (#1) 2024 , 12/21/2022, 01/29/2021, Additional history exists Depression Monitoring 05/20/2025 11/17/2024, 025 FOBT 06/29/2025 06/29/2024 SDOH Screening 07/03/2025 07/03/2024 Alcohol/Substance Use Screening 07/05/2025 07/05/2024 Disability Screening 11/17/2025 11/17/2024 Tobacco Screening 11/22/2025 11/22/2024 Colorectal Cancer Screening 06/30/2027 FIT DNA/Cologuard 06/30/2027 06/29/2024 Lipid Panel 08/30/2029 08/30/2024, 09/04, 09/30/2021, Additional history exists DTaP/Tdap/Td Vaccines (2 - Td or Tdap) [...] Procedure Name Priority Date/Time Associated Diagnosis Comments FL GUIDANCE IN OR Routine 11/28/2024 1:3 0 PM EDT IR NEPHROSTOGRAM Routine 10/24/2024 11:5 1 AM EDT FL GUIDANCE IN OR Routine 10/24/2024 11: [address] UROGRAM WO CONTRAST Routine 10/06/2024 9:05 PM EDT CREATININE, SERUM Routine 10/05/2024 8:3 9 AM EDT UREA NITROGEN (BUN) Routine 10/05/2024 8 :39 AM EDT LIPID PANEL, STANDARD Routine 08/30/2024 9:09 AM EDT Other hyperlipidemia LAB COLOGUARD COLON CANCER SCREEN Routine 06/29/2024 6:20 AM EDT Screening for colon cancer ZZZ HISTORICAL HEPATITIS C AB W/REFL TO HCV RNA, QN, PCR Routine 07/10/2021 10:35 AM EDT HIV 1/2 ANTIGEN/ANTIBODY, FOURTH GENERATION W/RFL Routine 07/10/2021 10:35 AM EDT from Last 3 Months or Most Recently Relevant to Health Maintenance Results * FL Guidance in OR (11/28/2024 1:30 PM EDT) Only the most recent of2 resultswithin the time period is included. Anatomical Region Laterality Modality X-Ray Angiograph y 11/28/2024 1:30 PM EDT Narrative 11/28/2024 3:17 PM EDT [place] [address] Fluoroscopy Report Signed Patient: John Aparicio MR#: [id number] : 1960 Acct:[id number] Age/Sex: 64 / M ADM Date: 11/28/24 Loc: HO.[facility] Attending Dr: Shadi Goodman MD Ordering Physician: Shadi Goodman MD Date of Service: 11/28/24 Procedure(s): FL guidance in OR Accession Number(s): [id number] cc: Shadi Goodman MD; Caryn Henning EXAMINATION: XR FLUOROSCOPY WITH IMAGES CLINICAL INFORMATION: Right ureteroscopy and lithotripsy with stent placement. COMPARISON: 10/24/2024, 10/05/2024. TECHNIQUE: Fluoroscopy provided to: Dr. Goodman Fluoroscopy time: 24.4 seconds Dose: 6.63 mGy Images: 4 FINDINGS: 4 images obtained during right retrograde ureteroscopy and stent placement. Please refer to the full operative report for details. FL/FL guidance in OR IMPRESSION: Fluoroscopic guidance. Electronically signed by: Thierno Shaw MD 11/28/2024 03:14 PM EDT RP Dictated By: Thierno Shaw MD Signed By: <Electronically signed by Thierno Shaw MD in OV> 11/28/24 1514 DD/ 1330 TD/TT: 11/28/24 1450 Escalator Mechanic: Procedure Note Donotuseinterpreter, Image - 11/28/2024 [place] [address] Fluoroscopy Report Signed Patient: Joe Aparicio#: [id number] : 1960Acct:[id number] Age/Sex: 64 / MADM Date: 11/28/24 Loc: .[facility] Attending Dr: Shadi Goodman MD Ordering Physician: Shadi Goodman MD Date of Service: 11/28/24 Procedure(s): FL guidance in OR Accession Number(s): [id number] cc: Shadi Goodman MD; Caryn Henning EXAMINATION: XR FLUOROSCOPY WITH IMAGES CLINICAL INFORMATION: Right ureteroscopy and lithotripsy with stent placement. COMPARISON: 10/24/2024, 10/05/2024. TECHNIQUE: Fluoroscopy provided to: Dr. Goodman Fluoroscopy time: 24.4 seconds Dose: 6.63 mGy Images: 4 FINDINGS: 4 images obtained during right retrograde ureteroscopy and stent placement. Please refer to the full operative report for details. FL/FL guidance in OR IMPRESSION: Fluoroscopic guidance. Electronically signed by: Thierno Shaw MD 11/28/2024 03:14 PM EDT RP Dictated By: Thierno Shaw MD Signed By: <Electronically signed by Thierno Shaw MD in OV> 11/28/24 1514 DD/ 1330 TD/TT: 11/28/24 1450 Escalator Mechanic: us [facility] External Provider IMG IR PROCEDURES Final Result * IR Nephrostogram (10/24/2024 11:51 AM EDT) Anatomical Region Laterality Modality Body X-Ray Angiograph y 10/24/2024 11:5 1 AM EDT Narrative 10/24/2024 4:49 PM EDT [address] [address] Interventional Radiology Rpt Signed Patient: John Aparicio MR#: [id number] : 1960 Acct:[id number] Age/Sex: 64 / M ADM Date: 10/24/24 Loc: .[facility] Attending Dr: Shadi Goodman MD Ordering Physician: Shadi Goodman MD Date of Service: 10/24/24 Procedure(s): IR nephrostomy Accession Number(s): [id number] cc: Shadi Goodman MD; Caryn Henning EXAMINATION: Ultrasound fluoroscopy guided right nephrostomy catheter insertion. CLINICAL INDICATION: UPJ stone. Unable to perform retrograde pyelogram by referring physician. COMPARISON: CT abdomen pelvis 10/05/2024 TECHNIQUE: After explaining ultrasound fluoroscopy guided insertion of right nephrostomy catheter procedure, benefits and risk to patient's brother Denis, a written consent was obtained in presence of stem processing machine operator. Patient was placed prone on fluoroscopy table and pulmonary ultrasound imaging was obtained right posterior chest. An optimal site was selected and marked on the skin. The marked site was obtained and draped in usual sterile manner. 1% lidocaine was administered at puncture site. A small thin needle was inserted from the skin into the right kidney several times. On observing urine return, 18 wire was placed through the needle into the pelvis on fluoroscopy and the needle withdrawn. A 5 Senegalese dilator was placed over the thin guidewire and the guidewire was removed. A 0.035 J-wire is placed through the 5 Senegalese dilator and the dilator removed. A 8.5 Senegalese APD catheter with stiffener was inserted over the guidewire and placed in kidney pelvis. The stiffener and guidewire was removed. A pigtail was formed. Contrast was injected the pigtail and single image obtained for documentation. The catheter was connected to a drainage bag wire connecting cannula. Patient tolerated procedure extremely well. IV conscious sedation utilized during the exam and patient monitored by our nursing and IR radiologist. FINDINGS/ IR/IR nephrostomy IMPRESSION: On preliminary ultrasound there is moderate right hydronephrosis. 6.5 Senegalese percutaneous nephrostomy catheter was placed in right kidney pelvis under ultrasound and fluoroscopy guidance. There is no bleeding visualized within the catheter or drainage bag. Fluoroscopy time: 1.6 minutes. Dose 29.76 mGy. Sedation: 40 minutes Electronically signed by: Max Rivas MD 10/24/2024 04:46 PM EDT RP Dictated By: Max Rivas MD Signed By: <Electronically signed by Max Rivas MD in OV> 10/24/24 1646 DD/ 1151 TD/TT: 10/24/24 1459 Escalator Mechanic: [facility] Procedure Note Donotuseinterpreter, Image - 10/24/2024 [place] [address] Interventional Radiology Rpt Signed Patient: Joe Aparicio#: [id number] : 1960Acct:[id number] Age/Sex: 64 / MADM Date: 10/24/24 Loc: HO.[facility] Attending Dr: Shadi Goodman MD Ordering Physician: Shadi Goodman MD Date of Service: 10/24/24 Procedure(s): IR nephrostomy Accession Number(s): [id number] cc: Shadi Goodman MD; Caryn Henning EXAMINATION: Ultrasound fluoroscopy guided right nephrostomy catheter insertion. CLINICAL INDICATION: UPJ stone. Unable to perform retrograde pyelogram by referring physician. COMPARISON: CT abdomen pelvis 10/05/2024 TECHNIQUE: After explaining ultrasound fluoroscopy guided insertion of right nephrostomy catheter procedure, benefits and risk to patient's brother Denis, a written consent was obtained in presence of stem processing machine operator. Patient was placed prone on fluoroscopy table and pulmonary ultrasound imaging was obtained right posterior chest. An optimal site was selected and marked on the skin. The marked site was obtained and draped in usual sterile manner. 1% lidocaine was administered at puncture site. A small thin needle was inserted from the skin into the right kidney several times. On observing urine return, 18 wire was placed through the needle into the pelvis on fluoroscopy and the needle withdrawn. A 5 Senegalese dilator was placed over the thin guidewire and the guidewire was removed. A 0.035 J-wire is placed through the 5 Senegalese dilator and the dilator removed. A 8.5 Senegalese APD catheter with stiffener was inserted over the guidewire and placed in kidney pelvis. The stiffener and guidewire was removed. A pigtail was formed. Contrast was injected the pigtail and single image obtained for documentation. The catheter was connected to a drainage bag wire connecting cannula. Patient tolerated procedure extremely well. IV conscious sedation utilized during the exam and patient monitored by our nursing and IR radiologist. FINDINGS/ IR/IR nephrostomy IMPRESSION: On preliminary ultrasound there is moderate right hydronephrosis. 6.5 Senegalese percutaneous nephrostomy catheter was placed in right kidney pelvis under ultrasound and fluoroscopy guidance. There is no bleeding visualized within the catheter or drainage bag. Fluoroscopy time: 1.6 minutes. Dose 29.76 mGy. Sedation: 40 minutes Electronically signed by: Max Rivas MD 10/24/2024 04:46 PM EDT Dictated By: Max Rivas MD Signed By: <Electronically signed by Max Rivas MD in OV> 10/24/24 1646 DD/ 1151 TD/TT: 10/24/24 1459 Escalator Mechanic: JORGE ALBERTO [facility] External Provider IMG IR PROCEDURES Final Result * CT Urogram w/o Contrast (10/06/2024 9:05 PM EDT) Anatomical Region Laterality Modality Ureter, Upper urinary tract Comp uted Tomography 10/06/2024 9:05 PM EDT Narrative 10/06/2024 9:06 PM EDT [address] [address] [address] Scan Report Signed Patient: John Aparicio MR#: [id number] : 1960 Acct:[id number] Age/Sex: 64 / M ADM Date: 10/05/24 Loc: HO.CT Attending Dr: Shadi Goodman MD Ordering Physician: Shadi Goodman MD Date of Service: 10/05/24 Procedure(s): CT urogram Accession Number(s): [id number] cc: Shadi Goodman MD; Caryn Henning Report Number: [id number]: Total DLP = 736.00 mGy-cm CLINICAL HISTORY: N13.30 - Unspecified hydronephrosis CT abdomen and pelvis without/with contrast Comparison: None provided Findings: Lung bases clear. No acute bony abnormalities. Liver and spleen within normal limits. Pancreas and adrenal glands unremarkable. Gallbladder is within normal limits. 13 mm proximal right ureteral stone with hydronephrosis. Large nonobstructing right stones also noted. Bilateral renal cysts without left renal stones. Abdominal aorta is normal in caliber. No free fluid or adenopathy in the pelvis. No diverticulitis. Appendix unremarkable. Impression: 13 mm proximal right ureteral stone with hydronephrosis This document has been electronically signed by: Leroy Castillo MD on 10/06/2024 21:05:04 Dictated By: Leroy Castillo MD Signed By: <Electronically signed by Leroy Castillo MD in OV> 10/06/242105 DD/ 04 TD/TT: 10/06/242104 Escalator Mechanic: Procedure Note Donotuseinterpreter, Image - 10/06/[address] [address] [address] Scan Report Signed Patient: Naina AparicioR#: [id number] : 1960Acct:[id number] Age/Sex: 64 / MADM Date: 10/05/24 Loc: HO.CT Attending Dr: Shadi Goodman MD Ordering Physician: Shadi Goodman MD Date of Service: 10/05/24 Procedure(s): CT urogram Accession Number(s): [id number] cc: Shadi Goodman MD; Caryn Henning Report Number: [id number]: Total DLP = 736.00 mGy-cm CLINICAL HISTORY: N13.30 - Unspecified hydronephrosis CT abdomen and pelvis without/with contrast Comparison: None provided Findings: Lung bases clear. No acute bony abnormalities. Liver and spleen within normal limits. Pancreas and adrenal glands unremarkable. Gallbladder is within normal limits. 13 mm proximal right ureteral stone with hydronephrosis. Large nonobstructing right stones also noted. Bilateral renal cysts without left renal stones. Abdominal aorta is normal in caliber. No free fluid or adenopathy in the pelvis. No diverticulitis. Appendix unremarkable. Impression: 13 mm proximal right ureteral stone with hydronephrosis This document has been electronically signed by: Leroy Castillo MD on 10/06/2024 21:05:04 Dictated By: Leroy Castillo MD Signed By: <Electronically signed by Leroy Castillo MD in OV> 10/06/242105 DD/ 04 TD/TT: 10/06/242104 Escalator Mechanic: [facility] External Provider IMG CT PROCEDURES Edited Result - Final * Creatinine, Serum (10/05/2024 8:39 AM EDT) Creatinine, Serum 0.93 0.5 - 1.4 mg/dL [facility] Estimated Glomerular Filt Rate >60 [facility] Comment:Chronic Kidney Disea se: Estimated GFR < 60 mL/min/1.03m8Vbybko Kidney Disease: Estimated GFR < 15 mL/min/1.73m2 10/05/2024 8:39 AM EDT 10/05/2024 8:39 AM EDT Generic External Data Provider LAB BLOOD ORDERAB LES Final Result [facility] [address] [place] [address] [phone] * BUN (Blood Urea Nitrogen) (10/05/2024 8:39 AM EDT) Urea Nitrogen (BUN) 12 9 - 16 mg/dL [facility] 10/05/2024 8:39 AM EDT 10/05/2024 8:39 AM EDT us Generic External Data Provider LAB BLOOD ORDERAB LES Final Result [facility] [address] [place] [address] [phone] * (ABNORMAL) Lipid Panel, Standard (08/30/2024 9:09 AM EDT) Triglycerides 86 <150 mg/dL [facility] Comment:Desirable Triglyceri de: less than 150 mg/dLBorderline High Triglyceride 150-199 mg/dLHigh Triglyceride: 200-499 mg/dLVery High Triglyceride: greater than or equal to 5OO mg/dL Cholesterol 123 <200 mg/dL [facility] Comment:Desirable Cholestero l: less than 200 mg/dLBorderline High Cholesterol: 200-239 mg/dLHigh Cholesterol: greater than 239 mg/dL LDL Cholesterol Calculated 67 <100 mg/dL [facility] Comment:Desirable LDL: less than 100 mg/dLNear Optimal/Above Optimal LDL: 110- 129 mg/dLBorderline High LDL: 130-159 mg/dLHigh LDL: 160-189 mg/dLVery High LDL: greater than or equal to 190 mg/dL HDL Cholesterol 39(L) >40 mg/dL [facility] Comment:Desirable HDL: great er than 40 mg/dL Note: This HDL assay may give artificially low results in patients with liver disease. Blood Venous blood specimen / Unknown 08/30/2024 9:09 AM EDT 08/30/2024 11:10 AM EDT us Caryn Henning MD LAB BLOOD ORDERABLES Final Res ult [facility] [address] [place] [address] [phone] * Cologuard?? colon cancer screening (06/29/2024 6:20 AM EDT) Cologuard Result Negative Negative 07/18/19 4:44 AM EDT [facility] (CLIA #:[id number]) Comment: NEGATIVE TEST RESULT. A negative Cologuard result indicates a low likelihood that a colorectal cancer (CRC) or advanced adenoma (adenomatous polyps with more advanced pre-malignant features) is present. The chance that a person with a negative Cologuard test has a colorectal cancer is less than 1 in 1500 (negative predictive value >99.9%) or has an advanced adenoma is less than 5.3% (negative predictive value 94.7%). These data are based on a prospective cross-sectional study of 10,000 individuals at average risk for colorectal cancer who were screened with both Cologuard and colonoscopy. (Thierry Nunn et al, N Engl J Med 2014;370(14):8134-6893) The normal value (reference range) for this assay is negative. COLOGUARD RE-SCREENING RECOMMENDATION: Periodic colorectal cancer screening is an important part of preventive healthcare for asymptomatic individuals at average risk for colorectal cancer. Following a negative Cologuard result, the [place] [employer] and U.S. Multi-Society Task Force screening guidelines recommend a Cologuard re-screening interval of 3 years. References: [place] [employer] Guideline for Colorectal Cancer Screening: https://www.cancer.org/cancer/jfwbh-chweyn-atgzhj/lfdfuwelx-vdsjivylk-uelqecn/ac s-rec ommendations.html.; Angel DK, Malorie CR, Jocelyne OdonnellK, Colorectal Cancer Screening: Recommendations for Physicians and Patients from the U.S. Multi-Society Task Force on Colorectal Cancer Screening , Am J Gastroenterology 2017; 112:9990-5519. TEST DESCRIPTION: Composite algorithmic analysis of stool DNA-biomarkers with hemoglobin immunoassay. Quantitative values of individual biomarkers are not reportable and are not associated with individual biomarker result reference ranges. Cologuard is intended for colorectal cancer screening of adults of either sex, 45 years or older, who are at average-risk for colorectal cancer (CRC). Cologuard has been approved for use by the U.S. FDA. The performance of Cologuard was established in a cross sectional study of average-risk adults aged 50-84. Cologuard performance in patients ages 45 to 49 years was estimated by sub-group analysis of near-age groups. Colonoscopies performed for a positive result may find as the most clinically significant lesion: colorectal cancer [4.0%], advanced adenoma (including sessile serrated polyps greater than or equal to 1cm diameter) [20%] or non- advanced adenoma [31%]; or no colorectal neoplasia [45%]. These estimates are derived from a prospective cross-sectional screening study of 10,000 individuals at average risk for colorectal cancer who were screened with both Cologuard and colonoscopy. (Thierry Andrea al, N Engl J Med 2014;370(14):4306-5015.) Cologuard may produce a false negative or false positive result (no colorectal cancer or precancerous polyp present at colonoscopy follow up). A negative Cologuard test result does not guarantee the absence of CRC or advanced adenoma (pre-cancer). The current Cologuard screening interval is every 3 years. ([place] [employer] and U.S. Multi-Society Task Force). Cologuard performance data in a 10,000 patient pivotal study using colonoscopy as the reference method can be accessed at the following location: www.BiOM/results. Additional description of the Cologuard test process, warnings and precautions can be found at www.[employer].com. Stool specimen (specimen) 06/29/2024 6:20 AM EDT 07/01/2024 10:11 AM EDT Caryn Henning MD LAB MOLECULAR DIAGNOSTICS JEFFREY SHAH Final Result [facility] (CLIA #:[id number]) [address] [place] [address], * (ABNORMAL) HEPATITIS C AB W/REFL TO HCV RNA, QN, PCR (07/10/2021 10:35 AM EDT) HEPATITIS C ANTIBODY REACTIVE( A) NON-REACT JAUN [facility] INDEX 3.21(H) <1.00 [facility] Comment: Based on this result, the sample will be tested for HCV RNA by a Nucleic Acid Amplification Test (NAAT) to determine if the patient has a current active infection. 07/10/2021 10:3 5 AM EDT Yolanda Salgado MD HISTORICAL/NON ORDERA BLE LABS Final Result Performing Organization Address [facility] Co de Phone Number [facility] [address] * HIV 1/2 ANTIGEN/ANTIBODY,FOURTH GENERATION W/RFL (07/10/2021 10:35 AM EDT) HIV-1/2 ANTIGEN AND ANTIBODIES, 4TH GENERATION W/ REFLEX NON-REACT JAUN NON-REACT JAUN [facility] Comment: HIV-1 antigen and HIV-1/HIV-2 antibodies were not detected. There is no laboratory evidence of HIV infection. PLEASE NOTE: This information has been disclosed to you from records whose confidentiality may be protected by state law. If your state requires such protection, then the state law prohibits you from making any further disclosure of the information without the specific written consent of the person to whom it pertains, or as otherwise permitted by law. A general authorization for the release of medical or other information is NOT sufficient for this purpose. For additional information please refer to http://education.[employer].Iterable/faq/VPT072 (This link is being provided for informational/ educational purposes only.) The performance of this assay has not been clinically validated in patients less than 2 years old. 07/10/2021 10:3 5 AM EDT us Yolanda Salgado MD LAB BLOOD ORDERABLES Final Result Performing Organization Address [facility] Co de Phone Number [facility] [address] from Last 3 Months or Most Recently Relevant to Health Maintenance Insurance [facility] [employer] [employer] < 65 [place] [id number] Care Teams Drawing In Hand Relationship Specialty Start Date End Date Caryn Henning MD [address] [place] [id number] PCP - General Family Medicine 10/28/20
--- OUTSIDE RECORDS SUMMARY | 2024-12-18 07:39 | XMS_ITS | Encounter Summary ---
Author Organization [facility] Address [address] [facility] [address] [place] [address] Care Team Providers Care Mba Internship Name Role Phone Caryn Henning MD Primary Care Provider [phone] Encounter Details Date Type Department Care Team (Late st Contact Info) Description 05/19/2023 Telephone [facility] MEDICINE [address] [place], [place] [phone] Caryn Henning MD [address] [place], [place] [phone] Social History Tobacco Use Types Packs/Day Years [...] on filedocumented in this encounter Care Teams Mba Internship Relationship Specialty Start Date End Date Caryn Henning MD [address] [place] [address] PCP - General Family Medicine 10/28/20 documented as of this encounter
--- OUTSIDE RECORDS SUMMARY | 2024-12-18 07:39 | XMS_ITS | Encounter Summary ---
Author Organization [facility] Address [address] [facility] [address] [place] [address] Care Team Providers Care Yarn Conditioner Name Role Phone Caryn Henning MD Primary Care Provider [phone] Reason for Visit * Reason Onset Date Comments Med Refill 03/20/2024 Encounter Details Date Type Department Care Team (Late st Contact Info) Description 03/20/2024 Telephone [facility] MEDICINE [address] [place], [place] [phone] Caryn Henning MD [address] [place], [place] [phone] Med Refill Social History Tobacco Use Types [...] PM EST Vitamin D was sent to [facility] on 12/07/23 #90 with 3 refills and Oxybutynin isn't prescribed by PCP. * Telephone Encounter - Jacinta Manzanares - 03/20/2024 12:31 PM EST TC from pt requesting medication refill. Medications needing refill : D3 Super Strength 50 MCG (1999 UT) capsule oxybutynin XL (Ditropan-XL) 5 MG 24 hr tablet To be sent to: [facility] - [place], [place] - [address] [facility] documented in this encounter Plan of Treatment Not on file documented as of this encounter Visit Diagnoses Not on filedocumented in this encounter Additional Health Concerns Assessment Noted Time PHQ-9 Depression Total Score: 0 07/02/19 24 10:52 AM EDT documented as of this encounter Care Teams Yarn Conditioner Relationship Specialty Start Date End Date Caryn Henning MD [address] [place] [address] PCP - General Family Medicine 10/28/20 documented as of this encounter
--- NOTE | 2024-12-18 07:42 | MHC.OFFVIS ---
Vital Signs 12/18/24 08:00 Height 5 ft 7 in Weight 189 lb BMI 29.6 BP 118/82 Blood Pressure Location Rt brachial Position Sitting Respiration 16 Pulse 61 Pulse Oximetry (%) 96 Intake Visit Reasons: ENP: Dementia/ Memory Loss Survey Field Technician Required: Yes Survey Field Technician Services: Survey Field Technician Present Survey Field Technician Name: Dov Cruz ID [id number] Information Interpreted: non-clinical & clinical Information Coordinator: Information Coordinator Present Accompanied by: Brother Allergies aspirin (ASPIRIN) Allergy (Severe, Verified 12/18/24 10:38) SWELLING, rash Penicillins (PENICILLINS) Allergy (Severe, Verified 12/18/24 10:38) CONVULSIONS Medication List - Last Reconciled 12/18/24 by Mariel Martinez, RICK ammonium lactate 12% 1 appl topical DAILY cholecalciferol (vitamin D3) 50 mcg PO DAILY clonazepam 1 mg PO BEDTIME clonazepam 0.5 mg PO DAILY diaper,brief,adult,disposable (Depend Fit-Flex Underwear) As directed four daily esomeprazole magnesium 20 mg PO DAILY ketoconazole 2% 1 appl topical DAILY ketotifen fumarate 0.025%(0.035%) (Eye Itch Relief) 1 drp ophthalmic (eye) DAILY PRN melatonin 10 mg PO BEDTIME polyvinyl alcohol 1.4% 1 drp ophthalmic (eye) BID risperidone 0.5 mg PO BID simvastatin 80 mg PO BEDTIME tamsulosin (Flomax) 0.4 mg PO BEDTIME trazodone 50 mg PO BEDTIME PRN zinc gluconate 50 mg PO DAILY HPI Comments Details: John is a 64-year-old male patient with a past medical history of GERD, pre-diabetes, hyperlipidemia, schizophrenia, severe sleep apnea with cpcp use, vitamin-A deficiency, and tobacco use who is presenting today for a memory evaluation. According to referral notes from primary care, Psychiatry noted that they would like him to see neurology to rule out dementia. John presents to the clinic today with his brother Denis. He is currently living with his brother Denis and [id number]. According to John today, he has noticed a change in his memory over the course of the past 2.5 years. His brother Denis also agrees with that timeline. He has been followed by psychiatry for many years and is currently taking risperidone 0.5mg twice daily for moods as well as clonazepam for his anxiety. He estimates that he has been on risperidone for about 5 years. He has been experiencing bilateral upper extremity involuntary movements. Father with history of alzheimhers. Lived until 94. Age of onset of dementia unknown. 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 Memory evaluation: Onset of memory changes:2.5 years Rate of progression:Rapid Cognitive: Difficulty remembering upcoming events: Yes Getting lost: Yes Difficulty keeping track of time: Yes Difficulty finding appropriate words: Yes Difficulty making decisions or problem-solving:Yes, but his brother feels that this is in part with his psychiatric history Functional: Difficulty writing checks, paying bills: Yes, his brother assists with this Difficulty driving a car: Does not drive a car Difficulty shopping alone: Does not go shopping alone Difficulty performing household tasks: He has limited responsibility around the home Difficulty managing own medications: Yes, his [id number] manages his medications Difficulty pursuing hobbies/leisure activities: Listening to [employer] music and prayer Change in gait: John feels that he walks faster lately but his brother Denis feels that he has more recently been slower Social activities: Difficulty holding conversation: Yes compared to about 3 years ago Decreased social activity with family/friends: Yes Less cooperative: Yes Less aware of others feeling/her full: Yes Less concerned about bathing/dressing/grooming: Needs reminders and supervision for bathing and grooming Behavioral: Sad, depressed:Patient denies but brother Denis has noted some depressed moods Anxious, worried:Yes Inpatient, fidgety:Yes Acts impulsively, disinhibited: Yes Change appetite or weight: Needs supervision as he can eat too fast and in the past has choked due to overstuffing his mouth. He generally will eat at least 3 meals per day. Change in sleep pattern, daytime fatigue: Has history of DAISY and insomnia. Takes melatonin and trazodone but also uses a cpap nightly Hallucinations: None that he is aware of or that his brother is alerted to. ON LICENSE OF [facility] Medical History Depression History of mental disorder Smoker HTN (hypertension) (~12/18/24) Hepatitis Syphilis Chronic GERD BPH w urinary obs/LUTS DAISY on CPAP Obesity (BMI 30-39.9) Surgical History Hx of cystoscopy History of bladder surgery History of laparotomy Hx of umbilical hernia repair Family History Father Heart disease Prostate cancer Alzheimer disease Mother Diabetes Social History Household Members: Other Alcohol intake: former Patient Tobacco Use Status: Former Tobacco user Tobacco use type: Cigarette Cigarettes Per Day: 2 Review of Systems Const Reports as per HPI Neuro Reports Abnormal speech present (hypophonia ) Physical Exam Exam Exam: MOCA: MOCA total:02/01 Executive:04/09 Namin Attention:04/10 Language:0/3 Abstraction:[0/2 Delayed recall:0/5 Orientation:08/08 Vital Signs: Last Vital Signs Pulse 61 12/18/24 08:00 Resp 16 12/18/24 08:00 BP 118/82 12/18/24 08:00 Pulse Ox 96 12/18/24 08:00 BMI result Body Mass Index 29.6 Const General: cooperative, healthy appearing and comfortable Nutritional Appearance: average body habitus Orientation/consciousness: oriented to person and oriented to place Limitations: altered mental status and behavioral limitations HEENT Head: Yes normal to inspection Neuro General: oriented to person, oriented to place, moves all extremities and deep tendon reflexes 2+ bilaterally Cognition (Neuro): abnormal cognition Speech: Abnormal speech present (hypophonia ) and Other speech findings present (Neuro) Motor exam (neuro): Tremors during motor activity present bilateral upper extremity resting tremor and pill-rolling tremor, Lower lip/jaw and Abnormal muscle tone present bilateral upper extremity with cogwheel rigidity, left lower extremity with cogwheel rigidity Sensory Exam: double simultaneous stimulation for sensation normal Deep tendon reflexes (DTR's): Right triceps reflex intensity grade: 2+, Left triceps reflex intensity grade: 2+, Rt Biceps (C5, C6): 2+, Left biceps reflex intensity grade: 2+, Right brachioradialis reflex intensity grade: 2+, Left brachioradialis reflex intensity grade: 2+, Right patellar reflex intensity grade: 2+, Left patellar reflex intensity grade: 2+, Right ankle reflex intensity grade: 2+ and Left ankle reflex intensity grade: 2+ Coordination: [id number] test normal Psych Appearance: well kempt Speech and movement: Other speech and movement exam findings present (Psych) (hypophonia ) Affect: Blunted affect present Assessment & Plan Assessment & Plan (1) Memory change: Code(s): R41.3 - Other amnesia Category: Medical (2) Resting tremor: Code(s): G25.2 - Other specified forms of tremor Category: Medical (3) Parkinsonism: Code(s): G20.C - Parkinsonism, unspecified Category: Medical (4) Rigidity: Code(s): R29.898 - Other symptoms and signs involving the musculoskeletal system Category: Medical Plan John is a 64-year-old male patient with a past medical history of GERD, pre-diabetes, hyperlipidemia, schizophrenia, severe sleep apnea with cpcp use, vitamin-A deficiency, and tobacco use who is presenting today for a memory evaluation. John does exhibit some difficulties with memory though his psychiatric history may be playing a role in this. His [place] scoring was 10/30 with use of a director medical surgical. His physical exam displayed some obvious parkinsonism though it is not clear at this point whether or not this is drug-induced from his risperidone versus possible PD. He has not yet had labs including a B12 or pTAU/amyloid ratio. He did however have labs including a TSH level in August of 2024 which was normal and an RPR in November of 2020 which was negative. We will perform the B12 and pTAU/amyloid ratio as well as perform a DaTSCAN to rule out PD versus drug-induced parkinsonism. Pending results of the initial evaluation, could consider an MRI of the brain without contrast to evaluate for such things as CVA or other signs for vascular dementia. Could also consider an amyloid PET scan to evaluate for possible Alzheimer's disease. -Labs:B12 pTau/amyloid ratio -Eber scan -Consider MRI brain without contrast -Consider PET scan pending initial workup -Follow-up in 2 months 70 minutes spent with patient and brother including time reviewing prior medical records, in-depth history taking, in-depth exam, as well as explanation of plan moving forward all with use of a director medical surgical. Orders: Orders ABeta 42/40 p-tau 217 Eval Today R41.3 - Other amnesia Vitamin B12 Today R41.3 - Other amnesia DaTscan Today R41.3 - Other amnesia Coding Level of Care Code New Pt Level 5 (40068) Diagnoses Memory change R41.3 Resting tremor G25.2 Parkinsonism G20.C Rigidity R29.898
[2024-12-18 08:00] VITALS: BP 118/82; PULSE 61; RESP 16; O2SAT 96; BMI 29.6
== END 2024-12-18 09:12 | disposition home or self-care (01) ==
LOC: HO.HSM 07:36
PROVIDERS: PCP General Practice; Referring Provider General Practice; Visit Provider Nurse Practitioner
DX: R41.3 Other amnesia (principal); G25.2 Other specified forms of tremor; G20.C Parkinsonism, unspecified; R29.898 Other symptoms and signs involving the musculoskeletal system
CPT/HCPCS: 99205

== ENCOUNTER 2024-12-18 10:23 | Outpatient (AMB) | payer OTHER, SELFPAY ==
--- NOTE | 2024-12-18 10:29 | MHC.OFFVIS ---
Vital Signs 12/18/24 10:34 Height 5 ft 7 in Weight 180 lb 12.465 oz BMI 28.3 BP not taken reason Medical Reason Intake Visit Reasons: 1 yr follow up Intake Note: John presents in a 1 year follow up CC: States he is here as a follow up today - no concerns. 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 He was doing better with the PPI BID Had no issues with dysphagia or odynophagia. he had EGD and colon 2016- gastritis with h pylori which was treated, colon was normal also has abn LFT, but f/u LFT 12/2018 were normal, also LFt nml 10/2019 h pylori BALWINDER revealed he is cured from H pylori he had CT 02/2019--paraumbilical hernia and renal stone, obstructive, liver looked normal he saw surgery and urology for henria repair and prostate sisues He required nexium treatment due to GERD sx, denied dysphagia He had been doing well w treatment b12 was 312 INTERIM: He has no complaints still taking PPI- esomeprazole 20 mg daily appetite is good stools are normal, no blood no abdominal pain he denies any bloating or gas sx he is here with his brother Denis today EXAM: GENERAL: The patient is well developed and nontoxic. VITAL SIGNS:see workflow HEENT: Nonicteric sclerae, PERRLA, EOMI. Oropharynx clear. Moist mucous membranes. Conjunctivae appear well perfused. No thyroid mass. CHEST: Chest wall is nontender. HEART: Regular rate and rhythm without murmurs. LUNGS: Clear to auscultation bilaterally. ABDOMEN: Soft, positive bowel sounds, nontender, no organomegaly.no flank tenderness SKIN: No rash, no excessive bruising, petechiae, or purpura. NEUROLOGIC: Cranial nerves II-XII intact without motor/sensory deficit. Assessments 1. Chronic GERD - controlled 1/ conts to do well with PPI, refilled 2/ cont with MV and Vit D PFSH Medical History Depression History of mental disorder Smoker HTN (hypertension) (~12/18/24) Hepatitis Syphilis Chronic GERD BPH w urinary obs/LUTS DAISY on CPAP Obesity (BMI 30-39.9) Surgical History Hx of cystoscopy History of bladder surgery History of laparotomy Hx of umbilical hernia repair Family History Father Heart disease Prostate cancer Alzheimer disease Mother Diabetes Social History Household Members: Other Alcohol intake: former Patient Tobacco Use Status: Former Tobacco user Tobacco use type: Cigarette Cigarettes Per Day: 2 Physical Exam Vital Signs: BMI result Body Mass Index 28.3 Assessment & Plan Assessment & Plan (1) GERD (gastroesophageal reflux disease): Code(s): K21.9 - Gastro-esophageal reflux disease without esophagitis Category: Medical Plan: as above Medications: New esomeprazole magnesium 20 mg PO DAILY 90 caps 4RF cholecalciferol (vitamin D3) 50 mcg PO DAILY 30 caps 3RF Coding Level of Care Code Est Pt Level 3 (81016) Diagnoses GERD (gastroesophageal reflux disease) K21.9
[2024-12-18 10:34] VITALS: BMI 28.3
== END 2024-12-18 11:12 | disposition home or self-care (01) ==
LOC: HO.HGI 10:23
PROVIDERS: PCP General Practice; Visit Provider Internal Medicine Gastroenterology
DX: K21.9 Gastro-esophageal reflux disease without esophagitis (principal)
CPT/HCPCS: 99213

== ENCOUNTER 2025-01-01 15:14 | Outpatient (AMB) | payer OTHER, SELFPAY ==
--- NOTE | 2025-01-01 15:22 | MHC.OFFVIS ---
Intake Visit Reasons: Poss stent removal Intake Note: Patient presents today for a possible stent removal Urology Meds: Tamsulosin Allergies to Antibiotic: No Known Allergies Blood Thinner: None Lot #: [id number] Exp: 09/12/27 Lecturer Of Portuguese Required: Yes Lecturer Of Portuguese Services: Lecturer Of Portuguese Present Lecturer Of Portuguese Name: [id number] Accompanied by: Other Relationship Allergies aspirin (ASPIRIN) Allergy (Severe, Verified 01/01/25 15:22) SWELLING, rash Penicillins (PENICILLINS) Allergy (Severe, Verified 01/01/25 15:22) CONVULSIONS Medication List - Last Reconciled 01/01/25 by Shadi Goodman MD ammonium lactate 12% 1 appl topical DAILY cholecalciferol (vitamin D3) 50 mcg PO DAILY clonazepam 1 mg PO BEDTIME clonazepam 0.5 mg PO DAILY diaper,brief,adult,disposable (Depend Fit-Flex Underwear) As directed four daily esomeprazole magnesium 20 mg PO DAILY fluoxetine 20 mg PO QAM ketoconazole 2% 1 appl topical DAILY ketotifen fumarate 0.025%(0.035%) (Eye Itch Relief) 1 drp ophthalmic (eye) DAILY PRN lanolin zdgxlar-bw-t.pet-ceres (Minerin Creme topical) appl topical DAILY PRN melatonin 10 mg PO BEDTIME polyvinyl alcohol 1.4% 1 drp ophthalmic (eye) BID risperidone 0.5 mg PO BID simvastatin 80 mg PO BEDTIME tamsulosin (Flomax) 0.4 mg PO BEDTIME trazodone 50 mg PO BEDTIME PRN vitamin A 1 cap PO DAILY zinc gluconate 50 mg PO DAILY HPI Comments Details: 01/01/25--John is here for right ureteral stent removal. Procedure performed without difficulty. He will need follow-up renal ultrasound. We will also refer to nephrology for help with management of kidney stones. 10/19/24-John is a 64-year-old male history of schizophrenia disorder. The patient is here with his brother. He has been followed by urology office for BPH and overactive bladder symptoms. The patient was prescribed oxybutynin for urinary symptoms of frequency and urgency. He was seen last in the office 08/24/2024 at that time I reviewed renal ultrasound from 07/14/2024 which noted moderate right hydronephrosis CT was ordered for further evaluation. Results: 10/05/24-CT Urogram- 13 mm proximal right ureteral stone with hydronephrosis History of Present Illness - The patient is a 64-year-old male presenting with kidney stones and hydronephrosis. - The patient has a history of benign prostatic hyperplasia and overactive bladder, managed with medication adjustments, including the replacement of oxybutynin with mirabegron 50 mg. - A CT scan on 10/05/24 revealed a 13 mm proximal right ureteral stone causing hydronephrosis. - A renal ultrasound on 07/14/24 noted moderate right hydronephrosis, prompting further evaluation with a CT scan. - The patient's PSA level was 0.86 as of 08/30/24 Results - CT Scan (10/05/24): 13 mm proximal right ureteral stone with hydronephrosis. - Renal Ultrasound (07/14/24): Moderate right hydronephrosis. - PSA Level (08/30/24): 0.86, within normal range. Plan- cystoscopy right ureteral stent for right kidney decompression and we will follow-up for stone management. Monitor PVR. Consider alpha-chencho on follow-up 08/24/24--John is a 64-year-old male history of schizophrenia disorder. The patient is here with his brother. He has been followed by urology office for BPH and overactive bladder symptoms. The patient was prescribed oxybutynin for urinary symptoms of frequency and urgency. He has a history of GreenLight laser in 2017. He is here post renal ultrasound. Findings note right hydronephrosis right stones right kidney stones lower pole bladder ultrasound notes bilateral ureteral jets prostate is not well visualized. I have discussed further evaluation with CT urogram we will check BUN Results: - 07/14/24--Moderate right hydronephrosis and associated cortical thinning. Multiple nonobstructing calculi at the lower pole measuring up to . - Urinalysis today: Within normal limits, negative for blood 12/30/23--John is a 63-year-old male who presents today to the office for a follow-up. h/o Schizophrenia disorder he is here with his caregiver. Certified cooler tender present. History of GreenLight laser [address] Granger for BPH. The caregiver states that the patient continues to drink a lot of water. He goes to the bathroom frequently but does not leak urine. I will continue oxybutynin 5 mg daily. Urinalysis: Essentially unremarkable. Renal US not done. Review of tests-- PSA - 07/02/23--0.55 ng/mL Cystoscopy - 2019 no evidence of regrowth PSA 07/2020 --0.4 PFSH Medical History Depression History of mental disorder Smoker HTN (hypertension) (~12/18/24) Hepatitis Syphilis Chronic GERD BPH w urinary obs/LUTS DAISY on CPAP Obesity (BMI 30-39.9) Surgical History Hx of cystoscopy History of bladder surgery History of laparotomy Hx of umbilical hernia repair Family History Father Heart disease Prostate cancer Alzheimer disease Mother Diabetes Social History Household Members: Other Alcohol intake: former Patient Tobacco Use Status: Former Tobacco user Tobacco use type: Cigarette Cigarettes Per Day: 2 Office Procedures Cystoscopy Consent Discussed risk and benefit or proposed procedure with the patient. Information consent for procedure given to the patient. Discussed technical aspects, risks, benefits and alternatives in full. Addressed all of the patient's questions and concerns regarding the procedure. The patient demonstrated knowledge and understanding. They wish to proceed with this procedure. Preparation The patient was prepped in the usual manner. A home mission worker was present and in the room. Genitalia was prepped with betadine solution in a sterile manner. Lidocaine Jelly 2% was placed into the urethra and 16Fr flexible Olympus cystoscope was inserted into the meatus after adequate lubrication. Procedure Time out per protocol performed. The flexible cystoscope is passed transurethrally: Cystoscopy findings: mild edema ureteral orifice which is expected, distal end of ureteral stent visualized. The grasping forceps were used and the stent was removed without difficulty. [id number] with stent removal DISPOSABLE SCOPE URO-G FLEXIBLE SCOPE Procedure code (CPT) selection complete Office Meds lidocaine HCl 2 % mucosal jelly in applicator Performing Provider: Shaid Goodman MD Performing Location: [facility] Administered by: Tanmay Elliott LPN on 01/01/25 15:36 Dose Route Admin Location Dispensed Lot Number Expiration Date NDC Records Supervisor 10 mL intra-urethral 20 mL nitrofurantoin monohydrate/macrocrystals 100 mg capsule Performing Provider: Shadi Goodman MD Performing Location: [facility] Administered by: Tanmay Elliott LPN on 01/01/25 15:36 Dose Route Admin Location Dispensed Lot Number Expiration Date NDC Records Supervisor 100 mg PO 1 cap phenazopyridine 200 mg tablet Performing Provider: Shadi Goodman MD Performing Location: [facility] Administered by: Tanmay Elliott LPN on 01/01/25 15:36 Dose Route Admin Location Dispensed Lot Number Expiration Date NDC Records Supervisor 200 mg PO 1 tab Assessment & Plan Assessment & Plan (1) Kidney stone: Code(s): N20.0 - Calculus of kidney Category: Medical Plan renal US, referral to Nephrology Orders: Orders US renal BI 4 Weeks N20.0 - Calculus of kidney AMB Cystoscopy Today N13.30 - Unspecified hydronephrosis AMB Urinalysis Automated Today Z13.9 - Encounter for screening, unspecified Referrals Nephrology Referral N20.0 - Calculus of kidney Patient Instructions: This note is constructed using voice recognition software. While every effort has been made to ensure accuracy hide curer errors may have been included. Coding Level of Care Code Procedure Only Diagnoses Kidney stone N20.0 CPT Codes Cystoscopy - CPT: [id number] with stent removal ([id number])
--- OUTSIDE RECORDS SUMMARY | 2025-01-01 17:19 | XMS_ITS | Encounter Summary ---
Author Organization [employer] Address [address] [place] [address] Care Team Providers Care Telephone Operator Receptionist Name Role Phone Caryn Henning MD Primary Care Provider [phone] Reason for Referral * Consultation (Routine) - Closed Specialty Diagnoses / Procedures Referred By Contac t Referred To Contact Gastroenterology Diagnoses Edentulous Dysphagia, unspecified type Caryn Henning MD [address] [place] [id number] Phone: tel: fax: [facility] [address] [place] [address] Drive [address] Floor [place], [place] Phone: tel: fax: Referral ID Status Reason Start Date Expiration Date V isits Requested Visits Authorized [id number] Closed Specialty Services Required 08/30/2024 08/30/2025 1 1 Encounter Details Date Type Department Care Team (Late st Contact Info) Description 08/30/2024 Orders Only [facility] MEDICINE [address] [place], [place] [phone] Caryn Henning MD [address] [place], [place] [phone] Edentulous (Primary Dx); Dysphagia, unspecified type Social [...] PSA,Total (Free>4and<10) 0.86 0.00 - 4.00 ng/mL [facility] Comment:A Free PSA was not p [...] Provider LAB BLOOD ORDERAB LES Final Result [facility] [address] [place] [phone] documented in this encounter Visit Diagnoses Diagnosis Edentulous- Primary Anodontia Dysphagia, unspecified type documented in this encounter Additional Health Concerns Assessment Noted Time PHQ-9 Depression Total Score: 8 07/04/19 25 2:36 PM EDT documented as of this encounter Care Teams Telephone Operator Receptionist Relationship Specialty Start Date End Date Caryn Henning MD [address] [place] [address] PCP - General Family Medicine 10/28/20 documented as of this encounter
--- OUTSIDE RECORDS SUMMARY | 2025-01-01 17:19 | XMS_ITS | Clinical Summary ---
Author Organization [employer] Address 75 [facility] 7t [place] [address] Care Team Providers Care Dairy Husbandry Worker Name Role Phone Caryn Henning MD Primary Care Provider [phone] Allergies Active Allergy Reactions Criticality Noted Date [...] 24 Active Vitamin A Palmitate 3 MG (89347 UT) tabletIndications :Vitamin A deficiency Take 1 [...] Active beta carotene (vitamin A) 3 MG (89356 UT) capsule Take 1 capsule by mouth [...] cigarettes per day 07/05/2024 Other hypertrophic cardiomyopathy (CMS/HCC) 04/06 Assessment & Plan (04/26/2024 2:12 PM EST): [...] (09/14/2022 12:43 PM EDT): Gave patient [facility] contact information and instructed them to call GI and to be persistent. Edentulous 06/26/2022 Assessment & Plan (09/14/2022 12:42 PM EDT): Patient still waiting on DISTILLERY SUPERVISOR videofluoroscopic swallow study. Fatigue 03/05/2022 Gastroesophageal reflux [...] Encounters Date Type Department Care Team Description 12/26/2024 Telephone [facility] [address] [place] [address] Caryn Henning MD Durable Medical Equipment ([employer]: ) 12/18/2024 Orders Only GENERIC EXTERNAL DATA DEPARTMENT Provider, Generic External Data 12/04/2024 Refill [facility] [address] [place] [address] Caryn Henning MD 11/28/2024 Orders Only [facility] External Provider, [facility] 11/17/2024 3:45 PM EDT Office Visit [facility] [address] [place] [address] Caryn Henning MD Memory loss (Primary Dx); Blurry vision, bilateral; Dry skin 11/17/2024 Travel 11/15/2024 Telephone [facility] [address] [place] [address] Jamal Kim MA chart prep 11/08/2024 Patient Outreach [address] [address] Caryn Henning MD Pre-visit Planning ((Unable to reach for PVP screening and or LVM) to be completed in office) 10/12/[address] [address] Caryn Henning MD Durable Medical Equipment ([employer] One Care: Disposable Bed Pads) 10/12/[address] [address] Caryn Henning MD Durable Medical Equipment ([employer]: Disposable bed pads ) 10/05/2024 Orders Only GENERIC EXTERNAL DATA DEPARTMENT Provider, Generic External Data 10/05/2024 Refill [facility] [address] [place] [phone] Haylee Hernandez NP Dry skin 10/04/[address] [address] Caryn Henning MD Durable Medical Equipment ([employer] DME Request) from Last 3 Months Immunizations Immunization Administration [...] housing situation today? I have gabriellaangie ramirez 07/03/[address] you [...] DNA/Cologuard 06/30/2027 06/29/2024 Lipid Panel 08/30/2029 08/30/2024, 0611/2021, 09/30/2021, Additional history exists DTaP/Tdap/Td Vaccines (2 [...] Procedure Name Priority Date/Time Associated Diagnosis Comments VITAMIN B12 Routine 12/18/2024 9:27 AM EDT FL GUIDANCE IN OR Routine 11/28/2024 1:3 [...] Recently Relevant to Health Maintenance Results * Vitamin B12 (12/18/2024 9:27 AM EDT) Vitamin B12 349 200 - 900 pg/mL [facility] Comment:NORMAL 200-900 PG/ML INDETERMINATE 160-199 PG/ML DEFICIENT < 160 PG/ML 12/18/2024 9:27 AM EDT 12/18/2024 9:27 AM EDT us Generic External Data Provider LAB BLOOD ORDERAB LES Final Result [facility] [address] [place] [phone] * FL Guidance in OR (11/28/2024 1:30 PM EDT) Only the most recent of2 resultswithin the time period is included. Anatomical Region Laterality Modality X-Ray Angiograph y 11/28/2024 1:30 PM EDT Narrative 11/28/2024 3:17 PM EDT [address] [address] Fluoroscopy Report Signed Patient: John Aparicio MR#: [id number] : 1960 Acct:[id number] Age/Sex: 64 / M ADM Date: 11/28/24 Loc: HO.MENDEZ Attending Dr: Shadi Goodman MD Ordering Physician: Shadi Goodman MD Date of Service: 11/28/24 Procedure(s): FL guidance in OR Accession Number(s): [id number] cc: Shadi Goodman MD; Caryn Henning EXAMINATION: [...] Thierno Shaw MD 11/28/2024 03:14 PM EDT Dictated By: Thierno Shaw MD Signed By: <Electronically signed by Thierno Shaw MD in OV> 11/28/24 1514 DD/ 1330 TD/TT: 11/28/24 1450 Documentation Consultant: Procedure Note Donotuseinterpreter, Image - 11/28/[address] [address] Fluoroscopy Report Signed Patient: Naina AparicioR#: [id number] : 1960Acct:[id number] Age/Sex: 64 / MADM Date: 11/28/24 Loc: HOASHKAN Attending Dr: Shadi Goodman MD Ordering Physician: Shadi Goodman MD Date of Service: 11/28/24 Procedure(s): FL guidance in OR Accession Number(s): [id number] cc: Shadi Goodman MD; Caryn Henning EXAMINATION: [...] Thierno Shaw MD 11/28/2024 03:14 PM EDT Dictated By: Thierno Shaw MD Signed By: <Electronically signed by Thierno Shaw MD in OV> 11/28/24 1514 DD/ 1330 TD/TT: 11/28/24 1450 Documentation Consultant: [facility] External Provider IMG IR PROCEDURES Final Result * IR Nephrostogram (10/24/2024 11:51 AM EDT) Anatomical Region Laterality Modality Body X-Ray Angiograph y 10/24/2024 11:5 1 AM EDT Narrative 10/24/2024 4:49 PM EDT [place] [address] Interventional Radiology Rpt Signed Patient: John Aparicio MR#: [id number] : 1960 Acct:[id number] Age/Sex: 64 / M ADM Date: 10/24/24 Loc: HO.SSS Attending Dr: Shadi Goodman MD Ordering Physician: Shadi Goodman MD Date of Service: 10/24/24 Procedure(s): IR nephrostomy Accession Number(s): [id number] cc: Shadi Goodman MD; Caryn Henning EXAMINATION: Ultrasound fluoroscopy guided right nephrostomy catheter insertion. CLINICAL INDICATION: UPJ stone. Unable to perform retrograde pyelogram by referring physician. COMPARISON: CT abdomen pelvis 10/05/2024 TECHNIQUE: After explaining ultrasound fluoroscopy guided insertion of right nephrostomy catheter procedure, benefits and risk to patient's brother Denis, a written consent was obtained in presence of rn residential. Patient was placed prone on fluoroscopy table [...] fluoroscopy and the needle withdrawn. A 5 Mosotho dilator was placed over the thin guidewire and the guidewire was removed. A 0.035 J-wire is placed through the 5 Mosotho dilator and the dilator removed. A 8.5 Mosotho APD catheter with stiffener was inserted over [...] ultrasound there is moderate right hydronephrosis. 6.5 Mosotho percutaneous nephrostomy catheter was placed in right [...] 10/24/24 1646 DD/ 1151 TD/TT: 10/24/24 1459 Documentation Consultant: [facility] Procedure Note Donotuseinterpreter, Image - 10/24/2024 [facility] [address] [place] [address] Interventional Radiology Rpt Signed Patient: Joe Aparicio#: [id number] : 1960Acct:[id number] Age/Sex: 64 / MADM Date: 10/24/24 Loc: HO[facility] Attending Dr: Shadi Goodman MD Ordering Physician: Shadi Goodman MD Date of Service: 10/24/24 Procedure(s): IR nephrostomy Accession Number(s): [id number] cc: Shadi Goodman MD; Caryn Henning EXAMINATION: Ultrasound fluoroscopy guided right nephrostomy catheter insertion. CLINICAL INDICATION: UPJ stone. Unable to perform retrograde pyelogram by referring physician. COMPARISON: CT abdomen pelvis 10/05/2024 TECHNIQUE: After explaining ultrasound fluoroscopy guided insertion of right nephrostomy catheter procedure, benefits and risk to patient's brother Denis, a written consent was obtained in presence of rn residential. Patient was placed prone on fluoroscopy table [...] fluoroscopy and the needle withdrawn. A 5 Mosotho dilator was placed over the thin guidewire and the guidewire was removed. A 0.035 J-wire is placed through the 5 Mosotho dilator and the dilator removed. A 8.5 Mosotho APD catheter with stiffener was inserted over [...] ultrasound there is moderate right hydronephrosis. 6.5 Mosotho percutaneous nephrostomy catheter was placed in right [...] 10/24/24 1646 DD/ 1151 TD/TT: 10/24/24 1459 Documentation Consultant: JORGE ALBERTO us [facility] External Provider IMG IR PROCEDURES Final Result * CT Urogram w/o Contrast (10/06/2024 9:05 PM EDT) Anatomical Region Laterality Modality Ureter, Upper urinary tract Comp uted Tomography 10/06/2024 9:05 PM EDT Narrative 10/06/2024 9:06 PM EDT [place] [address] [address] Scan Report Signed Patient: John Aparicio MR#: [id number] : 1960 Acct:[id number] Age/Sex: 64 / M ADM Date: 10/05/24 Loc: HO.CT Attending Dr: Shadi Goodman MD Ordering Physician: Shadi Goodman MD Date of Service: 10/05/24 Procedure(s): CT urogram Accession Number(s): [id number] cc: Shadi Goodman MD; Caryn Henning Report Number: [id number]: Total DLP = 736.00 mGy-cm CLINICAL HISTORY: [...] in OV> 10/06/242105 DD/ 04 TD/TT: 10/06/242104 Documentation Consultant: Procedure Note Donotuseinterpreter, Image - 10/06/[address] [address] [address] Scan Report Signed Patient: Joe Aparicio#: [id number] : 1960Acct:[id number] Age/Sex: 64 / MADM Date: 10/05/24 Loc: HO.CT Attending Dr: Shadi Goodman MD Ordering Physician: Shadi Goodman MD Date of Service: 10/05/24 Procedure(s): CT urogram Accession Number(s): [id number] cc: Shadi Goodman MD; Caryn Henning Report Number: [id number]: Total DLP = 736.00 mGy-cm CLINICAL HISTORY: [...] in OV> 10/06/242105 DD/ 04 TD/TT: 10/06/242104 Documentation Consultant: [facility] External Provider IMG CT PROCEDURES Edited Result - Final * Creatinine, Serum (10/05/2024 8:39 AM EDT) Creatinine, Serum 0.93 0.5 - 1.4 mg/dL [facility] Estimated Glomerular Filt Rate >60 [facility] Comment:Chronic Kidney Disea se: Estimated GFR < 60 mL/min/1.67g2Rxwoia Kidney Disease: Estimated GFR < 15 mL/min/1.73m2 10/05/2024 8:39 AM EDT 10/05/2024 8:39 AM EDT Generic External Data Provider LAB BLOOD ORDERAB LES Final Result Performing Organization Address [facility]/ZIP Co de Phone Number [facility] [address] [place] [phone] * BUN (Blood Urea Nitrogen) (10/05/2024 8:39 AM EDT) Urea Nitrogen (BUN) 12 9 - 16 mg/dL [facility] 10/05/2024 8:39 AM EDT 10/05/2024 8:39 AM EDT Generic External Data Provider LAB BLOOD ORDERAB LES Final Result Performing Organization Address City/[facility]/ZIP Co de Phone Number [facility] [address] [place] [phone] * (ABNORMAL) Lipid Panel, Standard (08/30/2024 9:09 AM EDT) Triglycerides 86 <150 mg/dL [facility] Comment:Desirable Triglyceri de: less than 150 mg/dLBorderline High Triglyceride 150-199 mg/dLHigh Triglyceride: 200-499 mg/dLVery High Triglyceride: greater than or equal to 5OO mg/dL Cholesterol 123 <200 mg/dL [facility] Comment:Desirable Cholestero l: less than 200 mg/dLBorderline High Cholesterol: 200-239 mg/dLHigh Cholesterol: greater than 239 mg/dL LDL Cholesterol Calculated 67 <100 mg/dL [facility] Comment:Desirable LDL: less than 100 mg/dLNear Optimal/Above Optimal LDL: 110- 129 mg/dLBorderline High LDL: 130-159 mg/dLHigh LDL: 160-189 mg/dLVery High LDL: greater than or equal to 190 mg/dL HDL Cholesterol 39(L) >40 mg/dL [facility] Comment:Desirable HDL: great er than 40 mg/dL Note: This HDL assay may give artificially low results in patients with liver disease. Blood Venous blood specimen / Unknown 08/30/2024 9:09 AM EDT 08/30/2024 11:10 AM EDT us Caryn Henning MD LAB BLOOD ORDERABLES Final Res ult [facility] [address] [place] [phone] * Cologuard?? colon cancer screening (06/29/2024 6:20 AM EDT) Cologuard Result Negative Negative 07/18/19 4:44 AM EDT [employer] (CLIA #:[id number]) Comment: NEGATIVE TEST RESULT. A negative Cologuard [...] (Thierry Andrea al, N Engl J Med 2014;370(14):7943-4767) The normal value (reference range) for this assay is negative. COLOGUARD RE-SCREENING RECOMMENDATION: Periodic colorectal cancer screening is an important part of preventive healthcare for asymptomatic individuals at average risk for colorectal cancer. Following a negative Cologuard result, the [place] Cancer Society and U.S. Multi-Society Task Force screening guidelines recommend a Cologuard re-screening interval of 3 years. References: [place] [employer] Guideline for Colorectal Cancer Screening: https://www.cancer.org/cancer/lzdqt-migdji-clebsh/biwuwgwxo-edjsedmep-scpuyhm/ac s-rec ommendations.html.; Angel DK, Malorie CR, Jocelyne OdonnellK, Colorectal Cancer Screening: Recommendations for Physicians and Patients from the U.S. Multi-Society Task Force on Colorectal Cancer Screening , Am J Gastroenterology 2017; 112:5515-7482. TEST DESCRIPTION: Composite algorithmic analysis of stool [...] (Thierry Andrea al, N Engl J Med 2014;370(14):5229-5537.) Cologuard may produce a false negative or false positive result (no colorectal cancer or precancerous polyp present at colonoscopy follow up). A negative Cologuard test result does not guarantee the absence of CRC or advanced adenoma (pre-cancer). The current Cologuard screening interval is every 3 years. ([place] [employer] and U.S. Multi-Society Task Force). Cologuard performance data in a 10,000 patient pivotal study using colonoscopy as the reference method can be accessed at the following location: www.[employer]/results. Additional description of the Cologuard test process, warnings and precautions can be found at www.colPredictifyrd.com. Stool specimen (specimen) 06/29/2024 6:20 AM EDT 07/01/2024 10:11 AM EDT us Caryn Henning MD LAB MOLECULAR DIAGNOSTICS JEFFREY SHAH Final Result [employer] (CLIA #:[id number]) [address] [place] [address], * (ABNORMAL) HEPATITIS C AB W/REFL TO HCV RNA, QN, PCR (07/10/2021 10:35 AM EDT) HEPATITIS C ANTIBODY REACTIVE( A) NON-REACT JAUN [facility] INDEX 3.21(H) <1.00 [facility] Comment: Based on this result, the sample will be tested for HCV RNA by a Nucleic Acid Amplification Test (NAAT) to determine if the patient has a current active infection. 07/10/2021 10:3 5 AM EDT us Yolanda Salgado MD HISTORICAL/NON ORDERA BLE LABS Final Result [facility] [address] [place] [address], * HIV 1/2 ANTIGEN/ANTIBODY,FOURTH GENERATION W/RFL (07/10/2021 10:35 AM EDT) HIV-1/2 ANTIGEN AND ANTIBODIES, 4TH GENERATION W/ REFLEX NON-REACT JAUN NON-REACT JAUN [facility] Comment: HIV-1 antigen and HIV-1/HIV-2 [...] purpose. For additional information please refer to http://education.[employer]/faq/MBU359 (This link is being provided for informational/ educational purposes only.) The performance of this assay has not been clinically validated in patients less than 2 years old. 07/10/2021 10:3 5 AM EDT Yolanda Salgado MD LAB BLOOD ORDERABLES Final Result [facility] Formerly [facility] [address] from Last 3 Months or Most Recently Relevant to Health Maintenance Insurance [facility] < [address] [place] [id number] Care Teams Dairy Husbandry Worker Relationship Specialty Start Date End Date Caryn Henning MD [address] [place] [address] PCP - General Family Medicine 10/28/20
--- OUTSIDE RECORDS SUMMARY | 2025-01-01 17:19 | XMS_ITS | Encounter Summary ---
Author Organization [employer] Address 75 [facility] 7 [place] [address] Care Team Providers Care Shingler Name Role Phone Caryn Henning MD Primary Care Provider [phone] Reason for Visit * Reason Onset Date Comments Med Refill 03/20/2024 Encounter Details Date Type Department Care Team (Late st Contact Info) Description 03/20/2024 Telephone [facility] [address] [place], [place] [phone] Caryn Heninng MD [address] [place], [place] [phone] Med Refill Social History Tobacco Use Types [...] PM EST Vitamin D was sent to [facility] on 12/07/23 #90 with 3 refills and Oxybutynin isn't prescribed by PCP. * Telephone Encounter - Jacinta Manzanares - 03/20/2024 12:31 PM EST TC from pt requesting medication refill. Medications needing refill : D3 Super Strength 50 MCG (1999 UT) capsule oxybutynin XL (Ditropan-XL) 5 MG 24 hr tablet To be sent to: [facility] - [place], [place] - [address] [facility] documented in this encounter Plan of Treatment Not on file documented as of this encounter Visit Diagnoses Not on filedocumented in this encounter Additional Health Concerns Assessment Noted Time PHQ-9 Depression Total Score: 0 07/02/19 24 10:52 AM EDT documented as of this encounter Care Teams Shingler Relationship Specialty Start Date End Date Caryn Henning MD [address] [facility] [place] [address] PCP - General Family Medicine 10/28/20 documented as of this encounter
--- OUTSIDE RECORDS SUMMARY | 2025-01-01 17:19 | XMS_ITS | Encounter Summary ---
Author Organization [employer] Address 75 [facility] 7t [place] [address] Care Team Providers Care Typecasting Machine Operator Name Role Phone Caryn Henning MD Primary Care Provider Encounter Details Date Type Department Care Team (Late st Contact Info) Description 05/19/2023 Telephone [facility] [address] [place], [place] [phone] Caryn Henning MD [address] [place], [place] [phone] Social History Tobacco Use Types Packs/Day Years [...] on filedocumented in this encounter Care Teams Typecasting Machine Operator Relationship Specialty Start Date End Date Caryn Henning MD [address] [place] [address] PCP - General Family Medicine 10/28/20 documented as of this encounter
--- OUTSIDE RECORDS SUMMARY | 2025-01-01 17:19 | XMS_ITS | Clinical Summary ---
Author Organization 175 [facility] Address [address] [place] [address] Phone Care Team Providers Care Fur Blender Name Role Phone Caryn Henning MD Primary Care Provider [phone] Allergies No known active allergies Medications carbamide [...] Influenza-like symptoms 09/17/2023 Phobic disorder 09/17/2023 Schizophrenia ([facility] V24, [facility] V28) 024 Sleep apnea 09/17/2023 Encounters Date Type Department Care Team Description 12/21/2024 10:45 AM EDT Office Visit Orthopedic Surgery - [address] [phone] Fransico Owusu, JAIME Acquired hammer toe of right foot (Primary Dx); Hammer toe of left foot; Ingrowing nail; Dermatophytosis of nail; Pain in toe of right foot; Pain in toe of left foot; Difficulty walking from Last 3 Months Immunizations Immunization Administration Dates Next Due Pfizer SARS-CoV-2 COVID-19, [...] Care Team (Late st Contact Info) Description 01/31/2025 10:45 AM EDT Office Visit Orthopedic Surgery - [place] [address] [phone] Fransico Owusu, DPAndi [address] [phone] Health Maintenance Due Date Last Done Comments [...] ID:[id number] Group ID:ICO Type:Not on file Address: [place] [address] [address] [place] [phone] Care Teams Fur Blender Relationship Specialty Start Date End Date Caryn Henning MD [address] [place] [address] PCP - General 07/07/23
--- OUTSIDE RECORDS SUMMARY | 2025-01-01 17:19 | XMS_ITS | Encounter Summary ---
Author Organization [employer] Address [address] [place] [address] 7 [place] [address] Care Team Providers Care Punch Machine Hand Name Role Phone Caryn Henning MD Primary Care Provider Reason for Visit * Reason Comments Med Refill Encounter Details Date Type Department Care Team (Late st Contact Info) Description 11/30/2022 Refill [facility]INE [address] [place], [place] [phone] Caryn Henning MD [address] [place], [place] [phone] Social History Tobacco Use Types Packs/Day Years [...] on filedocumented in this encounter Care Teams Punch Machine Hand Relationship Specialty Start Date End Date Caryn Henning MD [address] [place], [place] [phone] PCP - General Family Medicine 10/28/20 documented as of this encounter
--- OUTSIDE RECORDS SUMMARY | 2025-01-01 17:19 | XMS_ITS | Encounter Summary ---
Author Organization [employer] Address 75 [facility] 7 [place] [address] Care Team Providers Care Wire Technician Name Role Phone Caryn Henning MD Primary Care Provider [phone] Encounter Details Date Type Department Care Team (Late st Contact Info) Description 01/21/2024 Orders Only [facility] MED[facility]INE [address] [place], [place] [phone] Caryn Henning MD [address] [place], [place] [phone] Social History Tobacco Use Types Packs/Day Years [...] documented as of this encounter Care Teams Wire Technician Relationship Specialty Start Date End Date Caryn Henning MD [address] [place] [address] PCP - General Family Medicine 10/28/20 documented as of this encounter
--- OUTSIDE RECORDS SUMMARY | 2025-01-01 17:19 | XMS_ITS | Encounter Summary ---
Author Organization [employer] Address 75 [facility] 7 [place] [address] Care Team Providers Care Vice President Quality Improvement Name Role Phone Caryn Henning MD Primary Care Provider [phone] Encounter Details Date Type Department Care Team (Late st Contact Info) Description 12/21/2023 Orders Only [facility] MED[facility]INE [address] [place], [place] [phone] Caryn Henning MD [address] [place], [place] [phone] Social History Tobacco Use Types Packs/Day Years [...] documented as of this encounter Care Teams Vice President Quality Improvement Relationship Specialty Start Date End Date Caryn Henning MD [address] [place] [phone] PCP - General Family Medicine 10/28/20 documented as of this encounter
--- OUTSIDE RECORDS SUMMARY | 2025-01-01 17:19 | XMS_ITS | Encounter Summary ---
Author Organization [employer] Address 75 [facility] 7 [place] [address] Care Team Providers Care Lozenge Maker Name Role Phone Caryn Henning MD Primary Care Provider [phone] Reason for Visit * Reason Onset Date Comments Nurse Triage 08/26/2023 Encounter Details Date Type Department Care Team (Late st Contact Info) Description 08/26/2023 Telephone [facility] MEDICINE [address] [place], [place] [phone] Caryn Henning MD [address] [place], [place] [phone] Nurse Triage Social History Tobacco Use Types [...] acuity questions The caller accepted this outcome English speaker documented in this encounter Plan of Treatment Not on file documented as of this encounter Visit Diagnoses Not on filedocumented in this encounter Additional Health Concerns Assessment Noted Time PHQ-9 Depression Total Score: 0 07/02/19 24 10:52 AM EDT documented as of this encounter Care Teams Lozenge Maker Relationship Specialty Start Date End Date Caryn Henning MD [address] [place] [address] PCP - General Family Medicine 10/28/20 documented as of this encounter
--- OUTSIDE RECORDS SUMMARY | 2025-01-01 17:19 | XMS_ITS | Encounter Summary ---
Author Organization [employer] Address 75 [facility] 7 [place] [address] Care Team Providers Care Nondestructive Tester Name Role Phone Caryn Henning MD Primary Care Provider [phone] Reason for Visit * Reason Onset Date Comments Appointment Request 10/13/2023 Encounter Details Date Type Department Care Team (Late st Contact Info) Description 10/13/2023 Telephone [facility] MEDICINE 230 [place], [place] [phone] Caryn Henning MD [address] [place], [place] [phone] Appointment Request Social History Tobacco Use Types [...] pt requesting to reschedule OV from 10/04. Proposal Rep attempted to schedule but found no availability, pt requested for message to be sent stating needs appt as soon as possible. Please contact pt at [phone]. documented in this encounter Plan of Treatment Not on file documented as of this encounter Visit Diagnoses Not on filedocumented in this encounter Additional Health Concerns Assessment Noted Time PHQ-9 Depression Total Score: 0 07/02/19 24 10:52 AM EDT documented as of this encounter Care Teams Nondestructive Tester Relationship Specialty Start Date End Date Caryn Henning MD [address] [place] [phone] PCP - General Family Medicine 10/28/20 documented as of this encounter
--- OUTSIDE RECORDS SUMMARY | 2025-01-01 17:19 | XMS_ITS | Encounter Summary ---
Author Organization [employer] Address 75 [facility] 7t [place] [address] Care Team Providers Care Active Directory Architect Name Role Phone Caryn Henning MD Primary Care Provider Encounter Details Date Type Department Care Team (Late st Contact Info) Description 04/29/2023 Telephone [facility] MEDICINE [address] [place], [place] [phone] Caryn Henning MD 230 [place], [place] [phone] Social History Tobacco Use Types Packs/Day Years [...] on filedocumented in this encounter Care Teams Active Directory Architect Relationship Specialty Start Date End Date Caryn Henning MD 230 [place] [address] PCP - General Family Medicine 10/28/20 documented as of this encounter
== END 2025-01-01 16:15 | disposition home or self-care (01) ==
LOC: HO.HUSH 15:15
PROVIDERS: PCP General Practice; Visit Provider Urology
DX: N20.0 Calculus of kidney (principal)
CPT/HCPCS: 52310

== ENCOUNTER → 2025-01-01 15:14 | Outpatient (BNVA) | payer OTHER, SELFPAY | PROVIDERS: PCP General Practice; Visit Provider Urology | DX: N20.0 Calculus of kidney (principal); N13.30 Unspecified hydronephrosis | CPT/HCPCS: 52310; 81003 ==

== ENCOUNTER 2025-01-25 15:30 | Outpatient (AMB) | payer OTHER, SELFPAY ==
[2025-01-25 15:33] VITALS: BP 122/80; PULSE 88; O2SAT 94; BMI 30.1
--- NOTE | 2025-01-25 15:33 | HO.NEPHOV_ITS ---
Vital Signs 01/25/25 15:33 Height 5 ft 7 in Weight 192 lb BMI 30.1 BP 122/80 Blood Pressure Location Lt brachial Position Sitting Pulse 88 Pulse Source Pulse Oximeter Pulse Oximetry (%) 94 Oxygen Delivery Method Room Air Intake Visit Reasons: INP: Calculus of kidney, confirmed Risk Analyst Required: Yes Risk Analyst Name: Dami [id number] Accompanied by: Family/Other Allergies aspirin (ASPIRIN) Allergy (Severe, Verified 01/25/25 15:35) SWELLING, rash Penicillins (PENICILLINS) Allergy (Severe, Verified 01/25/25 15:35) CONVULSIONS Medication List - Last Reconciled 01/25/25 by Bill Hayward MD ammonium lactate 12% 1 appl topical DAILY cholecalciferol (vitamin D3) 50 mcg PO DAILY clonazepam 1 mg PO BEDTIME clonazepam 0.5 mg PO DAILY diaper,brief,adult,disposable (Depend Fit-Flex Underwear) As directed four daily esomeprazole magnesium 20 mg PO DAILY fluoxetine 20 mg PO QAM ketoconazole 2% 1 appl topical DAILY ketotifen fumarate 0.025%(0.035%) (Eye Itch Relief) 1 drp ophthalmic (eye) DAILY PRN lanolin seljfew-ld-x.pet-ceres (Minerin Creme topical) appl topical DAILY PRN melatonin 10 mg PO BEDTIME polyvinyl alcohol 1.4% 1 drp ophthalmic (eye) BID risperidone 0.5 mg PO TID simvastatin 80 mg PO BEDTIME trazodone 50 mg PO BEDTIME PRN vitamin A 1 cap PO DAILY zinc gluconate 50 mg PO DAILY HPI Comments Details: - The patient is a 64-year-old male presenting with kidney stones. - Nephrostomy tube was placed due to obstruction, now removed. - Urinary frequency and incontinence noted. - Previous stone dissolution attempts; current status unclear. - h/o Excessive water intake led to hyponatremia. - Schizophrenia history noted. 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 [facility] Medical History Depression History of mental disorder Smoker HTN (hypertension) (~12/18/24) Hepatitis Syphilis Chronic GERD BPH w urinary obs/LUTS DAISY on CPAP Obesity (BMI 30-39.9) Surgical History Hx of cystoscopy History of bladder surgery History of laparotomy Hx of umbilical hernia repair Family History Father Heart disease Prostate cancer Alzheimer disease Mother Diabetes Social History Household Members: Other Alcohol intake: former Patient Tobacco Use Status: Former Tobacco user Tobacco use type: Cigarette Cigarettes Per Day: 2 Review of Systems Const Denies fever(s) and Denies weight loss Card Denies chest pain Resp Denies cough and Denies hemoptysis GI Denies abdominal pain, Denies diarrhea and Denies nausea Musc Denies back pain Neuro Denies focal weakness Physical Exam Vital Signs: Last Vital Signs Pulse 88 01/25/25 15:33 BP 122/80 01/25/25 15:33 Pulse Ox 94 01/25/25 15:33 Oxygen Delivery Method Room Air 01/25/25 15:33 BMI result Body Mass Index 30.1 Comfortable Neck supple no JVD. Lungs entry equal no rales. Heart S1-S2 heard no gallop or rub. Abdomen soft nontender. Neuro alert awake oriented. No asterixis. Extremities no edema. Results Reviewed Results Reviewed: Labs noted Assessment & Plan Assessment & Plan (1) Kidney stone: Code(s): N20.0 - Calculus of kidney Category: Medical Plan Middle-aged man with nephrolithiasis and status post hydronephrosis. Status post nephrostomy. History of hyponatremia in the past. Serum sodium was 132 millimoles in August 2024. This may be due to excessive free water intake. Metabolic workup initiated for nephrolithiasis. In the meantime encouraged him to maintain adequate fluid intake. He should stay on low-sodium diet. Ordered renal panel along with serum uric acid phosphorus and magnesium levels. I had a lengthy discussion with the family regarding diet. Further recommendation will depend on the outcome of the 24 hour urine collect ion. Orders: Orders Oxalate, 24 Hr Today N20.0 - Calculus of kidney Uric Acid, 24Hr Urine Group Today N20.0 - Calculus of kidney Citric Acid 24hr Urine Today N20.0 - Calculus of kidney Phosphorus Today N20.0 - Calculus of kidney Sodium, 24Hr Urine Group Today N20.0 - Calculus of kidney Creatinine, 24 Hr Group Today N20.0 - Calculus of kidney Calcium, 24 Hr Ur Today N20.0 - Calculus of kidney Comprehensive Met. Panel Today N20.0 - Calculus of kidney Parathyroid Hormone Intact Today N20.0 - Calculus of kidney Uric Acid Today N20.0 - Calculus of kidney Magnesium Today N20.0 - Calculus of kidney Coding Level of Care Code New Pt Level 4 (62096) Diagnoses Kidney stone N20.0
--- OUTSIDE RECORDS SUMMARY | 2025-01-25 19:12 | XMS_ITS | Encounter Summary ---
Author Organization [employer] Address [address] [place] [address] 7 [place] [address] Care Team Providers Care Boat Engines Installer Name Role Phone Caryn Henning MD Primary Care Provider Reason for Visit * Reason Comments Med Refill Encounter Details Date Type Department Care Team (Late st Contact Info) Description 11/30/2022 Refill [facility] MEDICINE 230 [place], [place] [phone] Caryn Henning MD 230 [place], [place] [phone] Social History Tobacco Use Types Packs/Day Years [...] on filedocumented in this encounter Care Teams Boat Engines Installer Relationship Specialty Start Date End Date Caryn Henning MD [address] [place], [place] [phone] PCP - General Family Medicine 10/28/20 documented as of this encounter
--- OUTSIDE RECORDS SUMMARY | 2025-01-25 19:12 | XMS_ITS | Encounter Summary ---
Author Organization [employer] Address 75 [facility] 7t [place] [address] Care Team Providers Care Director Of People Name Role Phone Caryn Henning MD Primary Care Provider Encounter Details Date Type Department Care Team (Late st Contact Info) Description 05/19/2023 Telephone [facility] MEDICINE 230 [place], [place] [phone] Caryn Henning MD 230 [place], [place] [phone] Social History Tobacco Use Types Packs/Day Years [...] in this encounter Care Teams Director Of People Relationship Specialty Start Date End Date Caryn Henning MD [address] [place] [address] PCP - General Family Medicine 10/28/20 documented as of this encounter
--- OUTSIDE RECORDS SUMMARY | 2025-01-25 19:12 | XMS_ITS | Encounter Summary ---
Author Organization [employer] Address 75 [facility] 7 [place] [address] Care Team Providers Care Reconnaissance Man Name Role Phone Caryn Henning MD Primary Care Provider [phone] Reason for Visit * Reason Onset Date Comments Med Refill 03/20/2024 Encounter Details Date Type Department Care Team (Late st Contact Info) Description 03/20/2024 Telephone [facility] MEDICINE 230 [place], [place] [phone] Caryn Henning MD 230 [place], [place] [phone] Med Refill Social History Tobacco Use Types [...] PM EST Vitamin D was sent to [facility] on 12/07/23 #90 with 3 refills and Oxybutynin isn't prescribed by PCP. * Telephone Encounter - Jacinta Manzanares - 03/20/2024 12:31 PM EST TC from pt requesting medication refill. Medications needing refill : D3 Super Strength 50 MCG (1999 UT) capsule oxybutynin XL (Ditropan-XL) 5 MG 24 hr tablet To be sent to: [facility] - [place], [place] - [address] [facility] documented in this encounter Plan of Treatment Not on file documented as of this encounter Visit Diagnoses Not on filedocumented in this encounter Additional Health Concerns Assessment Noted Time PHQ-9 Depression Total Score: 0 07/02/19 24 10:52 AM EDT documented as of this encounter Care Teams Reconnaissance Man Relationship Specialty Start Date End Date Caryn Henning MD [address] [place] [address] PCP - General Family Medicine 10/28/20 documented as of this encounter
--- OUTSIDE RECORDS SUMMARY | 2025-01-25 19:12 | XMS_ITS | Clinical Summary ---
Author Organization [employer] Address 75 [facility] 7t [place] [address] Care Team Providers Care Svp Monetization Name Role Phone Caryn Henning MD Primary Care Provider [phone] Allergies Active Allergy Reactions Criticality Noted Date [...] eyes). 12 mL 11 09/13/19 24 Active traZODone (Desyrel) 50 MG tablet Take 1 tablet (50 mg) by mouth at bedtime. 90 tablet 3 12/21/19 24 Active Vitamin A Palmitate 3 MG (74370 UT) tabletIndications :Vitamin A deficiency Take 1 [...] Active beta carotene (vitamin A) 3 MG (24696 UT) capsule Take 1 capsule by mouth [...] NIGHT 90 tablet 3 12/06/19 25 Active melatonin 5 MG tablet TAKE 2 TABLETS BY MOUTH EVERY DAY AT BEDTIME 60 tablet 11 01/10/20 25 Active melatonin 5 MG tablet TAKE 2 TABLETS BY MOUTH DAILY AT BEDTIME 60 tablet 11 12/09/19 24 2024 Discontinued Active Problems Problem Noted [...] 12:42 PM EDT): Patient still waiting on RIFLE CASE REPAIRER videofluoroscopic swallow study. Fatigue 03/05/2022 Gastroesophageal reflux [...] Encounters Date Type Department Care Team Description 01/08/2025 Refill [facility] MEDICINE 230 [place] [address] Caryn Henning MD 12/26/2024 Telephone [facility] [address] [place] [address] Caryn Henning MD Durable Medical Equipment ([facility] [employer]: ) 12/18/2024 Orders Only GENERIC EXTERNAL DATA DEPARTMENT Provider, Generic External Data 12/04/2024 Refill [facility] [address] [place] [address] Caryn Henning MD 11/28/2024 Orders Only [facility] External Provider, [facility] 11/17/2024 3:45 PM EDT Office Visit [address] [address] Caryn Hnening MD Memory loss (Primary Dx); Blurry vision, bilateral; Dry skin 11/17/2024 Travel 11/15/[address] [address] Jamal Kim [place] chart prep 11/08/2024 Patient Outreach [address] [address] Caryn Henning MD Pre-visit Planning ((Unable to reach for PVP screening and or LVM) to be completed in office) from Last 3 Months Immunizations Immunization Administration [...] DNA/Cologuard 06/30/2027 06/29/2024 Lipid Panel 08/30/2029 08/30/2024, 06/11/2021, 09/30/2021, Additional history exists DTaP/Tdap/Td Vaccines (2 [...] OR Routine 11/28/2024 1:3 0 PM EDT LIPID PANEL, STANDARD Routine 08/30/2024 9:09 [...] Vitamin B12 349 200 - 900 pg/mL [facility] Comment:NORMAL 200-900 PG/ML INDETERMINATE 160-199 PG/ML DEFICIENT < 160 PG/ML 12/18/2024 9:27 AM EDT 12/18/2024 9:27 AM EDT us Generic External Data Provider LAB BLOOD ORDERAB LES Final Result Performing Organization Address City/State/[facility] Co de Phone Number [facility] [address] [place] [phone] * FL Guidance in OR (11/28/2024 1:30 PM EDT) Anatomical Region Laterality Modality X-Ray Angiograph y 11/28/2024 1:30 PM EDT Narrative 11/28/2024 3:17 PM EDT [address] [address] Fluoroscopy Report Signed Patient: John Aparicio MR#: [id number] : 1960 Acct:[id number] Age/Sex: 64 / M ADM Date: 11/28/24 Loc: HO.[facility] Attending Dr: Shadi Goodman MD Ordering Physician: Shadi Goodman MD Date of Service: 11/28/24 Procedure(s): FL guidance in OR Accession Number(s): [id number] cc: Shadi Goodman MD; Caryn Henning EXAMINATION: [...] 11/28/24 1514 DD/ 1330 TD/TT: 11/28/24 1450 Fruit Or Nut Farm Worker: Procedure Note Heidyter, Image - 11/28/[address] [address] Fluoroscopy Report Signed Patient: Joe Aparicio#: [id number] : 1960Acct:[id number] Age/Sex: 64 / MADM Date: 11/28/24 Loc: [facility] Attending Dr: Shadi Goodman MD Ordering Physician: Shadi Goodman MD Date of Service: 11/28/24 Procedure(s): FL guidance in OR Accession Number(s): [id number] cc: Shadi Goodman MD; Caryn Henning EXAMINATION: [...] 11/28/24 1514 DD/ 1330 TD/TT: 11/28/24 1450 Fruit Or Nut Farm Worker: [facility] External Provider IMG IR PROCEDURES Final Result * (ABNORMAL) Lipid Panel, Standard (08/30/2024 9:09 AM EDT) Triglycerides 86 <150 mg/dL [facility] Comment:Desirable Triglyceri de: less than 150 mg/dLBorderline High Triglyceride 150-199 mg/dLHigh Triglyceride: 200-499 mg/dLVery High Triglyceride: greater than or equal to 5OO mg/dL Cholesterol 123 <200 mg/dL [facility] Comment:Desirable Cholestero l: less than 200 mg/dLBorderline High Cholesterol: 200-239 mg/dLHigh Cholesterol: greater than 239 mg/dL LDL Cholesterol Calculated 67 <100 mg/dL [facility] Comment:Desirable LDL: less than 100 mg/dLNear Optimal/Above Optimal LDL: 110- 129 mg/dLBorderline High LDL: 130-159 mg/dLHigh LDL: 160-189 mg/dLVery High LDL: greater than or equal to 190 mg/dL HDL Cholesterol 39(L) >40 mg/dL [facility] Comment:Desirable HDL: great er than 40 mg/dL Note: This HDL assay may give artificially low results in patients with liver disease. Blood Venous blood specimen / Unknown 08/30/2024 9:09 AM EDT 08/30/2024 11:10 AM EDT us Caryn Henning MD LAB BLOOD ORDERABLES Final Res ult [facility] [address] [place] [phone] * Cologuard?? colon cancer screening (06/29/2024 6:20 AM EDT) Cologuard Result Negative Negative 07/18/19 25 4:44 AM EDT [employer] (CLIA #:[id number]) Comment: NEGATIVE TEST RESULT. A negative Cologuard [...] (Thierry Andrea al, N Engl J Med 2014;370(14):7027-6514) The normal value (reference range) for this assay is negative. COLOGUARD RE-SCREENING RECOMMENDATION: Periodic colorectal cancer screening is an important part of preventive healthcare for asymptomatic individuals at average risk for colorectal cancer. Following a negative Cologuard result, the [place] [employer] and U.S. Multi-Society Task Force screening guidelines recommend a Cologuard re-screening interval of 3 years. References: [place] [employer] Guideline for Colorectal Cancer Screening: https://www.cancer.org/cancer/cftab-edfxej-ubpbaj/prgndxrur-cxtflbctm-vygawzg/ac s-rec ommendations.html.; Angel WEN, Malorie LEON, Jocelyne OdonnellK, Colorectal Cancer Screening: Recommendations for Physicians and Patients from the U.S. Multi-Society Task Force on Colorectal Cancer Screening , Am J Gastroenterology 2017; 112:4738-5366. TEST DESCRIPTION: Composite algorithmic analysis of stool [...] screened with both Cologuard and colonoscopy. (Thierry Bhatia, N Engl J Med 2014;370(14):1444-3161.) Cologuard may produce a false negative or false positive result (no colorectal cancer or precancerous polyp present at colonoscopy follow up). A negative Cologuard test result does not guarantee the absence of CRC or advanced adenoma (pre-cancer). The current Cologuard screening interval is every 3 years. ([place] [employer] and U.S. Multi-Society Task Force). Cologuard performance data in a 10,000 patient pivotal study using colonoscopy as the reference method can be accessed at the following location: www.Crow[employer]ouncer/results. Additional description of the Cologuard test process, warnings and precautions can be found at www.cologuard.com. Stool specimen (specimen) 06/29/2024 6:20 AM EDT 07/01/2024 10:11 AM EDT Caryn Henning MD LAB MOLECULAR DIAGNOSTICS JEFFREY SHAH Final Result Performing Organization Address City/[facility]/ZIP Co de Phone Number [facility] (CLIA #:[id number]) [address] [place] [address], * (ABNORMAL) HEPATITIS C AB W/REFL TO HCV RNA, QN, PCR (07/10/2021 10:35 AM EDT) Pathologist [facility] HEPATITIS C ANTIBODY REACTIVE( A) NON-REACT JAUN [facility] INDEX 3.21(H) <1.00 [facility] Comment: Based on this result, the sample will be tested for HCV RNA by a Nucleic Acid Amplification Test (NAAT) to determine if the patient has a current active infection. 07/10/2021 10:3 5 AM EDT Yolanda Salgado MD HISTORICAL/NON ORDERA [facility] Final Result Performing Organization Address City/[facility]/ZIP Co de Phone Number [facility] [address] * HIV 1/2 ANTIGEN/ANTIBODY,FOURTH GENERATION W/RFL (07/10/2021 10:35 AM EDT) HIV-1/2 ANTIGEN AND ANTIBODIES, 4TH GENERATION W/ REFLEX NON-REACT JAUN NON-REACT JAUN [facility] Comment: HIV-1 antigen and HIV-1/HIV-2 [...] purpose. For additional information please refer to http://education.DNA13/faq/QXH837 (This link is being provided for informational/ educational purposes only.) The performance of this assay has not been clinically validated in patients less than 2 years old. 07/10/2021 10:3 5 AM EDT Yolanda Salgado MD LAB BLOOD ORDERABLES Final Result [facility] [address] from Last 3 Months or Most Recently Relevant to Health Maintenance Insurance [facility] ONE CARE < 65 [place] [id number] Care Teams Svp Monetization Relationship Specialty Start Date End Date Caryn Henning MD [address] [place] [address] PCP - General Family Medicine 10/28/20
--- OUTSIDE RECORDS SUMMARY | 2025-01-25 19:12 | XMS_ITS | Encounter Summary ---
Author Organization [employer] Address 75 [facility] 7 [place] [address] Care Team Providers Care Mechanical Design Engineer Products Name Role Phone Caryn Henning MD Primary Care Provider [phone] Encounter Details Date Type Department Care Team (Late st Contact Info) Description 01/21/2024 Orders Only [facility] MEDICINE [address] [place], [place] [phone] Caryn Henning MD 230 [place], [place] [phone] Social History Tobacco Use Types Packs/Day Years [...] documented as of this encounter Care Teams Mechanical Design Engineer Products Relationship Specialty Start Date End Date Caryn Henning MD [address] [place] [address] PCP - General Family Medicine 10/28/20 documented as of this encounter
--- OUTSIDE RECORDS SUMMARY | 2025-01-25 19:12 | XMS_ITS | Encounter Summary ---
Author Organization [email or web address] Address 75 [facility] 7 [place] [address] Care Team Providers Care Cloth Opener Hand Name Role Phone Caryn Henning MD Primary Care Provider [phone] Reason for Visit * Reason Onset Date Comments Nurse Triage 08/26/2023 Encounter Details Date Type Department Care Team (Late st Contact Info) Description 08/26/2023 Telephone [facility] MEDICINE 230 [place], [place] [phone] Caryn Henning MD 230 [place], [place] [phone] Nurse Triage Social History Tobacco Use Types [...] acuity questions The caller accepted this outcome Prydeinig speaker documented in this encounter Plan of Treatment Not on file documented as of this encounter Visit Diagnoses Not on filedocumented in this encounter Additional Health Concerns Assessment Noted Time PHQ-9 Depression Total Score: 0 07/02/19 24 10:52 AM EDT documented as of this encounter Care Teams Cloth Opener Hand Relationship Specialty Start Date End Date Caryn Henning MD 230 [place] [address] PCP - General Family Medicine 10/28/20 documented as of this encounter
--- OUTSIDE RECORDS SUMMARY | 2025-01-25 19:12 | XMS_ITS | Encounter Summary ---
Author Organization [employer] Address 75 [facility] 7 [place] [address] Care Team Providers Care Managed Care Director Name Role Phone Caryn Henning MD Primary Care Provider [phone] Encounter Details Date Type Department Care Team (Late st Contact Info) Description 12/21/2023 Orders Only [facility] MEDICINE 230 [place], [place] [phone] Caryn Henning MD 230 [place], [place] [phone] Social History Tobacco Use Types Packs/Day Years [...] documented as of this encounter Care Teams Managed Care Director Relationship Specialty Start Date End Date Caryn Henning MD [address] [place] [address] PCP - General Family Medicine 10/28/20 documented as of this encounter
--- OUTSIDE RECORDS SUMMARY | 2025-01-25 19:12 | XMS_ITS | Encounter Summary ---
Author Organization [employer] Address 75 [facility] 7 [place] [address] Care Team Providers Care Insulating Machine Operator Name Role Phone Caryn Henning MD Primary Care Provider [phone] Reason for Referral * Consultation (Routine) - Closed Specialty Diagnoses / Procedures Referred By Contac t Referred To Contact Gastroenterology Diagnoses Edentulous Dysphagia, unspecified type Caryn Henning MD [address] [place] [phone] Phone: tel: fax: [facility] [address] [place] [address] Drive 2nd Floor [place], [place] Phone: tel: fax: Referral ID Status Reason Start Date Expiration Date V isits Requested Visits Authorized [id number] Closed Specialty Services Required 08/30/2024 08/30/2025 1 1 Encounter Details Date Type Department Care Team (Late st Contact Info) Description 08/30/2024 Orders Only [facility] MEDICINE 230 [place], [place] [phone] Caryn Henning MD 230 [place], [place] [phone] Edentulous (Primary Dx); Dysphagia, unspecified type Social [...] 0.86 0.00 - 4.00 ng/mL [facility] Comment:A Free PSA was not p [...] BLOOD ORDERAB LES Final Result [facility] [address] [place] [phone] documented in this encounter Visit Diagnoses Diagnosis Edentulous- Primary Anodontia Dysphagia, unspecified type documented in this encounter Additional Health Concerns Assessment Noted Time PHQ-9 Depression Total Score: 8 07/04/19 25 2:36 PM EDT documented as of this encounter Care Teams Insulating Machine Operator Relationship Specialty Start Date End Date Caryn Henning MD 230 [place] [address] PCP - General Family Medicine 10/28/20 documented as of this encounter
--- OUTSIDE RECORDS SUMMARY | 2025-01-25 19:12 | XMS_ITS | Encounter Summary ---
Author Organization [employer] Address [address] [facility] 7t [place] [address] Care Team Providers Care Marketing Analytics Lead Name Role Phone Caryn Henning MD Primary Care Provider Encounter Details Date Type Department Care Team (Late st Contact Info) Description 04/29/2023 Telephone [facility] [address] [place], [place] [phone] Caryn Henning MD [address] [place], [place] [phone] Social History Tobacco Use Types Packs/Day Years [...] on filedocumented in this encounter Care Teams Marketing Analytics Lead Relationship Specialty Start Date End Date Caryn Henning MD 230 [place] [address] PCP - General Family Medicine 10/28/20 documented as of this encounter
--- OUTSIDE RECORDS SUMMARY | 2025-01-25 19:12 | XMS_ITS | Clinical Summary ---
Author Organization [address] [facility] Address 175 [place] [address] Phone Care Team Providers Care Personal Financial Advisor Name Role Phone Caryn Henning MD Primary Care Provider [phone] Allergies No known active allergies Medications carbamide [...] Influenza-like symptoms 09/17/2023 Phobic disorder 09/17/2023 Schizophrenia ([facility] V24, [facility] V28) 024 Sleep apnea 09/17/2023 Encounters Date Type Department Care Team Description 12/21/2024 10:45 AM EDT Office Visit Orthopedic Surgery - [address] [phone] Fransico Owusu, JAIME Acquired hammer [...] AM EDT Office Visit Orthopedic Surgery - [place] [address] [phone] Fransico Owusu, DPAndi [address] [phone] Health Maintenance Due Date Last Done Comments [...] ID:[id number] Group ID:[id number] Type:Not on file Address: [place] [address] [place] [id number] Care Teams Personal Financial Advisor Relationship Specialty Start Date End Date Caryn Henning MD [address] [place] [phone] PCP - General 07/07/23
--- OUTSIDE RECORDS SUMMARY | 2025-01-25 19:12 | XMS_ITS | Encounter Summary ---
Author Organization [employer] Address 75 [facility] 7 [place] [address] Care Team Providers Care Ham Stripper Name Role Phone Caryn Henning MD Primary Care Provider [phone] Reason for Visit * Reason Onset Date Comments Appointment Request 10/13/2023 Encounter Details Date Type Department Care Team (Late st Contact Info) Description 10/13/2023 Telephone [facility] 230 [place], [place] [phone] Caryn Henning MD 230 [place], [place] [phone] Appointment Request Social History Tobacco Use Types [...] pt requesting to reschedule OV from 10/04. Telemarketer attempted to schedule but found no availability, pt requested for message to be sent stating needs appt as soon as possible. Please contact pt at [phone]. documented in this encounter Plan of Treatment Not on file documented as of this encounter Visit Diagnoses Not on filedocumented in this encounter Additional Health Concerns Assessment Noted Time PHQ-9 Depression Total Score: 0 07/02/19 24 10:52 AM EDT documented as of this encounter Care Teams Ham Stripper Relationship Specialty Start Date End Date Caryn Henning MD [address] [place] [address] PCP - General Family Medicine 10/28/20 documented as of this encounter
== END 2025-01-25 15:55 | disposition home or self-care (01) ==
LOC: HO.HKA 15:31
PROVIDERS: PCP General Practice; Referring Provider Urology; Visit Provider Internal Medicine Hypertension Specialist
DX: N20.0 Calculus of kidney (principal)
CPT/HCPCS: 99204

== ENCOUNTER → 2025-01-25 15:30 | Outpatient (BNVA) | payer OTHER, SELFPAY | PROVIDERS: PCP General Practice; Referring Provider Urology; Visit Provider Internal Medicine Hypertension Specialist | DX: N20.0 Calculus of kidney (principal) | CPT/HCPCS: 99202 ==

== ENCOUNTER 2025-02-12 14:03 | Outpatient (AMB) | payer OTHER, SELFPAY ==
--- NOTE | 2025-02-12 14:27 | MHC.OFFVIS ---
Vital Signs 02/12/25 14:35 Height 5 ft 7 in Weight 187 lb BMI 29.3 BP 132/80 Blood Pressure Location Rt brachial Position Sitting Respiration 16 Pulse 65 Pulse Source Pulse Oximeter Pulse Oximetry (%) 98 Oxygen Delivery Method Simple Mask Intake Visit Reasons: 2m Propulsion Generator Repairer Required: Yes Propulsion Generator Repairer Services: Propulsion Generator Repairer Present Propulsion Generator Repairer Name: Lenin ID [id number] Information Interpreted: non-clinical & clinical Accompanied by: Brother Allergies aspirin (ASPIRIN) Allergy (Severe, Verified 01/25/25 15:35) SWELLING, rash Penicillins (PENICILLINS) Allergy (Severe, Verified 01/25/25 15:35) CONVULSIONS HPI Comments Details: John is a 64-year-old male patient with a past medical history of GERD, pre-diabetes, hyperlipidemia, schizophrenia, severe sleep apnea with cpcp use, vitamin-A deficiency, and tobacco use who is presenting today for a follow up visit regarding his memory. He was originally referred by Psychiatry who wanted Neurology to rule out dementia as contributing to his cognitive status. At the time of his initial visit, he had presented to the clinic with his brother Denis with whom he was living. Has been there had noticed some changes to his memory over the course of the last 2-1/2 years and John himself had noticed the time line is well He has been followed by psychiatry for many years and is currently taking risperidone 0.5mg twice daily for moods as well as clonazepam for his anxiety. He estimates that he has been on risperidone for about 5 years. He has been experiencing bilateral upper extremity involuntary movements. Father with history of alzheimhers. Lived until . Age of onset of dementia unknown. At the time of his last office visit, his Shenandoah score was 10/30. I also ordered a B12 and tau/amyloid ratio as well as a DaTSCAN to rule out Parkinson's disease as his exam did exhibit some Parkinson's like features. Findings from the testing ordered at last visit: His B12 level was 349 and I did recommend supplementation with 500 mg daily. For unclear reasons, his beta amyloid ratio test was not performed. His DaTSCAN performed 02/02/2025 at [facility] showed preserved basal ganglia uptake, unlikely to represent a parkinsonian syndrome. Today John and his brother Densi report to me that since the time of his last visit he has not had any changes clinically. He continues on the same medications and has not had any new medical concerns. He is not aware of any reason that the amyloid blood test was not performed. [facility] Medical History Depression History of mental disorder Smoker HTN (hypertension) (~12/18/24) Hepatitis Syphilis Chronic GERD BPH w urinary obs/LUTS DAISY on CPAP Obesity (BMI 30-39.9) Surgical History Hx of cystoscopy History of bladder surgery History of laparotomy Hx of umbilical hernia repair Family History Father Heart disease Prostate cancer Alzheimer disease Mother Diabetes Social History Household Members: Other Alcohol intake: former Patient Tobacco Use Status: Former Tobacco user Tobacco use type: Cigarette Cigarettes Per Day: 2 Review of Systems Const All systems reviewed & are unremarkable except as noted in HPI and below Neuro Reports Abnormal speech present (hypophonia ) Physical Exam Const General: cooperative, healthy appearing and comfortable Nutritional Appearance: average body habitus Orientation/consciousness: oriented to person and oriented to place Limitations: altered mental status and behavioral limitations HEENT Head: Yes normal to inspection Neuro General: oriented to person, oriented to place, moves all extremities and deep tendon reflexes 2+ bilaterally Cognition (Neuro): abnormal cognition Speech: Abnormal speech present (hypophonia ) and Other speech findings present (Neuro) Motor exam (neuro): Tremors during motor activity present bilateral upper extremity resting tremor and pill-rolling tremor and Abnormal muscle tone present bilateral upper extremity with cogwheel rigidity, left lower extremity with cogwheel rigidity Sensory Exam: double simultaneous stimulation for sensation normal Deep tendon reflexes (DTR's): Right triceps reflex intensity grade: 2+, Left triceps reflex intensity grade: 2+, Rt Biceps (C5, C6): 2+, Left biceps reflex intensity grade: 2+, Right brachioradialis reflex intensity grade: 2+, Left brachioradialis reflex intensity grade: 2+, Right patellar reflex intensity grade: 2+, Left patellar reflex intensity grade: 2+, Right ankle reflex intensity grade: 2+ and Left ankle reflex intensity grade: 2+ Coordination: [id number] test normal Psych Appearance: well kempt Speech and movement: Other speech and movement exam findings present (Psych) (hypophonia ) Affect: Blunted affect present Assessment & Plan Assessment & Plan (1) Memory change: Code(s): R41.3 - Other amnesia Category: Medical (2) Rigidity: Code(s): R29.898 - Other symptoms and signs involving the musculoskeletal system Category: Medical Plan John is a 64-year-old male patient with a past medical history of GERD, pre-diabetes, hyperlipidemia, schizophrenia, severe sleep apnea with cpcp use, vitamin-A deficiency, and tobacco use who is presenting today for a follow-up visit for his memory. His Shenandoah scoring was 10/30 with use of a medical lab director during his last visit. His physical exam displayed some obvious parkinsonism though it is not clear at this point whether or not this is drug-induced from his risperidone versus possible PD. 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 His B12 level was slightly low and therefore I recommended supplementation however it did not appear to be low enough to likely cause the degree of cognitive impairment. Unfortunately, he never did have the pTAU/amyloid ratio test performed. We will try to obtain this again. I canceled and reordered the test. In efforts to save time, I will also order his MRI of the brain now to look at areas/patterns for atrophy, significant white matter disease, or other structural abnormalities that could play a role in memory. We could consider a PET scan if indicated however he has not a good candidate for Alzheimer specific medications and therefore a PET scan would likely be low yield. -Labs:pTau/amyloid ratio -MRI brain without contrast -Follow-up in 2 months Orders: Orders ABeta 42/40 p-tau 217 Eval Today R41.3 - Other amnesia MR head/brain wo con Today R41.3 - Other amnesia Coding Level of Care Code Est Pt Level 4 (16599) Diagnoses Memory change R41.3 Rigidity R29.898
[2025-02-12 14:35] VITALS: BP 132/80; PULSE 65; RESP 16; O2SAT 98; BMI 29.3
--- OUTSIDE RECORDS SUMMARY | 2025-02-12 16:25 | XMS_ITS | Clinical Summary ---
Author Organization [employer] Address 75 [facility] 7t [place] [address] Care Team Providers Care Military Lawyer Name Role Phone Caryn Henning MD Primary Care Provider [phone] Allergies Active Allergy Reactions Criticality Noted Date [...] (dry eyes). 12 mL 11 4 Active traZODone (Desyrel) 50 MG tablet Take 1 tablet (50 mg) by mouth at bedtime. 90 tablet 3 4 Active Vitamin A Palmitate 3 MG (13076 UT) tabletIndications: Vitamin A deficiency Take 1 tablet by mouth Once per day. 30 tablet 4 Active cholecalciferol (D3 Super Strength) 50 MCG (2000 UT) capsule Take 1 capsule (50 mcg) by mouth Once per day. 90 capsule 3 5 Active zinc gluconate 50 MG tabletIndications: Zinc deficiency Take 1 tablet (50 mg) by mouth Once per day. 90 tablet 3 5 026 Active beta carotene (vitamin A) 3 MG (83905 UT) capsule Take 1 capsule by mouth Once per day. 4 Active Skin Protectants, Misc. (Minerin Creme) cream APPLY TOPICALLY TO THE AFFECTED AREA(S) EVERY DAY NEEDED FOR DRY SKIN 113 g 3 5 Active polyvinyl alcohol (Liquifilm Tears) 1.4 % ophthalmic solution INSTILL 1 DROP IN EACH EYE TWICE DAILY 15 mL 3 5 Active ketoconazole (NIZOral) 2 % creamIndications:R alan Apply small amount to areas of face with rash two times daily for 2 weeks or until symptoms subside 15 g 5 Active esomeprazole (NexIUM) [address] capsule TAKE 1 CAPSULE BY MOUTH EVERY DAY 1 HOUR BEFORE A MEAL DO NOT BREAK, CRUSH, DISSOLVE OR CHEW 90 capsule 1 5 Active Eye Itch Relief 0.035 % solutionIndication s:Allergic conjunctivitis of left eye INSTILL 1 DROP INTO THE AFFECTED EYE(S) EVERY DAY NEEDED FOR SWELLING (EYELID) 10 mL 1 5 Active levoFLOXacin (Levaquin) 500 MG tablet 5 Active oxyCODONE (Roxicodone) 5 MG immediate release tablet 5 Active tamsulosin (Flomax) 0.4 MG 24 hr capsule 5 Active ammonium lactate (Lac-Hydrin) 12 % lotionIndications: Dry skin Apply topically if needed for dry skin. 225 g 2 5 Active simvastatin (Zocor) 80 MG tablet TAKE 1 TABLET BY MOUTH EVERY NIGHT 90 tablet 3 5 Active melatonin 5 MG tablet TAKE 2 TABLETS BY MOUTH EVERY DAY AT BEDTIME 60 tablet 11 5 Active Active Problems Problem Noted Date Diagnosed [...] Plan (09/14/2022 12:43 PM EDT): Gave patient [facility] contact information and instructed them to call GI and to be persistent. Edentulous 06/26/2022 Assessment & Plan (09/14/2022 12:42 PM EDT): Patient still waiting on PIGMENT WEIGHER videofluoroscopic swallow study. Fatigue 03/05/2022 Gastroesophageal reflux [...] Encounters Date Type Department Care Team Description 01/29/2025 Telephone [facility] [address] [place] [address] Caryn Henning MD Med Refill 01/08/2025 Refill [facility] [address] [place] [address] Caryn Henning MD 12/26/2024 Telephone [facility] [address] [place] [address] Caryn Henning MD Durable Medical Equipment ([facility]: ) 12/18/2024 Orders Only GENERIC EXTERNAL DATA DEPARTMENT Provider, Generic External Data 12/04/2024 Refill [facility] [address] [place] [address] Caryn Henning MD 11/28/2024 Orders Only [facility] External Provider, [facility] 11/17/2024 3:45 PM EDT Office Visit [facility] [address] [place] [address] Caryn Henning MD Memory loss (Primary Dx); Blurry vision, bilateral; Dry skin 11/17/2024 Travel 11/15/2024 Telephone [facility] [address] [place] [address] Jamal Kim MA chart prep from Last 3 Months Immunizations Immunization Administration [...] 11/17/2024 3:55 PM EDT Plan of Treatment Upcoming Encounters Date Type Department Care Team (Late st Contact Info) Description 04/18/2025 10:30 AM EST Office Visit [facility] [address] [place] [address] Caryn Henning MD [address] [place] [address] Health Maintenance Due Date Last Done [...] Vitamin B12 349 200 - 900 pg/mL [facility] Comment:NORMAL 200-900 PG/ML INDETERMINATE 160-199 PG/ML DEFICIENT < 160 PG/ML 12/18/2024 9:27 AM EDT 12/18/2024 9:27 AM EDT us Generic External Data Provider LAB BLOOD ORDERAB LES Final Result [facility] [address] [place] [phone] * FL Guidance in OR (11/28/2024 1:30 PM EDT) Anatomical Region Laterality Modality X-Ray Angiograph y 11/28/2024 1:30 PM EDT Narrative 11/28/2024 3:17 PM EDT [address] [address] Fluoroscopy Report Signed Patient: John Aparicio MR#: [id number] : 1960 Acct:[id number] Age/Sex: 64 / M ADM Date: 11/28/24 Loc: .[facility] Attending Dr: Shadi Goodman MD Ordering Physician: Shadi Goodman MD Date of Service: 11/28/24 Procedure(s): FL guidance in OR Accession Number(s): [id number] cc: Shadi Goodman MD; Caryn Henning EXAMINATION: [...] 11/28/24 1514 DD/ 1330 TD/TT: 11/28/24 1450 Explosive Operator: Procedure Note Donotuseinterpreter, Image - 11/28/2024 [place] [address] Fluoroscopy Report Signed Patient: Joe Aparicio#: [id number] : 1960Acct:[id number] Age/Sex: 64 / MADM Date: 11/28/24 Loc: [facility] Attending Dr: Shadi Goodman MD Ordering Physician: Shadi Goodman MD Date of Service: 11/28/24 Procedure(s): FL guidance in OR Accession Number(s): [id number] cc: Shadi Goodman MD; Caryn Henning EXAMINATION: [...] 11/28/24 1514 DD/ 1330 TD/TT: 11/28/24 1450 Explosive Operator: [facility] External Provider IMG IR PROCEDURES Final Result * (ABNORMAL) Lipid Panel, Standard (08/30/2024 9:09 AM EDT) Triglycerides 86 <150 mg/dL [facility] Comment:Desirable Triglyceri de: less than 150 mg/dLBorderline High Triglyceride 150-199 mg/dLHigh Triglyceride: 200-499 mg/dLVery High Triglyceride: greater than or equal to 5OO mg/dL Cholesterol 123 <200 mg/dL [facility] Comment:Desirable Cholestero l: less than 200 mg/dLBorderline High Cholesterol: 200-239 mg/dLHigh Cholesterol: greater than 239 mg/dL LDL Cholesterol Calculated 67 <100 mg/dL [facility] Comment:Desirable LDL: less than 100 mg/dLNear Optimal/Above Optimal LDL: 110- 129 mg/dLBorderline High LDL: 130-159 mg/dLHigh LDL: 160-189 mg/dLVery High LDL: greater than or equal to 190 mg/dL HDL Cholesterol 39(L) >40 mg/dL [facility] Comment:Desirable HDL: great er than 40 mg/dL Note: This HDL assay may give artificially low results in patients with liver disease. Blood Venous blood specimen / Unknown 08/30/2024 9:09 AM EDT 08/30/2024 11:10 AM EDT us Caryn Henning MD LAB BLOOD ORDERABLES Final Res ult [facility] [address] [place] [phone] * Cologuard?? colon cancer screening (06/29/2024 6:20 AM EDT) Cologuard Result Negative Negative 07/18/19 4:44 AM EDT [facility] (CLIA #:[id number]) Comment: NEGATIVE TEST RESULT. A negative Cologuard [...] (Thierry Andrea al, N Engl J Med 2014;370(14):4703-9632) The normal value (reference range) for this assay is negative. COLOGUARD RE-SCREENING RECOMMENDATION: Periodic colorectal cancer screening is an important part of preventive healthcare for asymptomatic individuals at average risk for colorectal cancer. Following a negative Cologuard result, the [place] [employer] Society and U.S. Multi-Society Task Force screening guidelines recommend a Cologuard re-screening interval of 3 years. References: [place] [employer] Guideline for Colorectal Cancer Screening: https://www.cancer.org/cancer/ycbnm-opxywq-deuqgf/oglqvbszc-xobcdttfa-yhgeovl/ac s-rec ommendations.html.; Angel DK, Malorie LEON, Jocelyne OdonnellK, Colorectal Cancer Screening: Recommendations for Physicians and Patients from the U.S. Multi-Society Task Force on Colorectal Cancer Screening , Am J Gastroenterology 2017; 112:0311-2904. TEST DESCRIPTION: Composite algorithmic analysis of stool [...] (Thierry Andrea al, N Engl J Med 2014;370(14):5066-9184.) Cologuard may produce a false negative or false positive result (no colorectal cancer or precancerous polyp present at colonoscopy follow up). A negative Cologuard test result does not guarantee the absence of CRC or advanced adenoma (pre-cancer). The current Cologuard screening interval is every 3 years. ([place] [employer] and U.S. Multi-Society Task Force). Cologuard performance data in a 10,000 patient pivotal study using colonoscopy as the reference method can be accessed at the following location: www.Zhilian Zhaopin.SimplyGiving.com/results. Additional description of the Cologuard test process, warnings and precautions can be found at www.Pixelatedoguard.SimplyGiving.com. Stool specimen (specimen) 06/29/2024 6:20 AM EDT 07/01/2024 10:11 AM EDT Caryn Henning MD LAB MOLECULAR DIAGNOSTICS JEFFREY SHAH Final Result [facility] (CLIA #:[id number]) [address] [place] [address], * (ABNORMAL) HEPATITIS C AB W/REFL TO HCV RNA, QN, PCR (07/10/2021 10:35 AM EDT) HEPATITIS C ANTIBODY REACTIVE( A) NON-REACT JAUN [facility] INDEX 3.21(H) <1.00 [facility] Comment: Based on this result, the sample will be tested for HCV RNA by a Nucleic Acid Amplification Test (NAAT) to determine if the patient has a current active infection. 07/10/2021 10:3 5 AM EDT us Yolanda Salgado MD HISTORICAL/NON ORDERA BLE LABS Final Result Performing Organization Address [facility]/ZIP Co de Phone Number [facility] [address] [place] [address], * HIV 1/2 ANTIGEN/ANTIBODY,FOURTH GENERATION W/RFL (07/10/2021 10:35 AM EDT) HIV-1/2 ANTIGEN AND ANTIBODIES, 4TH GENERATION W/ REFLEX NON-REACT JAUN NON-REACT JAUN [facility] Comment: HIV-1 antigen and HIV-1/HIV-2 [...] purpose. For additional information please refer to http://education.QuantumSphere/faq/BSD977 (This link is being provided for informational/ educational purposes only.) The performance of this assay has not been clinically validated in patients less than 2 years old. 07/10/2021 10:3 5 AM EDT us Yolanda Salgado MD LAB BLOOD ORDERABLES Final Result [facility] [address] from Last 3 Months or Most Recently Relevant to Health Maintenance Insurance [facility] < 67 [place] [id number] Care Teams Military Lawyer Relationship Specialty Start Date End Date Caryn Henning MD [address] [place] [address] PCP - General Family Medicine 10/28/20
--- OUTSIDE RECORDS SUMMARY | 2025-02-12 16:25 | XMS_ITS | Encounter Summary ---
Author Organization [facility] Address [address] [facility] 7 [place] [address] Care Team Providers Care Winch Operator Name Role Phone Caryn Henning MD Primary Care Provider [phone] Encounter Details Date Type Department Care Team (Late st Contact Info) Description 01/21/2024 Orders Only [facility] [address] [place], [place] [phone] Caryn Henning MD 230 [place], [place] [phone] Social History Tobacco Use Types Packs/Day Years [...] Description 04/18/2025 10:30 AM EST Office Visit [facility] [address] [place], [place] [phone] Caryn Henning MD [address] [place] [address] documented as of this encounter Visit Diagnoses Not on filedocumented in this encounter Additional Health Concerns Assessment Noted Time PHQ-9 Depression Total Score: 0 07/02/19 24 10:52 AM EDT documented as of this encounter Care Teams Winch Operator Relationship Specialty Start Date End Date Caryn Henning MD [address] [place] [address] PCP - General Family Medicine 10/28/20 documented as of this encounter
--- OUTSIDE RECORDS SUMMARY | 2025-02-12 16:25 | XMS_ITS | Encounter Summary ---
Author Organization [employer] Address 75 [facility] 7 [place] [address] Care Team Providers Care Desk Reporter Name Role Phone Caryn Henning MD Primary Care Provider [phone] Reason for Visit * Reason Onset Date Comments Nurse Triage 08/26/2023 Encounter Details Date Type Department Care Team (Late st Contact Info) Description 08/26/2023 Telephone [facility] MEDICINE [address] [place], [place] [phone] Caryn Henning MD 230 [place], [place] [phone] Nurse Triage Social History Tobacco Use Types [...] acuity questions The caller accepted this outcome Mohawk speaker documented in this encounter Plan of Treatment Upcoming Encounters Date Type Department Care Team (Late st Contact Info) Description 04/18/2025 10:30 AM EST Office Visit [facility] [address] [place] [address] Caryn Henning MD [address] [place] [address] documented as of this encounter Visit Diagnoses Not on filedocumented in this encounter Additional Health Concerns Assessment Noted Time PHQ-9 Depression Total Score: 0 07/02/19 24 10:52 AM EDT documented as of this encounter Care Teams Desk Reporter Relationship Specialty Start Date End Date Caryn Henning MD [address] [place] [address] PCP - General Family Medicine 10/28/20 documented as of this encounter
--- OUTSIDE RECORDS SUMMARY | 2025-02-12 16:25 | XMS_ITS | Encounter Summary ---
Author Organization [employer] Address 75 [facility] 7 [place] [address] Care Team Providers Care Senior Wind Turbine Technician Name Role Phone Caryn Henning MD Primary Care Provider [phone] Reason for Referral * Consultation (Routine) - Closed Specialty Diagnoses / Procedures Referred By Contac t Referred To Contact Gastroenterology Diagnoses Edentulous Dysphagia, unspecified type Caryn Henning MD [address] [place] [address] Phone: tel: fax: [facility] [address] [place] [address] Drive 2nd Floor [place], [place] Phone: tel: fax: Referral ID Status Reason Start Date Expiration Date V isits Requested Visits Authorized [id number] Closed Specialty Services Required 08/30/2024 08/30/2025 1 1 Encounter Details Date Type Department Care Team (Late st Contact Info) Description 08/30/2024 Orders Only [facility] [address] [place], [place] [phone] Caryn Henning MD [address] [place], [place] [phone] Edentulous (Primary Dx); Dysphagia, unspecified type Social [...] Description 04/18/2025 10:30 AM EST Office Visit [facility] [address] [place] [address] Caryn Henning MD [address] [place] [address] Scheduled Referrals Name Type Priority Associated Diagnoses [...] PSA,Total (Free>4and<10) 0.86 0.00 - 4.00 ng/mL [facility] Comment:A Free PSA was not [...] Provider LAB BLOOD ORDERAB LES Final Result [facility] [address] [place] [address] [phone] documented in this encounter Visit Diagnoses Diagnosis Edentulous- Primary Anodontia Dysphagia, unspecified type documented in this encounter Additional Health Concerns Assessment Noted Time PHQ-9 Depression Total Score: 8 07/04/19 25 2:36 PM EDT documented as of this encounter Care Teams Senior Wind Turbine Technician Relationship Specialty Start Date End Date Caryn Henning MD [address] [place] [address] PCP - General Family Medicine 10/28/20 documented as of this encounter
--- OUTSIDE RECORDS SUMMARY | 2025-02-12 16:25 | XMS_ITS | Encounter Summary ---
Author Organization [employer] Address 75 [facility] 7 [place] [address] Care Team Providers Care Stamp Classifier Name Role Phone Caryn Henning MD Primary Care Provider [phone] Reason for Visit * Reason Onset Date Comments Appointment Request 10/13/2023 Encounter Details Date Type Department Care Team (Late st Contact Info) Description 10/13/2023 Telephone [facility] [address] [place], [place] [phone] Caryn Henning MD 230 [place], [place] [phone] Appointment Request Social History Tobacco Use Types [...] pt requesting to reschedule OV from 10/04. Senior Environmental Technician attempted to schedule but found no availability, pt requested for message to be sent stating needs appt as soon as possible. Please contact pt at [phone]. documented in this encounter Plan of Treatment Upcoming Encounters Date Type Department Care Team (Late st Contact Info) Description 04/18/2025 10:30 AM EST Office Visit [facility] [address] [place] [address] Caryn Henning MD [address] [place] [address] documented as of this encounter Visit Diagnoses Not on filedocumented in this encounter Additional Health Concerns Assessment Noted Time PHQ-9 Depression Total Score: 0 07/02/19 24 10:52 AM EDT documented as of this encounter Care Teams Stamp Classifier Relationship Specialty Start Date End Date Caryn Henning MD [address] [place] [address] PCP - General Family Medicine 10/28/20 documented as of this encounter
--- OUTSIDE RECORDS SUMMARY | 2025-02-12 16:25 | XMS_ITS | Encounter Summary ---
Author Organization [employer] Address 75 [facility] 7 [place] [address] Care Team Providers Care Quality Systems Engineer Name Role Phone Caryn Henning MD Primary Care Provider [phone] Encounter Details Date Type Department Care Team (Late st Contact Info) Description 12/21/2023 Orders Only [facility] 230 [place], [place] [phone] Caryn Henning MD 230 [place], [place] [phone] Social History Tobacco Use Types Packs/Day Years [...] Description 04/18/2025 10:30 AM EST Office Visit [facility] [address] [place], [place] [phone] Caryn Henning MD [address] [place] [address] documented as of this encounter Visit Diagnoses Not on filedocumented in this encounter Additional Health Concerns Assessment Noted Time PHQ-9 Depression Total Score: 0 07/02/19 24 10:52 AM EDT documented as of this encounter Care Teams Quality Systems Engineer Relationship Specialty Start Date End Date Caryn Henning MD [address] [place] [address] PCP - General Family Medicine 10/28/20 documented as of this encounter
--- OUTSIDE RECORDS SUMMARY | 2025-02-12 16:25 | XMS_ITS | Encounter Summary ---
Author Organization [email or web address] Address [address] [place] [address] 7 [place] [address] Care Team Providers Care Comic Book Designer Name Role Phone Caryn Henning MD Primary Care Provider Reason for Visit * Reason Comments Med Refill Encounter Details Date Type Department Care Team (Late Contact Info) Description 11/30/2022 Refill [facility] [address] [place] [address] Caryn Henning MD [address] [place] [address] [phone] Social History Tobacco Use Types Packs/Day Years [...] Department Care Team (Late Contact Info) Description 04/18/2025 10:30 AM EST Office Visit [facility] [address] [place] [address] [phone] Caryn Henning MD [address] [place] [address] [phone] documented as of this encounter Visit Diagnoses Not on filedocumented in this encounter Care Teams Comic Book Designer Relationship Specialty Start Date End Date Caryn Henning MD 230 [place] [address] PCP - General Family Medicine 10/28/20 documented as of this encounter
--- OUTSIDE RECORDS SUMMARY | 2025-02-12 16:25 | XMS_ITS | Encounter Summary ---
Author Organization [employer] Address 75 [facility] 7t [place] [address] Care Team Providers Care Apparel Cutter Name Role Phone Caryn Henning MD Primary Care Provider Encounter Details Date Type Department Care Team (Late st Contact Info) Description 04/29/2023 Telephone [facility] 230 [place], [place] [phone] Caryn Henning MD [address] [place], [place] [phone] Social History Tobacco Use Types Packs/Day Years [...] Description 04/18/2025 10:30 AM EST Office Visit [facility] 230 [place] [address] Caryn Henning MD 230 [place], [place] [phone] documented as of this encounter Visit Diagnoses Not on filedocumented in this encounter Care Teams Apparel Cutter Relationship Specialty Start Date End Date Caryn Henning MD [address] [place] [address] [phone] PCP - General Family Medicine 10/28/20 documented as of this encounter
--- OUTSIDE RECORDS SUMMARY | 2025-02-12 16:25 | XMS_ITS | Encounter Summary ---
Author Organization [employer] Address 75 [facility] 7t [place] [address] Care Team Providers Care Transformer Coil Winder Name Role Phone Caryn Henning MD Primary Care Provider Encounter Details Date Type Department Care Team (Late st Contact Info) Description 05/19/2023 Telephone [facility] 230 [place], [place] [phone] Caryn Henning MD [address] [place], [place] [phone] Social History Tobacco Use Types Packs/Day Years [...] Description 04/18/2025 10:30 AM EST Office Visit [facility] 230 [place] [address] Caryn Henning MD [address] [place], [place] [phone] documented as of this encounter Visit Diagnoses Not on filedocumented in this encounter Care Teams Transformer Coil Winder Relationship Specialty Start Date End Date Caryn Henning MD [address] [place] [address] [phone] PCP - General Family Medicine 10/28/20 documented as of this encounter
--- OUTSIDE RECORDS SUMMARY | 2025-02-12 16:25 | XMS_ITS | Encounter Summary ---
Author Organization [employer] Address [address] [facility] 7 [place] [address] Care Team Providers Care Merchandising Lead Name Role Phone Caryn Henning MD Primary Care Provider [phone] Reason for Visit * Reason Onset Date Comments Med Refill 01/29/2025 Encounter Details Date Type Department Care Team (Late st Contact Info) Description 01/29/2025 Telephone [facility] 230 [place], [place] [phone] Caryn Henning MD 230 [place], [place] [phone] Med Refill Social History Tobacco Use Types [...] the past 12 months, has t he [employer] gas, oil or water company threatened to [...] Telephone Encounter - Francia Cummings LPN - 01/29/2025 3:32 PM EDT Medication to [facility] for refill script was sent on 08/29/24 #90 with 1 refill. * Telephone Encounter - Maribeth Crandall - 01/29/2025 3:24 PM EDT TC from pt requesting medication refill. Medications needing refill : - esomeprazole (NexIUM) [address] capsule To be sent to: - [facility] - [place], [place] - [address] [place] [address] documented in this encounter Plan of Treatment Upcoming Encounters Date Type Department Care Team (Late st Contact Info) Description 04/18/2025 10:30 AM EST Office Visit [facility] [address] [place] [address] Caryn Henning MD [address] [place] [address] documented as of this encounter Visit Diagnoses Not on filedocumented in this encounter Additional Health Concerns Assessment Noted Time PHQ-9 Depression Total Score: 9 11/18/19 25 3:56 PM EDT documented as of this encounter Care Teams Merchandising Lead Relationship Specialty Start Date End Date Caryn Henning MD [address] [place] [address] PCP - General Family Medicine 10/28/20 documented as of this encounter
--- OUTSIDE RECORDS SUMMARY | 2025-02-12 16:25 | XMS_ITS | Encounter Summary ---
Author Organization [employer] Address 75 [facility] 7 [place] [address] Care Team Providers Care Quality Rn Name Role Phone Caryn Henning MD Primary Care Provider [phone] Reason for Visit * Reason Onset Date Comments Med Refill 03/20/2024 Encounter Details Date Type Department Care Team (Late st Contact Info) Description 03/20/2024 Telephone [facility] 230 [place], [place] [phone] Caryn Henning MD 230 [place], [place] [phone] Med Refill Social History Tobacco Use Types [...] PM EST Vitamin D was sent to [facility] on 12/07/23 #90 with 3 refills and Oxybutynin isn't prescribed by PCP. * Telephone Encounter - Jacinta Manzanares - 03/20/2024 12:31 PM EST TC from pt requesting medication refill. Medications needing refill : D3 Super Strength 50 MCG (1999 UT) capsule oxybutynin XL (Ditropan-XL) 5 MG 24 hr tablet To be sent to: [facility] - [place], [place] - [address] [facility] documented in this encounter Plan of Treatment Upcoming Encounters Date Type Department Care Team (Late st Contact Info) Description 04/18/2025 10:30 AM EST Office Visit [facility] 230 [place] [address] Caryn Henning MD [address] [place] [address] documented as of this encounter Visit Diagnoses Not on filedocumented in this encounter Additional Health Concerns Assessment Noted Time PHQ-9 Depression Total Score: 0 07/02/19 24 10:52 AM EDT documented as of this encounter Care Teams Quality Rn Relationship Specialty Start Date End Date Caryn Henning MD [address] [place] [address] PCP - General Family Medicine 10/28/20 documented as of this encounter
--- OUTSIDE RECORDS SUMMARY | 2025-02-12 16:25 | XMS_ITS | Clinical Summary ---
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 Schizophrenia ([facility] V24, [facility] V28) 024 Sleep apnea 09/17/2023 Encounters Date Type Department Care Team Description 01/31/2025 10:45 AM EDT Office Visit [facility] Surgery [address] [phone] Fransico Owusu DPM Acquired hammer toe of right foot (Primary Dx); Hammer toe of left foot; Dermatophytosis of nail 12/21/2024 10:45 AM EDT Office Visit Orthopedic Surgery [address] [phone] Fransico Owusu DPM Acquired hammer toe of right foot (Primary Dx); Hammer toe of left foot; Ingrowing nail; Dermatophytosis of nail; Pain in toe of right foot; Pain in toe of left foot; Difficulty walking from Last 3 Months Immunizations Immunization Administration Dates Next Due [facility] SARS-CoV-2 COVID-19, mRNA, LNP-S, preservative free [...] Upcoming Encounters Date Type Department Care Team ([facility] st Contact Info) Description 03/20/2025 10:15 AM EST Office Visit Orthopedic Surgery - [place] [address] [phone] Fransico Owusu, DPM [address] [address] Health Maintenance Due Date Last Done Comments [...] ID:[id number] Group ID:[id number] Type:Not on file Address: [place] [address] [place] [phone] Care Teams Field Instructor Relationship Specialty Start Date End Date Caryn Henning MD [address] [place] [address] PCP - General 07/07/23
== END 2025-02-12 14:59 | disposition home or self-care (01) ==
LOC: HO.HSM 14:04
PROVIDERS: PCP General Practice; Visit Provider Nurse Practitioner
DX: R41.3 Other amnesia (principal); R29.898 Other symptoms and signs involving the musculoskeletal system
CPT/HCPCS: 99214

== ENCOUNTER 2025-02-12 14:03 | Outpatient (REF) | payer OTHER, SELFPAY ==
[2025-02-16 02:09] LABS: ABETA 42/40 Ratio 0.191 (> OR = 0.170); Alzeheimer's Interpretation Low Likelihood; Alzeimer's Disease Score 0.0185; Tau protein phosphorylated 217 0.12 pg/mL (< OR = 0.15)
== END 2025-02-12 14:04 | disposition home or self-care (01) ==
LOC: HO.LAB 14:03
PROVIDERS: PCP General Practice; Visit Provider Nurse Practitioner
DX: R41.3 Other amnesia (principal)
CPT/HCPCS: 36415; 82233; 82234; 84393; 99212

== ENCOUNTER 2025-02-13 07:21 | Outpatient (REF) | payer OTHER, SELFPAY ==
--- NOTE | ~2025-02-13 | US_ITS ---
CLINICAL HISTORY: N20.0 - Calculus of kidney US Renal Comparison: CT/SR - CT UROGRAM - 10/05/24 13:43 EDT US/NJ/SR - US RETROPERITONEUM - 07/14/24 15:27 EDT Findings: Right kidney normal size and echotexture, 11.3 x 5 x 5.4 cm length. Cysts in the right kidney measure up to 1.5 cm in the lower pole with septation and 6 mm in the mid right kidney. Multiple echogenic foci or possible calculi are present. Left kidney normal size and echotexture, 12.2 x 5.8 x 5.4 cm length. Hydronephrosis of right kidney noted. Normal color Doppler IMPRESSION: 1. Right hydronephrosis This document has been electronically signed by: Quang Gautam MD, PHD on 02/14/2025 05:26:58
--- OUTSIDE RECORDS SUMMARY | 2025-02-13 07:23 | XMS_ITS | Encounter Summary ---
Author Organization [employer] Address 75 [facility] 7 [place] [address] Care Team Providers Care Gas Combustion Engineer Name Role Phone Caryn Henning MD Primary Care Provider [phone] Reason for Visit * Reason Onset Date Comments Nurse Triage 08/26/2023 Encounter Details Date Type Department Care Team (Late st Contact Info) Description 08/26/2023 Telephone [facility] 230 [place], [place] [phone] Caryn Henning MD 230 [place], [place] [phone] Nurse Triage Social History Tobacco Use Types [...] acuity questions The caller accepted this outcome Kyrgyz speaker documented in this encounter Plan of Treatment Upcoming Encounters Date Type Department Care Team (Late st Contact Info) Description 04/18/2025 10:30 AM EST Office Visit [facility] 230 [place] [address] Caryn Henning MD 230 [place] [address] documented as of this encounter Visit Diagnoses Not on filedocumented in this encounter Additional Health Concerns Assessment Noted Time PHQ-9 Depression Total Score: 0 07/02/19 24 10:52 AM EDT documented as of this encounter Care Teams Gas Combustion Engineer Relationship Specialty Start Date End Date Caryn Henning MD [address] [place] [address] PCP - General Family Medicine 10/28/20 documented as of this encounter
--- OUTSIDE RECORDS SUMMARY | 2025-02-13 07:23 | XMS_ITS | Encounter Summary ---
Author Organization [employer] Address 75 [facility] 7t [place] [address] Care Team Providers Care Mandolin Repairer Name Role Phone Caryn Henning MD Primary Care Provider [phone] Encounter Details Date Type Department Care Team (Late st Contact Info) Description 05/19/2023 Telephone [facility] 230 [place], [place] [phone] Caryn Henning MD 230 [place], [place] [phone] Social History Tobacco Use Types Packs/Day Years [...] Description 04/18/2025 10:30 AM EST Office Visit [facility] [address] [place] [address] Caryn Henning MD 230 [place], [place] [phone] documented as of this encounter Visit Diagnoses Not on filedocumented in this encounter Care Teams Mandolin Repairer Relationship Specialty Start Date End Date Caryn Henning MD [address] [place] [address] [phone] PCP - General Family Medicine 10/28/20 documented as of this encounter
--- OUTSIDE RECORDS SUMMARY | 2025-02-13 07:23 | XMS_ITS | Clinical Summary ---
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 V24, [facility] V28) 024 Sleep apnea 09/17/2023 Encounters Date Type Department Care Team Description 01/31/2025 10:45 AM EDT Office Visit Orthopedic Surgery [address] [phone] Fransico Owusu DPM Acquired hammer toe of right foot (Primary Dx); Hammer toe of left foot; Dermatophytosis of nail 12/21/2024 10:45 AM EDT Office Visit Orthopedic Surgery [address] [phone] Fransico Owusu DPM Acquired hammer toe of right foot (Primary Dx); Hammer toe of left foot; Ingrowing nail; Dermatophytosis of nail; Pain in toe of right foot; Pain in toe of left foot; Difficulty walking from Last 3 Months Immunizations Immunization Administration Dates Next Due [facility] SARS-CoV-2 COVID-19, mRNA, LNP-S, preservative free 06/04/2021 [...] ([facility] st Contact Info) Description 03/20/2025 10:15 AM EST Office Visit [facility] - [place] [address] [phone] Fransico Owusu, DPM [address] [address] Health Maintenance Due Date Last Done Comments Hepatitis C Screening 05/04/2023 Medicare Annual Wellness Visit 05/04/2023 Social Influencers of Health Screening 05/04/2023 Depression Screening 04/05/2024 COVID-19 Vaccine ( season) 2024 04/21/2024, 07/02/2023, 06/04/2021, Additional history exists Influenza Vaccine (#1) 2024 , 12/21/2022, 01/29/2021, Additional history exists Colorectal Cancer Screening: FIT-DNA (Cologuard) 06/30/2027 06/29/2024 Cholesterol Screening (Lipid Panel) 08/30/2029 08/30/2024 DTaP,Tdap,and Td Vaccines (2 - Td or Tdap) 07/01/2033 07/02/2023 RSV Immunization Adult Patients (1 - 1-dose 75+ series) 2037 HIV Screening Completed 07/10/2021 Pneumococcal Vaccine: 50+ Years Completed 07/02/2023, 04/13/2018 Zoster Vaccines Completed 09/04/2024, 07/03/2024 HIB Vaccines [...] Group ID:[id number] Type:Not on file Address: [facility] [place] [address] Care Teams Doctor Of Dental Medicine Relationship Specialty Start Date End Date Caryn Henning MD [address] [place] [address] PCP - General 07/07/23
--- OUTSIDE RECORDS SUMMARY | 2025-02-13 07:23 | XMS_ITS | Encounter Summary ---
Author Organization [employer] Address [address] [place] [address] 7 [place] [address] Care Team Providers Care Portfolio Mgr Name Role Phone Caryn Henning MD Primary Care Provider [phone] Reason for Visit * Reason Comments Med Refill Encounter Details Date Type Department Care Team (Late Contact Info) Description 11/30/2022 Refill [facility] [address] [place] [address] Caryn Henning MD [address] [place] [address] [phone] Social History Tobacco Use Types Packs/Day Years [...] Description 04/18/2025 10:30 AM EST Office Visit [facility] [address] [place] [address] [phone] Caryn Henning MD [address] [place] [address] [phone] documented as of this encounter Visit Diagnoses Not on filedocumented in this encounter Care Teams Portfolio Mgr Relationship Specialty Start Date End Date Caryn Henning MD [address] [place] [address] PCP - General Family Medicine 10/28/20 documented as of this encounter
--- OUTSIDE RECORDS SUMMARY | 2025-02-13 07:23 | XMS_ITS | Encounter Summary ---
Author Organization [employer] Address 75 [facility] 7 [place] [address] Care Team Providers Care Data Sciences Director Name Role Phone Caryn Henning MD Primary Care Provider [phone] Encounter Details Date Type Department Care Team (Late st Contact Info) Description 01/21/2024 Orders Only [facility] 230 [place], [place] [phone] Caryn Henning MD 230 [place], [place] [phone] Social History Tobacco Use Types Packs/Day Years [...] Description 04/18/2025 10:30 AM EST Office Visit [facility] [address] [place], [place] [phone] Caryn Henning MD [address] [place] [address] documented as of this encounter Visit Diagnoses Not on filedocumented in this encounter Additional Health Concerns Assessment Noted Time PHQ-9 Depression Total Score: 0 07/02/19 24 10:52 AM EDT documented as of this encounter Care Teams Data Sciences Director Relationship Specialty Start Date End Date Caryn Henning MD [address] [place] [address] PCP - General Family Medicine 10/28/20 documented as of this encounter
--- OUTSIDE RECORDS SUMMARY | 2025-02-13 07:23 | XMS_ITS | Encounter Summary ---
Author Organization [employer] Address 75 [facility] 7t [place] [address] Care Team Providers Care Front End Application Developer Name Role Phone Caryn Henning MD Primary Care Provider [phone] Encounter Details Date Type Department Care Team (Late st Contact Info) Description 04/29/2023 Telephone [facility] 230 [place], [place] [phone] Caryn Henning MD 230 [place], [place] [phone] Social History Tobacco Use Types Packs/Day Years [...] Description 04/18/2025 10:30 AM EST Office Visit [facility] [address] [place] [address] Caryn Henning MD 230 [place], [place] [phone] documented as of this encounter Visit Diagnoses Not on filedocumented in this encounter Care Teams Front End Application Developer Relationship Specialty Start Date End Date Caryn Henning MD [address] [place] [address] [phone] PCP - General Family Medicine 10/28/20 documented as of this encounter
--- OUTSIDE RECORDS SUMMARY | 2025-02-13 07:23 | XMS_ITS | Encounter Summary ---
Author Organization [employer] Address 75 [facility] 7 [place] [address] Care Team Providers Care Senior Applications Architect Name Role Phone Caryn Henning MD Primary Care Provider [phone] Encounter Details Date Type Department Care Team (Late st Contact Info) Description 12/21/2023 Orders Only [facility]INE 230 [place], [place] [phone] Caryn Henning MD 230 [place], [place] [phone] Social History Tobacco Use Types Packs/Day Years [...] Visit [facility] [address] [place], [place] [phone] Caryn Henning MD 230 [place] [address] documented as of this encounter Visit Diagnoses Not on filedocumented in this encounter Additional Health Concerns Assessment Noted Time PHQ-9 Depression Total Score: 0 07/02/19 24 10:52 AM EDT documented as of this encounter Care Teams Senior Applications Architect Relationship Specialty Start Date End Date Caryn Henning MD 230 [place] [address] PCP - General Family Medicine 10/28/20 documented as of this encounter
--- OUTSIDE RECORDS SUMMARY | 2025-02-13 07:23 | XMS_ITS | Encounter Summary ---
Author Organization [employer] Address 75 [facility] 7 [place] [address] Care Team Providers Care Bank Clerk Name Role Phone Caryn Henning MD Primary Care Provider [phone] Reason for Visit * Reason Onset Date Comments Med Refill 03/20/2024 Encounter Details Date Type Department Care Team (Late st Contact Info) Description 03/20/2024 Telephone [facility] MEDICINE [address] [place], [place] [phone] Caryn Henning MD 230 [place], [place] [phone] Med Refill Social History Tobacco Use Types [...] PM EST Vitamin D was sent to [facility] on 12/07/23 #90 with 3 refills and Oxybutynin isn't prescribed by PCP. * Telephone Encounter - Jacinta Manzanares - 03/20/2024 12:31 PM EST TC from pt requesting medication refill. Medications needing refill : D3 Super Strength 50 MCG (1999 UT) capsule oxybutynin XL (Ditropan-XL) 5 MG 24 hr tablet To be sent to: [facility] - [place], [place] - [address] [facility] documented in this encounter Plan of Treatment Upcoming Encounters Date Type Department Care Team (Late st Contact Info) Description 04/18/2025 10:30 AM EST Office Visit [facility] MEDICINE [address] [place] [address] Caryn Henning MD [address] [facility] [address] documented as of this encounter Visit Diagnoses Not on filedocumented in this encounter Additional Health Concerns Assessment Noted Time PHQ-9 Depression Total Score: 0 07/02/19 24 10:52 AM EDT documented as of this encounter Care Teams Bank Clerk Relationship Specialty Start Date End Date Caryn Henning MD 230 [place] [address] PCP - General Family Medicine 10/28/20 documented as of this encounter
--- OUTSIDE RECORDS SUMMARY | 2025-02-13 07:23 | XMS_ITS | Clinical Summary ---
Author Organization [employer] Address [address] [facility] 7t [place] [address] Care Team Providers Care Ladderman Name Role Phone Caryn Henning MD Primary Care Provider Allergies Active Allergy Reactions Criticality Noted Date [...] 4 Active Vitamin A Palmitate 3 MG (62978 UT) tabletIndications: Vitamin A deficiency Take 1 [...] Active beta carotene (vitamin A) 3 MG (79397 UT) capsule Take 1 capsule by mouth [...] 12:43 PM EDT): Gave patient [facility] contact information and instructed them to call GI and to be persistent. 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 Fatigue 03/05/2022 Gastroesophageal reflux [...] Type Department Care Team Description 01/29/2025 Telephone [facility] MEDICINE [address] [place] [address] Caryn Henning MD Med Refill 01/08/2025 Refill [facility] MED[facility] [address] [place] [address] Caryn Henning MD 12/26/2024 Telephone [facility] MEDICINE [address] [place] [address] Caryn Henning MD Durable Medical Equipment ([employer]: ) 12/18/2024 Orders Only GENERIC EXTERNAL DATA DEPARTMENT Provider, Generic External Data 12/04/2024 Refill [facility] MED[facility]INE [address] [place] [address] Caryn Henning MD 11/28/2024 Orders Only [facility] External Provider, [facility] 11/17/2024 3:45 PM EDT Office Visit [facility] MEDICINE [address] [place] [address] Caryn Henning MD Memory loss (Primary Dx); Blurry vision, bilateral; Dry skin 11/17/2024 Travel 11/15/2024 Telephone [facility] MEDICINE [address] [place] [address] Jamal Kim MA chart prep from Last [...] Description 04/18/2025 10:30 AM EST Office Visit [facility] MEDICINE [address] [place] [address] Caryn Henning MD 230 [place] [address] Health Maintenance Due Date Last [...] Vitamin B12 349 200 - 900 pg/mL [facility] Comment:NORMAL 200-900 PG/ML INDETERMINATE 160-199 PG/ML DEFICIENT < 160 PG/ML 12/18/2024 9:27 AM EDT 12/18/2024 9:27 AM EDT us Generic External Data Provider LAB BLOOD ORDERAB LES Final Result [facility] [address] [place] [phone] * FL Guidance in OR (11/28/2024 1:30 PM EDT) Anatomical Region Laterality Modality X-Ray Angiograph y 11/28/2024 1:30 PM EDT Narrative 11/28/2024 3:17 PM EDT [address] [address] Fluoroscopy Report Signed Patient: John Aparicio MR#: [id number] : 1960 Acct:[id number] Age/Sex: 64 / M ADM Date: 11/28/24 Loc: .[facility] Attending Dr: Shadi Goodman MD Ordering Physician: Shadi Goodman MD Date of Service: 11/28/24 Procedure(s): FL guidance in OR Accession Number(s): [id number] cc: Shadi Goodman MD; Caryn Henning EXAMINATION: [...] 11/28/24 1514 DD/ 1330 TD/TT: 11/28/24 1450 Separator Operator: Procedure Note Donotuseinterpreter, Image - 11/28/2024 [place] [address] Fluoroscopy Report Signed Patient: Joe Aparicio#: [id number] : 1960Acct:[id number] Age/Sex: 64 / MADM Date: 11/28/24 Loc: [facility] Attending Dr: Shadi Goodman MD Ordering Physician: Shadi Goodman MD Date of Service: 11/28/24 Procedure(s): FL guidance in OR Accession Number(s): [id number] cc: Shadi Goodman MD; Caryn Henning EXAMINATION: [...] 11/28/24 1514 DD/ 1330 TD/TT: 11/28/24 1450 Separator Operator: [facility] External Provider IMG IR PROCEDURES Final Result * (ABNORMAL) Lipid Panel, Standard (08/30/2024 9:09 AM EDT) Triglycerides 86 <150 mg/dL [facility] Comment:Desirable Triglyceri de: less than 150 mg/dLBorderline High Triglyceride 150-199 mg/dLHigh Triglyceride: 200-499 mg/dLVery High Triglyceride: greater than or equal to 5OO mg/dL Cholesterol 123 <200 mg/dL [facility] Comment:Desirable Cholestero l: less than 200 mg/dLBorderline High Cholesterol: 200-239 mg/dLHigh Cholesterol: greater than 239 mg/dL LDL Cholesterol Calculated 67 <100 mg/dL [facility] Comment:Desirable LDL: less than 100 mg/dLNear Optimal/Above Optimal LDL: 110- 129 mg/dLBorderline High LDL: 130-159 mg/dLHigh LDL: 160-189 mg/dLVery High LDL: greater than or equal to 190 mg/dL HDL Cholesterol 39(L) >40 mg/dL [facility] Comment:Desirable HDL: great er than 40 mg/dL Note: This HDL assay may give artificially low results in patients with liver disease. Blood Venous blood specimen / Unknown 08/30/2024 9:09 AM EDT 08/30/2024 11:10 AM EDT us Caryn Henning MD LAB BLOOD ORDERABLES Final Res ult [facility] [address] [place] [phone] * Cologuard?? colon cancer screening (06/29/2024 6:20 AM EDT) Cologuard Result Negative Negative 07/18/19 4:44 AM EDT [facility] (CLIA #:[id number]) Comment: NEGATIVE TEST RESULT. A negative Cologuard [...] (Thierry Andrea al, N Engl J Med 2014;370(14):6502-9860) The normal value (reference range) for this assay is negative. COLOGUARD RE-SCREENING RECOMMENDATION: Periodic colorectal cancer screening is an important part of preventive healthcare for asymptomatic individuals at average risk for colorectal cancer. Following a negative Cologuard result, the [place] [employer] Society and U.S. Multi-Society Task Force screening guidelines recommend a Cologuard re-screening interval of 3 years. References: [place] [employer] Guideline for Colorectal Cancer Screening: https://www.cancer.org/cancer/fczkf-lzzrnh-unwaig/siowyshxj-qnvryjyif-dykrhcd/ac s-rec ommendations.html.; Angel DK, Malorie LEON, Jocelyne OdonnellK, Colorectal Cancer Screening: Recommendations for Physicians and Patients from the U.S. Multi-Society Task Force on Colorectal Cancer Screening , Am J Gastroenterology 2017; 112:5135-5497. TEST DESCRIPTION: Composite algorithmic analysis of stool [...] (Thierry Andrea al, N Engl J Med 2014;370(14):8471-2243.) Cologuard may produce a false negative or false positive result (no colorectal cancer or precancerous polyp present at colonoscopy follow up). A negative Cologuard test result does not guarantee the absence of CRC or advanced adenoma (pre-cancer). The current Cologuard screening interval is every 3 years. ([place] [employer] Society and U.S. Multi-Society Task Force). Cologuard performance data in a 10,000 patient pivotal study using colonoscopy as the reference method can be accessed at the following location: www.BlueLithium.NuVasive/results. Additional description of the Cologuard test process, warnings and precautions can be found at www.FuGen Solutionsoguard.NuVasive. Stool specimen (specimen) 06/29/2024 6:20 AM EDT 07/01/2024 10:11 AM EDT Caryn Henning MD LAB MOLECULAR DIAGNOSTICS JEFFREY SHAH Final Result [facility] (CLIA #:[id number]) [address] [place] [address], * (ABNORMAL) HEPATITIS C AB W/REFL TO HCV RNA, QN, PCR (07/10/2021 10:35 AM EDT) HEPATITIS C ANTIBODY REACTIVE( A) NON-REACT JAUN [facility] INDEX 3.21(H) <1.00 [facility] Comment: Based on this result, the sample will be tested for HCV RNA by a Nucleic Acid Amplification Test (NAAT) to determine if the patient has a current active infection. 07/10/2021 10:3 5 AM EDT us Yolanda Salgado MD HISTORICAL/NON ORDERA BLE LABS Final Result Performing Organization Address [facility]/ZIP Co de Phone Number [facility] [address] [place] [address], * HIV 1/2 ANTIGEN/ANTIBODY,FOURTH GENERATION W/RFL (07/10/2021 [...] purpose. For additional information please refer to http://education.Blabroom/faq/OBL374 (This link is being provided for informational/ educational purposes only.) The performance of this assay has not been clinically validated in patients less than 2 years old. 07/10/2021 10:3 5 AM EDT us Yolanda Salgado MD LAB BLOOD ORDERABLES Final Result [facility] Any[address] from Last 3 Months or Most Recently Relevant to Health Maintenance Insurance [facility] < 65 [place] [id number] Care Teams Ladderman Relationship Specialty Start Date End Date Caryn Henning MD [address] [place] [address] PCP - General Family Medicine 10/28/20
--- OUTSIDE RECORDS SUMMARY | 2025-02-13 07:23 | XMS_ITS | Encounter Summary ---
Author Organization [employer] Address 75 [facility] 7 [place] [address] Care Team Providers Care Coupon Collection Clerk Name Role Phone Caryn Henning MD Primary Care Provider [phone] Reason for Visit * Reason Onset Date Comments Appointment Request 10/13/2023 Encounter Details Date Type Department Care Team (Late st Contact Info) Description 10/13/2023 Telephone [facility] MEDICINE [address] [place], [place] [phone] Caryn Henning MD 230 [place], [place] [phone] Appointment Request Social History Tobacco Use Types [...] pt requesting to reschedule OV from 10/04. Terrazzo Installer attempted to schedule but found no availability, pt requested for message to be sent stating needs appt as soon as possible. Please contact pt at [phone]. documented in this encounter Plan of Treatment Upcoming Encounters Date Type Department Care Team (Late st Contact Info) Description 04/18/2025 10:30 AM EST Office Visit [facility] MEDICINE [address] [place] [address] Caryn Henning MD 230 [place] [address] documented as of this encounter Visit Diagnoses Not on filedocumented in this encounter Additional Health Concerns Assessment Noted Time PHQ-9 Depression Total Score: 0 07/02/19 24 10:52 AM EDT documented as of this encounter Care Teams Coupon Collection Clerk Relationship Specialty Start Date End Date Caryn Henning MD [address] [place] [address] PCP - General Family Medicine 10/28/20 documented as of this encounter
--- OUTSIDE RECORDS SUMMARY | 2025-02-13 07:23 | XMS_ITS | Encounter Summary ---
Author Organization [employer] Address 75 [facility] 7 [place] [address] Care Team Providers Care Director Of Search Engine Marketing Name Role Phone Caryn Henning MD Primary Care Provider [phone] Reason for Referral * Consultation (Routine) - Closed Specialty Diagnoses / Procedures Referred By Contac t Referred To Contact Gastroenterology Diagnoses Edentulous Dysphagia, unspecified type Caryn Henning MD [address] [place] [address] Phone: tel: fax: [facility] [address] [place] [address] 2nd Floor [place], [place] Phone: tel: fax: Referral ID Status Reason Start Date Expiration Date V isits Requested Visits Authorized [id number] Closed Specialty Services Required 08/30/2024 08/30/2025 1 1 Encounter Details Date Type Department Care Team (Late st Contact Info) Description 08/30/2024 Orders Only [facility] MEDICINE [address] [place], [place] [phone] Caryn Henning MD 230 [place], [place] [phone] Edentulous (Primary Dx); Dysphagia, unspecified type Social [...] Description 04/18/2025 10:30 AM EST Office Visit [facility] MEDICINE [address] [place] [address] Caryn Henning MD [address] [place] [address] Scheduled Referrals Name Type Priority Associated Diagnoses [...] (Free>4and<10) 0.86 0.00 - 4.00 ng/mL [facility] Comment:A Free PSA was not [...] LAB BLOOD ORDERAB LES Final Result [facility] [address] [place] [phone] documented in this encounter Visit Diagnoses Diagnosis Edentulous- Primary Anodontia Dysphagia, unspecified type documented in this encounter Additional Health Concerns Assessment Noted Time PHQ-9 Depression Total Score: 8 07/04/19 25 2:36 PM EDT documented as of this encounter Care Teams Director Of Search Engine Marketing Relationship Specialty Start Date End Date Caryn Henning MD [address] [place] [phone] PCP - General Family Medicine 10/28/20 documented as of this encounter
--- OUTSIDE RECORDS SUMMARY | 2025-02-13 07:23 | XMS_ITS | Encounter Summary ---
Author Organization [employer] Address [address] [facility] 7 [place] [address] Care Team Providers Care Business Continuity Director Name Role Phone Caryn Henning MD Primary Care Provider [phone] Reason for Visit * Reason Onset Date Comments Med Refill 01/29/2025 Encounter Details Date Type Department Care Team (Late st Contact Info) Description 01/29/2025 Telephone [facility] MEDICINE 230 [place], [place] [phone] Caryn Henning MD 230 [place], [place] [phone] Med Refill Social History Tobacco Use Types [...] the past 12 months, has t he [employer], gas, oil or water company threatened to [...] - 01/29/2025 3:32 PM EDT Medication to [facility] for refill script was sent on 08/29/24 #90 with 1 refill. * Telephone Encounter - Maribeth Crandall - 01/29/2025 3:24 PM EDT TC from pt requesting medication refill. Medications needing refill : - esomeprazole (NexIUM) [address] capsule To be sent to: - [facility] - [place], [place] - [address] [place] [address] documented in this encounter Plan of Treatment Upcoming Encounters Date Type Department Care Team (Late st Contact Info) Description 04/18/2025 10:30 AM EST Office Visit [facility] MEDICINE [address] [place] [address] Caryn Henning MD [address] [place] [address] documented as of this encounter Visit Diagnoses Not on filedocumented in this encounter Additional Health Concerns Assessment Noted Time PHQ-9 Depression Total Score: 9 11/18/19 25 3:56 PM EDT documented as of this encounter Care Teams Business Continuity Director Relationship Specialty Start Date End Date Caryn Henning MD [address] [place] [address] PCP - General Family Medicine 10/28/20 documented as of this encounter
== END 2025-02-13 07:22 | disposition home or self-care (01) ==
LOC: HO.US 07:21
PROVIDERS: PCP General Practice; Visit Provider Urology
DX: N20.0 Calculus of kidney (principal)
CPT/HCPCS: 76775

== ENCOUNTER → 2025-02-13 07:23 | Outpatient (BNV) | payer OTHER, SELFPAY | PROVIDERS: PCP General Practice; Visit Provider General Practice | DX: N13.2 Hydronephrosis with renal and ureteral calculous obstruction (principal) | CPT/HCPCS: 76775 ==

== ENCOUNTER 2025-03-06 06:30 | Outpatient (REF) | payer OTHER, SELFPAY ==
--- OUTSIDE RECORDS SUMMARY | 2025-03-06 06:34 | XMS_ITS | Encounter Summary ---
Author Organization [employer] Address [address] [facility] 7 [place] [address] Care Team Providers Care Drill Press Tender Name Role Phone Caryn Henning MD Primary Care Provider [phone] Reason for Visit * Reason Onset Date Comments Med Refill 03/20/2024 Encounter Details Date Type Department Care Team (Late st Contact Info) Description 03/20/2024 Telephone [facility] MEDICINE [address] [place], [place] [phone] Caryn Henning MD 230 [place], [place] [phone] Med Refill Social History Tobacco Use Types [...] PM EST Vitamin D was sent to [facility] on 12/07/23 #90 with 3 refills and Oxybutynin isn't prescribed by PCP. * Telephone Encounter - Jacinta Manzanares - 03/20/2024 12:31 PM EST TC from pt requesting medication refill. Medications needing refill : D3 Super Strength 50 MCG (1999 UT) capsule oxybutynin XL (Ditropan-XL) 5 MG 24 hr tablet To be sent to: [facility] - [place], [place] - [address] [facility] documented in this encounter Plan of Treatment Upcoming Encounters Date Type Department Care Team (Late st Contact Info) Description 04/18/2025 10:30 AM EST Office Visit [facility] MEDICINE [address] [place] [address] Caryn Henning MD [address] [facility] [address] documented as of this encounter Visit Diagnoses Not on filedocumented in this encounter Additional Health Concerns Assessment Noted Time PHQ-9 Depression Total Score: 0 07/02/19 24 10:52 AM EDT documented as of this encounter Care Teams Drill Press Tender Relationship Specialty Start Date End Date Caryn Henning MD 230 [place] [address] PCP - General Family Medicine 10/28/20 documented as of this encounter
--- OUTSIDE RECORDS SUMMARY | 2025-03-06 06:34 | XMS_ITS | Encounter Summary ---
Author Organization [employer] Address 75 [facility] 7 [place] [address] Care Team Providers Care High School Academic Coach Name Role Phone Caryn Henning MD Primary Care Provider [phone] Reason for Visit * Reason Onset Date Comments Appointment Request 10/13/2023 Encounter Details Date Type Department Care Team (Late st Contact Info) Description 10/13/2023 Telephone [facility] MEDICINE [address] [place], [place] [phone] Caryn Henning MD 230 [place], [place] [phone] Appointment Request Social History Tobacco Use Types [...] pt requesting to reschedule OV from 10/04. Wellness Ambassador attempted to schedule but found no availability, pt requested for message to be sent stating needs appt as soon as possible. Please contact pt at [phone]. documented in this encounter Plan of Treatment Upcoming Encounters Date Type Department Care Team (Late st Contact Info) Description 04/18/2025 10:30 AM EST Office Visit [facility] MED[facility]INE [address] [place] [address] Caryn Henning MD 230 [place] [address] documented as of this encounter Visit Diagnoses Not on filedocumented in this encounter Additional Health Concerns Assessment Noted Time PHQ-9 Depression Total Score: 0 07/02/19 24 10:52 AM EDT documented as of this encounter Care Teams High School Academic Coach Relationship Specialty Start Date End Date Caryn Henning MD [address] [place] [address] PCP - General Family Medicine 10/28/20 documented as of this encounter
--- OUTSIDE RECORDS SUMMARY | 2025-03-06 06:34 | XMS_ITS | Encounter Summary ---
Author Organization [employer] Address 75 [facility] 7 [place] [address] Care Team Providers Care Hospice Care Transitions Coordinator Name Role Phone Caryn Henning MD Primary Care Provider [phone] Encounter Details Date Type Department Care Team (Late st Contact Info) Description 01/21/2024 Orders Only [facility] MEDICINE 230 [place], [place] [phone] Caryn Henning MD 230 [place], [place] [phone] Social History Tobacco Use Types Packs/Day Years [...] Description 04/18/2025 10:30 AM EST Office Visit [facility] MEDICINE [address] [place], [place] [phone] Caryn Henning MD [address] [place] [address] documented as of this encounter Visit Diagnoses Not on filedocumented in this encounter Additional Health Concerns Assessment Noted Time PHQ-9 Depression Total Score: 0 07/02/19 24 10:52 AM EDT documented as of this encounter Care Teams Hospice Care Transitions Coordinator Relationship Specialty Start Date End Date Caryn Henning MD [address] [place] [address] PCP - General Family Medicine 10/28/20 documented as of this encounter
--- OUTSIDE RECORDS SUMMARY | 2025-03-06 06:34 | XMS_ITS | Encounter Summary ---
Author Organization [employer] Address 75 [facility] 7 [place] [address] Care Team Providers Care Collection Systems Consultant Name Role Phone Caryn Henning MD Primary Care Provider [phone] Reason for Referral * Consultation (Routine) - Closed Specialty Diagnoses / Procedures Referred By Contac t Referred To Contact Gastroenterology Diagnoses Edentulous Dysphagia, unspecified type Caryn Henning MD [address] [place] [address] Phone: tel: fax: [facility] [address] [place] [address] [address] [place] [phone] Phone: tel: fax: Referral ID Status Reason Start Date Expiration Date V isits Requested Visits Authorized [id number] Closed Specialty Services Required 08/30/2024 08/30/2025 1 1 Encounter Details Date Type Department Care Team (Late st Contact Info) Description 08/30/2024 Orders Only [facility] MEDICINE [address] [place], [place] [phone] Caryn Henning MD [address] [place], [place] [phone] Edentulous (Primary Dx); Dysphagia, unspecified type Social [...] housing situation today? I have gabriella ashley 07/03/[address] you li [...] Description 04/18/2025 10:30 AM EST Office Visit [facility] MEDICINE [address] [place] [address] Caryn Henning MD [address] [place] [address] Scheduled Referrals Name Type Priority Associated Diagnoses [...] PSA,Total (Free>4and<10) 0.86 0.00 - 4.00 ng/mL [facility] Comment:A Free PSA was not [...] Provider LAB BLOOD ORDERAB LES Final Result [facility] [address] [place] [address] [phone] documented in this encounter Visit Diagnoses Diagnosis Edentulous- Primary Anodontia Dysphagia, unspecified type documented in this encounter Additional Health Concerns Assessment Noted Time PHQ-9 Depression Total Score: 8 07/04/19 25 2:36 PM EDT documented as of this encounter Care Teams Collection Systems Consultant Relationship Specialty Start Date End Date Caryn Henning MD [address] [place] [address] PCP - General Family Medicine 10/28/20 documented as of this encounter
--- OUTSIDE RECORDS SUMMARY | 2025-03-06 06:34 | XMS_ITS | Encounter Summary ---
Author Organization [employer] Address 75 [facility] 7t [place] [address] Care Team Providers Care Assistant Producer Name Role Phone Caryn Henning MD Primary Care Provider [phone] Encounter Details Date Type Department Care Team (Late st Contact Info) Description 05/19/2023 Telephone [facility] [address] [place], [place] [phone] Caryn Henning MD [address] [place], [place] [phone] Social History Tobacco Use Types Packs/Day Years [...] Description 04/18/2025 10:30 AM EST Office Visit [facility] [address] [place] [address] Caryn Henning MD 230 [place], [place] [phone] documented as of this encounter Visit Diagnoses Not on filedocumented in this encounter Care Teams Assistant Producer Relationship Specialty Start Date End Date Caryn Henning MD [address] [place] [address] [phone] PCP - General Family Medicine 10/28/20 documented as of this encounter
--- OUTSIDE RECORDS SUMMARY | 2025-03-06 06:34 | XMS_ITS | Clinical Summary ---
Author Organization [employer] Address 75 [facility] 7t [place] [address] Care Team Providers Care Mathematics Improvement Teacher Name Role Phone Caryn Henning MD Primary Care Provider [phone] Allergies Active Allergy Reactions Criticality Noted Date [...] eyes). 12 mL 11 09/13/19 24 Active Vitamin A Palmitate 3 MG (87095 UT) tabletIndications :Vitamin A deficiency Take 1 tablet by mouth Once per day. 30 tablet 02/17/20 24 Active cholecalciferol (D3 Super Strength) 50 MCG (2000 UT) capsule Take 1 capsule (50 mcg) by mouth Once per day. 90 capsule 3 11/12/202 5 4:19 PM EST 04/21/19 25 Active zinc gluconate 50 MG tabletIndications :Zinc deficiency Take 1 tablet (50 mg) by mouth Once per day. 90 tablet 3 04/21/19 25 2025 Active beta carotene (vitamin A) 3 MG (14202 UT) capsule Take 1 capsule by mouth [...] symptoms subside 15 g 08/15/19 25 Active Eye Itch Relief 0.035 % [...] BEDTIME 60 tablet 11 01/10/20 25 Active esomeprazole (NexIUM) [address] capsule TAKE 1 CAPSULE BY MOUTH EVERY DAY 1 HOUR BEFORE A MEAL, DO NOT BREAK, CRUSH, DISSOLVE OR CHEW 90 capsule 3 02/20/20 25 Active traZODone (Desyrel) 50 MG tablet TAKE 1 TABLET BY MOUTH AT BEDTIME 90 tablet 3 5 12:10 PM EST 02/20/20 25 Active traZODone (Desyrel) 50 MG tablet Take 1 tablet (50 mg) by mouth at bedtime. 90 tablet 3 12/21/19 24 2024 Discontinued esomeprazole (NexIUM) [address] capsule TAKE 1 CAPSULE BY MOUTH EVERY DAY 1 HOUR BEFORE A MEAL DO NOT BREAK, CRUSH, DISSOLVE OR CHEW 90 capsule 1 08/30/19 25 2024 Discontinued Active Problems Problem Noted Date [...] Plan (09/14/2022 12:43 PM EDT): Gave patient [facility] contact information and instructed them to call GI and to be persistent. Edentulous 06/26/2022 Assessment & Plan (09/14/2022 12:42 PM EDT): Patient still waiting on [employer]OR OF [employer] videofluoroscopic swallow study. Fatigue 03/05/2022 Gastroesophageal reflux [...] Encounters Date Type Department Care Team Description 02/18/2025 Refill [facility] [address] [place] [address] Caryn Henning MD 02/13/2025 Orders Only [facility] External Provider, [facility] 02/12/2025 Orders Only GENERIC EXTERNAL DATA DEPARTMENT Provider, Generic External Data 01/29/[address] [address] Caryn Henning MD Med Refill 01/08/2025 Refill [facility] [address] [place], [place] [phone] Caryn Henning MD 12/26/2024 Telephone [facility] [address] [place], [place] [phone] Caryn Henning MD Durable Medical Equipment ([facility] [employer]: ) 12/18/2024 Orders Only GENERIC EXTERNAL DATA DEPARTMENT Provider, Generic External Data from Last 3 Months Immunizations Immunization Administration [...] Description 04/18/2025 10:30 AM EST Office [facility] [address] [place], [place] [phone] Caryn Henning MD [address] [place] [address] Health Maintenance Due Date Last Done Comments CT Colonography 1960 Colonoscopy 1960 FIT 1960 Sigmoidoscopy 1960 COVID-19 Vaccine ( season) 2024 04/21/2024, 07/02/2023, [...] Procedure Name Priority Date/Time Associated Diagnosis Comments US RENAL COMPLETE Routine 02/14/2025 5:2 6 AM EST AD-DETECT ABETA 42/40 AND [id number] EVALUATION, PLASMA Routine 02/12/2025 3:45 PM EST VITAMIN B12 Routine 12/18/2024 9:27 AM EDT LIPID PANEL, STANDARD Routine 08/30/2024 [...] Recently Relevant to Health Maintenance Results * US Renal Complete (02/14/2025 5:26 AM EST) Anatomical Region Laterality Modality Kidney Ultrasound 02/14/2025 5:26 AM EST Narrative 02/14/2025 5:28 AM EST [place] [address] Ultrasound Report Signed Patient: John Aparicio MR#: [id number] : 1960 Acct:[id number] Age/Sex: 64 / M ADM Date: 02/13/25 Loc: HO.US Attending Dr: Shadi Goodman MD Ordering Physician: Shadi Goodman MD Date of Service: 02/13/25 Procedure(s): US renal BI Accession Number(s): [id number] cc: Shadi Goodman MD; Caryn Henning Reason for Exam: N20.0 - Calculus of kidney CLINICAL HISTORY: N20.0 - Calculus of kidney US Renal Comparison: CT/SR - CT UROGRAM - 10/05/24 13:43 EDT US/OK/SR - US RETROPERITONEUM - 07/14/24 15:27 EDT Findings: Right kidney normal size and echotexture, 11.3 x 5 x 5.4 cm length. Cysts in the right kidney measure up to 1.5 cm in the lower pole with septation and 6 mm in the mid right kidney. Multiple echogenic foci or possible calculi are present. Left kidney normal size and echotexture, 12.2 x 5.8 x 5.4 cm length. Hydronephrosis of right kidney noted. Normal color Doppler IMPRESSION: 1. Right hydronephrosis This document has been electronically signed by: Quang Gautam MD, PHD on 02/14/2025 05:26:58 Dictated By: Quang Gautam MD Signed By: <Electronically signed by Quang Gautam MD in OV> 02/14/25526 DD/ 5 TD/TT: 02/14/25525 Material Handler Loader: Procedure Note Dixon, Image - 02/14/2025 [place] [address] Ultrasound Report Signed Patient: Joe Aparicio#: [id number] : 1960Acct:[id number] Age/Sex: 64 / MADM Date: 02/13/25 Loc: HO.US Attending Dr: Shadi Goodman MD Ordering Physician: Shadi Goodman MD Date of Service: 02/13/25 Procedure(s): US renal BI Accession Number(s): [id number] cc: Shadi Goodman MD; Caryn Henning Reason for Exam: N20.0 - Calculus of kidney CLINICAL HISTORY: N20.0 - Calculus of kidney US Renal Comparison: CT/SR - CT UROGRAM - 10/05/24 13:43 EDT US/OK/SR - US RETROPERITONEUM - 07/14/24 15:27 EDT Findings: Right kidney normal size and echotexture, 11.3 x 5 x 5.4 cm length. Cysts in the right kidney measure up to 1.5 cm in the lower pole with septation and 6 mm in the mid right kidney. Multiple echogenic foci or possible calculi are present. Left kidney normal size and echotexture, 12.2 x 5.8 x 5.4 cm length. Hydronephrosis of right kidney noted. Normal color Doppler IMPRESSION: 1. Right hydronephrosis This document has been electronically signed by: Quang Gautam MD, PHD on 02/14/2025 05:26:58 Dictated By: Quang Gautam MD Signed By: <Electronically signed by Quang Gautam MD in OV> 02/14/25526 DD/ 5 TD/TT: 02/14/25525 Material Handler Loader: us [facility] External Provider IMG US PROCEDURES Final Result * AD-Detect??? ABeta 42/40 and [id number] Evaluation, Plasma (02/12/2025 3:45 PM EST) Interpretation Low Likelihood [facility] Comment:This panel combines beta amyloid 42/40 and [id number] plasmascores to provide an assessment of the likelihood of amyloidplaque deposition in the brain. A score of less than 0.3254is consistent with a low likelihood of a positive amyloidPET scan in someone with cognitive impairment. Thisdetermination cannot diagnose Alzheimer's disease by itselfand should be used in combination with the patient'sclinical history and presentation.THIS TEST WAS PERFORMED AT:[employer] [id number] [place] [address]JMHFVMARY EAGLE MD,PHD,CHUCK AD Detect Likelihood Score 0.0185 [facility] Comment: Likelihood of amyloid PET positivity: Low Likelihood: <0.3254 Indeterminant: 0.3254-0.6460 High Likelihood: >0.6460The likelihood score for amyloid PET positivity wasdetermined by a calculation that included plasma ABeta42/40ratio and plasma p-Ric768, where ABeta42/40 is the ratio ofplasma ABeta42 (pg/mL) and plasma ABeta40 (pg/mL), andphosphorylated tau at position 217 (pg/mL). To determinelower, indeterminant, and higher likelihoods of amyloid PETpositivity, a lower likelihood cutpoint (0.3254) wasestablished to achieve > or = 90% sensitivity for amyloidPET positivity while a higher likelihood cutpoint (0.6460)was established to achieve > or = 90% specificity foramyloid PET negativity. Based on the two cutpoints, thelower likelihood of amyloid PET positive is below the lowerlikelihood cutpoint, the indeterminant likelihood is betweenthe lower and the higher likelihood cutpoints, and thehigher likelihood of amyloid PET positive is above thehigher likelihood cutpoint.The concentrations on this report only represent wild typeAbeta 40 and 42. The variants of Abeta 40 and 42 are notdetected in this assay.This test was developed and its analytical performancecharacteristics have been determined by [employer].It has not been cleared or approved by the FDA. This assayhas been validated pursuant to the CLIA regulations and isused for clinical purposes.THIS TEST WAS PERFORMED AT:[employer] [id number] [place] [address]PVAPEMARY EAGLE MD,PHD,CHUCK ABeta 42 39 pg/mL [facility] Comment:Reference Range: NO T ESTABLISHED ABeta 40 204 pg/mL [facility] Comment:Reference Range: NOT ESTABLISHED ABeta 42/40 Ratio 0.191 > OR = 0.170 [facility] Comment:THIS TEST WAS PERFOR MED AT:[employer] [place] [address]WJHTLMARY EAGLE MD,PHD,CHUCK [facility] AD-Detect [id number], Plasma 0.12 < OR = 0.15 pg/mL [facility] Comment:THIS TEST WAS PERFOR MED AT:[id number] [place] [address]EOQVMMARY EAGLE MD,PHD,CHUCK 02/12/2025 3:45 PM EST 02/12/2025 3:45 PM EST us Generic External Data Provider LAB BLOOD ORDERAB LES Final Result Performing Organization Address [facility]/State/ZIP Co de Phone Number [facility] [address] [place] [phone] * Vitamin B12 (12/18/2024 9:27 AM EDT) Vitamin B12 349 200 - 900 pg/mL [facility] Comment:NORMAL 200-900 PG/ML INDETERMINATE 160-199 PG/ML DEFICIENT < 160 PG/ML 12/18/2024 9:27 AM EDT 12/18/2024 9:27 AM EDT Generic External Data Provider LAB BLOOD ORDERAB LES Final Result Performing Organization Address City/[facility] Co de Phone Number [facility] [address] [place] [address] [phone] * (ABNORMAL) Lipid Panel, Standard (08/30/2024 9:09 AM EDT) Triglycerides 86 <150 mg/dL [facility] Comment:Desirable Triglyceri de: less than 150 mg/dLBorderline High Triglyceride 150-199 mg/dLHigh Triglyceride: 200-499 mg/dLVery High Triglyceride: greater than or equal to 5OO mg/dL Cholesterol 123 <200 mg/dL [facility] Comment:Desirable Cholestero l: less than 200 mg/dLBorderline High Cholesterol: 200-239 mg/dLHigh Cholesterol: greater than 239 mg/dL LDL Cholesterol Calculated 67 <100 mg/dL [facility] Comment:Desirable LDL: less than 100 mg/dLNear Optimal/Above Optimal LDL: 110- 129 mg/dLBorderline High LDL: 130-159 mg/dLHigh LDL: 160-189 mg/dLVery High LDL: greater than or equal to 190 mg/dL HDL Cholesterol 39(L) >40 mg/dL [facility] Comment:Desirable HDL: great er than 40 mg/dL Note: This HDL assay may give artificially low results in patients with liver disease. Blood Venous blood specimen / Unknown 08/30/2024 9:09 AM EDT 08/30/2024 11:10 AM EDT Caryn Henning MD LAB BLOOD ORDERABLES Final Res ult Performing Organization Address [facility]/ZIP Co de Phone Number [facility] [address] [place] [phone] [phone] * Cologuard?? colon cancer screening (06/29/2024 6:20 AM EDT) Cologuard Result Negative Negative 07/18/19 4:44 AM EDT [facility] (CLIA #:[id number]) Comment: NEGATIVE TEST RESULT. A negative Cologuard [...] (Thierry Andrea al, N Engl J Med 2014;370(14):2586-9894) The normal value (reference range) for this assay is negative. COLOGUARD RE-SCREENING RECOMMENDATION: Periodic colorectal cancer screening is an important part of preventive healthcare for asymptomatic individuals at average risk for colorectal cancer. Following a negative Cologuard result, the [place] Cancer Society and U.S. Multi-Society Task Force screening guidelines recommend a Cologuard re-screening interval of 3 years. References: [place] [employer] Guideline for Colorectal Cancer Screening: https://www.cancer.org/cancer/uifko-yiutzs-wjmkoo/tdczfqfan-yyppjxjni-rsperei/ac s-rec ommendations.html.; Angel DK, Malorie CR, Jocelyne OdonnellK, Colorectal Cancer Screening: Recommendations for Physicians and Patients from the U.S. Multi-Society Task Force on Colorectal Cancer Screening , Am J Gastroenterology 2017; 112:8226-3085. TEST DESCRIPTION: Composite algorithmic analysis of stool [...] (Thierry Andrea al, N Engl J Med 2014;370(14):1348-1034.) Cologuard may produce a false negative or false positive result (no colorectal cancer or precancerous polyp present at colonoscopy follow up). A negative Cologuard test result does not guarantee the absence of CRC or advanced adenoma (pre-cancer). The current Cologuard screening interval is every 3 years. ([place] Cancer Society and U.S. Multi-Society Task Force). Cologuard performance data in a 10,000 patient pivotal study using colonoscopy as the reference method can be accessed at the following location: www.[employer].Group Therapy Records/results. Additional description of the Cologuard test process, warnings and precautions can be found at www.[employer].Group Therapy Records. Stool specimen (specimen) 06/29/2024 6:20 AM EDT 07/01/2024 10:11 AM EDT Caryn Henning MD LAB MOLECULAR DIAGNOSTICS JEFFREY SHAH Final Result [facility] (CLIA #:[id number]) [address] [place] [address], * (ABNORMAL) HEPATITIS C AB W/REFL TO HCV RNA, QN, PCR (07/10/2021 10:35 AM EDT) HEPATITIS C ANTIBODY REACTIVE( A) NON-REACT JAUN [facility] INDEX 3.21(H) <1.00 [facility] Comment: Based on this result, the sample will be tested for HCV RNA by a Nucleic Acid Amplification Test (NAAT) to determine if the patient has a current active infection. 07/10/2021 10:3 5 AM EDT Yolanda Salgado MD HISTORICAL/NON ORDERA BLE LABS Final Result Performing Organization Address [facility] de Phone Number [facility] [address] * HIV 1/2 ANTIGEN/ANTIBODY,FOURTH GENERATION W/RFL (07/10/2021 10:35 AM EDT) HIV-1/2 ANTIGEN AND ANTIBODIES, 4TH GENERATION W/ REFLEX NON-REACT JAUN NON-REACT JAUN [facility] Comment: HIV-1 antigen and HIV-1/HIV-2 [...] purpose. For additional information please refer to http://education.[employer]/faq/IUD011 (This link is being provided for informational/ educational purposes only.) The performance of this assay has not been clinically validated in patients less than 2 years old. 07/10/2021 10:3 5 AM EDT Yolanda Salgado MD LAB BLOOD ORDERABLES Final Result Performing Organization Address [facility] de Phone Number [facility] [address] from Last 3 Months or Most Recently Relevant to Health Maintenance Insurance [facility] [employer] [facility] < 65 Care Teams Mathematics Improvement Teacher Relationship Specialty Start Date End Date Caryn Henning MD [address] [place] [phone] PCP - General Family Medicine 10/28/20
--- OUTSIDE RECORDS SUMMARY | 2025-03-06 06:34 | XMS_ITS | Encounter Summary ---
Author Organization [employer] Address 75 [facility] 7 [place] [address] Care Team Providers Care Contracts Representative Name Role Phone Caryn Henning MD Primary Care Provider [phone] Reason for Visit * Reason Onset Date Comments Nurse Triage 08/26/2023 Encounter Details Date Type Department Care Team (Late st Contact Info) Description 08/26/2023 Telephone [facility] [address] [place], [place] [phone] Caryn Henning MD [address] [place], [place] [phone] Nurse Triage Social History Tobacco Use Types [...] acuity questions The caller accepted this outcome Trinidadian speaker documented in this encounter Plan of Treatment Upcoming Encounters Date Type Department Care Team (Late st Contact Info) Description 04/18/2025 10:30 AM EST Office Visit [facility] [address] [place] [address] Caryn Henning MD [address] [place] [address] documented as of this encounter Visit Diagnoses Not on filedocumented in this encounter Additional Health Concerns Assessment Noted Time PHQ-9 Depression Total Score: 0 07/02/19 24 10:52 AM EDT documented as of this encounter Care Teams Contracts Representative Relationship Specialty Start Date End Date Caryn Henning MD [address] [place] [phone] PCP - General Family Medicine 10/28/20 documented as of this encounter
--- OUTSIDE RECORDS SUMMARY | 2025-03-06 06:34 | XMS_ITS | Encounter Summary ---
Author Organization [employer] Address 75 [facility] 7 h Floor [address] Care Team Providers Care Wagon Driller Name Role Phone Caryn Henning MD Primary Care Provider [phone] Reason for Visit * Reason Onset Date Comments Med Refill 01/29/2025 Encounter Details Date Type Department Care Team (Late st Contact Info) Description 01/29/2025 Telephone [facility] [address] [place], [place] [phone] Caryn Henning MD [address] [place], [place] [phone] Med Refill Social History Tobacco Use Types [...] the past 12 months, has t he [employer], gas, oil or water company threatened to [...] - 01/29/2025 3:32 PM EDT Medication to [facility] for refill script was sent on 08/29/24 #90 with 1 refill. * Telephone Encounter - Maribeth Crandall - 01/29/2025 3:24 PM EDT TC from pt requesting medication refill. Medications needing refill : - esomeprazole (NexIUM) [address] capsule To be sent to: - [facility] - [place], [place] - [address] [place] [address] documented in this encounter Plan of Treatment Upcoming Encounters Date Type Department Care Team (Late st Contact Info) Description 04/18/2025 10:30 AM EST Office Visit [facility] [address] [place] [address] Caryn Henning MD [address] [place] [phone] documented as of this encounter Visit Diagnoses Not on filedocumented in this encounter Additional Health Concerns Assessment Noted Time PHQ-9 Depression Total Score: 9 11/18/19 25 3:56 PM EDT documented as of this encounter Care Teams Wagon Driller Relationship Specialty Start Date End Date Caryn Henning MD [address] [place] [phone] PCP - General Family Medicine 10/28/20 documented as of this encounter
--- OUTSIDE RECORDS SUMMARY | 2025-03-06 06:34 | XMS_ITS | Encounter Summary ---
Author Organization [employer] Address [address] [place] [address] 7 [place] [address] Care Team Providers Care Fence Post Cutter Name Role Phone Caryn Henning MD Primary Care Provider [phone] Reason for Visit * Reason Comments Med Refill Encounter Details Date Type Department Care Team (Late Contact Info) Description 11/30/2022 Refill [facility] [address] [place] [phone] Caryn Henning MD [address] [place] [address] [phone] Social History Tobacco Use Types Packs/Day Years [...] Description 04/18/2025 10:30 AM EST Office Visit [facility] [address] [place] [address] [phone] Caryn Henning MD [address] [place] [phone] documented as of this encounter Visit Diagnoses Not on filedocumented in this encounter Care Teams Fence Post Cutter Relationship Specialty Start Date End Date Caryn Henning MD [address] [place] [address] PCP - General Family Medicine 10/28/20 documented as of this encounter
--- OUTSIDE RECORDS SUMMARY | 2025-03-06 06:34 | XMS_ITS | Encounter Summary ---
Author Organization [employer] Address [address] [facility] 7 [place] [address] Care Team Providers Care Branch Operations Manager Name Role Phone Caryn Henning MD Primary Care Provider [phone] Encounter Details Date Type Department Care Team (Late st Contact Info) Description 12/21/2023 Orders Only [facility] [address] [place], [place] [phone] Caryn Henning MD [address] [place], [place] [phone] Social History Tobacco Use Types Packs/Day Years [...] Description 04/18/2025 10:30 AM EST Office Visit [facility] [address] [place], [place] [phone] Caryn Henning MD [address] [place] [address] documented as of this encounter Visit Diagnoses Not on filedocumented in this encounter Additional Health Concerns Assessment Noted Time PHQ-9 Depression Total Score: 0 07/02/19 24 10:52 AM EDT documented as of this encounter Care Teams Branch Operations Manager Relationship Specialty Start Date End Date Caryn Henning MD [address] [place] [address] PCP - General Family Medicine 10/28/20 documented as of this encounter
--- OUTSIDE RECORDS SUMMARY | 2025-03-06 06:34 | XMS_ITS | Clinical Summary ---
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 Schizophrenia ([facility] V24, [facility] V28) 024 Sleep apnea 09/17/2023 Encounters Date Type Department Care Team Description 01/31/2025 10:45 AM EDT Office Visit Orthopedic Surgery [address] [phone] Fransico Owusu DPM Acquired hammer toe of right foot (Primary Dx); Hammer toe of left foot; Dermatophytosis of nail 12/21/2024 10:45 AM EDT Office Visit Orthopedic Surgery [address] [phone] Fransico Owusu DPM Acquired hammer toe of right foot (Primary Dx); Hammer toe of left foot; Ingrowing nail; Dermatophytosis of nail; Pain in toe of right foot; Pain in toe of left foot; Difficulty walking from Last 3 Months Immunizations Immunization Administration Dates Next Due [facility] SARS-CoV-2 COVID-19, mRNA, LNP-S, preservative free 06/04/2021 [...] Upcoming Encounters Date Type Department Care Team ([facility] st Contact Info) Description 03/20/2025 10:15 AM EST Office Visit Orthopedic Surgery - [place] [address] [phone] Fransico Owusu, DPM [address] [phone] Health Maintenance Due Date Last [...] Group ID:ICO Type:Not on file Address: [facility] [place] [id number] Care Teams Senior Director Marketing Relationship Specialty Start Date End Date Caryn Henning MD [address] [place] [phone] PCP - General 07/07/23
--- OUTSIDE RECORDS SUMMARY | 2025-03-06 06:34 | XMS_ITS | Encounter Summary ---
Author Organization [employer] Address 75 [facility] 7t [place] [address] Care Team Providers Care Blanket Washer Name Role Phone Caryn Henning MD Primary Care Provider Encounter Details Date Type Department Care Team (Late st Contact Info) Description 04/29/2023 Telephone [facility] MEDICINE [address] [place], [place] [phone] Caryn Henning MD [address] [place], [place] [phone] Social History Tobacco Use Types Packs/Day Years [...] Description 04/18/2025 10:30 AM EST Office Visit [facility] MEDICINE [address] [place] [address] Caryn Henning MD [address] [place], [place] [phone] documented as of this encounter Visit Diagnoses Not on filedocumented in this encounter Care Teams Blanket Washer Relationship Specialty Start Date End Date Caryn Henning MD [address] [place] [address] [phone] PCP - General Family Medicine 10/28/20 documented as of this encounter
[2025-03-06 08:13] LABS: Alanine Aminotransferase 23 U/L (0-40); Albumin Level 4.3 g/dL (3.5-5.0); Alkaline Phosphatase 116 U/L (39-117); Anion Gap 12 (12-20); Aspartate Amino Transferase 27 U/L (5-37); Blood Urea Nitrogen 15 mg/dL (9-16); Calcium 9.2 mg/dL (8.4-10.2); Carbon Dioxide 25 mmol/L (22-29); Chloride 107 mmol/L (96-108); Estimated Glomerular Filt Rate > 60; Magnesium 1.8 mg/dL (1.6-2.6); Potassium 4.3 mmol/L (3.3-5.1); Sodium 140 mmol/L (135-145); Total Protein 7.1 g/dL (6.5-8.0); Uric Acid 7.3 mg/dL (3.4-7.0)
[2025-03-06 08:14] LABS: Parathyroid Hormone Intact 47.4 pg/mL (8.7-77.1)
== END 2025-03-06 06:31 | disposition home or self-care (01) ==
LOC: HO.LAB 06:30
PROVIDERS: PCP General Practice; Visit Provider Internal Medicine Hypertension Specialist
DX: N20.0 Calculus of kidney (principal)
CPT/HCPCS: 36415; 80053; 83735; 83970; 84100; 84550

== ENCOUNTER 2025-03-07 11:08 | Outpatient (REF) | payer OTHER, SELFPAY ==
[2025-03-07 12:20] LABS: Creatinine, mg/dL 16.15; Sodium, 24 Hr Urine 31.0 mmol/L
[2025-03-07 12:30] LABS: Total Volume 24 Hour Urine 3200 mL
[2025-03-07 12:36] LABS: Creatinine, mg/dL 16.70; Uric Acid, mg/dL 5.3 mg/dL
--- OUTSIDE RECORDS SUMMARY | 2025-03-07 13:15 | XMS_ITS | Encounter Summary ---
Author Organization [employer] Address 75 [facility] 7 [place] [address] Care Team Providers Care Welder Assistant Name Role Phone Caryn Henning MD Primary Care Provider [phone] Reason for Visit * Reason Onset Date Comments Med Refill 01/29/2025 Encounter Details Date Type Department Care Team (Late st Contact Info) Description 01/29/2025 Telephone [facility] MEDICINE 230 [place], [place] [phone] Caryn Henning MD 230 [place], [place] [phone] Med Refill Social History Tobacco Use Types [...] the past 12 months, has t he [employer], gas, oil or water company threatened to [...] - 01/29/2025 3:32 PM EDT Medication to [facility] for refill script was sent on 08/29/24 #90 with 1 refill. * Telephone Encounter - Maribeth Crandall - 01/29/2025 3:24 PM EDT TC from pt requesting medication refill. Medications needing refill : - esomeprazole (NexIUM) [address] capsule To be sent to: - [facility] - [place], [place] - [address] [place] [address] documented in this encounter Plan of Treatment Upcoming Encounters Date Type Department Care Team (Late st Contact Info) Description 04/18/2025 10:30 AM EST Office Visit [facility] MEDICINE [address] [place] [address] Caryn Henning MD [address] [place] [phone] documented as of this encounter Visit Diagnoses Not on filedocumented in this encounter Additional Health Concerns Assessment Noted Time PHQ-9 Depression Total Score: 9 11/18/19 25 3:56 PM EDT documented as of this encounter Care Teams Welder Assistant Relationship Specialty Start Date End Date Caryn Henning MD [address] [place] [phone] PCP - General Family Medicine 10/28/20 documented as of this encounter
--- OUTSIDE RECORDS SUMMARY | 2025-03-07 13:16 | XMS_ITS | Encounter Summary ---
Author Organization [employer] Address 75 [facility] 7 [place] [address] Care Team Providers Care Manager System Name Role Phone Caryn Henning MD Primary Care Provider [phone] Reason for Visit * Reason Onset Date Comments Med Refill 03/20/2024 Encounter Details Date Type Department Care Team (Late st Contact Info) Description 03/20/2024 Telephone [facility] MEDICINE 230 [place], [place] [phone] Caryn Henning MD 230 [place], [place] [phone] Med Refill Social History Tobacco Use Types [...] PM EST Vitamin D was sent to [facility] on 12/07/23 #90 with 3 refills and Oxybutynin isn't prescribed by PCP. * Telephone Encounter - Jacinta Manzanares - 03/20/2024 12:31 PM EST TC from pt requesting medication refill. Medications needing refill : D3 Super Strength 50 MCG (1999 UT) capsule oxybutynin XL (Ditropan-XL) 5 MG 24 hr tablet To be sent to: [facility] - [place], [place] - [address] [facility] documented in this encounter Plan of Treatment Upcoming Encounters Date Type Department Care Team (Late st Contact Info) Description 04/18/2025 10:30 AM EST Office Visit [facility] MEDICINE 230 [place] [address] Caryn Henning MD 230 [facility] [place] [address] documented as of this encounter Visit Diagnoses Not on filedocumented in this encounter Additional Health Concerns Assessment Noted Time PHQ-9 Depression Total Score: 0 07/02/19 24 10:52 AM EDT documented as of this encounter Care Teams Manager System Relationship Specialty Start Date End Date Caryn Henning MD [address] [place] [address] PCP - General Family Medicine 10/28/20 documented as of this encounter
--- OUTSIDE RECORDS SUMMARY | 2025-03-07 13:16 | XMS_ITS | Encounter Summary ---
Author Organization [employer] Address 75 [facility] 7 [place] [address] Care Team Providers Care Drum Stock Clerk Name Role Phone Caryn Henning MD Primary Care Provider [phone] Encounter Details Date Type Department Care Team (Late st Contact Info) Description 12/21/2023 Orders Only [facility] MEDICINE 230 [place], [place] [phone] Caryn Henning MD 230 [place], [place] [phone] Social History Tobacco Use Types Packs/Day Years [...] 04/18/2025 10:30 AM EST Office Visit [facility] MED[facility]INE 230 [place], [place] [phone] Caryn Henning MD 230 [place] [address] documented as of this encounter Visit Diagnoses Not on filedocumented in this encounter Additional Health Concerns Assessment Noted Time PHQ-9 Depression Total Score: 0 07/02/19 24 10:52 AM EDT documented as of this encounter Care Teams Drum Stock Clerk Relationship Specialty Start Date End Date Caryn Henning MD [address] [place] [address] PCP - General Family Medicine 10/28/20 documented as of this encounter
--- OUTSIDE RECORDS SUMMARY | 2025-03-07 13:16 | XMS_ITS | Encounter Summary ---
Author Organization [employer] Address 75 [facility] 7t [place] [address] Care Team Providers Care Building Official Name Role Phone Caryn Henning MD Primary Care Provider [phone] Encounter Details Date Type Department Care Team (Late st Contact Info) Description 05/19/2023 Telephone [facility] MEDICINE [address] [place], [place] [phone] Caryn Henning MD 230 [place], [place] [phone] Social History Tobacco Use Types Packs/Day Years [...] Description 04/18/2025 10:30 AM EST Office Visit [facility] MEDICINE [address] [place] [address] Caryn Henning MD 230 [place], [place] [phone] documented as of this encounter Visit Diagnoses Not on filedocumented in this encounter Care Teams Building Official Relationship Specialty Start Date End Date Caryn Henning MD [address] [place] [address] [phone] PCP - General Family Medicine 10/28/20 documented as of this encounter
--- OUTSIDE RECORDS SUMMARY | 2025-03-07 13:16 | XMS_ITS | Encounter Summary ---
Author Organization [employer] Address 75 [facility] 7t [place] [address] Care Team Providers Care Child Nutrition Manager Name Role Phone Caryn Henning MD Primary Care Provider [phone] Encounter Details Date Type Department Care Team (Late st Contact Info) Description 04/29/2023 Telephone [facility] MEDICINE 230 [place], [place] [phone] Caryn Henning MD 230 [place], [place] [phone] Social History Tobacco Use Types Packs/Day Years [...] Description 04/18/2025 10:30 AM EST Office Visit [facility] MEDICINE 230 [place] [address] Caryn Henning MD 230 [place], [place] [phone] documented as of this encounter Visit Diagnoses Not on filedocumented in this encounter Care Teams Child Nutrition Manager Relationship Specialty Start Date End Date Caryn Henning MD [address] [place] [address] [phone] PCP - General Family Medicine 10/28/20 documented as of this encounter
--- OUTSIDE RECORDS SUMMARY | 2025-03-07 13:16 | XMS_ITS | Encounter Summary ---
Author Organization [employer] Address 75 [facility] 7 [place] [address] Care Team Providers Care Shot Peening Operator Name Role Phone Caryn Henning MD Primary Care Provider [phone] Encounter Details Date Type Department Care Team (Late st Contact Info) Description 01/21/2024 Orders Only [facility] MEDICINE 230 [place], [place] [phone] Caryn Henning MD 230 [place], [place] [phone] Social History Tobacco Use Types Packs/Day Years [...] Description 04/18/2025 10:30 AM EST Office Visit [facility] MEDICINE [address] [place], [place] [phone] Caryn Henning MD 230 [place] [address] documented as of this encounter Visit Diagnoses Not on filedocumented in this encounter Additional Health Concerns Assessment Noted Time PHQ-9 Depression Total Score: 0 07/02/19 24 10:52 AM EDT documented as of this encounter Care Teams Shot Peening Operator Relationship Specialty Start Date End Date Caryn Henning MD 230 [place] [address] PCP - General Family Medicine 10/28/20 documented as of this encounter
--- OUTSIDE RECORDS SUMMARY | 2025-03-07 13:16 | XMS_ITS | Clinical Summary ---
Author Organization [employer] Address 75 [facility] 7t [place] [address] Care Team Providers Care Die Sinking Machine Operator Name Role Phone Caryn Henning MD Primary Care Provider [phone] Allergies Active Allergy Reactions Criticality Noted Date [...] 24 Active Vitamin A Palmitate 3 MG (02313 UT) tabletIndications :Vitamin A deficiency Take 1 [...] Active beta carotene (vitamin A) 3 MG (20891 UT) capsule Take 1 capsule by mouth [...] 12:42 PM EDT): Patient still waiting on MODELING INSTRUCTOR videofluoroscopic swallow study. Fatigue 03/05/2022 Gastroesophageal [...] Encounters Date Type Department Care Team Description 03/06/2025 Orders Only GENERIC EXTERNAL DATA DEPARTMENT Provider, Generic External Data 02/18/2025 Refill [facility] MEDICINE [address] [place] [address] Caryn Henning MD 02/13/2025 Orders Only [facility] External Provider, [facility] 02/12/2025 Orders Only GENERIC EXTERNAL DATA DEPARTMENT Provider, Generic External Data 01/29/2025 Telephone [facility] [address] [place] [address] Caryn Henning MD Med Refill 01/08/2025 Refill [facility] [address] [place], [place] [phone] Caryn Henning MD 12/26/2024 Telephone [facility] [address] [place], [place] [phone] Caryn Henning MD Durable Medical Equipment (CCA [...] Office Visit [facility] MEDICINE [address] [place] [address] Caryn Henning MD 230 [place] [address] Health Maintenance Due Date Last Done Comments [...] Procedure Name Priority Date/Time Associated Diagnosis Comments PTH, INTACT WITHOUT CALCIUM Routine 03/06/2025 7:00 AM EST MAGNESIUM Routine 03/06/2025 7:00 AM EST PHOSPHATE ( PHOSPHORUS) Routine 03/06/2025 7:00 AM EST URIC ACID Routine 03/06/2025 7:00 AM EST COMPREHENSIVE METABOLIC PANEL Routine 03/06/2025 7:00 AM EST US RENAL COMPLETE Routine 02/14/2025 5:2 6 AM EST AD-DETECT ABETA 42/40 AND [id number] EVALUATION, PLASMA Routine 02/12/2025 3:45 PM EST [...] Relevant to Health Maintenance Results * (ABNORMAL) Uric acid (03/06/2025 7:00 AM EST) Uric Acid 7.3(H) 3.4 - 7.0 mg/dL [facility] 03/06/2025 7:00 AM EST 03/06/2025 7:12 AM EST us Generic External Data Provider LAB BLOOD ORDERAB LES Final Result Performing Organization Address [facility] Co de Phone Number [facility] [address] [place] [phone] * Phosphate (As Phosphorus) (03/06/2025 7:00 AM EST) Phosphorus 3.4 2.7 - 4.5 mg/dL [facility] 03/06/2025 7:00 AM EST 03/06/2025 7:12 AM EST Generic External Data Provider LAB BLOOD ORDERAB LES Final Result Performing Organization Address [facility] Co de Phone Number [facility] [address] [place] [phone] * PTH, Intact Without Calcium (03/06/2025 7:00 AM EST) Pathologist [facility] Parathyroid Hormone, Intact 47.4 8.7 - 77.1 pg/mL [facility] 03/06/2025 7:00 AM EST 03/06/2025 7:12 AM EST us Generic External Data Provider LAB BLOOD ORDERAB LES Final Result Performing Organization Address [facility] Co de Phone Number [facility] [address] [place] [phone] * Magnesium (03/06/2025 7:00 AM EST) Pathologist [facility] Magnesium 1.8 1.6 - 2.6 mg/dL [facility] 03/06/2025 7:00 AM EST 03/06/2025 7:12 AM EST us Generic External Data Provider LAB BLOOD ORDERAB LES Final Result Performing Organization Address [facility] Co de Phone Number [facility] [address] [place] [phone] * Comprehensive Metabolic Panel (03/06/2025 7:00 AM EST) Pathologist [facility] Sodium 140 135 - 145 mmol/L [facility] Potassium 4.3 3.3 - 5.1 mmol/L [facility] Chloride 107 96 - 108 mmol/L [facility] Carbon Dioxide 25 22 - 29 mmol/L [facility] Anion Gap 12 12 - 20 [facility] Urea Nitrogen (BUN) 15 9 - 16 mg/dL [facility] Creatinine, Serum 1.01 0.5 - 1.4 mg/dL [facility] Estimated Glomerular Filt Rate >60 [facility] Comment:Chronic Kidney Disea se: Estimated GFR < 60 mL/min/1.84n4Dzxssv Kidney Disease: Estimated GFR < 15 mL/min/1.73m2 Glucose 96 60 - 115 mg/dL [facility] Calcium 9.2 8.4 - 10.2 mg/dL [facility] Bilirubin, Total 0.3 0.0 - 1.0 mg/dL [facility] Aspartate Amino Transferase 27 5 - 37 U/L [facility] Alanine Aminotransferase 23 0 - 40 U/L [facility] Total Protein 7.1 6.5 - 8.0 g/dL [facility] Albumin Level 4.3 3.5 - 5.0 g/dL [facility] Alkaline Phosphatase 116 39 - 117 U/L [facility] 03/06/2025 7:00 AM EST 03/06/2025 7:12 AM EST us Generic External Data Provider LAB BLOOD ORDERAB LES Final Result Performing Organization Address City/State/[facility] Co de Phone Number [facility] [address] [place] [phone] * US Renal Complete (02/14/2025 5:26 AM EST) Anatomical Region Laterality Modality Kidney Ultrasound 02/14/2025 5:26 AM EST Narrative 02/14/2025 5:28 AM EST [address] [address] Ultrasound Report Signed Patient: John Aparicio MR#: [id number] : 1960 Acct:[id number] Age/Sex: 64 / M ADM Date: 02/13/25 Loc: HO.US Attending Dr: Shadi Goodman MD Ordering Physician: Shadi Goodman MD Date of Service: 02/13/25 Procedure(s): US renal BI Accession Number(s): [id number] cc: Shadi Goodman MD; Caryn Henning Reason for Exam: N20.0 - Calculus of kidney CLINICAL HISTORY: N20.0 - Calculus of kidney US Renal Comparison: CT/SR - CT UROGRAM - 10/05/24 13:43 EDT US/NE/SR - US RETROPERITONEUM - 07/14/24 15:27 EDT [...] in OV> 02/14/25526 DD/ 5 TD/TT: 02/14/25525 Domestic Maid: Procedure Note Donotuseinterpreter, Image - 02/14/2025 [place] [address] Ultrasound Report Signed Patient: Joe Aparicio#: [id number] : 1960Acct:[id number] Age/Sex: 64 / MADM Date: 02/13/25 Loc: HO.US Attending Dr: Shadi Goodman MD Ordering Physician: Shadi Goodman MD Date of Service: 02/13/25 Procedure(s): US renal BI Accession Number(s): [id number] cc: Shadi Goodman MD; Caryn Henning Reason for Exam: N20.0 - Calculus of kidney CLINICAL HISTORY: N20.0 - Calculus of kidney US Renal Comparison: CT/SR - CT UROGRAM - 10/05/24 13:43 EDT US/NE/SR - US RETROPERITONEUM - 07/14/24 15:27 EDT [...] in OV> 02/14/25526 DD/ 5 TD/TT: 02/14/25525 Domestic Maid: us [facility] External Provider IMG US PROCEDURES Final Result * AD-Detect??? ABeta 42/40 and p-[id number] Evaluation, Plasma (02/12/2025 3:45 PM EST) Interpretation Low Likelihood [facility] Comment:This panel combines beta amyloid 42/40 and p-[id number] plasmascores to provide an assessment of the likelihood of amyloidplaque deposition in the brain. A score of less than 0.3254is consistent with a low likelihood of a positive amyloidPET scan in someone with cognitive impairment. Thisdetermination cannot diagnose Alzheimer's disease by itselfand should be used in combination with the patient'sclinical history and presentation.THIS TEST WAS PERFORMED AT:[employer] [id number] [place] [address]GWEGIMARY EAGLE MD,PHD,CHUCK AD Detect Likelihood Score 0.0185 [facility] Comment: Likelihood of amyloid PET positivity: Low Likelihood: <0.3254 Indeterminant: 0.3254-0.6460 High Likelihood: >0.6460The likelihood score for amyloid PET positivity wasdetermined by a calculation that included plasma ABeta42/40ratio and plasma p-Eor921, where ABeta42/40 is the ratio ofplasma ABeta42 [...] its analytical performancecharacteristics have been determined by [employer].It has not been cleared or approved by the FDA. This assayhas been validated pursuant to the CLIA regulations and isused for clinical purposes.THIS TEST WAS PERFORMED AT:[employer]/[place] [address]WXLIHMARY EAGLE MD,PHD,CHUCK ABeta 42 39 pg/mL [facility] Comment:Reference Range: NOT ESTABLISHED ABeta 40 204 pg/mL [facility] Comment:Reference Range: NOT ESTABLISHED ABeta 42/40 Ratio 0.191 > OR = 0.170 [facility] Comment:THIS TEST WAS PERFOR MED AT:[employer] [place] [id number] EAGLE MD,PHD,CHUCK ustyme AD-Detect p-[id number], Plasma 0.12 < OR = 0.15 pg/mL [facility] Comment:THIS TEST WAS PERFOR MED AT:[employer] [place] [address]UVKNOMARY EAGLE MD,PHD,CHUCK 02/12/2025 3:45 PM EST 02/12/2025 3:45 PM EST us Generic External Data Provider LAB BLOOD ORDERAB LES Final Result Performing Organization Address City/[facility]/ZIP Co de Phone Number [facility] [address] [place] [phone] [phone] * Vitamin B12 (12/18/2024 9:27 AM EDT) Vitamin B12 349 200 - 900 pg/mL [facility] Comment:NORMAL 200-900 PG/ML INDETERMINATE 160-199 PG/ML DEFICIENT < 160 PG/ML 12/18/2024 9:27 AM EDT 12/18/2024 9:27 AM EDT Generic External Data Provider LAB BLOOD ORDERAB LES Final Result Performing Organization Address City/[facility]/ZIP Co de Phone Number [facility] [address] [place] [phone] * (ABNORMAL) Lipid Panel, Standard (08/30/2024 9:09 AM EDT) Triglycerides 86 <150 mg/dL [facility] Comment:Desirable Triglyceri de: less than 150 mg/dLBorderline High Triglyceride 150-199 mg/dLHigh Triglyceride: 200-499 mg/dLVery High Triglyceride: greater than or equal to 5OO mg/dL Cholesterol 123 <200 mg/dL [facility] Comment:Desirable Cholestero l: less than 200 mg/dLBorderline High Cholesterol: 200-239 mg/dLHigh Cholesterol: greater than 239 mg/dL LDL Cholesterol Calculated 67 <100 mg/dL [facility] Comment:Desirable LDL: less than 100 mg/dLNear Optimal/Above Optimal LDL: 110- 129 mg/dLBorderline High LDL: 130-159 mg/dLHigh LDL: 160-189 mg/dLVery High LDL: greater than or equal to 190 mg/dL HDL Cholesterol 39(L) >40 mg/dL [facility] Comment:Desirable HDL: great er than 40 mg/dL Note: This HDL assay may give artificially low results in patients with liver disease. Blood Venous blood specimen / Unknown 08/30/2024 9:09 AM EDT 08/30/2024 11:10 AM EDT Caryn Henning MD LAB BLOOD ORDERABLES Final Res ult [facility] [address] [place] [address] [phone] * Cologuard?? colon cancer screening (06/29/2024 6:20 AM EDT) Cologuard Result Negative Negative 07/18/19 4:44 AM EDT [facility] (CLIA #:[id number]) Comment: NEGATIVE TEST RESULT. A negative Cologuard [...] (Thierry Andrea al, N Engl J Med 2014;370(14):7338-7434) The normal value (reference range) for this assay is negative. COLOGUARD RE-SCREENING RECOMMENDATION: Periodic colorectal cancer screening is an important part of preventive healthcare for asymptomatic individuals at average risk for colorectal cancer. Following a negative Cologuard result, the [place] [employer] Society and U.S. Multi-Society Task Force screening guidelines recommend a Cologuard re-screening interval of 3 years. References: [place] [employer] Guideline for Colorectal Cancer Screening: https://www.cancer.org/cancer/wurob-xxwnbv-nyfwyw/gonxqqfoq-irasufiqi-ggxzcos/ac s-rec ommendations.html.; Angel WEN, Malorie LEON, Jocelyne GONZÁLES, Colorectal Cancer Screening: Recommendations for Physicians and Patients from the U.S. Multi-Society Task Force on Colorectal Cancer Screening , Am J Gastroenterology 2017; 112:4632-9514. TEST DESCRIPTION: Composite algorithmic analysis of stool [...] Nunn et al, N Engl J Med 2014;370(14):7176-9512.) Cologuard may produce a false negative or false positive result (no colorectal cancer or precancerous polyp present at colonoscopy follow up). A negative Cologuard test result does not guarantee the absence of CRC or advanced adenoma (pre-cancer). The current Cologuard screening interval is every 3 years. ([place] [employer] Society and U.S. Multi-Society Task Force). Cologuard performance data in a 10,000 patient pivotal study using colonoscopy as the reference method can be accessed at the following location: www.[employer]/results. Additional description of the Cologuard test process, warnings and precautions can be found at www.[employer].com. Stool specimen (specimen) 06/29/2024 6:20 AM EDT 07/01/2024 10:11 AM EDT Caryn Henning MD LAB MOLECULAR DIAGNOSTICS JEFFREY SHAH Final Result [facility] (CLIA #:[id number]) [address] [place] [address], * (ABNORMAL) HEPATITIS C AB W/REFL TO HCV RNA, QN, PCR (07/10/2021 10:35 AM EDT) HEPATITIS C ANTIBODY REACTIVE( A) NON-REACT [facility] INDEX 3.21(H) <1.00 [facility] Comment: Based on this result, the sample will be tested for HCV RNA by a Nucleic Acid Amplification Test (NAAT) to determine if the patient has a current active infection. 07/10/2021 10:3 5 AM EDT us Yolanda Salgado MD HISTORICAL/NON ORDERA BLE LABS Final Result [facility] [address] [place] [address], * HIV 1/2 ANTIGEN/ANTIBODY,FOURTH GENERATION W/RFL (07/10/2021 [...] purpose. For additional information please refer to http://education.[employer]/faq/VTB827 (This link is being provided for informational/ educational purposes only.) The performance of this assay has not been clinically validated in patients less than 2 years old. 07/10/2021 10:3 5 AM EDT us Yolanda Salgado MD LAB BLOOD ORDERABLES Final Result [facility] [address] from Last 3 Months or Most Recently Relevant to Health Maintenance Insurance [facility] ONE CARE < [address] [place] [id number] Care Teams Die Sinking Machine Operator Relationship Specialty Start Date End Date Caryn Henning MD [address] [place] [phone] PCP - General Family Medicine 10/28/20
--- OUTSIDE RECORDS SUMMARY | 2025-03-07 13:16 | XMS_ITS | Clinical Summary ---
Author Organization [address] [facility] Address [address] [place] [address] Phone Care Team Providers Care Ship Rigger Apprentice Name Role Phone Caryn Henning MD Primary Care Provider [phone] Allergies Active Allergy Reactions Criticality Noted Date [...] Influenza-like symptoms 09/17/2023 Phobic disorder 09/17/2023 Schizophrenia ([facility] V24, [facility] V28) 024 Sleep apnea 09/17/2023 Encounters Date Type Department Care Team Description 01/31/2025 10:45 AM EDT Office Visit Orthopedic Surgery [address] [phone] Fransico Owusu DPM Acquired hammer toe of right foot (Primary Dx); Hammer toe of left foot; Dermatophytosis of nail 12/21/2024 10:45 AM EDT Office Visit Orthopedic Surgery [address] [phone] Fransico Owusu DPM Acquired hammer toe of right foot (Primary Dx); Hammer toe of left foot; Ingrowing nail; Dermatophytosis of nail; Pain in toe of right foot; Pain in toe of left foot; Difficulty walking from Last 3 Months Immunizations Immunization Administration Dates Next Due [facility] SARS-CoV-2 COVID-19, mRNA, LNP-S, preservative free 06/04/2021 [...] Upcoming Encounters Date Type Department Care Team ([facility] st Contact Info) Description 03/20/2025 10:15 AM EST Office Visit Orthopedic Surgery - [place] [address] [phone] Fransico Owusu, DPM [address] [address] Health Maintenance Due Date Last [...] Group ID:[id number] Type:Not on file Address: [facility] [place] [id number] Care Teams Ship Rigger Apprentice Relationship Specialty Start Date End Date Caryn Henning MD [address] [place] [phone] PCP - General 07/07/23
--- OUTSIDE RECORDS SUMMARY | 2025-03-07 13:16 | XMS_ITS | Encounter Summary ---
Author Organization [employer] Address 75 [facility] 7 [place] [address] Care Team Providers Care Showcase Maker Name Role Phone Caryn Henning MD Primary Care Provider [phone] Reason for Visit * Reason Onset Date Comments Nurse Triage 08/26/2023 Encounter Details Date Type Department Care Team (Late st Contact Info) Description 08/26/2023 Telephone [facility] [address] [place], [place] [phone] Caryn Henning MD [address] [place], [place] [phone] Nurse Triage Social History Tobacco Use Types [...] your housing situation today? I have gabriella ramierz 01/21/[address] you li [...] acuity questions The caller accepted this outcome Micronesian speaker documented in this encounter Plan of Treatment Upcoming Encounters Date Type Department Care Team (Late st Contact Info) Description 04/18/2025 10:30 AM EST Office Visit [facility] [address] [place] [address] Caryn Henning MD [address] [place] [address] documented as of this encounter Visit Diagnoses Not on filedocumented in this encounter Additional Health Concerns Assessment Noted Time PHQ-9 Depression Total Score: 0 07/02/19 24 10:52 AM EDT documented as of this encounter Care Teams Showcase Maker Relationship Specialty Start Date End Date Caryn Henning MD [address] [place] [phone] PCP - General Family Medicine 10/28/20 documented as of this encounter
--- OUTSIDE RECORDS SUMMARY | 2025-03-07 13:16 | XMS_ITS | Encounter Summary ---
Author Organization [employer] Address [address] [place] [address] 7 [place] [address] Care Team Providers Care Business Services Coordinator Name Role Phone Caryn Henning MD Primary Care Provider [phone] Reason for Visit * Reason Comments Med Refill Encounter Details Date Type Department Care Team (Late Contact Info) Description 11/30/2022 Refill [facility] [address] [place] [phone] Caryn Henning MD [address] [place] [address] [phone] Social History Tobacco Use Types Packs/Day Years [...] 10:30 AM EST Office Visit [facility] [address] [place] [phone] Caryn Henning MD [address] [place] [phone] documented as of this encounter Visit Diagnoses Not on filedocumented in this encounter Care Teams Business Services Coordinator Relationship Specialty Start Date End Date Caryn Henning MD [address] [place] [address] PCP - General Family Medicine 10/28/20 documented as of this encounter
--- OUTSIDE RECORDS SUMMARY | 2025-03-07 13:16 | XMS_ITS | Encounter Summary ---
Author Organization [employer] Address 75 [facility] 7 [place] [address] Care Team Providers Care Food Service Cashier Name Role Phone Caryn Henning MD Primary Care Provider [phone] Reason for Visit * Reason Onset Date Comments Appointment Request 10/13/2023 Encounter Details Date Type Department Care Team (Late st Contact Info) Description 10/13/2023 Telephone [facility] [address] [place], [place] [phone] Caryn Henning MD [address] [place], [place] [phone] Appointment Request Social History Tobacco Use Types [...] pt requesting to reschedule OV from 10/04. Anatomic Pathology Manager attempted to schedule but found no availability, pt requested for message to be sent stating needs appt as soon as possible. Please contact pt at [phone]. documented in this encounter Plan of Treatment Upcoming Encounters Date Type Department Care Team (Late st Contact Info) Description 04/18/2025 10:30 AM EST Office Visit [facility] [address] [place] [phone] Caryn Henning MD [address] [place] [address] documented as of this encounter Visit Diagnoses Not on filedocumented in this encounter Additional Health Concerns Assessment Noted Time PHQ-9 Depression Total Score: 0 07/02/19 24 10:52 AM EDT documented as of this encounter Care Teams Food Service Cashier Relationship Specialty Start Date End Date Caryn Henning MD [address] [place] [phone] PCP - General Family Medicine 10/28/20 documented as of this encounter
--- OUTSIDE RECORDS SUMMARY | 2025-03-07 13:16 | XMS_ITS | Encounter Summary ---
Author Organization [email or web address] Address 75 [facility] 7 [place] [address] Care Team Providers Care Adjunct Philosophy Faculty Name Role Phone Caryn Henning MD Primary Care Provider [phone] Reason for Referral * Consultation (Routine) - Closed Specialty Diagnoses / Procedures Referred By Contac t Referred To Contact Gastroenterology Diagnoses Edentulous Dysphagia, unspecified type Caryn Henning MD [address] [place] [address] Phone: tel: fax: [facility] [address] [place] [address] [address] SHAHID [address] [place] [phone] Phone: tel: fax: Referral ID Status Reason Start Date Expiration Date V isits Requested Visits Authorized [id number] Closed Specialty Services Required 08/30/2024 08/30/2025 1 1 Encounter Details Date Type Department Care Team (Late st Contact Info) Description 08/30/2024 Orders Only [facility] [address] [place], [place] [phone] Caryn Henning MD [address] [place], [place] [phone] Edentulous (Primary Dx); Dysphagia, unspecified type Social [...] Description 04/18/2025 10:30 AM EST Office Visit [facility] [address] [place] [address] Caryn Henning MD [address] [place] [address] Scheduled Referrals Name Type Priority Associated Diagnoses [...] PSA,Total (Free>4and<10) 0.86 0.00 - 4.00 ng/mL [facility] Comment:A Free PSA was not p [...] Provider LAB BLOOD ORDERAB LES Final Result [facility] [address] [place] [address] [phone] documented in this encounter Visit Diagnoses Diagnosis Edentulous- Primary Anodontia Dysphagia, unspecified type documented in this encounter Additional Health Concerns Assessment Noted Time PHQ-9 Depression Total Score: 8 07/04/19 25 2:36 PM EDT documented as of this encounter Care Teams Adjunct Philosophy Faculty Relationship Specialty Start Date End Date Caryn Henning MD [address] [place] [phone] PCP - General Family Medicine 10/28/20 documented as of this encounter
--- OUTSIDE RECORDS SUMMARY | 2025-03-07 13:16 | XMS_ITS | Encounter Summary ---
Author Organization [employer] Address 75 [facility] 7t [place] [address] Care Team Providers Care Industrial Seamstress Name Role Phone Caryn Henning MD Primary Care Provider [phone] Encounter Details Date Type Department Care Team (Late st Contact Info) Description 03/06/2025 Orders Only GENERIC EXTERNAL DATA DEPARTMENT Provider, Generic External Data Social History Tobacco Use Types Packs/Day Years [...] 10:30 AM EST Office Visit [facility] [address] [place] [address] Caryn Henning MD [address] [place] [address] documented as of this encounter Procedures Procedure Name Priority Date/Time Associated Diagnosis Comments URIC ACID Routine 03/06/2025 7:00 AM EST PHOSPHATE ( PHOSPHORUS) Routine 03/06/2025 7:00 AM EST PTH, INTACT WITHOUT CALCIUM Routine 03/06/2025 7:00 AM EST MAGNESIUM Routine 03/06/2025 7:00 AM EST COMPREHENSIVE METABOLIC PANEL Routine 03/06/2025 7:00 AM EST documented in this encounter Results * PTH, Intact Without Calcium (03/06/2025 7:00 AM EST) Parathyroid Hormone, Intact 47.4 8.7 - 77.1 pg/mL [facility] 03/06/2025 7:00 AM EST 03/06/2025 7:12 AM EST us Generic External Data Provider LAB BLOOD ORDERAB LES Final Result Performing Organization Address [facility] Co de Phone Number [facility] [address] [place] [phone] * Magnesium (03/06/2025 7:00 AM EST) Magnesium 1.8 1.6 - 2.6 mg/dL [facility] 03/06/2025 7:00 AM EST 03/06/2025 7:12 AM EST Generic External Data Provider LAB BLOOD ORDERAB LES Final Result Performing Organization Address [facility] de Phone Number [facility] [address] [place] [phone] * Phosphate (As Phosphorus) (03/06/2025 7:00 AM EST) Phosphorus 3.4 2.7 - 4.5 mg/dL [facility] 03/06/2025 7:00 AM EST 03/06/2025 7:12 AM EST us Generic External Data Provider LAB BLOOD ORDERAB LES Final Result Performing Organization Address [facility] Co de Phone Number [facility] [address] [place] [phone] * (ABNORMAL) Uric acid (03/06/2025 7:00 AM EST) Uric Acid 7.3(H) 3.4 - 7.0 mg/dL [facility] 03/06/2025 7:00 AM EST 03/06/2025 7:12 AM EST us Generic External Data Provider LAB BLOOD ORDERAB LES Final Result [facility] [address] [place] [phone] [phone] * Comprehensive Metabolic Panel (03/06/2025 7:00 AM EST) Sodium 140 135 - 145 mmol/L [facility] Potassium 4.3 3.3 - 5.1 mmol/L [facility] Chloride 107 96 - 108 mmol/L [facility] Carbon Dioxide 25 22 - 29 mmol/L [facility] Anion Gap 12 12 - 20 [facility] Urea Nitrogen (BUN) 15 9 - 16 mg/dL [facility] Creatinine, Serum 1.01 0.5 - 1.4 mg/dL [facility] Estimated Glomerular Filt Rate >60 [facility] Comment:Chronic Kidney Disea se: Estimated GFR < 60 mL/min/1.16a9Lukvvs Kidney Disease: Estimated GFR < 15 mL/min/1.73m2 Glucose 96 60 - 115 mg/dL [facility] Calcium 9.2 8.4 - 10.2 mg/dL [facility] Bilirubin, Total 0.3 0.0 - 1.0 mg/dL [facility] Aspartate Amino Transferase 27 5 - 37 U/L [facility] Alanine Aminotransferase 23 0 - 40 U/L [facility] Total Protein 7.1 6.5 - 8.0 g/dL [facility] Albumin Level 4.3 3.5 - 5.0 g/dL [facility] Alkaline Phosphatase 116 39 - 117 U/L [facility] 03/06/2025 7:00 AM EST 03/06/2025 7:12 AM EST us Generic External Data Provider LAB BLOOD ORDERAB LES Final Result [facility] [address] [place] [address] [phone] documented in this encounter Visit Diagnoses Not on filedocumented in this encounter Additional Health Concerns Assessment Noted Time PHQ-9 Depression Total Score: 9 11/18/19 25 3:56 PM EDT documented as of this encounter Care Teams Industrial Seamstress Relationship Specialty Start Date End Date Caryn Henning MD [address] [place] [address] PCP - General Family Medicine 10/28/20 documented as of this encounter
[2025-03-07 13:58] LABS: Total Volume 24 Hour Urine 3200 mL
[2025-03-09 17:53] LABS: Calcium/Creatinine Ratio 142 mg/g creat (30-210); Creatinine 24Hr Urine 0.61 g/24 h (0.50-2.15)
[2025-03-13 03:38] LABS: 24hr Urine Total Volume 3200 mL; Oxalic Acid 24 Urine 9.2 mg/24 h (3.6-38.0)
[2025-03-13 07:28] LABS: 24hr Urine Total Volume 3200 mL; Citric Acid, 24hr Urine 224 mg/24 h (100-1300); Citric Acid/Creat Ratio 24U 365 mg/g creat (60-660); Creatinine, 24U 0.61 g/24 h (0.50-2.15)
== END 2025-03-07 11:09 | disposition home or self-care (01) ==
LOC: HO.LNP 11:08
PROVIDERS: Visit Provider Internal Medicine Hypertension Specialist
DX: N20.0 Calculus of kidney (principal)
CPT/HCPCS: 82340; 82507; 83945; 84300; 84560

== ENCOUNTER 2025-03-08 12:36 | Outpatient (AMB) | payer OTHER, SELFPAY ==
[2025-03-08 13:15] VITALS: BP 100/68; PULSE 89; O2SAT 95; BMI 30.4
--- NOTE | 2025-03-08 13:15 | HO.NEPHOV_ITS ---
Vital Signs 03/08/25 13:15 Height 5 ft 7 in Weight 194 lb BMI 30.4 BP 100/68 Blood Pressure Location Lt brachial Position Sitting Pulse 89 Pulse Source Pulse Oximeter Pulse Oximetry (%) 95 Oxygen Delivery Method Room Air Intake Visit Reasons: 4-6wks f/u w/labs Segmental Paver Installer Required: Yes Segmental Paver Installer Name: Lenin [id number] Accompanied by: Brother Allergies aspirin (ASPIRIN) Allergy (Severe, Verified 03/08/25 13:27) SWELLING, rash Penicillins (PENICILLINS) Allergy (Severe, Verified 03/08/25 13:27) CONVULSIONS Medication List - Last Reconciled 03/08/25 by Bill Hayward MD ammonium lactate 12% 1 appl topical DAILY cholecalciferol (vitamin D3) 50 mcg PO DAILY clonazepam 1 mg PO BEDTIME clonazepam 0.5 mg PO DAILY diaper,brief,adult,disposable (Depend Fit-Flex Underwear) As directed four daily esomeprazole magnesium 20 mg PO DAILY fluoxetine 20 mg PO QAM ketoconazole 2% 1 appl topical DAILY ketotifen fumarate 0.025%(0.035%) (Eye Itch Relief) 1 drp ophthalmic (eye) DAILY PRN lanolin puxmilh-fc-n.pet-ceres (Minerin Creme topical) appl topical DAILY PRN melatonin 10 mg PO BEDTIME polyvinyl alcohol 1.4% 1 drp ophthalmic (eye) BID risperidone 0.5 mg PO TID simvastatin 80 mg PO BEDTIME trazodone 50 mg PO BEDTIME PRN vitamin A 1 cap PO DAILY zinc gluconate 50 mg PO DAILY HPI Comments Details: - The patient is a 64-year-old male presenting with kidney stones. - Nephrostomy tube was placed due to obstruction, now removed. - Urinary frequency and incontinence noted. - Previous stone dissolution attempts; current status unclear. - h/o Excessive water intake led to hyponatremia. - Schizophrenia history noted. 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 03/08/25: Events noted No new issues Interpretor service was used [facility] Medical History Depression History of mental disorder Smoker HTN (hypertension) (~12/18/24) Hepatitis Syphilis Chronic GERD BPH w urinary obs/LUTS DAISY on CPAP Obesity (BMI 30-39.9) Surgical History Hx of cystoscopy History of bladder surgery History of laparotomy Hx of umbilical hernia repair Family History Father Heart disease Prostate cancer Alzheimer disease Mother Diabetes Social History Household Members: Other Alcohol intake: former Patient Tobacco Use Status: Former Tobacco user Tobacco use type: Cigarette Cigarettes Per Day: 2 Physical Exam Vital Signs: Last Vital Signs Pulse 89 03/08/25 13:15 BP 100/68 03/08/25 13:15 Pulse Ox 95 03/08/25 13:15 Oxygen Delivery Method Room Air 03/08/25 13:15 BMI result Body Mass Index 30.4 Comfortable Neck supple no JVD. Lungs entry equal no rales. Heart S1-S2 heard no gallop or rub. Abdomen soft nontender. Neuro alert awake oriented. No asterixis. Extremities no edema. Results Reviewed Nephrology Results: Sodium, (135-145) 140 mmol/L 03/06/25 Potassium, (3.3-5.1) 4.3 mmol/L 03/06/25 Chloride, (96-108) 107 mmol/L 03/06/25 Carbon Dioxide, (22-29) 25 mmol/L 03/06/25 BUN, (9-16) 15 mg/dL 03/06/25 Creatinine, (0.5-1.4) 1.01 mg/dL 03/06/25 Calcium, (8.4-10.2) 9.2 mg/dL Δ 03/06/25 Phosphorus, (2.7-4.5) 3.4 mg/dL 03/06/25 PTH Intact, (8.7-77.1) 47.4 pg/mL 03/06/25 Renal US 02/14/25 Assessment & Plan Assessment & Plan (1) Kidney stone: Code(s): N20.0 - Calculus of kidney Category: Medical Plan Middle-aged man with nephrolithiasis and status post hydronephrosis. Status post nephrostomy. Follow up with Urology on 03/26/25 Creatinine is at baseline History of hyponatremia in the past. Serum sodium was 132 millimoles in August 2024. This may be due to excessive free water intake. Repeat Na level is normal Metabolic workup initiated for nephrolithiasis. 24 hr urine shows a volume of 3200 mk and sodium of 99 mmol Other results are pending Orders: Orders Basic Metabolic Panel 4 Months I10 - Essential (primary) hypertension, N13.30 - Unspecified hydronephrosis, N20.0 - Calculus of kidney Coding Level of Care Code Est Pt Level 4 (96653) Diagnoses Kidney stone N20.0
== END 2025-03-08 13:42 | disposition home or self-care (01) ==
LOC: HO.HKA 12:37
PROVIDERS: PCP General Practice; Visit Provider Internal Medicine Hypertension Specialist
DX: N20.0 Calculus of kidney (principal)
CPT/HCPCS: 99214

== ENCOUNTER → 2025-03-08 12:36 | Outpatient (BNVA) | payer OTHER, SELFPAY | PROVIDERS: PCP General Practice; Visit Provider Internal Medicine Hypertension Specialist | DX: N20.0 Calculus of kidney (principal); Z98.890 Other specified postprocedural states | CPT/HCPCS: 99212 ==

== ENCOUNTER → 2025-03-24 09:14 | Outpatient (BNV) | payer OTHER, SELFPAY | PROVIDERS: PCP General Practice; Visit Provider Radiology Diagnostic Radiology | DX: J32.2 Chronic ethmoidal sinusitis (principal) | CPT/HCPCS: 70551 ==

== ENCOUNTER 2025-03-24 09:15 | Outpatient (REF) | payer OTHER, SELFPAY ==
--- OUTSIDE RECORDS SUMMARY | 2025-03-20 10:15 | XMS_ITS | Encounter Summary ---
Author Organization [facility] Address [address] [place] [address] Care Team Providers Care Brand Representative Name Role Phone Caryn Henning MD Primary Care Provider [phone] Reason for Visit * Reason Comments Nail Problem Nail care Encounter Details Date Type Department Care Team (Late Contact Info) Description 03/20/2025 10:15 AM EST Office Visit Orthopedic Surgery - [place] [address] [address] Fransico Owusu DPM [address] [address] Acquired hammer toe of right foot (Primary Dx); Hammer toe of left foot; Dermatophytosis of nail; Ingrowing nail; Pain in toe of right foot; Difficulty walking; Pain in toe of left foot Social History Tobacco Use Types Packs/Day Years Used Date Smoking Tobacco: Never Assessed Sex and Gender Information Value Date Recorded Sex Assigned at Not on file Legal Sex Male 9:03 AM EST Gender Identity Not on file Sexual Orientation Not on file documented as of this encounter Ordered Prescriptions Prescription Sig Dispense Quantity Refills Last Filled Start Date End Date nystatin (MYCOSTATIN) 100,000 unit/gram powder Apply topically 2 (two) times a day. 15 g 03/20/2025 ketoconazole (NIZORAL) 2 % cream Apply topically 1 (one) time each day. 30 g 2 03/20/2025 documented in this encounter Progress Notes * Fransico Owusu DPM - 03/20/2025 10:15 AM EST S Patient today complaining of pain in his feet he notes that his nails are still thick elongated painful bother him he notes he is getting worsening irritation in his nails that are growing to his skin patient is suffers from cognitive deficits presents with a presents manage reports worsening contracture deformities of his toes is complaining worsening contracture would like to know what his options are for worsening pain discomfort of all of his 10 toes left worse than right presents today with his brother present continues to suffer from worsening hammertoe contractures does note that the nails continue to bother him presents today with his brother present assistant construction superintendent [id number] Last PCP visit 11/17/2024 Dr. Milo FRENCH ROS: GENERAL: Pt denies nausea, fever, vomiting, chills, or shortness of breath. Pt in NAD. CARDIOLOGY: pt denies chest pain, palpitations LUNGS: pt denies shortness of breath MUSCULOSKELETAL: See HPI, otherwise no joint pain or swelling, back pain, or muscle pain. SKIN: see HPI, otherwise no lesions, rash or itching NEURO: No persistent headache, weakness or numbness The remainder of the review of systems is noncontributory PAST MEDICAL HISTORY: Patient Active Problem List Diagnosis Code COVID-19 U07.1 Fatigue R53.83 GERD (gastroesophageal reflux disease) K21.9 Hyperlipidemia E78.5 Impaired fasting glucose R73.01 Influenza-like symptoms R68.89 Phobic disorder F40.9 Schizophrenia (HCC) F20.9 Sleep apnea G47.30 Edentulous K08.109 Screening for colon cancer Z12.11 Asymmetric septal hypertrophy (HCC) I42.2 SOCIAL HISTORY: Social History Tobacco Use Smoking status: Not on file Smokeless tobacco: Not on file Substance Use Topics Alcohol use: Not on file History Never marked as reviewed. ACTIVE MEDICATIONS: Current Outpatient Medications Medication Sig Dispense Refill clotrimazole (LOTRIMIN) 1 % cream Apply to skin and toenails daily for 12 weeks 45 g 3 carbamide peroxide (DEBROX) 6.5 % otic solution 5 Drops 2 times daily. Tilt head so ear to be treated points towards the ceiling. Hold medication in ear using part of a cotton ball. clonazepam (KLONOPIN) 0.5 MG tablet Take 1 Tablet by mouth 2 times daily as needed. Cholecalciferol (Vitamin D3) 25 MCG (1000 UT) Cap Take 50 mcg by mouth daily. diphenhydrAMINE (BENADRYL) 25 MG capsule Take 1 Capsule by mouth every 6 hours as needed. esomeprazole (NEXIUM) 20 MG capsule Take 1 Capsule by mouth every morning (before breakfast). fluoxetine (PROZAC) 20 MG capsule Take 1 Capsule by mouth daily. fluticasone 50 MCG/ACT nasal spray 2 Sprays by Each Nare route daily. Loratadine 10 MG Cap Take by mouth. Melatonin 5 MG Tab Take 1 Tablet by mouth at bedtime. oxybutynin (DITROPAN) 5 MG tablet Take 1 Tablet by mouth every morning. risperidone (RISPERDAL) 0.5 MG tablet Take 1 Tablet by mouth 2 times daily. simvastatin (ZOCOR) 80 MG tablet Take 1 Tablet by mouth at bedtime. tamsulosin (FLOMAX) 0.4 MG 24 hr capsule Take 1 Capsule by mouth daily. Take 30 mins after same meal every day. No current facility-administered medications for this visit. ALLERGIES: Patient has no allergy information on record. PHYSICAL EXAM: Height 5' 5 (1.651 m), weight 191 lb (86.6 kg). Estimated body mass index is 31.78 kg/m?? as calculated from the following: Height as of this encounter: 5' 5 (1.651 m). Weight as of this encounter: 191 lb (86.6 kg). PODIATRIC EXAMINATION: GENERAL: Patient appears well nourished, with NAD. VASCULAR: Dorsalis pedis pulses are 2/4 bilaterally and Posterior tibial pulses are 2/4 bilaterally. Capillary filling time within normal limits the digits. No pallor on elevation or rubor on dependency. Positive hair growth. No varicosities. Denies rest pain or claudication pain. NEUROLOGICAL: Sharp/dull sensation intact, protective sensation intact 10/10 with 5.07 semmes ai bilaterally, vibratory sensation with tuning fork intact to the tibial tuberosity. ORTHOPEDIC: Good muscle strength 5/5 of all flexors and extensors. Dorsi flexion of ankle ,10 degrees, plantar flexion WNL. No muscle atrophy. DERMATOLOGICAL:. Toenails: Left Toenail(s) 1-5: Crumbling upon debridement, subungual debris, discoloration, dystrophy, elongation, mycotic appearance, onychomycosis, pain and thickening. Right Toenail(s) 1-5: Crumbling upon debridement, subungual debris, discoloration, dystrophy, elongation, mycotic appearance, onychomycosis, pain and thickening. Annular scaling bilateral feet moccasin distribution BIOMECHANICS: STJ ROM wnl, MTJ ROM wnl, 1st MPJ ROM wnl. Severe hammertoe contractures 2 through 5 bilaterally left third right third worse bilateral with acallus remission tips of toes IMAGING: IMPRESSION: 1. Acquired hammer toe of right foot 2. Hammer toe of left foot 3. Dermatophytosis of nail 4. Ingrowing nail 5. Pain in toe of right foot 6. Difficulty walking 7. Pain in toe of left foot PLAN: Pt was seen and examined, history reviewed. Antifungal treatment options reviewed for dermatophytosis of nails and skin discussed reviewed first-line therapy of clotrimazole, and other topical medications versus oral antifungal medications patient is currently suffering from schizoaffective disorder schizophrenia is on several different psych meds which may negatively impact the course of oral medication although he would likely benefit with Lamisil given the severity of his dermatophytosis of nails and skin Worsening hammertoe contracture left foot discussed and reviewed discussed poss benefits of treatment options for contractural deformity release including flexor tenotomy's as well as intraoperative contracture release arthroplasty with wire fixation Treatment options for hammertoe contractural 2345 left foot MPJ contracture release 234 left foot correction were discussed, non-operative treatment would involve tapping, strapping, adjustments in shoe gear, orthotics insoles, rest, bracing and edema control. There is potential for the deformities to stabilize without surgery yet there may still be a need for delayed surgery and distructive procedures. There is potential for non-union with surgery and non- operative care would avoid incision problems and anesthesia risks. Surgery has added risks including but not limited to infection, incision pain, neuritis or numbness nerve trauma (damage transection of nerve) re-occurrence of deformity w eakening of structure or tendon, scar tissue contracture, worsening of deformity and loss of limb or life from DVT and . hammertoe contractural 2345 left foot MPJ contracture release 2345 left foot healing was discussed in relation to operative treatment. Recovery and post operative immobilization was discussed based on the various treatment options. Patient states fifth toe left foot at this time Lotrimin powder prescribed Lotrimin lotion prescribed Follow-up in 1 to 3 months Debridement of mycotic toenails 6-10: Verbal informed consent was obtained from the patient. Greater than 6 nails were aseptically debrided in thickness and length with nail nippers Fransico Owusu DPM documented in this encounter Plan of Treatment Upcoming Encounters Date Type Department Care Team (Late st Contact Info) Description 05/22/2025 9:45 AM EST Office Visit Orthopedic Surgery - [place] [address] [address] Fransico Owusu DPM [address] [address] documented as of this encounter Visit Diagnoses Diagnosis Acquired hammer toe of right foot- Primary Hammer toe of left foot Dermatophytosis of nail Ingrowing nail Pain in toe of right foot Pain in soft tissues of limb Difficulty walking Difficulty in walking Pain in toe of left foot Pain in soft tissues of limb documented in this encounter Historical Medications * This list may reflect changes made after this encounter. traZODone (DESYREL) 50 mg tablet Take 1 tablet (50 mg total) by mouth. at bedtime 02/28/2025 added in this encounter Care Teams Brand Representative Relationship Specialty Start Date End Date Caryn Henning MD [address] [place] [id number] PCP - General 07/07/23 documented as of this encounter
--- NOTE | ~2025-03-24 | MR_ITS ---
EXAMINATION: MR BRAIN WITHOUT CONTRAST CLINICAL INFORMATION: Amnesia. Memory change. Bilateral decreased vision. COMPARISON: CT brain 08/22/2020 TECHNIQUE: MRI of the brain was obtained using routine sequences without contrast. FINDINGS: There is no restricted diffusion seen to suspect any acute ischemic changes. No paramagnetic susceptibility artifact to suspect acute or chronic hemorrhagic products. The butler to white matter differences maintained with punctate T2 FLAIR foci in the deep white matter of both cerebral hemispheres, nonspecific. There is no edema or midline shift. The lateral ventricles are symmetrical in size but mildly enlarged. The cortical sulci are symmetrical and normal. There is minimal mucoperiosteal thickening bilateral ethmoid sinuses. Rest of the paranasal sinuses and mastoid air cells are well-aerated. The cervical-medullary junction appears normal. The scalp soft tissues and calvarial bone marrow signal is normal. MR/MR head/brain wo con IMPRESSION: No acute intracranial process seen. Mild chronic bilateral ethmoid sinus inflammatory changes. Nonspecific few T2 FLAIR foci in the deep white matter of both cerebral hemispheres. Electronically signed by: Max Rivas MD 03/26/2025 07:23 AM DOMITILA
--- OUTSIDE RECORDS SUMMARY | 2025-03-24 09:27 | XMS_ITS | Encounter Summary ---
Author Organization [facility] Address 75 [facility] 7 [place] [address] Care Team Providers Care Supervisor Underwriting Clerks Name Role Phone Caryn Henning MD Primary Care Provider [phone] Reason for Visit * Reason Onset Date Comments Med Refill 01/29/2025 Encounter Details Date Type Department Care Team (Late st Contact Info) Description 01/29/2025 Telephone [facility] MEDICINE 230 [place], [place] [phone] Caryn Henning MD 230 [place], [place] [phone] Med Refill Social History Tobacco Use Types [...] the past 12 months, has t he [employer] gas, oil or water company threatened to [...] - 01/29/2025 3:32 PM EDT Medication to [facility] for refill script was sent on 08/29/24 #90 with 1 refill. * Telephone Encounter - Maribeth Crandall - 01/29/2025 3:24 PM EDT TC from pt requesting medication refill. Medications needing refill : - esomeprazole (NexIUM) [address] capsule To be sent to: - [facility] - [place], [place] - [address] [place] [address] documented in this encounter Plan of Treatment Upcoming Encounters Date Type Department Care Team (Late st Contact Info) Description 04/18/2025 10:30 AM EST Office Visit [facility] 230 [place] [address] Caryn Henning MD [address] [place] [address] documented as of this encounter Visit Diagnoses Not on filedocumented in this encounter Additional Health Concerns Assessment Noted Time PHQ-9 Depression Total Score: 9 11/18/19 25 3:56 PM EDT documented as of this encounter Care Teams Supervisor Underwriting Clerks Relationship Specialty Start Date End Date Caryn Henning MD [address] [place] [phone] PCP - General Family Medicine 10/28/20 documented as of this encounter
--- OUTSIDE RECORDS SUMMARY | 2025-03-24 09:27 | XMS_ITS | Encounter Summary ---
Author Organization [employer] Address 75 [facility] 7 [place] [address] Care Team Providers Care Deburrer Name Role Phone Caryn Henning MD Primary Care Provider [phone] Reason for Referral * Consultation (Routine) - Closed Specialty Diagnoses / Procedures Referred By Contac t Referred To Contact Gastroenterology Diagnoses Edentulous Dysphagia, unspecified type Caryn Henning MD 230 [place] [address] Phone: tel: fax: [facility] [address] [place] [address] [address] SHAHID [address] [place] [phone] Phone: tel: fax: Referral ID Status Reason Start Date Expiration Date V isits Requested Visits Authorized [id number] Closed Specialty Services Required 08/30/2024 08/30/2025 1 1 Encounter Details Date Type Department Care Team (Late st Contact Info) Description 08/30/2024 Orders Only [facility] MEDICINE 230 [place], [place] [phone] Caryn Henning MD 230 [place], [place] [phone] Edentulous (Primary Dx); Dysphagia, unspecified type Social [...] 04/18/2025 10:30 AM EST Office Visit [facility] MEDICINE 230 [place] [address] Caryn Henning MD 230 [place] [address] Scheduled Referrals Name Type Priority Associated Diagnoses [...] PSA,Total (Free>4and<10) 0.86 0.00 - 4.00 ng/mL [facility] Comment:A Free PSA was not [...] Provider LAB BLOOD ORDERAB LES Final Result [facility] [address] [place] [address] [phone] documented in this encounter Visit Diagnoses Diagnosis Edentulous- Primary Anodontia Dysphagia, unspecified type documented in this encounter Additional Health Concerns Assessment Noted Time PHQ-9 Depression Total Score: 8 07/04/19 25 2:36 PM EDT documented as of this encounter Care Teams Deburrer Relationship Specialty Start Date End Date Caryn Henning MD [address] [place] [phone] PCP - General Family Medicine 10/28/20 documented as of this encounter
--- OUTSIDE RECORDS SUMMARY | 2025-03-24 09:28 | XMS_ITS | Encounter Summary ---
Author Organization [employer] Address [address] [facility] 7 [place] [address] Care Team Providers Care Documentation Improvement Specialist Name Role Phone Caryn Henning MD Primary Care Provider [phone] Encounter Details Date Type Department Care Team (Late st Contact Info) Description 01/21/2024 Orders Only [facility] MEDICINE 230 [place], [place] [phone] Caryn Henning MD 230 [place], [place] [phone] Social History Tobacco Use Types Packs/Day Years [...] Description 04/18/2025 10:30 AM EST Office Visit [facility] MEDICINE 230 [place], [place] [phone] Caryn Henning MD 230 [place] [address] documented as of this encounter Visit Diagnoses Not on filedocumented in this encounter Additional Health Concerns Assessment Noted Time PHQ-9 Depression Total Score: 0 07/02/19 24 10:52 AM EDT documented as of this encounter Care Teams Documentation Improvement Specialist Relationship Specialty Start Date End Date Caryn Henning MD 230 [place] [address] PCP - General Family Medicine 10/28/20 documented as of this encounter
--- OUTSIDE RECORDS SUMMARY | 2025-03-24 09:28 | XMS_ITS | Encounter Summary ---
Author Organization [employer] Address 75 [facility] 7t [place] [address] Care Team Providers Care Computer Numerical Control Machinist Name Role Phone Caryn Henning MD Primary Care Provider Encounter Details Date Type Department Care Team (Late st Contact Info) Description 04/29/2023 Telephone [facility] MEDICINE 230 [place], [place] [phone] Caryn Henning MD 230 [place], [place] [phone] Social History Tobacco Use Types Packs/Day Years [...] Description 04/18/2025 10:30 AM EST Office Visit [facility] 230 [place] [address] Caryn Henning MD 230 [place], [place] [phone] documented as of this encounter Visit Diagnoses Not on filedocumented in this encounter Care Teams Computer Numerical Control Machinist Relationship Specialty Start Date End Date Caryn Henning MD [address] [place] [phone] PCP - General Family Medicine 10/28/20 documented as of this encounter
--- OUTSIDE RECORDS SUMMARY | 2025-03-24 09:28 | XMS_ITS | Clinical Summary ---
Author Organization [address] [facility] Address 175 [place] [address] Phone Care Team Providers Care Data Processing Manager Name Role Phone Caryn Henning MD Primary Care Provider [phone] Allergies Active Allergy Reactions Criticality Noted Date [...] mins after same meal every day Active traZODone (DESYREL) 50 mg tablet Take 1 tablet (50 mg total) by mouth. at bedtime 5 Active ketoconazole (NIZORAL) 2 % cream Apply topically 1 (one) time each day. 30 g 2 5 Active nystatin (MYCOSTATIN) 100,000 unit/gram powder Apply topically 2 (two) times a day. 15 g 5 03/20/20 26 Active Active Problems Problem Noted Date Diagnosed Date Asymmetric septal hypertrophy 09/17/2023 COVID-19 09/17/2023 Edentulous 09/17/2023 Fatigue 09/17/2023 GERD (gastroesophageal reflux disease) Hyperlipidemia 09/17/2023 Impaired fasting glucose 09/17/2023 Influenza-like symptoms 09/17/2023 Phobic disorder 09/17/2023 Schizophrenia 09/17/2023 Sleep apnea 09/17/2023 Encounters Date Type Department Care Team Description 03/20/2025 10:15 AM EST Office Visit Orthopedic Surgery [facility] [address] [phone] Fransico Owusu DPM Acquired hammer toe of right foot (Primary Dx); Hammer toe of left foot; Dermatophytosis of nail; Ingrowing nail; Pain in toe of right foot; Difficulty walking; Pain in toe of left foot 01/31/2025 10:45 AM EDT Office Visit Orthopedic Surgery [facility] [address] [phone] Fransico Owusu DPM Acquired hammer toe of right foot (Primary Dx); Hammer toe of left foot; Dermatophytosis of nail from Last 3 Months Immunizations Immunization Administration [...] AM EST Office Visit Orthopedic Surgery - [place] [address] [phone] Fransico Owusu DPM [address] [phone] Health Maintenance Due Date Last Done Comments Drug Screen 1960 Non-Opioid Controlled Substance Agreement 1962 Hepatitis C Screening 05/04/2023 Medicare Annual Wellness [...] patient's age to complete this topic Insurance [facility] MEDICARE Member Subscriber Plan / Payer (Ef fective 2017-Present) Name:JAGUAR CHAVIS Relation to Subscriber:Self Name:Jaguar Crandall Payer ID:[id number] Group ID:[id number] Type:Not on file Address: [facility] [address] [phone] Care Teams Data Processing Manager Relationship Specialty Start Date End Date Caryn Henning MD [address] [place] [address] [facility] - General 07/07/23
--- OUTSIDE RECORDS SUMMARY | 2025-03-24 09:28 | XMS_ITS | Encounter Summary ---
Author Organization [employer] Address [address] [place] [address] 7 [place] [address] Care Team Providers Care Boatbuilder Wood Name Role Phone Caryn Henning MD Primary Care Provider Reason for Visit * Reason Comments Med Refill Encounter Details Date Type Department Care Team (Late Contact Info) Description 11/30/2022 Refill [facility] MEDICINE [address] [place] [address] [phone] Caryn Henning MD [address] [place] [phone] Social History Tobacco Use Types Packs/Day Years [...] Office Visit [facility] MEDICINE [address] [place] [address] [phone] Caryn Henning MD [address] [place] [address] [phone] documented as of this encounter Visit Diagnoses Not on filedocumented in this encounter Care Teams Boatbuilder Wood Relationship Specialty Start Date End Date Caryn Henning MD 230 [place] [address] PCP - General Family Medicine 10/28/20 documented as of this encounter
--- OUTSIDE RECORDS SUMMARY | 2025-03-24 09:28 | XMS_ITS | Encounter Summary ---
Author Organization [employer] Address 75 [facility] 7t [place] [address] Care Team Providers Care Breeding Technician Name Role Phone Caryn Henning MD Primary Care Provider [phone] Encounter Details Date Type Department Care Team (Late st Contact Info) Description 05/19/2023 Telephone [facility] MEDICINE 230 [place], [place] [phone] Caryn Henning MD 230 [place], [place] [phone] Social History Tobacco Use Types Packs/Day Years [...] [facility] 230 [place] [address] Caryn Henning MD 230 [place], [place] [phone] documented as of this encounter Visit Diagnoses Not on filedocumented in this encounter Care Teams Breeding Technician Relationship Specialty Start Date End Date Caryn Henning MD [address] [place] [phone] PCP - General Family Medicine 10/28/20 documented as of this encounter
--- OUTSIDE RECORDS SUMMARY | 2025-03-24 09:28 | XMS_ITS | Encounter Summary ---
Author Organization [employer] Address 75 [facility] 7 [place] [address] Care Team Providers Care Joiner Name Role Phone Caryn Henning MD Primary Care Provider [phone] Reason for Visit * Reason Onset Date Comments Appointment Request 10/13/2023 Encounter Details Date Type Department Care Team (Late st Contact Info) Description 10/13/2023 Telephone [facility] MEDICINE 230 [place], [place] [phone] Caryn Henning MD 230 [place], [place] [phone] Appointment Request Social History Tobacco Use Types [...] pt requesting to reschedule OV from 10/04. Chimney Builder Brick attempted to schedule but found no availability, pt requested for message to be sent stating needs appt as soon as possible. Please contact pt at [phone]. documented in this encounter Plan of Treatment Upcoming Encounters Date Type Department Care Team (Late st Contact Info) Description 04/18/2025 10:30 AM EST Office Visit [facility] MEDICINE [address] [place] [phone] Caryn Henning MD 230 [place] [address] documented as of this encounter Visit Diagnoses Not on filedocumented in this encounter Additional Health Concerns Assessment Noted Time PHQ-9 Depression Total Score: 0 07/02/19 24 10:52 AM EDT documented as of this encounter Care Teams Joiner Relationship Specialty Start Date End Date Caryn Henning MD [address] [place] [address] PCP - General Family Medicine 10/28/20 documented as of this encounter
--- OUTSIDE RECORDS SUMMARY | 2025-03-24 09:28 | XMS_ITS | Clinical Summary ---
Author Organization [employer] Address [address] [facility] 7t [place] [address] Care Team Providers Care Corporate Development Intern Name Role Phone Caryn Henning MD Primary Care Provider [phone] Allergies Active Allergy Reactions Criticality Noted Date [...] (dry eyes). 12 mL 11 4 Active Vitamin A Palmitate 3 MG (53951 UT) tabletIndications: Vitamin A deficiency Take 1 tablet by mouth Once per day. 30 tablet 4 Active cholecalciferol (D3 Super Strength) 50 MCG (2000 UT) capsule Take 1 capsule (50 mcg) by mouth Once per day. 90 capsule 3 02/14/2025 4:19 PM EST 5 Active zinc gluconate 50 MG tabletIndications: Zinc deficiency Take 1 tablet (50 mg) by mouth Once per day. 90 tablet 3 5 026 Active beta carotene (vitamin A) 3 MG (40576 UT) capsule Take 1 capsule by mouth [...] until symptoms subside 15 g 5 Active Eye Itch Relief 0.035 % [...] AT BEDTIME 60 tablet 11 5 Active esomeprazole (NexIUM) [address] capsule TAKE 1 CAPSULE BY MOUTH EVERY DAY 1 HOUR BEFORE A MEAL, DO NOT BREAK, CRUSH, DISSOLVE OR CHEW 90 capsule 3 5 Active traZODone (Desyrel) 50 MG tablet TAKE 1 TABLET BY MOUTH AT BEDTIME 90 tablet 3 02/28/2025 12:10 PM EST 5 Active Active Problems Problem Noted Date [...] Plan (09/14/2022 12:43 PM EDT): Gave patient [facility] contact information and instructed them to call GI and to be persistent. Edentulous 06/26/2022 Assessment & Plan (09/14/2022 12:42 PM EDT): Patient still waiting on WHEEL ALIGNMENT MECHANIC videofluoroscopic swallow study. Fatigue 03/05/2022 Gastroesophageal reflux [...] DEPARTMENT Provider, Generic External Data 02/18/2025 Refill [facility] [address] [place] [address] Caryn Henning MD 02/13/2025 Orders Only [facility] External Provider, [facility] 02/12/2025 Orders Only GENERIC EXTERNAL DATA DEPARTMENT Provider, Generic External Data 01/29/2025 Telephone [facility] [address] [place] [address] Caryn Henning MD Med Refill 01/08/2025 Refill [facility] [address] [place] [address] Caryn Henning MD 12/26/2024 Telephone [facility] [address] [place] [address] Caryn Henning MD Durable Medical Equipment ([employer]: ) from Last 3 Months Immunizations Immunization Administration [...] 04/18/2025 10:30 AM EST Office Visit [facility] [address] [place] [address] Caryn Henning MD [address] [place], [place] [phone] Health Maintenance Due Date Last Done Comments [...] 6 AM EST AD-DETECT ABETA 42/40 AND [id number] EVALUATION, PLASMA Routine 02/12/2025 3:45 PM EST LIPID PANEL, STANDARD Routine 08/30/2024 9:09 AM [...] Uric Acid 7.3(H) 3.4 - 7.0 mg/dL [facility] 03/06/2025 7:00 AM EST 03/06/2025 7:12 AM EST Generic External Data Provider LAB BLOOD ORDERAB LES Final Result Performing Organization Address [facility]/ZIP Co de Phone Number [facility] [address] [place] [phone] * Phosphate (As Phosphorus) (03/06/2025 7:00 AM EST) Phosphorus 3.4 2.7 - 4.5 mg/dL [facility] 03/06/2025 7:00 AM EST 03/06/2025 7:12 AM EST Generic External Data Provider LAB BLOOD ORDERAB LES Final Result Performing Organization Address City/[facility]/ZIP Co de Phone Number [facility] [address] [place] [phone] * PTH, Intact Without Calcium (03/06/2025 7:00 AM EST) Parathyroid Hormone, Intact 47.4 8.7 - 77.1 pg/mL [facility] 03/06/2025 7:00 AM EST 03/06/2025 7:12 AM EST us Generic External Data Provider LAB BLOOD ORDERAB LES Final Result Performing Organization Address City/[facility]/ZIP Co de Phone Number [facility] [address] [place] [address] [phone] * Magnesium (03/06/2025 7:00 AM EST) Pathologist [facility] Magnesium 1.8 1.6 - 2.6 mg/dL [facility] 03/06/2025 7:00 AM EST 03/06/2025 7:12 AM EST Generic External Data Provider LAB BLOOD ORDERAB LES Final Result Performing Organization Address [facility] de Phone Number [facility] [address] [place] [address] [phone] * Comprehensive Metabolic Panel (03/06/2025 7:00 AM EST) Pathologist [facility] Sodium 140 135 - 145 mmol/L [facility] Potassium 4.3 3.3 - 5.1 mmol/L [facility] Chloride 107 96 - 108 mmol/L [facility] Carbon Dioxide 25 22 - 29 mmol/L [facility] Anion Gap 12 12 - 20 [facility] Urea Nitrogen (BUN) 15 9 - 16 mg/dL [facility] Creatinine, Serum 1.01 0.5 - 1.4 mg/dL [facility] Estimated Glomerular Filt Rate >60 [facility] Comment:Chronic Kidney Disea se: Estimated GFR < 60 mL/min/1.00g7Ixlkpw Kidney Disease: Estimated GFR < 15 mL/min/1.73m2 Glucose 96 60 - 115 mg/dL [facility] Calcium 9.2 8.4 - 10.2 mg/dL [facility] Bilirubin, Total 0.3 0.0 - 1.0 mg/dL [facility] Aspartate Amino Transferase 27 5 - 37 U/L [facility] Alanine Aminotransferase 23 0 - 40 U/L [facility] Total Protein 7.1 6.5 - 8.0 g/dL [facility] Albumin Level 4.3 3.5 - 5.0 g/dL [facility] Alkaline Phosphatase 116 39 - 117 U/L [facility] 03/06/2025 7:00 AM EST 03/06/2025 7:12 AM EST us Generic External Data Provider LAB BLOOD ORDERAB LES Final Result Performing Organization Address City/State/RUST Co de Phone Number [facility] [address] [place] [phone] * US Renal Complete (02/14/2025 5:26 AM EST) Anatomical Region Laterality Modality Kidney Ultrasound 02/14/2025 5:26 AM EST Narrative 02/14/2025 5:28 AM EST [address] [address] Ultrasound Report Signed Patient: John Aparicio MR#: [id number] : 1960 Acct:[id number] Age/Sex: 64 / M ADM Date: 02/13/25 Loc: HO.US Attending Dr: Shadi Goodman MD Ordering Physician: Shadi Goodman MD Date of Service: 02/13/25 Procedure(s): US renal BI Accession Number(s): [id number] cc: Shadi Goodman MD; Caryn Henning Reason for Exam: N20.0 - Calculus of kidney CLINICAL HISTORY: N20.0 - Calculus of kidney US Renal Comparison: CT/SR - CT UROGRAM - 10/05/24 13:43 EDT US/CO/SR - US RETROPERITONEUM - 07/14/24 15:27 EDT [...] in OV> 02/14/25526 DD/ 5 TD/TT: 02/14/25525 Divinity Teacher: Procedure Note Donotuseinterpreter, Image - 02/14/[address] [address] Ultrasound Report Signed Patient: Joe Aparicio#: [id number] : 1960Acct:[id number] Age/Sex: 64 / MADM Date: 02/13/25 Loc: HO.US Attending Dr: Shadi Goodman MD Ordering Physician: Shadi Goodman MD Date of Service: 02/13/25 Procedure(s): US renal BI Accession Number(s): [id number] cc: Shadi Goodman MD; aCryn Henning Reason for Exam: N20.0 - Calculus of kidney CLINICAL HISTORY: N20.0 - Calculus of kidney US Renal Comparison: CT/SR - CT UROGRAM - 10/05/24 13:43 EDT US/CO/SR - US RETROPERITONEUM - 07/14/24 15:27 EDT [...] in OV> 02/14/25526 DD/ 5 TD/TT: 02/14/25525 Divinity Teacher: us [facility] External Provider IMG US PROCEDURES Final Result * AD-Detect??? ABeta 42/40 and [id number] Evaluation, Plasma (02/12/2025 3:45 PM EST) Interpretation Low Likelihood [facility] Comment:This panel combines beta amyloid 42/40 and p-[id number] plasmascores to provide an assessment of the likelihood of amyloidplaque deposition in the brain. A score of less than 0.3254is consistent with a low likelihood of a positive amyloidPET scan in someone with cognitive impairment. Thisdetermination cannot diagnose Alzheimer's disease by itselfand should be used in combination with the patient'sclinical history and presentation.THIS TEST WAS PERFORMED AT:[employer] [id number] [place] [address]SNQDUMARY EAGLE MD,PHD,CHUCK AD Detect Likelihood Score 0.0185 [facility] Comment: Likelihood of amyloid PET positivity: Low Likelihood: <0.3254 Indeterminant: 0.3254-0.6460 High Likelihood: >0.6460The likelihood score for amyloid PET positivity wasdetermined by a calculation that included plasma ABeta42/40ratio and plasma p-Uom206, where ABeta42/40 is the ratio ofplasma ABeta42 [...] its analytical performancecharacteristics have been determined by [employer].It has not been cleared or approved by the FDA. This assayhas been validated pursuant to the CLIA regulations and isused for clinical purposes.THIS TEST WAS PERFORMED AT:[employer]/[address] [address]URLSZMARY EAGLE MD,PHD,CHUCK ABeta 42 39 pg/mL [facility] Comment:Reference Range: NOT ESTABLISHED ABeta 40 204 pg/mL [facility] Comment:Reference Range: NOT ESTABLISHED ABeta 42/40 Ratio 0.191 > OR = 0.170 [facility] Comment:THIS TEST WAS PERFOR MED AT:[employer] [address] [place] [address]PUXLFMARY EAGLE MD,PHD,CHUCK HESIODO AD-Detect [id number], Plasma 0.12 < OR = 0.15 pg/mL [facility] Comment:THIS TEST WAS PERFOR MED AT:[employer] [address]KSKVEMARY EAGLE MD,PHD,CHUCK 02/12/2025 3:45 PM EST 02/12/2025 3:45 PM EST us Generic External Data Provider LAB BLOOD ORDERAB LES Final Result [facility] [address] [place] [address] [phone] * (ABNORMAL) Lipid Panel, Standard (08/30/2024 9:09 AM EDT) Triglycerides 86 <150 mg/dL [facility] Comment:Desirable Triglyceri de: less than 150 mg/dLBorderline High Triglyceride 150-199 mg/dLHigh Triglyceride: 200-499 mg/dLVery High Triglyceride: greater than or equal to 5OO mg/dL Cholesterol 123 <200 mg/dL [facility] Comment:Desirable Cholestero l: less than 200 mg/dLBorderline High Cholesterol: 200-239 mg/dLHigh Cholesterol: greater than 239 mg/dL LDL Cholesterol Calculated 67 <100 mg/dL [facility] Comment:Desirable LDL: less than 100 mg/dLNear Optimal/Above Optimal LDL: 110- 129 mg/dLBorderline High LDL: 130-159 mg/dLHigh LDL: 160-189 mg/dLVery High LDL: greater than or equal to 190 mg/dL HDL Cholesterol 39(L) >40 mg/dL [facility] Comment:Desirable HDL: great er than 40 mg/dL Note: This HDL assay may give artificially low results in patients with liver disease. Blood Venous blood specimen / Unknown 08/30/2024 9:09 AM EDT 08/30/2024 11:10 AM EDT us Caryn Henning MD LAB BLOOD ORDERABLES Final Res ult [facility] [address] [place] [phone] * Cologuard?? colon cancer screening (06/29/2024 6:20 AM EDT) Cologuard Result Negative Negative 07/18/19 4:44 AM EDT [employer] (CLIA #:[id number]) Comment: NEGATIVE TEST RESULT. A negative Cologuard [...] (Thierry Andrea al, N Engl J Med 2014;370(14):3695-5411) The normal value (reference range) for this assay is negative. COLOGUARD RE-SCREENING RECOMMENDATION: Periodic colorectal cancer screening is an important part of preventive healthcare for asymptomatic individuals at average risk for colorectal cancer. Following a negative Cologuard result, the [place] [employer] Society and U.S. Multi-Society Task Force screening guidelines recommend a Cologuard re-screening interval of 3 years. References: [place] [employer] Guideline for Colorectal Cancer Screening: https://www.cancer.org/cancer/wcfsu-yhpuci-hfimdn/afemqoseo-pjzknmwvs-ibzydin/ac s-rec ommendations.html.; Angel DK, Malorie LEON, Jocelyne OdonnellK, Colorectal Cancer Screening: Recommendations for Physicians and Patients from the U.S. Multi-Society Task Force on Colorectal Cancer Screening , Am J Gastroenterology 2017; 112:2023-5361. TEST DESCRIPTION: Composite algorithmic analysis of stool [...] colonoscopy. (Thierry Bhatia, N Engl J Med 2014;370(14):2216-0480.) Cologuard may produce a false negative or false positive result (no colorectal cancer or precancerous polyp present at colonoscopy follow up). A negative Cologuard test result does not guarantee the absence of CRC or advanced adenoma (pre-cancer). The current Cologuard screening interval is every 3 years. ([employer] and U.S. Multi-Society Task Force). Cologuard performance data in a 10,000 patient pivotal study using colonoscopy as the reference method can be accessed at the following location: www.[employer].com/results. Additional description of the Cologuard test process, warnings and precautions can be found at www.cologProfitectrd.com. Stool specimen (specimen) 06/29/2024 6:20 AM EDT 07/01/2024 10:11 AM EDT us Caryn Henning MD LAB MOLECULAR DIAGNOSTICS JEFFREY SHAH Final Result [employer] (CLIA #:[id number]) [address] [place] [address], * (ABNORMAL) HEPATITIS C AB W/REFL TO HCV RNA, QN, PCR (07/10/2021 10:35 AM EDT) HEPATITIS C ANTIBODY REACTIVE( A) NON-REACT JAUN [facility] INDEX 3.21(H) <1.00 [facility] Comment: Based on this result, the sample will be tested for HCV RNA by a Nucleic Acid Amplification Test (NAAT) to determine if the patient has a current active infection. 07/10/2021 10:3 5 AM EDT us Yolanda Salgado MD HISTORICAL/NON ORDERA BLE LABS Final Result [facility] [address] [place] [address], * HIV 1/2 ANTIGEN/ANTIBODY,FOURTH GENERATION W/RFL (07/10/2021 10:35 AM EDT) HIV-1/2 ANTIGEN AND ANTIBODIES, 4TH GENERATION W/ REFLEX NON-REACT JAUN NON-REACT JAUN [facility] Comment: HIV-1 antigen and HIV-1/HIV-2 [...] purpose. For additional information please refer to http://education.[employer]/faq/IRL075 (This link is being provided for informational/ educational purposes only.) The performance of this assay has not been clinically validated in patients less than 2 years old. 07/10/2021 10:3 5 AM EDT Yolanda Salgado MD LAB BLOOD ORDERABLES Final Result Performing Organization Address City/State/[place] Co wi Phone Number [facility] Formerly [facility], [facility] [address] from Last 3 Months or Most Recently Relevant to Health Maintenance Insurance [facility] < 67 C[place]ELIA RICHEY [id number] Care Teams Corporate Development Intern Relationship Specialty Start Date End Date Caryn Henning MD [address] [place] [address] PCP - General Family Medicine 10/28/20
--- OUTSIDE RECORDS SUMMARY | 2025-03-24 09:28 | XMS_ITS | Encounter Summary ---
Author Organization [employer] Address [address] [facility] 7 [place] [address] Care Team Providers Care Strapping Machine Operator Name Role Phone Caryn Henning MD Primary Care Provider [phone] Reason for Visit * Reason Onset Date Comments Nurse Triage 08/26/2023 Encounter Details Date Type Department Care Team (Late st Contact Info) Description 08/26/2023 Telephone [facility] [address] [place], [place] [phone] Caryn Henning MD [address] [place], [place] [phone] Nurse Triage Social History Tobacco Use Types [...] acuity questions The caller accepted this outcome Irish speaker documented in this encounter Plan of Treatment Upcoming Encounters Date Type Department Care Team (Late st Contact Info) Description 04/18/2025 10:30 AM EST Office Visit [facility] [address] [place] [address] Caryn Henning MD [address] [place] [address] documented as of this encounter Visit Diagnoses Not on filedocumented in this encounter Additional Health Concerns Assessment Noted Time PHQ-9 Depression Total Score: 0 07/02/19 24 10:52 AM EDT documented as of this encounter Care Teams Strapping Machine Operator Relationship Specialty Start Date End Date Caryn Henning MD [address] [place] [phone] PCP - General Family Medicine 10/28/20 documented as of this encounter
--- OUTSIDE RECORDS SUMMARY | 2025-03-24 09:28 | XMS_ITS | Encounter Summary ---
Author Organization [employer] Address [address] [facility] 7 [place] [address] Care Team Providers Care Carpet Sewing Machine Operator Name Role Phone Caryn Henning MD Primary Care Provider [phone] Reason for Visit * Reason Onset Date Comments Med Refill 03/20/2024 Encounter Details Date Type Department Care Team (Late st Contact Info) Description 03/20/2024 Telephone [facility] [address] [place], [place] [phone] Caryn Henning MD [address] [place], [place] [phone] Med Refill Social History Tobacco Use Types [...] PM EST Vitamin D was sent to [facility] on 12/07/23 #90 with 3 refills and Oxybutynin isn't prescribed by PCP. * Telephone Encounter - Jacinta Manzanares - 03/20/2024 12:31 PM EST TC from pt requesting medication refill. Medications needing refill : D3 Super Strength 50 MCG (1999 UT) capsule oxybutynin XL (Ditropan-XL) 5 MG 24 hr tablet To be sent to: [facility] - [place], [place] - [address] [facility] documented in this encounter Plan of Treatment Upcoming Encounters Date Type Department Care Team (Late st Contact Info) Description 04/18/2025 10:30 AM EST Office Visit [facility] [address] [place] [address] Caryn Henning MD [address] [facility] [place] [address] documented as of this encounter Visit Diagnoses Not on filedocumented in this encounter Additional Health Concerns Assessment Noted Time PHQ-9 Depression Total Score: 0 07/02/19 24 10:52 AM EDT documented as of this encounter Care Teams Carpet Sewing Machine Operator Relationship Specialty Start Date End Date Caryn Henning MD [address] [place] [address] PCP - General Family Medicine 10/28/20 documented as of this encounter
--- OUTSIDE RECORDS SUMMARY | 2025-03-24 09:28 | XMS_ITS | Encounter Summary ---
Author Organization [employer] Address [address] [facility] 7 [place] [address] Care Team Providers Care Pipe Fitter Gas Pipe Name Role Phone Caryn Henning MD Primary Care Provider [phone] Encounter Details Date Type Department Care Team (Late st Contact Info) Description 12/21/2023 Orders Only [facility] [address] [place], [place] [phone] Caryn Henning MD [address] [place], [place] [phone] Social History Tobacco Use Types Packs/Day Years [...] Description 04/18/2025 10:30 AM EST Office Visit [facility] [address] [place], [place] [phone] Caryn Henning MD [address] [place] [address] documented as of this encounter Visit Diagnoses Not on filedocumented in this encounter Additional Health Concerns Assessment Noted Time PHQ-9 Depression Total Score: 0 07/02/19 24 10:52 AM EDT documented as of this encounter Care Teams Pipe Fitter Gas Pipe Relationship Specialty Start Date End Date Caryn Henning MD [address] [place] [address] PCP - General Family Medicine 10/28/20 documented as of this encounter
== END 2025-03-24 09:16 | disposition home or self-care (01) ==
LOC: HO.MRI 09:15
PROVIDERS: PCP General Practice; Visit Provider Nurse Practitioner
DX: R41.3 Other amnesia (principal)
CPT/HCPCS: 70551

== ENCOUNTER 2025-03-26 15:17 | Outpatient (AMB) | payer OTHER, SELFPAY ==
--- NOTE | 2025-03-26 15:24 | A.OFFVIS_ITS ---
Intake Visit Reasons: 12w/US (set)UA+PVR Intake Note: Patient is present for 12W/US/UA/PVR IMAGIN02/14/25 Urology Medication:NONE Antibiotic Allergy:PENICILLINS Blood Thinner:NONE Todays PVR:0ML'S Elementary Librarian Required: No Allergies aspirin (ASPIRIN) Allergy (Severe, Verified 03/26/25 15:26) SWELLING, rash Penicillins (PENICILLINS) Allergy (Severe, Verified 03/26/25 15:26) CONVULSIONS HPI Comments Details: 01/01/25--John is here for right ureteral stent removal. Procedure performed without difficulty. He will need follow-up renal ultrasound. We will also refer to nephrology for help with management of kidney stones. 10/19/24-John is a 64-year-old male history of schizophrenia disorder. The patient is here with his brother. He has been followed by urology office for BPH and overactive bladder symptoms. The patient was prescribed oxybutynin for urinary symptoms of frequency and urgency. He was seen last in the office 08/24/2024 at that time I reviewed renal ultrasound from 07/14/2024 which noted moderate right hydronephrosis CT was ordered for further evaluation. Results: 10/05/24-CT Urogram- 13 mm proximal right ureteral stone with hydronephrosis History of Present Illness - The patient is a 64-year-old male presenting with kidney stones and hydronephrosis. - The patient has a history of benign prostatic hyperplasia and overactive bladder, managed with medication adjustments, including the replacement of oxybutynin with mirabegron 50 mg. - A CT scan on 10/05/24 revealed a 13 mm proximal right ureteral stone causing hydronephrosis. - A renal ultrasound on 07/14/24 noted moderate right hydronephrosis, prompting further evaluation with a CT scan. - The patient's PSA level was 0.86 as of 08/30/24 Results - CT Scan (10/05/24): 13 mm proximal right ureteral stone with hydronephrosis. - Renal Ultrasound (07/14/24): Moderate right hydronephrosis. - PSA Level (08/30/24): 0.86, within normal range. Plan- cystoscopy right ureteral stent for right kidney decompression and we will follow-up for stone management. Monitor PVR. Consider alpha-chencho on follow-up 08/24/24--John is a 64-year-old male history of schizophrenia disorder. The patient is here with his brother. He has been followed by urology office for BPH and overactive bladder symptoms. The patient was prescribed oxybutynin for urinary symptoms of frequency and urgency. He has a history of GreenLight laser in 2017. He is here post renal ultrasound. Findings note right hydronephrosis right stones right kidney stones lower pole bladder ultrasound notes bilateral ureteral jets prostate is not well visualized. I have discussed further evaluation with CT urogram we will check BUN Results: - 07/14/24--Moderate right hydronephrosis and associated cortical thinning. Multiple nonobstructing calculi at the lower pole measuring up to . - Urinalysis today: Within normal limits, negative for blood 12/30/23--John is a 63-year-old male who presents today to the office for a follow-up. h/o Schizophrenia disorder he is here with his caregiver. 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 History of GreenLight laser [address] Granger for BPH. The caregiver states that the patient continues to drink a lot of water. He goes to the bathroom frequently but does not leak urine. I will continue oxybutynin 5 mg daily. Urinalysis: Essentially unremarkable. Renal US not done. Review of tests-- PSA - 07/02/23--0.55 ng/mL Cystoscopy - 2019 no evidence of regrowth PSA 07/2020 --0.4 PFSH Medical History Depression History of mental disorder Smoker HTN (hypertension) (~12/18/24) Hepatitis Syphilis Chronic GERD BPH w urinary obs/LUTS DAISY on CPAP Obesity (BMI 30-39.9) Surgical History Hx of cystoscopy History of bladder surgery History of laparotomy Hx of umbilical hernia repair Family History Father Heart disease Prostate cancer Alzheimer disease Mother Diabetes Social History Household Members: Other Alcohol intake: former Patient Tobacco Use Status: Former Tobacco user Tobacco use type: Cigarette Cigarettes Per Day: 2 Office Procedures Post Void Residual Post Residual Void Post Void Residual (PVR): 0 45612-Pqsi Void Residual by ultrasound Coding CPT Codes Post Residual Void - PVR CPT Code: 48650-[id number] Void Residual by ultrasound ([id number])
--- OUTSIDE RECORDS SUMMARY | 2025-03-26 18:24 | XMS_ITS | Encounter Summary ---
Author Organization [employer] Address [address] [facility] 7 [place] [address] Care Team Providers Care Acute Care Certified Nursing Assistant Name Role Phone Caryn Henning MD Primary Care Provider [phone] Encounter Details Date Type Department Care Team (Late st Contact Info) Description 01/21/2024 Orders Only [facility] MEDICINE [address] [place], [place] [phone] Caryn Henning MD [address] [place], [place] [phone] Social History Tobacco Use Types Packs/Day Years [...] [facility] [address] [place], [place] [phone] Caryn Henning MD [address] [place] [address] documented as of this encounter Visit Diagnoses Not on filedocumented in this encounter Additional Health Concerns Assessment Noted Time PHQ-9 Depression Total Score: 0 07/02/19 24 10:52 AM EDT documented as of this encounter Care Teams Acute Care Certified Nursing Assistant Relationship Specialty Start Date End Date Caryn Henning MD [address] [place] [address] PCP - General Family Medicine 10/28/20 documented as of this encounter
--- OUTSIDE RECORDS SUMMARY | 2025-03-26 18:24 | XMS_ITS | Encounter Summary ---
Author Organization [employer] Address [address] [facility] 7 [place] [address] Care Team Providers Care Portable Machine Sander Name Role Phone Caryn Henning MD Primary Care Provider [phone] Reason for Visit * Reason Onset Date Comments Med Refill 01/29/2025 Encounter Details Date Type Department Care Team (Late st Contact Info) Description 01/29/2025 Telephone [facility] MEDICINE [address] [place], [place] [phone] Caryn Henning MD [address] [place], [place] [phone] Med Refill Social History Tobacco Use Types [...] is your housing situation today? I have gabrilela ramirez 07/03/[address] you [...] the past 12 months, has t he [employer], gas, oil or water company threatened to [...] - 01/29/2025 3:32 PM EDT Medication to [facility] for refill script was sent on 08/29/24 #90 with 1 refill. * Telephone Encounter - Maribeth Crandall - 01/29/2025 3:24 PM EDT TC from pt requesting medication refill. Medications needing refill : - esomeprazole (NexIUM) [address] capsule To be sent to: - [facility] - [place], [place] - [address] [place] [address] documented in this encounter Plan of Treatment Upcoming Encounters Date Type Department Care Team (Late st Contact Info) Description 04/18/2025 10:30 AM EST Office Visit [facility] MEDICINE [address] [place] [address] Caryn Henning MD [address] [place] [phone] documented as of this encounter Visit Diagnoses Not on filedocumented in this encounter Additional Health Concerns Assessment Noted Time PHQ-9 Depression Total Score: 9 11/18/19 25 3:56 PM EDT documented as of this encounter Care Teams Portable Machine Sander Relationship Specialty Start Date End Date Caryn Henning MD [address] [place] [phone] PCP - General Family Medicine 10/28/20 documented as of this encounter
--- OUTSIDE RECORDS SUMMARY | 2025-03-26 18:24 | XMS_ITS | Encounter Summary ---
Author Organization [employer] Address [address] [facility] 7 [place] [address] Care Team Providers Care Aquatic Life Laborer Name Role Phone Caryn Henning MD Primary Care Provider [phone] Reason for Referral * Consultation (Routine) - Closed Specialty Diagnoses / Procedures Referred By Contac t Referred To Contact Gastroenterology Diagnoses Edentulous Dysphagia, unspecified type Caryn Henning MD [address] [place] [address] Phone: tel: fax: [facility] [address] [place] [address] [address] SHAHID [address] [place] [phone] Phone: tel: fax: Referral ID Status Reason Start Date Expiration Date V isits Requested Visits Authorized [id number] Closed Specialty Services Required 08/30/2024 08/30/2025 1 1 Encounter Details Date Type Department Care Team (Late st Contact Info) Description 08/30/2024 Orders Only [facility] MEDICINE [address] [place], [place] [phone] Caryn Henning MD [address] [place], [place] [phone] Edentulous (Primary Dx); Dysphagia, unspecified type Social [...] 10:30 AM EST Office Visit [facility] [address] [place] [address] Caryn Henning MD [address] [place] [address] Scheduled Referrals Name Type Priority Associated Diagnoses [...] PSA,Total (Free>4and<10) 0.86 0.00 - 4.00 ng/mL [facility] Comment:A Free PSA was not [...] Provider LAB BLOOD ORDERAB LES Final Result [facility] [address] [place] [address] [phone] documented in this encounter Visit Diagnoses Diagnosis Edentulous- Primary Anodontia Dysphagia, unspecified type documented in this encounter Additional Health Concerns Assessment Noted Time PHQ-9 Depression Total Score: 8 07/04/19 25 2:36 PM EDT documented as of this encounter Care Teams Aquatic Life Laborer Relationship Specialty Start Date End Date Caryn Henning MD [address] [place] [phone] PCP - General Family Medicine 10/28/20 documented as of this encounter
--- OUTSIDE RECORDS SUMMARY | 2025-03-26 18:25 | XMS_ITS | Encounter Summary ---
Author Organization [employer] Address [address] [facility] 7 [place] [address] Care Team Providers Care Fws Faculty Assistant Name Role Phone Caryn Henning MD Primary Care Provider [phone] Reason for Visit * Reason Onset Date Comments Appointment Request 10/13/2023 Encounter Details Date Type Department Care Team (Late st Contact Info) Description 10/13/2023 Telephone [facility] MEDICINE [address] [place], [place] [phone] Caryn Henning MD [address] [place], [place] [phone] Appointment Request Social History Tobacco Use Types [...] pt requesting to reschedule OV from 10/04. Seasonal Tax Preparer attempted to schedule but found no availability, pt requested for message to be sent stating needs appt as soon as possible. Please contact pt at [phone]. documented in this encounter Plan of Treatment Upcoming Encounters Date Type Department Care Team (Late st Contact Info) Description 04/18/2025 10:30 AM EST Office Visit [facility] MED[facility]INE [address] [place] [phone] Caryn Henning MD [address] [place] [address] documented as of this encounter Visit Diagnoses Not on filedocumented in this encounter Additional Health Concerns Assessment Noted Time PHQ-9 Depression Total Score: 0 07/02/19 24 10:52 AM EDT documented as of this encounter Care Teams Fws Faculty Assistant Relationship Specialty Start Date End Date Caryn Henning MD [address] [place] [phone] PCP - General Family Medicine 10/28/20 documented as of this encounter
--- OUTSIDE RECORDS SUMMARY | 2025-03-26 18:25 | XMS_ITS | Clinical Summary ---
Author Organization [employer] Address 75 [facility] 7t [place] [address] Care Team Providers Care Kickboxing Instructor Name Role Phone Caryn Henning MD Primary Care Provider [phone] Allergies Active Allergy Reactions Criticality Noted Date [...] 4 Active Vitamin A Palmitate 3 MG (49597 UT) tabletIndications: Vitamin A deficiency Take 1 [...] Active beta carotene (vitamin A) 3 MG (63864 UT) capsule Take 1 capsule by mouth [...] (09/14/2022 12:43 PM EDT): Gave [place] [facility] [place] [facility] [place] and instructed them to call GI and to be persistent. Edentulous 06/26/2022 Assessment & Plan (09/14/2022 12:42 PM EDT): Patient still waiting on SENIOR ACCOUNTANT CPA videofluoroscopic swallow study. Fatigue 03/05/2022 Gastroesophageal reflux [...] DEPARTMENT Provider, Generic External Data 02/18/2025 Refill [facility] [address] [place] [address] Caryn Henning MD 02/13/2025 Orders Only [facility] External Provider, [facility] 02/12/2025 Orders Only GENERIC EXTERNAL DATA DEPARTMENT Provider, Generic External Data 01/29/2025 Telephone [facility] [address] [place] [address] Caryn Henning MD Med Refill 01/08/2025 Refill [facility] [address] [place] [address] Caryn Henning MD 12/26/2024 Telephone [facility] [address] [place] [address] Caryn Henning MD Durable Medical Equipment (CCA [...] your housing situation today? I have gabriella raimrez 07/03/[address] you li [...] [facility] [address] [place] [address] Caryn Henning MD [address] [place], [place] [phone] Health Maintenance Due Date Last Done Comments [...] topic Meningococcal Vaccine Aged Out No maxim mairlyn eligible based on patient's age to complete this topic RSV under 20 months Aged Out No longe r eligible based on patient's age to complete this topic Rotavirus Vaccines Aged Out No longer eligible based on patient's age to complete this topic Procedures Procedure Name Priority Date/Time Associated Diagnosis Comments MR BRAIN WO CONTRAST Routine 03/24/2025 9:29 AM EST PTH, INTACT WITHOUT CALCIUM Routine 03/06/2025 7:00 AM EST MAGNESIUM Routine 03/06/2025 7:00 AM EST PHOSPHATE ( PHOSPHORUS) Routine 03/06/2025 7:00 AM EST URIC ACID Routine 03/06/2025 7:00 AM EST COMPREHENSIVE METABOLIC PANEL Routine 03/06/2025 7:00 AM EST US RENAL COMPLETE Routine 02/14/2025 5:2 6 AM EST AD-DETECT ABETA 42/40 AND [id number] EVALUATION, PLASMA Routine 02/12/2025 3:45 PM EST [...] Recently Relevant to Health Maintenance Results * MR Brain w/o Contrast (03/24/2025 9:29 AM EST) Anatomical Region Laterality Modality Brain Magnetic Resonan ce 03/24/2025 9:29 AM EST Narrative 03/26/2025 7:27 AM EST [place] [address] Magnetic Resonance Report Signed Patient: John Aparicio MR#: [id number] : 1960 Acct:[id number] Age/Sex: 64 / M ADM Date: 03/24/25 Loc: HO.MRI Attending Dr: Mariel Martinez CNP Ordering Physician: Mariel Martinez CNP Date of Service: 03/24/25 Procedure(s): MR head/brain wo con Accession Number(s): [id number] cc: Mariel Martinez CNP; Caryn Henning Reason for Exam: R41.3 - Other amnesia; MEMORY CHANGE EXAMINATION: MR BRAIN WITHOUT CONTRAST CLINICAL INFORMATION: Amnesia. Memory change. Bilateral decreased vision. COMPARISON: CT brain 08/22/2020 TECHNIQUE: MRI of the brain was obtained using routine sequences without contrast. FINDINGS: There is no restricted diffusion seen to suspect any acute ischemic changes. No paramagnetic susceptibility artifact to suspect acute or chronic hemorrhagic products. The butler to white matter differences maintained with punctate T2 FLAIR foci in the deep white matter of both cerebral hemispheres, nonspecific. There is no edema or midline shift. The lateral ventricles are symmetrical in size but mildly enlarged. The cortical sulci are symmetrical and normal. There is minimal mucoperiosteal thickening bilateral ethmoid sinuses. Rest of the paranasal sinuses and mastoid air cells are well-aerated. The cervical-medullary junction appears normal. The scalp soft tissues and calvarial bone marrow signal is normal. MR/MR head/brain wo con IMPRESSION: No acute intracranial process seen. Mild chronic bilateral ethmoid sinus inflammatory changes. Nonspecific few T2 FLAIR foci in the deep white matter of both cerebral hemispheres. Electronically signed by: Max Rivas MD 03/26/2025 07:23 AM EST Dictated By: Max Rivas MD Signed By: <Electronically signed by Max Rivas MD in OV> 03/26/25 0723 DD/ 8 TD/TT: 03/24/2548 Diesel Mechanic Construction: [facility] Procedure Note Donotuseinterpreter, Image - 03/26/2025 [place] [address] Magnetic Resonance Report Signed Patient: Joe Aparicio#: [id number] : 1960Acct:[id number] Age/Sex: 64 / MADM Date: 03/24/25 Loc: HO.MRI Attending Dr: Mariel Martinez CNP Ordering Physician: Mariel Martinez CNP Date of Service: 03/24/25 Procedure(s): MR head/brain wo con Accession Number(s): [id number] cc: Mariel Martinez CNP; Caryn Henning Reason for Exam: R41.3 - Other amnesia; MEMORY CHANGE EXAMINATION: MR BRAIN WITHOUT CONTRAST CLINICAL INFORMATION: Amnesia. Memory change. Bilateral decreased vision. COMPARISON: CT brain 08/22/2020 TECHNIQUE: MRI of the brain was obtained using routine sequences without contrast. FINDINGS: There is no restricted diffusion seen to suspect any acute ischemic changes. No paramagnetic susceptibility artifact to suspect acute or chronic hemorrhagic products. The butler to white matter differences maintained with punctate T2 FLAIR foci in the deep white matter of both cerebral hemispheres, nonspecific. There is no edema or midline shift. The lateral ventricles are symmetrical in size but mildly enlarged. The cortical sulci are symmetrical and normal. There is minimal mucoperiosteal thickening bilateral ethmoid sinuses. Rest of the paranasal sinuses and mastoid air cells are well-aerated. The cervical-medullary junction appears normal. The scalp soft tissues and calvarial bone marrow signal is normal. MR/MR head/brain wo con IMPRESSION: No acute intracranial process seen. Mild chronic bilateral ethmoid sinus inflammatory changes. Nonspecific few T2 FLAIR foci in the deep white matter of both cerebral hemispheres. Electronically signed by: Max Rivas MD 03/26/2025 07:23 AM EST Dictated By: Max Rivas MD Signed By: <Electronically signed by Max Rivas MD in OV> 03/26/25 0723 DD/ 8 TD/TT: 03/24/25 0948 Diesel Mechanic Construction: JORGE ALBERTO [facility] External Provider IMG MRI PROCEDURES Edited Result - Final * (ABNORMAL) Uric acid (03/06/2025 7:00 AM EST) Uric Acid 7.3(H) 3.4 - 7.0 mg/dL [facility] 03/06/2025 7:00 AM EST 03/06/2025 7:12 AM EST Generic External Data Provider LAB BLOOD ORDERAB LES Final Result Performing Organization Address [facility] Co de Phone Number [facility] [address] [place] [phone] * Phosphate (As Phosphorus) (03/06/2025 7:00 AM EST) Phosphorus 3.4 2.7 - 4.5 mg/dL [facility] 03/06/2025 7:00 AM EST 03/06/2025 7:12 AM EST Generic External Data Provider LAB BLOOD ORDERAB LES Final Result Performing Organization Address [facility] Co de Phone Number [facility] [address] [place] [phone] * PTH, Intact Without Calcium (03/06/2025 7:00 AM EST) Parathyroid Hormone, Intact 47.4 8.7 - 77.1 pg/mL [facility] 03/06/2025 7:00 AM EST 03/06/2025 7:12 AM EST Generic External Data Provider LAB BLOOD ORDERAB LES Final Result Performing Organization Address [facility]/ZIP Co de Phone Number [facility] [address] [place] [phone] * Magnesium (03/06/2025 7:00 AM EST) Magnesium 1.8 1.6 - 2.6 mg/dL [facility] 03/06/2025 7:00 AM EST 03/06/2025 7:12 AM EST Generic External Data Provider LAB BLOOD ORDERAB LES Final Result Performing Organization Address [facility]/ZIP Co de Phone Number [facility] [address] [place] [phone] * Comprehensive Metabolic Panel (03/06/2025 7:00 AM EST) Sodium 140 135 - 145 mmol/L [facility] Potassium 4.3 3.3 - 5.1 mmol/L [facility] Chloride 107 96 - 108 mmol/L [facility] Carbon Dioxide 25 22 - 29 mmol/L [facility] Anion Gap 12 12 - 20 [facility] Urea Nitrogen (BUN) 15 9 - 16 mg/dL [facility] Creatinine, Serum 1.01 0.5 - 1.4 mg/dL [facility] Estimated Glomerular Filt Rate >60 [facility] Comment:Chronic Kidney Disea se: Estimated GFR < 60 mL/min/1.74b2Zymury Kidney Disease: Estimated GFR < 15 mL/min/1.73m2 Glucose 96 60 - 115 mg/dL [facility] Calcium 9.2 8.4 - 10.2 mg/dL [facility] Bilirubin, Total 0.3 0.0 - 1.0 mg/dL [facility] Aspartate Amino Transferase 27 5 - 37 U/L [facility] Alanine Aminotransferase 23 0 - 40 U/L [facility] Total Protein 7.1 6.5 - 8.0 g/dL [facility] Albumin Level 4.3 3.5 - 5.0 g/dL [facility] Alkaline Phosphatase 116 39 - 117 U/L [facility] 03/06/2025 7:00 AM EST 03/06/2025 7:12 AM EST us Generic External Data Provider LAB BLOOD ORDERAB LES Final Result Performing Organization Address City/State/[facility] de Phone Number [facility] [address] [place] [phone] * US Renal Complete (02/14/2025 5:26 AM EST) Anatomical Region Laterality Modality Kidney Ultrasound 02/14/2025 5:26 AM EST Narrative 02/14/2025 5:28 AM EST [address] [address] Ultrasound Report Signed Patient: John Aparicio MR#: [id number] : 1960 Acct:[id number] Age/Sex: 64 / M ADM Date: 02/13/25 Loc: HO.US Attending Dr: Shadi Goodman MD Ordering Physician: Shadi Goodman MD Date of Service: 02/13/25 Procedure(s): US renal BI Accession Number(s): [id number] cc: Shadi Goodman MD; Caryn Henning Reason for Exam: N20.0 - Calculus of kidney CLINICAL HISTORY: N20.0 - Calculus of kidney US Renal Comparison: CT/SR - CT UROGRAM - 10/05/24 13:43 EDT US/[place]/SR - US RETROPERITONEUM - 07/14/24 15:27 EDT [...] in OV> 02/14/25526 DD/ 5 TD/TT: 02/14/25525 Diesel Mechanic Construction: Procedure Note Donotuseinterpreter, Image - 02/14/2025 [place] [address] Ultrasound Report Signed Patient: Joe Aparicio#: MM [id number] : 1960Acct:[id number] Age/Sex: 64 / MADM Date: 02/13/25 Loc: HO.US Attending Dr: Shadi Goodman MD Ordering Physician: Shadi Goodman MD Date of Service: 02/13/25 Procedure(s): US renal BI Accession Number(s): [id number] cc: Shadi Goodman MD; Caryn Henning Reason for Exam: N20.0 - Calculus of kidney CLINICAL HISTORY: N20.0 - Calculus of kidney US Renal Comparison: CT/SR - CT UROGRAM - 10/05/24 13:43 EDT US/[place]/SR - US RETROPERITONEUM - 07/14/24 15:27 EDT [...] in OV> 02/14/25526 DD/ 5 TD/TT: 02/14/25525 Diesel Mechanic Construction: us [facility] External Provider IMG US PROCEDURES Final Result * AD-Detect??? ABeta 42/40 and [id number] Evaluation, Plasma (02/12/2025 3:45 PM EST) Interpretation Low Likelihood [facility] Comment:This panel combines beta amyloid 42/40 and [id number] plasmascores to provide an assessment of the likelihood of amyloidplaque deposition in the brain. A score of less than 0.3254is consistent with a low likelihood of a positive amyloidPET scan in someone with cognitive impairment. Thisdetermination cannot diagnose Alzheimer's disease by itselfand should be used in combination with the patient'sclinical history and presentation.THIS TEST WAS PERFORMED AT:[employer] [id number] [place] [id number] EAGLE MD,PHD,CHUCK AD Detect Likelihood Score 0.0185 [facility] Comment: Likelihood of amyloid PET positivity: Low Likelihood: <0.3254 Indeterminant: 0.3254-0.6460 High Likelihood: >0.6460The likelihood score for amyloid PET positivity wasdetermined by a calculation that included plasma ABeta42/40ratio and plasma p-Fuf353, where ABeta42/40 is the ratio ofplasma ABeta42 [...] its analytical performancecharacteristics have been determined by [employer].It has not been cleared or approved by the FDA. This assayhas been validated pursuant to the CLIA regulations and isused for clinical purposes.THIS TEST WAS PERFORMED AT:[employer]/ROSETTE [id number] JORDAN [id number] EAGLE MD,PHD,CHUCK ABeta 42 39 pg/mL [facility] Comment:Reference Range: NO T ESTABLISHED ABeta 40 204 pg/mL [facility] Comment:Reference Range: NOT ESTABLISHED ABeta 42/40 Ratio 0.191 > OR = 0.170 [facility] Comment:THIS TEST WAS PERFOR MED AT:[employer]/ROSETTE [id number] JORDAN [id number] EAGLE MD,PHD,CHUCK Sassor AD-Detect p-[id number], Plasma 0.12 < OR = 0.15 pg/mL [facility] Comment:THIS TEST WAS PERFOR MED AT:[employer]/ROSETTE BOGGSC3AVERY PATEL [id number] EAGLE MD,PHD,CHUCK 02/12/2025 3:45 PM EST 02/12/2025 3:45 PM EST us Generic External Data Provider LAB BLOOD ORDERAB LES Final Result [facility] [address] [place] [phone] * (ABNORMAL) Lipid Panel, Standard (08/30/2024 9:09 AM EDT) Triglycerides 86 <150 mg/dL [facility] Comment:Desirable Triglyceri de: less than 150 mg/dLBorderline High Triglyceride 150-199 mg/dLHigh Triglyceride: 200-499 mg/dLVery High Triglyceride: greater than or equal to 5OO mg/dL Cholesterol 123 <200 mg/dL [facility] Comment:Desirable Cholestero l: less than 200 mg/dLBorderline High Cholesterol: 200-239 mg/dLHigh Cholesterol: greater than 239 mg/dL LDL Cholesterol Calculated 67 <100 mg/dL [facility] Comment:Desirable LDL: less than 100 mg/dLNear Optimal/Above Optimal LDL: 110- 129 mg/dLBorderline High LDL: 130-159 mg/dLHigh LDL: 160-189 mg/dLVery High LDL: greater than or equal to 190 mg/dL HDL Cholesterol 39(L) >40 mg/dL [facility] Comment:Desirable HDL: great er than 40 mg/dL Note: This HDL assay may give artificially low results in patients with liver disease. Blood Venous blood specimen / Unknown 08/30/2024 9:09 AM EDT 08/30/2024 11:10 AM EDT us Caryn Henning MD LAB BLOOD ORDERABLES Final Res ult [facility] [address] [place] [phone] [phone] * Cologuard?? colon cancer screening (06/29/2024 6:20 AM EDT) Cologuard Result Negative Negative 07/18/19 4:44 AM EDT [facility] (CLIA #:[id number]) Comment: NEGATIVE TEST RESULT. A negative Cologuard [...] Nunn et al, N Engl J Med 2014;370(14):7009-9886) The normal value (reference range) for this assay is negative. COLOGUARD RE-SCREENING RECOMMENDATION: Periodic colorectal cancer screening is an important part of preventive healthcare for asymptomatic individuals at average risk for colorectal cancer. Following a negative Cologuard result, the [place] [employer] Society and U.S. Multi-Society Task Force screening guidelines recommend a Cologuard re-screening interval of 3 years. References: [place] [employer] Guideline for Colorectal Cancer Screening: https://www.cancer.org/cancer/ouhxl-bnnhgq-znxxdw/dkavcpohr-cbvegxbkl-iyqghsw/ac s-rec ommendations.html.; Angel DK, Malorie CR, Jocelyne OdonnellK, Colorectal Cancer Screening: Recommendations for Physicians and Patients from the U.S. Multi-Society Task Force on Colorectal Cancer Screening , Am J Gastroenterology 2017; 112:3431-1042. TEST DESCRIPTION: Composite algorithmic analysis of stool [...] (Thierry Andrea al, N Engl J Med 2014;370(14):2567-3504.) Cologuard may produce a false negative or false positive result (no colorectal cancer or precancerous polyp present at colonoscopy follow up). A negative Cologuard test result does not guarantee the absence of CRC or advanced adenoma (pre-cancer). The current Cologuard screening interval is every 3 years. ([place] [employer] and U.S. Multi-Society Task Force). Cologuard performance data in a 10,000 patient pivotal study using colonoscopy as the reference method can be accessed at the following location: www.[employer]/results. Additional description of the Cologuard test process, warnings and precautions can be found at www.[employer]KI.[employer]rd.[employer]. Stool specimen (specimen) 06/29/2024 6:20 AM EDT 07/01/2024 10:11 AM EDT us Caryn Henning MD LAB MOLECULAR DIAGNOSTICS JEFFREY SHAH Final Result Performing Organization Address City/State/[facility] Co de Phone Number [facility] (CLIA #:[id number]) [phone] [address], * (ABNORMAL) HEPATITIS C AB W/REFL TO [...] HISTORICAL/NON ORDERA BLE LABS Final Result [facility] [address] * HIV 1/2 ANTIGEN/ANTIBODY,FOURTH GENERATION W/RFL (07/10/2021 10:35 AM EDT) HIV-1/2 ANTIGEN AND ANTIBODIES, 4TH GENERATION W/ REFLEX NON-REACT JAUN NON-REACT JAUN [facility] Comment: HIV-1 antigen and HIV-1/HIV-2 [...] purpose. For additional information please refer to http://education.[employer]/faq/RDG554 (This link is being provided for informational/ educational purposes only.) The performance of this assay has not been clinically validated in patients less than 2 years old. 07/10/2021 10:3 5 AM EDT Yolanda Salgado MD LAB BLOOD ORDERABLES Final Result Performing Organization Address [facility] de Phone Number [facility] [address] from Last 3 Months or Most Recently Relevant to Health Maintenance Insurance [facility] ONE CARE < 65 Care Teams Kickboxing Instructor Relationship Specialty Start Date End Date Caryn Henning MD [address] [place] [phone] PCP - General Family Medicine 10/28/20
--- OUTSIDE RECORDS SUMMARY | 2025-03-26 18:25 | XMS_ITS | Encounter Summary ---
Author Organization [employer] Address [address] [facility] 7t [place] [address] Care Team Providers Care Airway Controller Name Role Phone Caryn Henning MD Primary Care Provider Encounter Details Date Type Department Care Team (Late st Contact Info) Description 04/29/2023 Telephone [facility] [address] [place], [place] [phone] Caryn Henning MD [address] [place], [place] [phone] Social History Tobacco Use Types Packs/Day Years [...] Description 04/18/2025 10:30 AM EST Office Visit [facility] [address] [place] [address] Caryn Henning MD [address] [place], [place] [phone] documented as of this encounter Visit Diagnoses Not on filedocumented in this encounter Care Teams Airway Controller Relationship Specialty Start Date End Date Caryn Henning MD [address] [place] [phone] PCP - General Family Medicine 10/28/20 documented as of this encounter
--- OUTSIDE RECORDS SUMMARY | 2025-03-26 18:25 | XMS_ITS | Encounter Summary ---
Author Organization [employer] Address 75 [facility] 7 [place] [address] Care Team Providers Care Polisher Apprentice Name Role Phone Caryn Henning MD Primary Care Provider [phone] Reason for Visit * Reason Onset Date Comments Nurse Triage 08/26/2023 Encounter Details Date Type Department Care Team (Late st Contact Info) Description 08/26/2023 Telephone [facility] [address] [place], [place] [phone] Caryn Henning MD [address] [place], [place] [phone] Nurse Triage Social History Tobacco Use Types [...] acuity questions The caller accepted this outcome Arabic speaker documented in this encounter Plan of Treatment Upcoming Encounters Date Type Department Care Team (Late st Contact Info) Description 04/18/2025 10:30 AM EST Office Visit [facility] [address] [place] [address] Caryn Henning MD [address] [place] [address] documented as of this encounter Visit Diagnoses Not on filedocumented in this encounter Additional Health Concerns Assessment Noted Time PHQ-9 Depression Total Score: 0 07/02/19 24 10:52 AM EDT documented as of this encounter Care Teams Polisher Apprentice Relationship Specialty Start Date End Date Caryn Henning MD [address] [place] [phone] PCP - General Family Medicine 10/28/20 documented as of this encounter
--- OUTSIDE RECORDS SUMMARY | 2025-03-26 18:25 | XMS_ITS | Encounter Summary ---
Author Organization [employer] Address 75 [facility] 7 [place] [address] Care Team Providers Care Senior Administrative Associate Name Role Phone Caryn Henning MD Primary Care Provider [phone] Encounter Details Date Type Department Care Team (Late st Contact Info) Description 12/21/2023 Orders Only [facility] [address] [place], [place] [phone] Caryn Henning MD [address] [place], [place] [phone] Social History Tobacco Use Types Packs/Day Years [...] 04/18/2025 10:30 AM EST Office Visit [facility] [address] [place], [place] [phone] Caryn Henning MD [address] [place] [address] documented as of this encounter Visit Diagnoses Not on filedocumented in this encounter Additional Health Concerns Assessment Noted Time PHQ-9 Depression Total Score: 0 07/02/19 24 10:52 AM EDT documented as of this encounter Care Teams Senior Administrative Associate Relationship Specialty Start Date End Date Caryn Henning MD [address] [place] [phone] PCP - General Family Medicine 10/28/20 documented as of this encounter
--- OUTSIDE RECORDS SUMMARY | 2025-03-26 18:25 | XMS_ITS | Encounter Summary ---
Author Organization [employer] Address [address] [place] [address] 7 [place] [address] Care Team Providers Care Animal Eviscerator Name Role Phone Caryn Henning MD Primary Care Provider Reason for Visit * Reason Comments Med Refill Encounter Details Date Type Department Care Team (Late Contact Info) Description 11/30/2022 Refill [facility] [address] [place] [phone] Caryn Henning MD [address] [place] [address] [phone] Social History Tobacco Use Types Packs/Day Years [...] Description 04/18/2025 10:30 AM EST Office Visit [facility] [address] [place] [address] [phone] Caryn Henning MD [address] [place] [address] [phone] documented as of this encounter Visit Diagnoses Not on filedocumented in this encounter Care Teams Animal Eviscerator Relationship Specialty Start Date End Date Caryn Henning MD [address] [place] [address] PCP - General Family Medicine 10/28/20 documented as of this encounter
--- OUTSIDE RECORDS SUMMARY | 2025-03-26 18:25 | XMS_ITS | Encounter Summary ---
Author Organization [employer] Address [address] [facility] 7t [place] [address] Care Team Providers Care Window Treatment Installer Name Role Phone Caryn Henning MD Primary Care Provider Encounter Details Date Type Department Care Team (Late st Contact Info) Description 05/19/2023 Telephone [facility] [address] [place], [place] [phone] Caryn Henning MD [address] [place], [place] [phone] Social History Tobacco Use Types Packs/Day Years [...] 04/18/2025 10:30 AM EST Office Visit [facility] [address] [place] [address] Caryn Henning MD [address] [place], [place] [phone] documented as of this encounter Visit Diagnoses Not on filedocumented in this encounter Care Teams Window Treatment Installer Relationship Specialty Start Date End Date Caryn Henning MD [address] [place] [address] [phone] PCP - General Family Medicine 10/28/20 documented as of this encounter
--- OUTSIDE RECORDS SUMMARY | 2025-03-26 18:25 | XMS_ITS | Encounter Summary ---
Author Organization [facility] Address [address] [facility] 7 [place] [address] Care Team Providers Care Brush Maker Name Role Phone Caryn Henning MD Primary Care Provider [phone] Reason for Visit * Reason Onset Date Comments Med Refill 03/20/2024 Encounter Details Date Type Department Care Team (Late st Contact Info) Description 03/20/2024 Telephone [facility] [address] [place], [place] [phone] Caryn Henning MD [address] [place], [place] [phone] Med Refill Social History Tobacco Use Types [...] PM EST Vitamin D was sent to [facility] on 12/07/23 #90 with 3 refills and Oxybutynin isn't prescribed by PCP. * Telephone Encounter - Jacinta Manzanares - 03/20/2024 12:31 PM EST TC from pt requesting medication refill. Medications needing refill : D3 Super Strength 50 MCG (1999 UT) capsule oxybutynin XL (Ditropan-XL) 5 MG 24 hr tablet To be sent to: [facility] - [place], [place] - [address] [facility] documented in this encounter Plan of Treatment Upcoming Encounters Date Type Department Care Team (Late st Contact Info) Description 04/18/2025 10:30 AM EST Office Visit [facility] [address] [place] [address] Caryn Henning MD [address] [facility] [place] [address] documented as of this encounter Visit Diagnoses Not on filedocumented in this encounter Additional Health Concerns Assessment Noted Time PHQ-9 Depression Total Score: 0 07/02/19 24 10:52 AM EDT documented as of this encounter Care Teams Brush Maker Relationship Specialty Start Date End Date Caryn Henning MD [address] [place] [address] PCP - General Family Medicine 10/28/20 documented as of this encounter
--- OUTSIDE RECORDS SUMMARY | 2025-03-26 18:25 | XMS_ITS | Clinical Summary ---
Author Organization [address] [facility] Address [address] [place] [address] Phone Care Team Providers Care Undergraduate Internship Name Role Phone Caryn Henning MD Primary Care Provider [phone] Allergies Active Allergy Reactions Criticality Noted Date [...] 10:15 AM EST Office Visit [facility] [address] [phone] Fransico Owusu DPM Acquired hammer toe of right foot (Primary Dx); Hammer toe of left foot; Dermatophytosis of nail; Ingrowing nail; Pain in toe of right foot; Difficulty walking; Pain in toe of left foot 01/31/2025 10:45 AM EDT Office Visit [facility] [address] [phone] Fransico Owusu DPM Acquired hammer toe of [...] AM EST Office Visit Orthopedic Surgery - [place] [address] [phone] Fransico Owusu DPM [address] [phone] Health Maintenance Due Date Last Done Comments [...] age to complete this topic Insurance [facility] MEDICARE Member Subscriber Plan / Payer (Ef fective 2017-Present) Name:JAGUAR CHAVIS Relation to Subscriber:Self Name:Jaguar Crandall Payer ID:[id number] Group ID:[id number] Type:Not on file Address: [facility] [address] [phone] Care Teams Undergraduate Internship Relationship Specialty Start Date End Date Caryn Henning MD [address] [place] [id number] [facility] - General 07/07/23
== END 2025-03-26 15:56 | disposition home or self-care (01) ==
LOC: HO.HUSH 15:17
PROVIDERS: PCP General Practice; Visit Provider Urology
DX: Z13.9 Encounter for screening, unspecified (principal)

== ENCOUNTER → 2025-03-26 15:17 | Outpatient (BNVA) | payer OTHER, SELFPAY | PROVIDERS: PCP General Practice; Visit Provider Urology | DX: Z46.6 Encounter for fitting and adjustment of urinary device (principal); Z13.9 Encounter for screening, unspecified | CPT/HCPCS: 51798; 81003 ==